=== PATIENT | female | born 1950 | race Caucasian/White ===

== ENCOUNTER 2024-03-07 10:01 | Day surgery (SDC) | payer MEDICARE, SELFPAY ==
[2024-03-02 09:04] VITALS: BMI 52.0
[2024-03-03 08:57] VITALS: BMI 52.0
--- NOTE | 2024-03-03 14:33 | P.CONAN_ITS ---
HPI - Anesthesia Eval Consult details Narrative: 73yo F for Right Cataract Extraction IOL Insertion No previous cataract PMFSH Past Medical History Medical History (Updated 03/03/24 @ 08:56 by Joann Castillo RN) Mild dementia Bladder incontinence Severe obesity Seborrheic keratoses Neoplasm of skin of lower leg Chronic ulcer of buttock Multiple sclerosis Diabetes HTN (hypertension) Surgical History Surgical History History of surgery Social History Social History Are you a primary personal care aid to a significant other at home: No Do you presently have visiting nurse or other home services: Yes ([employer] due to MS, 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) Comment: wheelchair [id number] stand/pivot, cannot ambulate Patient Tobacco Use Status: Former Tobacco user Tobacco use type: Cigarette Use of substances other than those prescribed or required for medical reasons: No Advance Directives Information Provided: No Recently lost weight without trying: No Eating poorly because of decreased appetite: No Nutrition Risks: No Nutritional Risk Meds Allergies Allergy/AdvReac Type Severity Reaction Status Date / Time Penicillins Allergy Intermediate Rash Verified 03/02/24 09:06 Home Medications ?Medication ?Instructions ?Recorded ?Confirmed ?Last Taken ?Type ascorbic acid (vitamin C) 1,000 mg 1,000 mg PO DAILY 03/03/24 03/07/24 03/06/24 History tablet (Vitamin C) chlorthalidone 25 mg tablet 25 mg PO DAILY 03/03/24 03/07/24 03/06/24 History cholecalciferol (vitamin D3) 25 25 mcg PO DAILY 03/03/24 03/07/24 03/06/24 History mcg (1,000 unit) capsule (Vitamin D3) cyanocobalamin (vitamin B-12) 500 500 mcg PO DAILY 03/03/24 03/07/24 03/06/24 History mcg tablet (Vitamin B-12) metformin 1,000 mg tablet 1,000 mg PO BID 03/03/24 03/07/24 03/06/24 History mirabegron 50 mg tablet,extended 50 mg PO DAILY 03/03/24 03/07/24 03/06/24 History release 24 hr (Myrbetriq) nystatin 100,000 unit/gram topical 1 appl topical BID 03/03/24 03/03/24 Unknown History powder sertraline 25 mg tablet 25 mg PO DAILY 03/03/24 03/07/24 03/06/24 History sulfamethoxazole 800 1 tab PO BID 03/03/24 03/03/24 Unknown History mg-trimethoprim 160 mg tablet tacrolimus 0.1 % topical ointment 1 appl topical BID 03/03/24 03/03/24 Unknown History Exam Height,Weight and Vital Signs: Height 5 ft 2.2 in Weight 129.727 kg Assessment and Plan Assessment Anesthesia Assessment: Chart Reviewed
--- OUTSIDE RECORDS SUMMARY | 2024-03-07 10:04 | XMS_ITS | Continuity of Care Document ---
Author Organization [facility] Address [address] [place] [address]- Care Team Providers Care Stevedore Hold Name Role Phone Tracy Chase MD Primary Care Physician ( [phone] [place] [facility] [place] - 11/02/[address] [address]- Encounter Diagnosis Confusion(Final) - 11/01/20 Dementia(Final) - 11/01/20 MS (multiple sclerosis)(Final) - 11/01/20 UTI (urinary tract infection)(Final) - 11/01/20 Discharge Disposition: A-D/C Home Attending Physician: Clive Mayen MD Admitting Physician: Clive Mayen MD Referring Physician: Not on Staff, Referring MD Allergies, Adverse Reactions, Alerts Substance Reaction Severity Status penicillins rash Active Immunizations Given and Recorded Vaccine Date Status Refusal Reason SARS-CoV-2 (COVID-19) mRNA-1273 vaccine 1 09/30/20 Recorded SARS-CoV-2 (COVID-19) mRNA-1273 vaccine 2 09/02/20 Recorded pneumococcal 13-valent vaccine 3 03/21/20 Recorded Influenza Virus Vaccine (oldterm) 4 03/21/20 Recor ded 1[facility] Comment[facility] 4[facility] Comment[facility] Medications Beside Commode Beside Commode, See Instructions, # 1 units, Refills 0, Tot. Refills 0, Maintenance, Use as instructed Dx: Urinary incontinence secondary to multiple sclerosis and limited mobility, 04/20/18 16:37:59EDT, Compound Start Date: 04/20/18 Status: Ordered chlorthalidone 25 mg oral tablet 25 mg, 1, tablet, By Mouth, Daily, # 90 tablet, Refills 1, Tot. Refills 1, Soft Stop, 08/16/20 14:16:00 EST, Route to Pharmacy Electronically, [facility]/pharmacy #[id number], 165, cm, 08/07/20 13:53:00 EST, Height, 98.1, kg, 09/20/19 2:16:00 EDT, Dry Weight Start Date: 08/16/20 Stop Date: 02/12/21 Status: Ordered Disposable bed chux Disposable bed chux, See Instructions, # 90 each, Refills 5, Tot. Refills 5, Maintenance, Use as instructed on bed Dx: Urinary incontinence secondary to Multiple Sclerosis and limited mobility, 04/20/18 16:37:58 EDT, Compound Start Date: 04/20/18 Status: Ordered Fluzone High-Dose Quadrivalent intramuscular suspension 0.7 mL, Intramuscular, Once, # 0.7 mL, 0 Refills, Maintenance, 04/02/20 14:57:00 EDT, Suspension Start Date: 04/02/20 Status: Ordered Keflex monohydrate 500 mg oral capsule 1 capsule = 500 mg, By Mouth, 4 times a day, for 7 days, # 28 capsule, 0 Refills, Acute 11/09/20 2:32:00 EDT, 11/02/20 2:32:00 EDT, Capsule, [facility]/pharmacy #[id number], Partial fill upon patient request if the prescription is for a schedule II opioid drug., 1... Start Date: 11/02/20 Stop Date: 11/09/20 Status: Ordered Mepilex 6 x 6 dressing supply Mepilex 6 x 6 dressing supply, See Instructions, # 12 pack/packet, Refills 2, Tot. Refills 2, Maintenance, Apply to decubitus ulcer in coccyx region every 3 days Dx: Decubitus ulcer ICD 10: L89.90, 10/30/20 12:54:00 EDT, Compound Start Date: 10/30/20 Status: Ordered metFORMIN 1000 mg oral tablet 1 tablet = 1,000 mg, By Mouth, 2 times a day, # 180 tablet, 2 Refills, Maintenance, 09/07/20 12:38:00 EST, Tablet, [facility]/pharmacy #[id number], 165, cm, 08/07/20 13:53:00 EST, Height, 98.1, kg, 09/20/19 2:16:00 EDT, Dry Weight Start Date: 09/07/20 Status: Ordered methenamine hippurate 1 gm oral tablet 1 tablet = 1 Gm, By Mouth, 2 times a day, Prescribed by urology, # 10 tablet, 0 Refills, Maintenance, 04/21/18 12:50:45 EDT, Tablet Start Date: 04/21/18 Stop Date: 05/21/18 Status: Ordered Myrbetriq 50 mg oral tablet, extended release 1 tablet = 50 mg, By Mouth, Daily, do not crush or chew Prescribed by urology, # 30 tablet, 0 Refills, Maintenance, 04/21/18 12:50:17 EDT, ER Tablet Start Date: 04/21/18 Status: Ordered nystatin topical 065095 u/gm powder See Instructions, APPLY TO AFFECTED AREA TWICE A DAY, # 60 Gm, 1 Refills, Acute, [facility] STORE [id number], 60, APPLY TO AFFECTED AREA TWICE A DAY, 165, cm, 08/07/20 13:53:00 EST, Height, 98.1, kg, 09/20/19 2:16:00 EDT, Dry Weight Start Date: 10/17/20 Status: Ordered Ocrevus 300 mg/10 mL intravenous solution IV Infusion, Every 6 weeks, 0 Refills, Maintenance, 01/07/18 15:37:20 EDT Start Date: 01/07/18 Status: Ordered One Touch Ultra Test Strips See Instructions, # 100 each, Refills 3, Tot. Refills 3, Maintenance, DM E11.9 Use to test blood sugars once daily due to being non-insulin dependant, 07/08/20 5:37:00 EST, DM E11.9; Disregard previous script with 3 refills, Compound, 165, cm, 06/11/... Start Date: 07/08/20 Status: Ordered oxyCODONE 5 mg oral tablet 5 mg, 1, tablet, By Mouth, 3 times a day, for 28 days, # 84 tablet, Refills 0, Tot. Refills 0, Acute 11/30/20 12:33:00 EDT, 11/02/20 12:33:00 EDT, Route to Pharmacy Electronically, [facility]/pharmacy #[id number], Partial fill upon patient request, 11/05/20, 165,... Start Date: 11/02/20 Stop Date: 11/30/20 Status: Ordered Prevnar 13 intramuscular suspension 0.5 mL, Intramuscular, Once, # 1 each, 0 Refills, Maintenance, 04/02/20 14:58:00 EDT, Suspension Start Date: 04/02/20 Status: Ordered sertraline 25 mg oral tablet 1 tablet = 25 mg, By Mouth, Daily, # 30 tablet, 0 Refills, Maintenance, 04/02/20 14:57:00 EDT, Tablet Start Date: 04/02/20 Status: Ordered Shower Chair See Instructions, # 1 each, Maintenance, USe as instructed when showering for safety Dx: MS, Poor mobility secomdary to MS, 10/03/19 14:31:00 EDT, Compound Start Date: 10/03/19 Status: Ordered Vitamin B12 500 mcg oral tablet 1 tablet = 500 mcg, By Mouth, Daily, # 30 tablet, 0 Refills, Maintenance, 02/14/16 14:34:49, Tablet Start Date: 02/14/16 Status: Ordered Vitamin D3 1000 intl units oral capsule 1 capsule = 1,000 International_Units, By Mouth, Daily, # 100 capsule, 1 Refills, Maintenance, 06/12/20 15:51:00 EST, Capsule, [id number], decrease dose, re sent from 06/30/17, 165, cm, 06/11/20 15:47:00 EST, Height, 98.1, kg, 09/20/19 2:16:00 E... Start Date: 06/12/20 Status: Ordered zinc oxide 20% topical paste 1 application, Topically, 2 times a day, # 170 Gm, 1 Refills, Maintenance, 10/05/20 12:20:00 EDT, Paste, [id number], 1 application Topically 2 times a day,x14 days, 165, cm, 08/07/20 13:53:00EST, Height, 98.1, kg, 09/20/19 2:16:00 EDT, Dry We... Start Date: 10/05/20 Stop Date: 11/02/20 Status: Ordered Problem List Condition Effective Dates Status Health Status Inform ant Gait disturbance(Confirmed) Active Actinic keratosis(Confirmed) 1, 2 Active Chronic ulcer of buttock(Confirmed) Active Hip pain, left(Confirmed) Active Hypertension(Confirmed) Active Obesities, morbid(Confirmed) Active Neoplasm of skin of lower leg(Confirmed) 3 Active Normal pressure hydrocephalus(Confirmed) Active Multiple sclerosis, primary progressive(Confirmed) 4 Active Seborrheic keratoses(Confirmed) 5 Active DM type 2 (diabetes mellitus , type 2)(Confirmed) Active Vitamin D deficiency(Confirmed) Active 1Done by [facility], provider SUNI John 10/29/16 2liq nitrogen to bilat LEs 3biopsy by [facility]. suspicious skin lesion, biopsy pending. 4MS plaques on spinal cord from MRI imaging, 03/29/2014, per notes from Dr. Beal. 5bilat shoulders, seen by [facility] on 10/29/16, report to scanning Vital Signs Most recent to oldest [Reference Range]: 1 2 3 Oxygen Saturation [94-100 %] 100 % (11/02/20 4:11 AM) 98 % (11/02/20 12:45 AM) 98 % (11/01/20 10:55 PM) Pulse Rate [55-90 bpm] 78 bpm (11/02/20 4:11 AM) 84 bpm (11/02/20 12:45 AM) 79 bpm (11/01/20 10:55 PM) Blood Pressure [90-138/55-84 mm Hg] 128/88mm Hg (11/02/20 4:11 AM) 141/81mm Hg *H* (11/02/20 12:45 AM) 129/75mm Hg (11/01/20 10:55 PM) Respiratory Rate [16-30 br/min] 22 br/min (11/02/20 4:11 AM) 16 br/min (11/02/20 12:45 AM) 15 br/min *L* (11/01/20 10:55 PM) Temperature [96.8-100.4 DegF] 98.2 DegF (11/02/20 4:11 AM) 97.9 DegF (11/02/20 12:45 AM) 97.7 DegF (11/01/20 10:55 PM) Mode of Delivery (Oxygen) Room air (11/02/20 4:11 AM) Room air (11/02/20 12:45 AM) Room air (11/01/20 10:55 PM) Blood pressure sites Arm, right (11/02/20 4:11 AM) Arm, left (11/02/20 12:45 AM) Arm, left (11/01/20 10:55 PM) Temperature Route Oral (11/02/20 4:11 AM) Oral (11/02/20 12:45 AM) Oral (11/01/20 10:55 PM) Weight Obtained Via UTO (11/01/20 7:57 PM) Dry Weight Obtained Via UTO (11/01/20 7:57 PM) Social History Social History Type Response Smoking Status Former smoker entered on: 02/14/16 Sex
--- OUTSIDE RECORDS SUMMARY | 2024-03-07 10:04 | XMS_ITS | Continuity of Care Document ---
Author Organization [facility] Address [address] [place] [address]- Care Team Providers Care Rn Plastic Surgery Name Role Phone Salvatore GOMEZ, [facility] Primary Care Physician ( [phone] [place] [facility] [place]14/23 [facility] [address] [place] [id number]- Allergies, Adverse Reactions, Alerts Substance Reaction Severity Status penicillins rash Active Immunizations Given and Recorded Vaccine Date Status Refusal Reason influenza virus vaccine, inactivated 05/12/23 Logan rded influenza virus vaccine, inactivated 04/17/22 Logan rded influenza virus vaccine, inactivated 02/05/21 Logan rded SARS-CoV-2(COVID-19)mRNA-LNP vac(php909) 05/12/23 Recorded [id number] bivalent booster vax 04/17/22 Recorded SARS-CoV-2 (COVID-19) mRNA-1273 vaccine 10/28/21 R ecorded SARS-CoV-2 (COVID-19) mRNA-1273 vaccine 05/16/21 R ecorded SARS-CoV-2 (COVID-19) mRNA-1273 vaccine 1 09/30/20 Recorded SARS-CoV-2 (COVID-19) mRNA-1273 vaccine 2 09/02/20 Recorded zoster vaccine, inactivated 05/09/21 Recorded zoster vaccine, inactivated 02/05/21 Recorded pneumococcal 13-valent vaccine 3 03/21/20 Recorded Influenza Virus Vaccine (oldterm) 4 03/21/20 Recor ded 1Result Comment: [facility] 2[facility] Comment[facility] 3Result Comment: [facility] 4Result Comment: [facility] Medications acetaminophen 500 mg oral tablet 2 tablet = 1,000 mg, By Mouth, 2 times a day, Maintenance, 10/11/21 10:02:00 EDT, ; Start Date: 10/11/21 Status: Ordered Beside Commode Beside Commode, See Instructions, # 1 units, Refills 0, Tot. Refills 0, Maintenance, Use as instructed Dx: Urinary incontinence secondary to multiple sclerosis and limited mobility, 04/20/18 16:37:59EDT, Compound Start Date: 04/20/18 Status: Ordered chlorthalidone 25 mg oral tablet 1, tablet, By Mouth, Daily, # 90 tablet, Refills 1, Tot. Refills 1, Maintenance, 10/15/23 5:05:00 EDT, Route to Pharmacy Electronically, [facility]/pharmacy #[id number], 158, cm, 06/23/23 11:27:00 EST, Height, 118, kg, 06/15/23 16:46:00 EST, Dry Weight Start Date: 10/15/23 Status: Ordered Critic-Aid Skin 20% topical paste See Instructions, APPLY TOPICALLY 2 TIMES A DAY,X10 DAYS, # 170 Gm, 0 Refills, Maintenance, 10/15/23 9:29:00 EDT, [id number], 30, APPLY TOPICALLY 2 TIMES A DAY,X10 DAYS, 158, cm, 06/23/23 11:27:00 EST, Height, 118, kg, 06/15/23 16:46:00 EST, Dry... Start Date: 10/15/23 Status: Ordered Disposable bed chux Disposable bed chux, See Instructions, # 90 each, Refills 5, Tot. Refills 5, Maintenance, Use as instructed on bed Dx: Urinary incontinence secondary to Multiple Sclerosis and limited mobility, 04/20/18 16:37:58 EDT, Compound Start Date: 04/20/18 Status: Ordered Mepilex 6 x 6 dressing supply Mepilex 6 x 6 dressing supply, See Instructions, # 12 pack/packet, Refills 2, Tot. Refills 2, Maintenance, Apply to decubitus ulcer in coccyx region every 3 days Dx: Decubitus ulcer ICD 10: L89.90, 10/30/20 12:54:00 EDT, Compound Start Date: 10/30/20 Status: Ordered metFORMIN 1000 mg oral tablet 1 tablet, By Mouth, 2 times a day, # 180 tablet, 1 Refills, Maintenance, 08/02/23 11:37:00 EST, [id number], 158, cm, 06/23/23 11:27:00 EST, Height, 118, kg, 06/15/23 16:46:00 EST, Dry Weight Start Date: 08/02/23 Status: Ordered Myrbetriq 50 mg oral tablet, extended release 1 tablet = 50 mg, By Mouth, Daily, do not crush or chew Prescribed by urology, 0 Refills, Maintenance, 04/21/18 12:50:17 EDT, ER Tablet Start Date: 04/21/18 Status: Ordered Neosporin 400 u-3.5 mg-5000 u/gm ointment 1 application, Topically, 2 times a day, TOP OF BUTTOKS, Maintenance, 10/11/21 10:02:00 EDT, Ointment, ; Start Date: 10/11/21 Status: Ordered nystatin topical 091616 u/gm powder See Instructions, APPLY TO AFFECTED AREA TWICE A DAY, # 60 Gm, 5 Refills, Maintenance, 10/15/23 5:06:00 EDT, [facility]/pharmacy #[id number], 30, APPLY TO AFFECTED AREA TWICE A DAY, 158, cm, 06/23/23 11:27:00 EST, Height, 118, kg, 06/15/23 16:46:00 EST, Dry Weight Start Date: 10/15/23 Stop Date: 03/16/24 Status: Ordered ONE TOUCH ULTRA BLUE TEST STRP ONE TOUCH ULTRA BLUE TEST STRP, See Instructions, # 100 Unknown, 3 Refills, USE TO TEST BLOOD SUGARS ONCE DAILY DUE TO BEING NON-INSULIN DEPENDANT, 165, cm, 06/10/21 10:02:00 EST, Height, 98.1, kg, 09/20/19 2:16:00 EDT, Dry Weight Start Date: 08/30/21 Status: Ordered ONE TOUCH ULTRA BLUE TEST STRP ONE TOUCH ULTRA BLUE TEST STRP, See Instructions, # 100 Unknown, 11 Refills, Maintenance, USE TO TEST BLOOD SUGARS THREE TIMES DAILY. E11.9, 08/12/23 13:48:00 EST, 158, cm, 06/23/23 11:27:00 EST, Height, 118, kg, 06/15/23 16:46:00 EST, Dry Weight Start Date: 08/12/23 Status: Ordered One Touch Ultra Test Strips See Instructions, # 100 each, Refills 11, Tot. Refills 11, Maintenance, DM E11.9 Use to test Bloos Sugars TID, 06/09/22 11:06:00 EST, DM E11.9; Disregard previous script with 3 refills, Compound, 163, cm, 06/09/22 10:50:00 EST, Height, 85, kg, ... Start Date: 06/09/22 Status: Ordered PEG-3350 with Electrolytes (Eqv-[id number]) oral powder for reconstitution See Instructions, split prep method. drink one half the night before procedure at 5pm. drink secondhalf morning of procedure. must finish no later than 3 hours prior to procedure., # 4,000 mL, 0 Refills, Maintenance, 03/12/23 10:14:00 EDT, [facility] Start Date: 03/12/23 Status: Ordered sertraline 25 mg oral tablet 1 tablet = 25 mg, By Mouth, Daily, 0 Refills, Maintenance, 04/02/20 14:57:00 EDT, Tablet [...] Tablet Start Date: 02/14/16 Status: Ordered Vitamin C 1000 mg oral tablet 1 tablet = 1,000 mg, By Mouth, Daily, Maintenance, 10/11/21 10:01:00 EDT, Tablet, ; Start Date: 10/11/21 Status: Ordered Vitamin D3 1000 intl units oral capsule 1 capsule = 25 mcg, By Mouth, Daily, Maintenance, 10/11/21 9:58:00 EDT, Capsule, ; Start Date: 10/11/21 Status: Ordered Problem List Condition Confirmation Course Effective Dates Status Health St atus Informant Actinic keratosis 1, 2 Confirmed Active Chronic ulcer of buttock Confirmed Active Hip pain, left Confirmed Active Hypertension Confirmed Active Neoplasm of skin of lower leg 3 Confirmed Active Multiple sclerosis, primary progressive 4 Confirmed Active Seborrheic keratoses 5 Confirmed Active Severe obesity Confirmed Active DM type 2 (diabetes mellitus, type 2) Confirmed Active Vitamin D deficiency Confirmed Active 1Done by [facility], provider SUNI John 10/29/16 2liq nitrogen to bilat LEs 3biopsy by [facility]. suspicious skin lesion, biopsy pending. 4MS plaques on spinal cord from MRI imaging, 03/29/2014, per notes from Dr. Beal. 5bilat shoulders, seen by [facility] on 10/29/16, report to scanning Social History Social History Type Response Smoking Status Former smoker entered on: 02/14/16 Sex Patient Care team information Care Team Personnel Name: Irene Jo RN Position: [facility] RN Member Role: Primary Care Nurse Name: Jasmine Alan LPN Position: [facility] RN Member Role: Primary Care Nurse Name: Kezia Reyes RN Position: [facility] MR W/ [place] Member Role: Primary Care Nurse Name: Meagan Christensen RN Position: [facility] RN Member Role: Primary Care Nurse Name: Tracy Chase MD Position: [facility] Physician - Primary Care Member Role: PCP Address: Address: [address] [place] [address] Name: Carlos Martinez RN Position: [facility] RN Member Role: Primary Care Nurse Name: Elmer Santiago RN Position: [facility] RN Member Role: Primary Care Nurse Name: Beena Gordillo RN Position: [facility] RN Member Role: Primary Care Nurse Name: Ping Perez RN Position: [facility] RN Member Role: Primary Care Nurse Name: Eloina Pedro LPN Position: [facility] RN Member Role: Primary Care Nurse Name: Yoana Luna RN Position: [facility] RN Member Role: Primary Care Nurse Name: Rosita Gillespie RN Position: [facility] RN Member Role: Primary Care Nurse Name: Sindy Elizabeth RN Position: [facility] RN Member Role: Primary Care Nurse Name: Gaby Wong LPN Position: [facility] RN Member Role: Primary Care Nurse Name: Mayra Hamlin RN Position: [facility] [employer] Operator Member Role: Primary Care Nurse Care Team Related Persons Name: ROXY TIM Address: home [address] [place] [address] Name: VINEET NAYLOR Address: [address] [place] [address] Name: PRISCILLA LUNDY Address: home [address] [place] [address]
--- OUTSIDE RECORDS SUMMARY | 2024-03-07 10:04 | XMS_ITS | Continuity of Care Document ---
Author Organization [facility] Address [address] [place] [address]- Care Team Providers Care Coach Driver Name Role Phone Salvatore GOMEZ, [facility] Primary Care Physician [place] [facility] [place] 08/10/20 - 09/09/20 [facility] [address] [place] [address]- Allergies, Adverse Reactions, Alerts Substance Reaction Severity Status penicillins rash Active Immunizations Given and Recorded Vaccine Date Status Refusal Reason SARS-CoV-2 (COVID-19) mRNA-1273 vaccine 1 09/02/20 Recorded pneumococcal 13-valent vaccine 2 03/21/20 Recorded Influenza Virus Vaccine (oldterm) 3 03/21/20 Recor ded 1[facility] Medications Beside Commode Beside Commode, [...] 08/16/20 14:16:00 EST, Route to Pharmacy Electronically, [facility]/pharmacy #[id number], 165, cm, 08/07/20 13:53:00 [...] EDT, Suspension Start Date: 04/02/20 Status: Ordered Mepilex 6 x 6 dressing supply Mepilex 6 x 6 dressing supply, See Instructions, # 1 pack/packet, Refills 2, Tot. Refills 2, Maintenance, Apply to decubitus ulcer in coccyx region every 3 days Dx: Decubitus ulcer ICD 10: L89.90, 03/22/20 13:27:00 EDT, Compound, Dry Weight Start Date: 03/22/20 Status: Ordered metFORMIN 1000 mg oral tablet 1 tablet = 1,000 mg, By Mouth, 2 times a day, # 180 tablet, 2 Refills, Maintenance, 09/07/20 12:38:00 EST, Tablet, [facility]/pharmacy #[id number], 165, cm, 08/07/20 13:53:00 [...] Start Date: 04/21/18 Status: Ordered nystatin topical 673347 u/gm powder 1 application, Topically, 2 times a day, # 60 Gm, 1 Refills, Maintenance, 06/21/20 9:46:00 EST, Powder, [facility]/pharmacy #[id number], 1 application Topically 2 times a day, 165, cm, 06/11/20 15:47:00 EST, Height, 98.1, kg, 09/20/19 2:16:00 EDT, Dry Weight Start Date: 06/21/20 Status: Ordered Ocrevus 300 mg/10 mL intravenous [...] script with 3 refills, Compound, 165, cm, ... Start Date: 07/08/20 Status: Ordered oxyCODONE 5 mg oral tablet 5 mg, 1, tablet, By Mouth, 3 times a day, for 28 days, # 84 tablet, Refills 0, Tot. Refills 0, Acute 10/03/20 12:46:00 EDT, 09/05/20 12:46:00 EST, Route to Pharmacy Electronically, [facility]/pharmacy #[id number], Partial fill upon patient request, 09/10/20, 165,... Start Date: 09/05/20 Stop Date: 10/03/20 Status: Ordered Prevnar 13 intramuscular suspension 0.5 [...] day, # 170 Gm, 1 Refills, Maintenance, 07/11/20 10:34:00 EST, [facility], [id number], 1 application Topically 2 times a day,x14 days, 165, cm, 06/11/20 15:47:00EST, Height, 98.1, kg, 09/20/19 2:16:00 EDT, Dry We... Start Date: 07/11/20 Stop Date: 08/08/20 Status: Ordered Problem List Condition Effective Dates [...] from Dr. Beal. 5bilat shoulders, seen by [facility] on 10/29/16, report to scanning Social History Social History Type Response Smoking Status Former smoker entered on: 02/14/16 Sex
--- OUTSIDE RECORDS SUMMARY | 2024-03-07 10:04 | XMS_ITS | Continuity of Care Document ---
Author Organization [facility] Address [address] [place] [address]- Care Team Providers Care Ranch Manager Name Role Phone Soledad NUNN, Ros Primary Care Physician [phone] Encounter [facility] [place] Date(s): 07/13/19 - 07/23/19 [facility] [address] [place] [address]- [facility] Attending Physician: Admjefe, Vic8 Admitting Physician: AdmtrVic8 Referring Physician: Admtr, Ar8 Allergies, Adverse Reactions, Alerts Substance Reaction Severity Status penicillins rash Active Medications Beside Commode Beside Commode, See Instructions, # 1 units, Refills 0, Tot. Refills 0, Maintenance, Use as instructed Dx: Urinary incontinence secondary to multiple sclerosis and limited mobility, 04/20/18 16:37:59EDT, Compound Start Date: 04/20/18 Status: Ordered chlorthalidone 25 mg oral tablet 25 mg, 1, tablet, By Mouth, Daily, # 90 tablet, Refills 0, Tot. Refills 0, Soft Stop, 05/24/19 10:47:22 EST, Route to Pharmacy Electronically, [id number], [facility]/pharmacy #[id number] Start Date: 05/24/19 Stop Date: 08/22/19 Status: Ordered Copaxone 40 mg/mL subcutaneous solution Subcutaneous Infusion, per Neurology 3x a week, 0 Refills, Maintenance, 02/14/16 17:55:18 Start Date: 02/14/16 Status: Ordered Disposable bed chux Disposable bed [...] days Dx: Decubitus ulcer ICD 10: L89.90, 07/13/19 14:22:00 EST, Compound Start Date: 07/13/19 Status: Ordered metFORMIN 1000 mg oral tablet 1 tablet = 1,000 mg, By Mouth, 2 times a day, # 180 tablet, 0 Refills, Maintenance, 06/23/19 9:44:00 EST, Tablet, [facility]/pharmacy #[id number], 162, cm, 06/23/19 9:07:00 EST, Height Start Date: 06/23/19 Status: Ordered methenamine hippurate 1 gm oral [...] Start Date: 04/21/18 Status: Ordered nystatin topical 933816 u/gm powder 1 application, Topically, 2 times a day, # 60 Gm, 1 Refills, Maintenance, 06/16/19 15:51:00 EST, Powder, [facility]/pharmacy #[id number], 1 application Topically 2 times a day, 162, cm, 05/12/19 13:35:00 EST, Height Start Date: 06/16/19 Status: Ordered Ocrevus 300 mg/10 mL intravenous solution IV Infusion, Every 6 weeks, 0 Refills, Maintenance, 01/07/18 15:37:20 EDT Start Date: 01/07/18 Status: Ordered One Touch Ultra Test Strips See Instructions, # 100 each, Refills 3, Tot. Refills 3, Maintenance, DM E11.9 Use to test blood sugars once daily due to being non-insulin dependant, 09/01/18 16:23:18 EST, DM E11.9, Compound Start Date: 09/01/18 Status: Ordered oxyCODONE 5 mg oral tablet 5 mg, 1, tablet, By Mouth, 3 times a day, for 28 days, # 84 tablet, Refills 0, Tot. Refills 0, Acute 08/12/19 16:51:00 EST, 07/15/19 16:51:00 EST, Route to Pharmacy Electronically, [facility]/pharmacy #[id number], Partial fill upon patient request, 07/18/19, 162,... Start Date: 07/15/19 Stop Date: 08/12/19 Status: Ordered potassium chloride 10 mEq oral tablet, extended release See Instructions, 1 tablet By Mouth 2 times a day for 1 day then daily. do not crush or chew with afull glass of water with food, # 14 tablet, 0 Refills, Maintenance, 12/19/16 7:38:45 Start Date: 12/19/16 Status: Ordered Vitamin B12 500 mcg oral tablet 1 tablet = 500 mcg, By Mouth, Daily, # 30 tablet, 0 Refills, Maintenance, 02/14/16 14:34:49, Tablet Start Date: 02/14/16 Status: Ordered Vitamin D3 1000 intl units oral capsule 1 capsule = 1,000 International_Units, By Mouth, Daily, # 100 capsule, 1 Refills, Maintenance, 05/30/19 17:12:37 EST, Capsule, decrease dose, re sent from 06/30/17 Start Date: 05/30/19 Status: Ordered zinc oxide 20% topical paste 1 application, Topically, 2 times a day, for 14 days, # 170 Gm, 1 Refills, Acute 08/18/19 9:39:00 EST, 07/21/19 9:39:00 EST, Paste Start Date: 07/21/19 Stop Date: 08/18/19 Status: Ordered Problem List Condition Effective Dates Status Health Status Inform ant Gait disturbance(Confirmed) Active Actinic keratosis(Confirmed) 1, 2 Active Chronic ulcer of buttock(Confirmed) Active Compression fracture of L2(C onfirmed) 3 Active Diabetes(Confirmed) 12/22/16 Active Hip pain, left(Confirmed) Active Hypertension(Confirmed) Active Obesities, morbid(Confirmed) Active 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 suspicious skin lesion, biopsy pending. 5MS plaques on spinal cord from MRI imaging, 03/29/2014, per notes from Dr. Beal. 6bilat shoulders, seen by [place] on 10/29/16, report to scanning Social History Social History Type Response Smoking Status Former smoker entered on: 02/14/16 Sex
--- OUTSIDE RECORDS SUMMARY | 2024-03-07 10:04 | XMS_ITS | Continuity of Care Document ---
Author Organization [facility] Adult Address [address] [place] [address]- Care Team Providers Care Director Of Occupational Health Name Role Phone Salvatore GOMEZ, [facility] Primary Care Physician ( [phone] Encounter [facility] [place] Date(s): 08/21/22 - 09/20/22 [facility] [address] [place] [address]- Attending Physician: Tara Duarte Admitting Physician: AdmTara mayberry Referring Physician: Admtr ArAlayna Allergies, Adverse Reactions, Alerts Substance Reaction Severity Status penicillins rash Active Immunizations Given and Recorded Vaccine Date Status Refusal Reason influenza virus vaccine, inactivated 04/17/22 Logan rded influenza virus vaccine, inactivated 02/05/21 Logan rded [id number] bivalent booster vax 04/17/22 Recorded SARS-CoV-2 (COVID-19) [...] Mouth, Daily, # 90 tablet, Refills 1, Maintenance, 07/24/22 11:38:00 EST, Route to Pharmacy Electronically, [id number], 163, cm, 06/09/22 10:50:00 EST, Height, 85, kg, 10/11/21 8:29:00 EDT, Dry Weight Start Date: 07/24/22 Status: Ordered Critic-Aid Skin 20% topical paste See Instructions, APPLY TOPICALLY 2 TIMES A DAY,X10 DAYS, # 170 Gm, 0 Refills, Maintenance, 07/08/22 13:01:00 EST, [id number], 30, APPLY TOPICALLY 2 TIMES A DAY,X10 DAYS, 163, cm, 06/09/22 10:50:00 EST, Height, 85, kg, 10/11/21 8:29:00 EDT, Dry W... Start Date: 07/08/22 Status: Ordered [facility] VITAMIN D3 25 MCG SOFTGEL CVS VITAMIN D3 25 MCG SOFTGEL, 1, capsule, By Mouth, Daily, # 90 capsule, 1 Refills, 163, cm, 10/12/21 4:22:00 EDT, Height, 85, kg, 10/11/21 8:29:00 EDT, Dry Weight Start Date: 02/18/22 Status: Ordered Diflucan 150 mg oral tablet 1 tablet = 150 mg, By Mouth, Once, 1 tablet today, can repeat another tablet if symptoms persist after 72 hours., # 2 tablet, 0 Refills, Soft Stop, 05/30/22 16:31:00 EST, Tablet, [facility]/pharmacy #[id number], Partial fill upon patient request if the prescriptio... Start Date: 05/30/22 Status: Ordered Disposable bed chux Disposable bed [...] day, # 180 tablet, 0 Refills, Maintenance, 08/07/22 11:21:00 EST, [id number], 163, cm, 06/09/22 10:50:00 EST, Height, 85, kg, 10/11/21 8:29:00 EDT, Dry Weight Start Date: 08/07/22 Status: Ordered methenamine hippurate 1 gm oral tablet 1 tablet = 1 Gm, By Mouth, 2 times a day, Prescribed by urology, 0 Refills, Maintenance, 04/21/18 12:50:45 EDT, Tablet [...] Start Date: 10/11/21 Status: Ordered nystatin topical 428770 u/gm powder See Instructions, APPLY TO AFFECTED AREA TWICE A DAY, # 60 Gm, 1 Refills, Maintenance, 07/08/22 13:01:00 EST, [id number], 30, APPLY TO AFFECTED AREA TWICE A DAY, 163, cm, 06/09/22 10:50:00 EST, Height, 85, kg, 10/11/21 8:29:00 EDT, Dry Weight Start Date: 07/08/22 Status: Ordered Ocrevus 300 mg/10 mL intravenous solution IV Infusion, Every 6 weeks, 0 Refills, Maintenance, 01/07/18 15:37:20 EDT Start Date: 01/07/18 Status: Ordered ONE TOUCH ULTRA BLUE TEST STRP ONE TOUCH ULTRA BLUE TEST STRP, See Instructions, # 100 Unknown, 3 Refills, USE TO TEST BLOOD SUGARS ONCE DAILY DUE TO BEING NON-INSULIN DEPENDANT, 165, cm, 06/10/21 10:02:00 EST, Height, 98.1, kg, 09/20/19 2:16:00 EDT, Dry Weight Start Date: 08/30/21 Status: Ordered One Touch Ultra Test Strips See Instructions, # 100 each, Refills 11, Tot. Refills 11, Maintenance, DM E11.9 Use to test Bloos Sugars TID, 06/09/22 11:06:00 EST, DM E11.9; Disregard previous script with 3 refills, Compound, 163, cm, 06/09/22 10:50:00 EST, Height, 85, kg, 10/11/... Start Date: 06/09/22 Status: Ordered sertraline 25 mg oral tablet [...] Tablet, ; Start Date: 10/11/21 Status: Ordered VITAMIN D3 1,000 UNIT SOFTGEL VITAMIN D3 1,000 UNIT SOFTGEL, 1, capsule, By Mouth, Daily, # 90 capsule, 1 Refills, Maintenance, 08/13/22 12:18:00 EST, 163, cm, 06/09/22 10:50:00 EST, Height, 85, kg, 10/11/21 8:29:00 EDT, Dry Weight Start Date: 08/13/22 Status: Ordered Vitamin D3 1000 intl units [...] Confirmed Active Seborrheic keratoses 5 Confirmed Active DM type 2 (diabetes mellitus, type 2) Confirmed Active Vitamin D deficiency Confirmed Active 1Done by [facility], provider SUNI John 10/29/16 2liq nitrogen to bilat LEs 3biopsy by [facility]. suspicious skin lesion, biopsy pending. 4MS plaques on spinal cord from MRI imaging, 03/29/2014, per notes from Dr. Beal. 5bilat shoulders, seen by [place] Jennifer on 10/29/16, report to scanning Procedures Procedure Date Related Diagnosis Body Site Status Lumbar puncture 1 05/10/20 Complet ed 1with video gait assessment pre and post for NPH evaluation Social History Social History Type Response Smoking Status Former smoker entered on: 02/14/16 Sex Note * Event Display: CT Scan Abdomen, Non- BH Authored Date: * Event Display: IR Special Procedures Authored Date: * Event Display: MRI Head, Non- BH Authored Date: * Event Display: Ultrasound Renal, Non BH Authored Date: * Event Display: IR Special Procedures, Non-BH Authored Date: * Event Display: MRI Head, Non- BH Authored Date: * Event Display: MRI Spine, Non- BH Authored Date: * Event Display: Non BH Lab Results Authored Date: * Event Display: Non BH Lab Results Authored Date: * Event Display: MRI Head, Non- BH Authored Date: * Event Display: MRI Head, Non- BH Authored Date: * Event Display: MRI Spine, Non- BH Authored Date: * Event Display: MRI Spine, Non- BH Authored Date: * Event Display: Non BH Lab Results Authored Date: * Event Display: IR Special Procedures Authored Date: * Event Display: IR Special Procedures, Non-BH Authored Date: Patient Care team information Care Team Personnel Name: Kezia Reyes RN Position: [facility] MR W/ Merge Member Role: Primary Care Nurse Name: Meagan Christensen RN Position: [facility] RN Member Role: Primary Care Nurse Name: Tracy Chase MD Position: [facility] Primary Care Physician Member Role: PCP Address: Address: [address] [place] [address]- Name: Yoana Luna RN Position: [facility] RN Member Role: Primary Care Nurse Name: Sindy Elizabeth RN Position: [facility] RN Member Role: Primary Care Nurse Name: Mayra Hamlin RN Position: [facility] Hospital Case Packer Member Role: Primary Care Nurse Care Team Related Persons Name: ROXY TIM Address: home [address] [place], [place] Name: VINEET NAYLOR Address: home [address] [place], [place]
--- OUTSIDE RECORDS SUMMARY | 2024-03-07 10:04 | XMS_ITS | Continuity of Care Document ---
Author Organization [facility] Address [address] [place], [place] [address]barby dempsey, [address] [place] [address]- Care Team Providers Care Customs Consultant Name Role Phone Salvatore GOMEZ, [facility] Primary Care Physician ( [phone] [place] [facility] [place]20 [facility] [address] [place] [address] Drive, [address] [place], [place] [address] Attending Physician: Admtr, Tara Admitting Physician: AdmtrTara Referring Physician: Admtr, Ar8 Allergies, Adverse Reactions, Alerts Substance Reaction Severity Status penicillins rash Active Immunizations Given and Recorded Vaccine Date Status Refusal Reason pneumococcal 13-valent vaccine 1 03/21/20 Recorded Influenza Virus Vaccine (oldterm) 2 03/21/20 Recor ded [facility] Medications Beside Commode Beside Commode, See Instructions, # 1 units, Refills 0, Tot. Refills 0, Maintenance, Use as instructed Dx: Urinary incontinence secondary to multiple sclerosis and limited mobility, 04/20/18 16:37:59EDT, Compound Start Date: 04/20/18 Status: Ordered chlorthalidone 25 mg oral tablet 25 mg, 1, tablet, By Mouth, Daily, # 90 tablet, Refills 1, Tot. Refills 1, Soft Stop, 02/18/20 14:16:00 EDT, Route to [facility]ically, [id number], 163, cm, 09/21/19 5:38:00 EDT, Height, 98.1, kg, 09/20/19 2:16:00 EDT, Dry Weight Start Date: 02/18/20 Stop Date: 08/16/20 Status: Ordered Disposable bed chux Disposable bed [...] day, # 180 tablet, 0 Refills, Maintenance, 06/14/20 4:56:00 EST, Tablet, [facility]/pharmacy #[id number], 165, cm, 06/11/20 15:47:00 EST, Height, 98.1, kg, 09/20/19 2:16:00 EDT, Dry Weight Start Date: 06/14/20 Status: Ordered methenamine hippurate 1 gm oral [...] Start Date: 04/21/18 Status: Ordered nystatin topical 726002 u/gm powder 1 application, Topically, 2 times a day, # 60 Gm, 1 Refills, Maintenance, 06/21/20 9:46:00 EST, Powder, [facility]/pharmacy #[id number], 1 application Topically 2 times [...] tablet, Refills 0, Tot. Refills 0, Acute 07/13/20 10:10:00 EST, 06/15/20 10:10:00 EST, Route to Pharmacy Electronically, [facility]/pharmacy #[id number], Partial fill upon patient request, 06/18/20, 165,... Start Date: 06/15/20 Stop Date: 07/13/20 Status: Ordered Prevnar 13 intramuscular suspension 0.5 [...] from Dr. Beal. 6bilat shoulders, seen by [place] [facility] on 10/29/16, report to scanning Social History Social History Type Response Smoking Status Former smoker entered on: 02/14/16 Sex
--- OUTSIDE RECORDS SUMMARY | 2024-03-07 10:04 | XMS_ITS | Continuity of Care Document ---
Author Organization [facility] Adult Address [address] [place] [address]- Care Team Providers Care Photographer Scientific Name Role Phone Salvatore GOMEZ, [facility] Primary Care Physician Encounter [facility] [place] Date(s): 07/10/20 - 08/09/20 [facility] [address] [place] [address]- Allergies, Adverse Reactions, Alerts Substance Reaction Severity Status penicillins rash Active Immunizations Given and Recorded Vaccine Date Status Refusal Reason pneumococcal 13-valent vaccine 1 03/21/20 Recorded Influenza Virus Vaccine (oldterm) 2 03/21/20 Recor ded [facility]: [facility] Medications Beside Commode Beside Commode, See Instructions, [...] 02/18/20 14:16:00 EDT, Route to Pharmacy Electronically, [facility]/pharmacy #[id number], 163, cm, 09/21/19 5:38:00 EDT, Height, 98.1, [...] 0 Refills, Maintenance, 06/14/20 4:56:00 EST, Tablet, [facility]/pharmacy #[id number], 165, cm, 06/11/20 15:47:00 EST, Height, [...] Start Date: 04/21/18 Status: Ordered nystatin topical 700650 u/gm powder 1 application, Topically, 2 times a day, # 60 Gm, 1 Refills, Maintenance, 06/21/20 9:46:00 EST, Powder, [facility]/pharmacy #[id number], 1 application Topically 2 times a [...] tablet, Refills 0, Tot. Refills 0, Acute 08/10/20 9:38:00 EST, 07/13/20 9:38:00 EST, Route to Pharmacy Electronically, [facility]/pharmacy #[id number], Partial fill upon patient request, 07/16/20, 165, cm... Start Date: 07/13/20 Stop Date: 08/10/20 Status: Ordered Prevnar 13 intramuscular suspension 0.5 [...] from Dr. Beal. 5bilat shoulders, seen by [place] [facility] on 10/29/16, report to scanning Social History Social History Type Response Smoking Status Former smoker entered on: 02/14/16 Sex
--- OUTSIDE RECORDS SUMMARY | 2024-03-07 10:04 | XMS_ITS | Continuity of Care Document ---
Author Organization [facility] Adult Address [address] [place] [address]- Care Team Providers Care Color Blender Name Role Phone Salvatore GOMEZ, [facility] Primary Care Physician [place] [facility] [place] - 09[place]19/20 [facility] [address] [place] [address]- Allergies, Adverse Reactions, Alerts Substance Reaction Severity [...] 08/16/20 14:16:00 EST, Route to Pharmacy Electronically, [facility]/pharmacy #[id number], 165, cm, 08/07/20 13:53:00 EST, [...] 2 Refills, Maintenance, 09/07/20 12:38:00 EST, Tablet, [facility]/pharmacy #[id number], 165, cm, 08/07/20 13:53:00 EST, [...] Start Date: 04/21/18 Status: Ordered nystatin topical 681168 u/gm powder 1 application, Topically, 2 times a day, # 60 Gm, 1 Refills, Maintenance, 06/21/20 9:46:00 EST, Powder, [facility]/pharmacy #[id number], 1 application Topically 2 times [...] 09/05/20 12:46:00 EST, Route to Pharmacy Electronically, [facility]/pharmacy #[id number], Partial fill upon patient request, 09/10/20, 165,... [...] from Dr. Beal. 5bilat shoulders, seen by [place] [facility] on 10/29/16, report to scanning Social History Social History Type Response Smoking Status Former smoker entered on: 02/14/16 Sex
--- OUTSIDE RECORDS SUMMARY | 2024-03-07 10:04 | XMS_ITS | Continuity of Care Document ---
Author Organization [facility] ter Address [address] [place] [address]- Care Team Providers Care Sensor Operator Name Role Phone Tracy Chase MD Primary Care Physician Encounter [facility] [place] [place] Date(s): 02/25/23 - 02/25/[address] [address]- Discharge Disposition: A-D/C Home Attending Physician: Luis Sawyer MD Admitting Physician: Luis Sawyer MD Referring Physician: Not on Staff, Referring MD Allergies, Adverse Reactions, Alerts Substance Reaction Severity Status penicillins rash Active Immunizations Given and Recorded Vaccine Date Status Refusal Reason influenza virus vaccine, inactivated 04/17/22 Logan rded influenza virus vaccine, inactivated 02/05/21 Logan rded [id number] bivalent booster vax 04/17/22 Recorded SARS-CoV-2 (COVID-19) [...] 16:37:59EDT, Compound Start Date: 04/20/18 Status: Ordered cefpodoxime 100 mg oral tablet 1 tablet = 100 mg, By Mouth, Every 12 hours, for 7 days, # 14 tablet, 0 Refills, Acute 03/04/23 10:15:00 EDT, 02/25/23 10:15:00 EDT, Tablet, [facility]/pharmacy #[id number], Partial fill upon patient request if the prescription is for a schedule II opioid drug., 1... Start Date: 02/25/23 Stop Date: 03/04/23 Status: Ordered chlorthalidone 25 mg oral tablet 1, tablet, By Mouth, Daily, # 90 tablet, Refills 3, Tot. Refills 3, Maintenance, 11/10/22 12:00:00 EDT, Route to Pharmacy Electronically, [facility]/pharmacy #[id number], 163, cm, 11/10/22 11:38:00 EDT, Height, 85, kg, 10/11/21 8:29:00 EDT, Dry Weight Start Date: 11/10/22 Status: Ordered Critic-Aid Skin 20% topical paste See Instructions, APPLY TOPICALLY 2 TIMES A DAY,X10 DAYS, # 170 Gm, 1 Refills, Maintenance, 02/13/23 13:34:00 EDT, [facility]/pharmacy #[id number], 30, APPLY TOPICALLY 2 TIMES A DAY,X10 DAYS, 163, cm, 02/13/23 13:16:00 EDT, Height, 85, kg, 10/11/21 8:29:00 EDT, Start Date: 02/13/23 Status: Ordered [facility] VITAMIN D3 25 MCG SOFTGEL [facility] VITAMIN D3 25 MCG SOFTGEL, 1, capsule, By Mouth, Daily, # 90 capsule, 1 Refills, 163, cm, 10/12/21 4:22:00 EDT, Height, 85, kg, 10/11/21 8:29:00 EDT, Dry Weight Start Date: 02/18/22 Status: Ordered Disposable bed chux Disposable bed [...] day, # 180 tablet, 1 Refills, Maintenance, 01/30/23 9:01:00 EDT, [id number], 163, cm, 11/10/22 11:38:00 EDT, Height, 85, kg, 10/11/21 8:29:00 EDT, Dry Weight Start Date: 01/30/23 Status: Ordered methenamine hippurate 1 gm oral [...] Start Date: 10/11/21 Status: Ordered nystatin topical 082404 u/gm powder See Instructions, APPLY TO AFFECTED AREA TWICE A DAY, # 60 Gm, 1 Refills, Maintenance, 02/16/23 12:00:00 EDT, [facility]/pharmacy #[id number], 30, APPLY TO AFFECTED AREA TWICE A DAY, 163, cm, 02/13/23 13:16:00 EDT, Height, 85, kg, 10/11/21 8:29:00 EDT, Dry Weight Start Date: 02/16/23 Status: Ordered Ocrevus 300 mg/10 mL intravenous [...] 2liq nitrogen to bilat LEs 3biopsy by [facility]. suspicious skin lesion, biopsy pending. 4MS plaques on spinal cord from MRI imaging, 03/29/2014, per notes from Dr. Beal. 5bilat shoulders, seen by [facility] on 10/29/16, report to scanning Vital Signs Most recent to oldest [Reference Range]: 1 2 Oxygen Saturation [94-100 %] 99 % (02/25/23 9:15 AM) 97 % (02/25/23 5:12 AM) Pulse Rate [55-90 bpm] 89 bpm (02/25/23 9:15 AM) 84 bpm (02/25/23 5:12 AM) Blood Pressure [90-138/55-84 mm Hg] 141/ 80mm Hg *H* (02/25/23 9:15 AM) 139/73mm Hg *H* (02/25/23 5:12 AM) Respiratory Rate [16-30 br/min] 18 br/mi n (02/25/23 9:15 AM) 18 br/min (02/25/23 5:12 AM) Temperature [96.8-100.4 DegF] 97.9 DegF (02/25/23 9:15 AM) 98 DegF (02/25/23 5:12 AM) Mode of Delivery (Oxygen) Room air (02/25/23 9:15 AM) Room air (02/25/23 5:12 AM) Blood pressure sites Arm, left (02/25/23 9:15 AM) Arm, right (02/25/23 5:12 AM) Temperature Route Oral (02/25/23 9:15 AM) Oral (02/25/23 5:12 AM) Social History Social History Type Response Smoking Status Former smoker entered on: 02/14/16 Sex Note * Luis Sawyer MD: PERFORM, SIGN, VERIFY Event Display: Patient Education Handout Authored Date: [id number] * Luis Sawyer MD: PERFORM Event Display: Patient Education Leaflets Authored Date: [id number] Urinary Tract Infections in Women ?? [id number] Urinary Tract Infections in Women Urinary tract infections (UTIs) are most often caused by bacteria. These bacteria enter the urinarytract. The bacteria may come from inside the body. Or they may travel from the skin outside the rectum or vagina into the urethra. Female anatomy makes it easy for bacteria from the bowel to enter a woman???s urinary tract. This is the most common source of UTI. This means women develop UTIs more often than men. Pain in or around the urinary tract is a common UTI symptom. Most UTIs are treated with antibiotics. These kill the bacteria. The length of time you need to take them depends on the type of infection. It may be as short as 3 days. If you have repeated UTIs, you may need a low-dose antibiotic for several months. Take antibiotics exactly as directed. Don???t stop taking them until all of the medicine is gone. If you stop taking the antibiotic too soon, the infection may not go away. You may also develop a resistance to the antibiotic. This can make it muchharder to treat in the future. Gender words are used here to talk about anatomy and health risk. Please use this information in a way that works best for you and your provider as you talk about your care. Home care The lifestyle changes below will help get rid of your UTI. They may also help prevent future UTIs: ??? Drink plenty of fluids. This includes water, juice, or other caffeine-free drinks. Fluids help flush bacteria out of your body. ??? Empty your bladder. Always empty your bladder when you feel the urge to pee. And always pee before going to sleep. Urine that stays in your bladder can lead to infection. Try to pee before and after sex as well. ??? Practice good personal hygiene. Wipe yourself from front to back after using the toilet. This helps keep bacteria from getting into the urethra. ???Use condoms during sex. These help prevent UTIs caused by sexually transmitted bacteria. Also don'tuse spermicides during sex. These can increase the risk for UTIs. Choose other forms of control instead. For women who tend to get UTIs after sex, a low dose of a preventive antibiotic may be used. Be sure to discuss this choice with your healthcare provider. ??? Try holistic supplements, such as cranberry tablets and D-mannose. These may help prevent UTIs. ??? Try topical vaginal estrogen.You can use this to help prevent UTIs if you have gone through menopause. ?? Follow-up care Follow up with your healthcare provider as directed. They may test to make sure the infection has cleared. If needed, more treatment may be started. ?? When to get medical advice Call your healthcare provider right away if any of the following occur: ??? Frequent urination ??? Pain or burning when passing urine ??? Fever of 100.4??F (38??C) or higher, or as directed by your healthcare provider ??? Urine looks dark, cloudy, or reddish in color. This may mean that blood is inthe urine. ??? Urine smells bad ??? Feeling pain even when not urinating ??? Tiredness ??? Pain in the belly (abdomen) area below the bellybutton, or in the back or side, below the ribs ??? Nausea orvomiting ??? Have a strong urge to urinate, but only a small amount of urine is passed ??? Uncomfortable pressure above the pubic bone ??? Feeling confused or very tired (in older adults) ?? Last Reviewed Date: 2022 ?? [employer]. All rights reserved. This information is not intended as a substitute for professional medical care. Always follow your healthcare professional's instructions. ?? Patient Care team information Care Team Personnel Name: Kezia Reyes RN Position: [facility] MR W/ Merge Member Role: Primary Care Nurse Name: Meagan Christensen RN Position: [facility] RN Member Role: Primary Care Nurse Name: Tracy Chase MD Position: [facility] Physician - Primary Care Member Role: PCP Address: Address: [address] [place] [address] 3rd Floor [facility] [place] [address]- Name: Cheryl RAMAN, Yoana Position: [facility] RN Member Role: Primary Care Nurse Name: Sindy Elizabeth RN Position: [facility] RN Member Role: Primary Care Nurse Name: Mayra Hamlin RN Position: [facility] Hospital Terrazzo Journeyman Member Role: Primary Care Nurse [facility] Attending Position: [facility] ED Attendings Patient Name: Silverio GOMEZ, Luis Lindsay Position: [facility] ED Medicine MD Member Role: Admitting Physician Address: Address: [address] [place] [address] [place] [address]- Name: Celi Bloom Position: [facility] ED TA [facility] Member Role: Patient Care Provider Name: Linda Gottlieb RN Position: [facility] ED RN W/OE and Tasks Member Role: Patient Care Provider Care Team Related Persons Name: ROXY TIM Address: home [address] [place], [place] Name: VINEET NAYLOR Address: home [address] [place], [place]
--- OUTSIDE RECORDS SUMMARY | 2024-03-07 10:04 | XMS_ITS | Continuity of Care Document ---
Author Organization [facility] Adult Address [address] [place] [address]- Care Team Providers Care Scenic Designer Name Role Phone Hardik [facility] Phys[id number] Date(s[facility] 08/07/20 - 08/14/20 [facility] Adult [address] [place] [address]- Encounter Diagnosis DM type 2 (diabetes mellitus, type 2)(Discharge Diagnosis) - 08/07/20 Multiple sclerosis, primary progressive(Discharge Diagnosis) - 08/07/20 Normal pressure hydrocephalus(Discharge Diagnosis) - 08/07/20 Obesities, morbid(Discharge Diagnosis) - 08/07/20 Attending Physician: Tracy Chase MD Allergies, Adverse Reactions, Alerts Substance Reaction Severity Status penicillins rash Active Immunizations Given and Recorded Vaccine Date Status Refusal Reason pneumococcal 13-valent vaccine 1 03/21/20 Recorded Influenza Virus Vaccine (oldterm) 2 03/21/20 Recor ded [facility] Medications Beside Commode Beside Commode, See Instructions, # 1 units, Refills 0, Tot. Refills 0, Maintenance, Use as instructed Dx: Urinary incontinence secondary to multiple sclerosis and limited mobility, 04/20/18 16:37:59EDT, Compound Start Date: 04/20/18 Status: Ordered chlorthalidone 25 mg oral tablet 25 mg, 1, tablet, By Mouth, Daily, for 90 days, # 90 tablet, Refills 1, Tot. Refills 1, Hard Stop 08/16/20 14:16:00 EST, 02/18/20 14:16:00 EDT, Route to Pharmacy Electronically, [facility]/pharmacy #[id number], 163, cm, 09/21/19 5:38:00 EDT, Height, 98.1, kg, 2... Start Date: 02/18/20 Stop Date: 08/16/20 Status: Ordered chlorthalidone 25 mg oral tablet 25 mg, 1, tablet, By Mouth, Daily, # 90 tablet, Refills 1, Tot. Refills 1, Soft Stop, 08/16/20 14:16:00 EST, Route to Pharmacy Electronically, [facility]/pharmacy #[id number], 165, cm, 08/07/20 13:53:00 EST, Height, [...] 0 Refills, Maintenance, 06/14/20 4:56:00 EST, Tablet, [facility]/pharmacy #[id number], 165, cm, 06/11/20 15:47:00 EST, [...] Start Date: 04/21/18 Status: Ordered nystatin topical 493942 u/gm powder 1 application, Topically, 2 times a day, # 60 Gm, 1 Refills, Maintenance, 06/21/20 9:46:00 EST, Powder, [facility]/pharmacy #7642, 1 application Topically 2 times a day, [...] tablet, Refills 0, Tot. Refills 0, Acute 09/07/20 10:41:00 EST, 08/10/20 10:41:00 EST, Route to Pharmacy Electronically, [facility]/pharmacy #[id number], Partial fill upon patient request, 08/13/20, 165,... Start Date: 08/10/20 Stop Date: 09/07/20 Status: Ordered Prevnar 13 intramuscular suspension 0.5 [...] Active Vitamin D deficiency(Confirmed) Active 1Done by [facility], provider SUNI John 10/29/16 2liq nitrogen to bilat LEs 3biopsy by [facility]. suspicious skin lesion, biopsy pending. 4MS plaques on spinal cord from MRI imaging, 03/29/2014, per notes from Dr. Beal. 5bilat shoulders, seen by [facility] on 10/29/16, report to scanning Diagnosis Diagnosis Type Effective Dates Health Status Clinical Service Informant DM type 2 (diabetes mellitus, type 2) Discharge Diagnosis 08/07/20 Multiple sclerosis, primary progressive Discharge Diagnosis 08/07/20 Normal pressure hydrocephalus Discharge Diagnosis 08/07/20 Obesities, morbid Discharge Diagnosis 08/07/20 Vital Signs Most recent to oldest [Reference Range]: 1 Height 165 cm (08/07/20 1:53 PM) Social History Social History Type Response Smoking Status Former smoker entered on: 02/14/16 Sex
--- OUTSIDE RECORDS SUMMARY | 2024-03-07 10:04 | XMS_ITS | Continuity of Care Document ---
Author Organization [facility] Adult Address [address] [place] [address]- Care Team Providers Care Transitional Care Nurse Name Role Phone Salvatore GOMEZ, [facility] Primary Care Physician Encounter [facility] Date(s): 05/21/20 - 06/20/20 [facility] Adult [address] [place] [address]- Allergies, Adverse Reactions, Alerts Substance Reaction Severity Status penicillins rash Active Immunizations Given and Recorded Vaccine Date Status Refusal Reason pneumococcal 13-valent vaccine 1 03/21/20 Recorded Influenza Virus Vaccine (oldterm) 2 03/21/20 Recor ded [facility] Medications Beside Commode Beside Commode, See Instructions, [...] 02/18/20 14:16:00 EDT, Route to Pharmacy Electronically, [facility]/pharmacy #[id number], 163, cm, 09/21/19 5:38:00 EDT, Height, 98.1, [...] Date: 04/20/18 Status: Ordered Fluzone High-Dose Quadrivalent 2237-7474 intramuscular suspension 0.7 mL, Intramuscular, Once, # [...] 0 Refills, Maintenance, 06/14/20 4:56:00 EST, Tablet, [facility]/pharmacy #[id number], 165, cm, 06/11/20 15:47:00 EST, Height, [...] Start Date: 04/21/18 Status: Ordered nystatin topical 020396 u/gm powder 1 application, Topically, 2 times a day, # 60 Gm, 1 Refills, Maintenance, 04/09/20 13:00:00 EDT, Powder, [facility]/pharmacy #[id number], 1 application Topically 2 times a day, 163, cm, 04/02/20 14:25:00 EDT, Height, 98.1, kg, 09/20/19 2:16:00 EDT, Dry Weight Start Date: 04/09/20 Status: Ordered Ocrevus 300 mg/10 mL intravenous solution IV Infusion, Every 6 weeks, 0 Refills, Maintenance, 01/07/18 15:37:20 EDT Start Date: 01/07/18 Status: Ordered One Touch Ultra Test Strips See Instructions, # 100 each, Refills 1, Tot. Refills 1, Maintenance, DM E11.9 Use to test blood sugars once daily due to being non-insulin dependant, 11/07/19 12:47:00 EDT, DM E11.9; Disregard previous script with 3 refills, Compound, 163, cm, 09/20... Start Date: 11/07/19 Status: Ordered oxyCODONE 5 mg oral tablet 5 mg, 1, tablet, By Mouth, 3 times a day, for 28 days, # 84 tablet, Refills 0, Tot. Refills 0, Acute 07/13/20 10:10:00 EST, 06/15/20 10:10:00 EST, Route to Pharmacy Electronically, [facility]/pharmacy #[id number], Partial fill upon patient request, 06/18/20, 165,... [...] day, # 170 Gm, 1 Refills, Maintenance, 05/21/20 15:49:00 EST, Paste, [id number], 1 application Topically 2 times a day,x14 days, 163, cm, 04/02/20 14:25:00EDT, Height, 98.1, kg, 09/20/19 2:16:00 EDT, Dry We... Start Date: 05/21/20 Stop Date: 06/18/20 Status: Ordered Problem List Condition Effective Dates [...] from Dr. Beal. 6bilat shoulders, seen by [facility] on 10/29/16, report to scanning Social History Social History Type Response Smoking Status Former smoker entered on: 02/14/16 Sex
--- OUTSIDE RECORDS SUMMARY | 2024-03-07 10:04 | XMS_ITS | Continuity of Care Document ---
Author Organization [facility] Adult Address [address] [place] [address]- Care Team Providers Care Lining Maker Hand Name Role Phone Tracy Chase MD Primary Care Physician [id number] - 04/09/20 [facility] Adult [address] [place] [address]- [facility] Attending Physician: Tracy Chase MD Allergies, Adverse Reactions, Alerts Substance Reaction Severity Status penicillins rash Active Immunizations Given and Recorded Vaccine Date Status Refusal Reason Influenza Virus Vaccine (oldterm) 1 03/21/20 Recor ded pneumococcal 13-valent vaccine 2 03/21/20 Recorded [facility] Medications [...] 14:16:00 EDT, [facility], [id number], 163, cm, 09/21/19 5:38:00 EDT, Height, [...] Date: 04/20/18 Status: Ordered Fluzone High-Dose Quadrivalent 5205-2921 intramuscular suspension 0.7 mL, Intramuscular, Once, # [...] day, # 180 tablet, 0 Refills, Maintenance, 03/19/20 15:08:00 EDT, Tablet, [facility]/pharmacy #[id number], 163, cm, 09/21/19 5:38:00 EDT, Height, 98.1, kg, 09/20/19 2:16:00 EDT, Dry Weight Start Date: 03/19/20 Status: Ordered methenamine hippurate 1 gm oral [...] Start Date: 04/21/18 Status: Ordered nystatin topical 088040 u/gm powder 1 application, Topically, 2 times a day, # 60 Gm, 1 Refills, Maintenance, 04/09/20 13:00:00 EDT, Powder, [facility]/pharmacy #[id number], 1 application Topically 2 times [...] tablet, Refills 0, Tot. Refills 0, Acute 04/20/20 13:30:00 EDT, 03/23/20 13:30:00 EDT, Route to Pharmacy Electronically, [facility]/pharmacy #[id number], Partial fill upon patient request, 03/26/20, 163,... Start Date: 03/23/20 Stop Date: 04/20/20 Status: Ordered Prevnar 13 intramuscular suspension 0.5 [...] Daily, # 100 capsule, 1 Refills, Maintenance, 11/16/19 15:25:00 EDT, Capsule, [facility], decrease dose, re sent from 06/30/17, 163, cm, 09/21/19 5:38:00 EDT, Height, 98.1, kg, 09/20/19 2:16:00 ED... Start Date: 11/16/19 Status: Ordered zinc oxide 20% topical paste 1 application, Topically, 2 times a day, # 170 Gm, 1 Refills, Maintenance, 11/07/19 13:35:00 EDT, Paste, [id number], 1 application Topically 2 times a day,x14 days, 163, cm, 09/21/19 5:38:00 EDT, Height, 98.1, kg, 09/20/19 2:16:00 EDT, Dry Weight Start Date: 11/07/19 Stop Date: 12/05/19 Status: Ordered Problem List Condition Effective Dates [...] on Xray L2 from 12/2012 4biopsy by [facility]. suspicious skin lesion, biopsy pending. 5MS plaques on spinal cord from MRI imaging, 03/29/2014, per notes from Dr. Beal. 6bilat shoulders, seen by [facility] on 10/29/16, report to scanning Vital Signs Most recent to oldest [Reference Range]: 1 Height 163 cm (04/02/20 2:25 PM) Social History Social History Type Response Smoking Status Former smoker entered on: 02/14/16 Sex
--- OUTSIDE RECORDS SUMMARY | 2024-03-07 10:04 | XMS_ITS | Continuity of Care Document ---
Author Organization [facility] Address [address] [place] [address]- Care Team Providers Care Desktop Publishing Operator Name Role Phone Tracy Chase MD Primary Care Physician Encounter [facility] Date(s): 10/30/20 - 11/29/[address] [email or web address] Allergies, Adverse Reactions, Alerts Substance Reaction Severity [...] 08/16/20 14:16:00 EST, [facility], [id number], 165, cm, 08/07/20 13:53:00 EST, Height, 98.1, [...] Date: 04/20/18 Status: Ordered Fluzone High-Dose Quadrivalent 9218-1439 intramuscular suspension 0.7 mL, Intramuscular, Once, # [...] 2 Refills, Maintenance, 09/07/20 12:38:00 EST, Tablet, [facility]/pharmacy #[id number], 165, cm, 08/07/20 13:53:00 EST, [...] Start Date: 04/21/18 Status: Ordered nystatin topical 409982 u/gm powder See Instructions, APPLY TO AFFECTED AREA TWICE A DAY, # 60 Gm, 1 Refills, Acute, [facility], 60, APPLY TO AFFECTED AREA TWICE A [...] 11/02/20 12:33:00 EDT, Route to Pharmacy Electronically, [facility]/pharmacy #[id number], Partial fill upon patient request, 11/05/20, 165,... [...] from Dr. Beal. 5bilat shoulders, seen by [facility] on 10/29/16, report to scanning Social History Social History Type Response Smoking Status Former smoker entered on: 02/14/16 Sex
--- OUTSIDE RECORDS SUMMARY | 2024-03-07 10:04 | XMS_ITS | Continuity of Care Document ---
Author Organization [facility] Adult Address [address] [place] [address]- Care Team Providers Care Mucker Operator Name Role Phone Salvatore GOMEZ, [facility] Primary Care Physician Encounter [facility] [place] Date(s): 08/12/23 - 09/11/23 [facility] Adult [address] [place] [address]- Allergies, Adverse Reactions, Alerts Substance Reaction Severity Status penicillins rash Active Immunizations Given and Recorded Vaccine Date Status Refusal Reason influenza virus vaccine, inactivated 05/12/23 Logan rded influenza virus vaccine, inactivated 04/17/22 Logan rded influenza virus vaccine, inactivated 02/05/21 Logan rded SARS-CoV-2(COVID-19)mRNA-LNP vac([id number]) 05/12/23 Recorded [id number] bivalent booster vax 04/17/22 Recorded SARS-CoV-2 (COVID-19) [...] 11/10/22 12:00:00 EDT, Route to Pharmacy Electronically, [facility]/pharmacy #[id number], 163, cm, 11/10/22 11:38:00 EDT, Height, 85, kg, 10/11/21 8:29:00 EDT, Dry Weight Start Date: 11/10/22 Status: Ordered Critic-Aid Skin 20% topical paste See Instructions, APPLY TOPICALLY 2 TIMES A DAY,X10 DAYS, # 170 Gm, 0 Refills, Maintenance, 04/21/23 16:41:00 EDT, [facility] STORE 28214, 30, APPLY TOPICALLY 2 TIMES A DAY,X10 DAYS, 163, cm, 02/13/23 13:16:00 EDT, Height, 85, kg, 10/11/21 8:29:00 EDT, Dry W... Start Date: 04/21/23 Status: Ordered Disposable bed chux Disposable bed [...] tablet, 1 Refills, Maintenance, 08/02/23 11:37:00 EST[id number], 158, cm, 06/23/23 11:27:00 EST, Height, 118, [...] Start Date: 10/11/21 Status: Ordered nystatin topical 769096 u/gm powder See Instructions, APPLY TO AFFECTED AREA TWICE A DAY, # 60 Gm, 1 Refills, Maintenance, 08/06/23 12:25:00 EST, [facility], 60, APPLY TO AFFECTED AREA TWICE A DAY, 158, cm, 06/23/23 11:27:00 EST, Height, 118, kg, 06/15/23 16:46:00 EST, Dry Weight Start Date: 08/06/23 Status: Ordered ONE TOUCH ULTRA BLUE TEST [...] from Dr. Beal. 5bilat shoulders, seen by [facility] on 10/29/16, report to scanning Social History Social History Type Response Smoking Status Former smoker entered on: 02/14/16 Sex Patient Care team information Care Team Personnel Name: Irene Jo RN Position: [facility] RN Member Role: Primary Care Nurse Name: Jasmine Alan LPN Position: [facility] RN Member Role: Primary Care Nurse Name: Kezia Reyes RN Position: [facility] MR W/ Cody Member Role: Primary Care Nurse Name: Meagan Christensen RN Position: [facility] RN Member Role: Primary Care Nurse Name: Tracy Chase MD Position: [facility] Physician - Primary Care Member Role: PCP Address: Address: [address] [place] [id number] Name: Carlos Martinez RN Position: [facility] RN Member Role: Primary Care Nurse Name: Elmer Santiago RN Position: [facility] RN Member Role: Primary Care Nurse Name: Beena Gordillo RN Position: [facility] RN Member Role: Primary Care Nurse Name: Ping Perez RN Position: [facility] RN Member Role: Primary Care Nurse Name: Eloina Pedro LPN Position: S RN Member Role: Primary Care Nurse Name: Yoana Luna RN Position: [facility] RN Member Role: Primary Care Nurse Name: Sindy Elizabeth RN Position: [facility] RN Member Role: Primary Care Nurse Name: Gaby Wong LPN Position: [facility] RN Member Role: Primary Care Nurse Name: Mayra Hamlin RN Position: [facility] Hospital Desk Editor Member Role: Primary Care Nurse Care Team Related Persons Name: GLENROY ROXY Address: [address] [place] [address] Name: VINEET NAYLOR Address: home [address] [place] [address] Name: PRISCILLA LUNDY Address: home [address] [place] [address]
--- OUTSIDE RECORDS SUMMARY | 2024-03-07 10:05 | XMS_ITS | Continuity of Care Document ---
Author Organization [facility] Adult Address [address] [place] [address]- Care Team Providers Care Help Desk Engineer Name Role Phone Salvatore GOMEZ, [facility] Primary Care Physician En[place] [facility] [place] Date(s): 03/22/20 - 04/21/20 [facility] Adult [address] [place] [address]- [facility] Allergies, Adverse Reactions, Alerts Substance Reaction Severity Status penicillins rash Active Immunizations Given and Recorded Vaccine Date Status Refusal Reason Influenza Virus Vaccine (oldterm) 1 03/21/20 Recor ded pneumococcal 13-valent vaccine 2 03/21/20 [facility]ed [facility] Medications Beside Commode Beside Commode, [...] 02/18/20 14:16:00 EDT, Route to Pharmacy Electronically, [facility]/pharmacy #[id number], 163, cm, 09/21/19 5:38:00 EDT, Height, 98.1, [...] Date: 04/20/18 Status: Ordered Fluzone High-Dose Quadrivalent [id number] intramuscular suspension 0.7 mL, Intramuscular, Once, # [...] 0 Refills, Maintenance, 03/19/20 15:08:00 EDT, Tablet, [facility]/pharmacy #[id number], 163, cm, 09/21/19 5:38:00 EDT, [...] Start Date: 04/21/18 Status: Ordered nystatin topical 893511 u/gm powder 1 application, Topically, 2 times a day, # 60 Gm, 1 Refills, Maintenance, 04/09/20 13:00:00 EDT, Powder, [facility]/pharmacy #2476, 1 application Topically [...] tablet, Refills 0, Tot. Refills 0, Acute 05/08/20 10:42:00 EST, 04/10/20 10:42:00 EDT, Route to Pharmacy Electronically, [facility]/pharmacy #[id number], Partial fill upon patient request, 04/23/20, 163,... Start Date: 04/10/20 Stop Date: 05/08/20 Status: Ordered Prevnar 13 intramuscular suspension 0.5 [...] day, # 170 Gm, 1 Refills, Maintenance, 04/19/20 14:07:00 EDT, [facility]aste, [id number], 1 application Topically 2 times a day,x14 days, 163, cm, 04/02/20 14:25:00EDT, Height, 98.1, kg, 09/20/19 2:16:00 EDT, Dry We... Start Date: 04/19/20 Stop Date: 05/17/20 Status: Ordered Problem List Condition Effective Dates [...] from Dr. Beal. 6bilat shoulders, seen by [facility] on 10/29/16, report to scanning Social History Social History Type Response Smoking Status Former smoker entered on: 02/14/16 Sex
--- OUTSIDE RECORDS SUMMARY | 2024-03-07 10:05 | XMS_ITS | Continuity of Care Document ---
Author Organization [facility] Adult Address [address] [place] [address]- Care Team Providers Care Barrel Liner Name Role Phone Salvatore GOMEZ, [facility] Primary Care Physician Encounter [facility] [place] Date(s): 08/10/20 - 09/09/[address] [facility] Adult [address] [place] [address]- Allergies, Adverse Reactions, Alerts Substance Reaction Severity [...] 08/16/20 14:16:00 EST, Route to Pharmacy Electronically, [facility]/pharmacy #[id number], 165, cm, 08/07/20 [...] 2 Refills, Maintenance, 09/07/20 12:38:00 EST, Tablet, [facility]/pharmacy #[id number], 165, cm, 08/07/20 [...] Start Date: 04/21/18 Status: Ordered nystatin topical 178254 u/gm powder 1 application, Topically, 2 times a day, # 60 Gm, 1 Refills, Maintenance, 06/21/20 9:46:00 EST, Powder, [facility]/pharmacy #2476, 1 application Topically [...] 09/05/20 12:46:00 EST, Route to Pharmacy Electronically, [facility]/pharmacy #[id number], Partial fill upon patient request, 09/10/20, 165,... [...] from Dr. Beal. 5bilat shoulders, seen by [facility] on 10/29/16, report to scanning Social History Social History Type Response Smoking Status Former smoker entered on: 02/14/16 Sex
--- OUTSIDE RECORDS SUMMARY | 2024-03-07 10:05 | XMS_ITS | Continuity of Care Document ---
Author Organization [facility] Adult Address [address] [place] [address]- Care Team Providers Care Fixing Carpenter Name Role Phone Salvatore GOMEZ, [facility] Primary Care Physician ( [phone] [place] [facility] [place] 02[place]21 [facility] Adult [address] [place] [address]- Allergies, Adverse Reactions, Alerts Substance Reaction Severity Status penicillins rash Active Immunizations Given and Recorded Vaccine Date Status Refusal Reason SARS-CoV-2 (COVID-19) mRNA-1273 vaccine 1 09/30/20 Recorded SARS-CoV-2 (COVID-19) mRNA-1273 vaccine 2 09/02/20 Recorded pneumococcal 13-valent vaccine 3 03/21/20 Recorded Influenza Virus Vaccine (oldterm) 4 03/21/20 Recor ded [facility] Medications Beside Commode Beside Commode, See Instructions, # 1 units, Refills 0, Tot. Refills 0, Maintenance, Use as instructed Dx: Urinary incontinence secondary to multiple sclerosis and limited mobility, 04/20/18 16:37:59EDT, Compound Start Date: 04/20/18 Status: Ordered chlorthalidone 25 mg oral tablet 1, tablet, By Mouth, Daily, # 90 tablet, Refills 1, Tot. Refills 0, Maintenance, 02/05/21 16:07:00 EDT, Route to Pharmacy Electronically, [facility] STORE [id number], 165, cm, 12/06/20 11:28:00 EDT, Height, 98.1, kg, 09/20/19 2:16:00 EDT, Dry Weight Start Date: 02/05/21 Status: Ordered Critic-Aid Skin 20% topical paste See Instructions, APPLY TO AFFECTED AREA TWICE A DAY FOR 14 DAYS, # 170 Gm, 1 Refills, Acute, [facility] STORE 75426, 30, APPLY TO AFFECTED AREA TWICE A DAY FOR 14 DAYS, 165, cm, 12/06/20 11:28:00 EDT, Height, 98.1, kg, 09/20/19 2:16:00 EDT, Dry Weight Start Date: 02/12/21 Status: Ordered [facility] VITAMIN D3 25 MCG SOFTGEL [facility] VITAMIN D3 25 MCG SOFTGEL, 1, capsule, By Mouth, Daily, # 100 capsule, 1 Refills, Maintenance, 12/14/20 8:11:00 EDT, 165, cm, 12/06/20 11:28:00 EDT, Height, 98.1, kg, 09/20/19 2:16:00 EDT, Dry Weight Start Date: 12/14/20 Status: Ordered Disposable bed chux Disposable bed [...] 2 Refills, Maintenance, 09/07/20 12:38:00 EST, Tablet, [facility]/pharmacy #5026, 165, cm, 08/07/20 13:53:00 EST, Height, 98.1, [...] Start Date: 04/21/18 Status: Ordered nystatin topical 333995 u/gm powder See Instructions, APPLY TO AFFECTED AREA TWICE A DAY, # 60 Gm, 1 Refills, Acute, [facility] STORE 19685, 60, APPLY TO AFFECTED AREA TWICE A DAY, 165, cm, 12/06/20 11:28:00 EDT, Height, 98.1, kg, 09/20/19 2:16:00 EDT, Dry Weight Start Date: 01/25/21 Status: Ordered Ocrevus 300 mg/10 mL intravenous [...] tablet, Refills 0, Tot. Refills 0, Acute 03/25/21 10:28:00 EDT, 02/25/21 10:28:00 EDT, Route to Pharmacy Electronically, [facility]/pharmacy #[id number], Partial fill upon patient request, 165, cm, ... Start Date: 02/25/21 Stop Date: 03/25/21 Status: Ordered Prevnar 13 intramuscular suspension 0.5 [...] Daily, # 100 capsule, 1 Refills, Maintenance, 12/17/20 9:37:00 EDT, Capsule, [facility], decrease dose, re sent from 06/30/17, 165, cm, 12/06/2110:28:00 EDT, Height, 98.1, kg, 09/20/19 2:16:00 ED... Start Date: 12/17/20 Status: Ordered Problem List Condition Effective Dates [...] from Dr. Beal. 5bilat shoulders, seen by [facility] on 10/29/16, report to scanning Social History Social History Type Response Smoking Status Former smoker entered on: 02/14/16 Sex
--- OUTSIDE RECORDS SUMMARY | 2024-03-07 10:05 | XMS_ITS | Continuity of Care Document ---
Author Organization [facility] Address [address] [place] [address]- Care Team Providers Care Campaign Associate Name Role Phone Salvatore GOMEZ, Tracy Primary Care Physician Encounter [facility] [place] Date(s): 06/27/22 - 08/02/22 [facility] [address] [place] [address] Attending Physician: Ant NUNN, Kayla Tolentino Admitting Physician: Ant NUNN, Kayla Tolentnio Referring Physician: Tracy Chase MD Allergies, Adverse Reactions, Alerts Substance Reaction Severity Status penicillins rash Active Immunizations Given and Recorded Vaccine Date Status Refusal Reason influenza virus vaccine, inactivated 04/17/22 Logan rded influenza virus vaccine, inactivated 02/05/21 Logan rded [id number] bivalent booster vax 04/17/22 Recorded SARS-CoV-2 (COVID-19) [...] 07/24/22 11:38:00 EST, Route to Pharmacy Electronically, [facility] ST[facility] 29916, 163, cm, 06/09/22 10:50:00 EST, Height, 85, kg, 10/11/21 8:29:00 EDT, Dry Weight Start Date: 07/24/22 Status: Ordered Critic-Aid Skin 20% topical paste See Instructions, APPLY TOPICALLY 2 TIMES A DAY,X10 DAYS, # 170 Gm, 0 Refills, Maintenance, 07/08/22 13:01:00 EST, [facility] STORE 91541, 30, APPLY TOPICALLY 2 TIMES A DAY,X10 DAYS, 163, cm, 06/09/22 10:50:00 EST, Height, 85, kg, 10/11/21 8:29:00 EDT, Dry W... Start Date: 07/08/22 Status: Ordered [facility] VITAMIN D3 25 MCG SOFTGEL [facility] [...] Refills, Soft Stop, 05/30/22 16:31:00 EST, Tablet, [facility]/pharmacy #6513, Partial fill upon patient request if the [...] Status: Ordered metFORMIN 1000 mg oral tablet See Instructions, TAKE 1 TABLET BY MOUTH TWICE A DAY, # 180 tablet, 0 Refills, Maintenance, 03/27/22 18:40:00 EDT, [facility], 163, cm, 10/12/21 4:22:00 EDT, Height, 85, kg, 10/11/21 8:29:00 EDT, Dry Weight Start Date: 03/27/22 Status: Ordered metFORMIN 1000 mg oral tablet 1 tablet, By Mouth, 2 times a day, # 180 tablet, 0 Refills, Maintenance, 03/27/22 18:42:00 EDT, [facility], 163, cm, 10/12/21 4:22:00 EDT, Height, 85, kg, 10/11/21 8:29:00 EDT, Dry Weight Start Date: 03/27/22 Status: Ordered methenamine hippurate 1 gm oral [...] Start Date: 10/11/21 Status: Ordered nystatin topical 174114 u/gm powder See Instructions, APPLY TO AFFECTED AREA TWICE A DAY, # 60 Gm, 1 Refills, Maintenance, 07/08/22 13:01:00 EST, [facility] ST[facility] 24678, 30, APPLY TO AFFECTED AREA TWICE A [...] kg, ... Start Date: 06/09/22 Status: Ordered oxyCODONE 5 mg oral tablet 5 mg, 1, tablet, By Mouth, 3 times a day, for 28 days, # 84 tablet, Refills 0, Tot. Refills 0, Acute 08/13/22 11:03:00 EST, 07/16/22 11:03:00 EST, Route to Pharmacy Electronically, [facility]/pharmacy #5520, Partial fill upon patient request, 163, cm, ... Start Date: 07/16/22 Stop Date: 08/13/22 Status: Ordered sertraline 25 mg oral tablet [...] skin of lower leg 3 Confirmed Active Obese class I Confirmed Active Multiple sclerosis, primary progressive 4 [...] from Dr. Beal. 5bilat shoulders, seen by [facility] on 10/29/16, report to scanning Social History Social History Type Response Smoking Status Former smoker entered on: 02/14/16 Sex Patient Care team information Care Team Personnel Name: Kezia Reyes RN Position: [facility] W/ Cody Member Role: Primary Care Nurse Name: Meagan Christensen RN Position: [facility] RN Member Role: Primary Care Nurse Name: Tracy Chase MD Position: [facility] Primary Care Physician Member Role: PCP Address: Address: [address] [place] [address] [address]rd Floor [facility] [place] [address]- [place] Name: Cheryl RAMAN, Yoana Position: [facility] RN Member Role: Primary Care Nurse Name: Lin Doss RN, Sindy Position: [facility] RN Member Role: Primary Care Nurse Name: Mayra Hamlin RN Position: [facility] Dip Stand Loader Member Role: Primary Care Nurse Care Team Related Persons Name: ROXY TIM Address: [address] [place] [address] Name: VINEET NAYLOR Address: home [address] [place] [address]
--- OUTSIDE RECORDS SUMMARY | 2024-03-07 10:05 | XMS_ITS | Continuity of Care Document ---
Author Organization [facility] Adult Address [address] [place] [address]- Care Team Providers Care Earth Burner Name Role Phone Salvatore GOMEZ, [facility] Primary [facility] Physician En[place] [facility] [place] 02/13/23 - 03/15/23 [facility] Adult [address] [place] [address]- Attending Physician: Tara Duarte Admitting Physician: AdmtrTara Referring Physician: Admtr ArAlayna Allergies, Adverse Reactions, Alerts Substance Reaction Severity Status penicillins rash Active Immunizations Given and Recorded Vaccine Date Status Refusal Reason influenza virus vaccine, inactivated 04/17/22 Logan rded influenza virus vaccine, inactivated 02/05/21 Logan rded [id number] bivalent booster vax 04/17/22 Recorded SARS-CoV-2 (COVID-19) [...] 11/10/22 12:00:00 EDT, Route to Pharmacy Electronically, [facility]/pharmacy #[id number], 163, cm, 11/10/22 11:38:00 EDT, Height, 85, kg, 10/11/21 8:29:00 EDT, Dry Weight Start Date: 11/10/22 Status: Ordered Critic-Aid Skin 20% topical paste See Instructions, APPLY TOPICALLY 2 TIMES A DAY,X10 DAYS, # 170 Gm, 1 Refills, Maintenance, 02/13/23 13:34:00 EDT, [facility]/pharmacy #2476, 30, APPLY TOPICALLY 2 TIMES A DAY,X10 DAYS, 163, cm, 02/13/23 13:16:00 EDT, Height, 85, kg, 10/11/21 8:29:00 EDT, . Start Date: 02/13/23 Status: Ordered [facility] VITAMIN D3 25 MCG SOFTGEL [facility] VITAMIN D3 25 MCG SOFTGEL, 1, [...] Refills, Maintenance, 01/30/23 9:01:00 EDT, [facility], 163, cm, 11/10/22 11:38:00 EDT, Height, 85, [...] Start Date: 10/11/21 Status: Ordered nystatin topical 486850 u/gm powder See Instructions, APPLY TO AFFECTED AREA TWICE A DAY, # 60 Gm, 1 Refills, Maintenance, 02/16/23 12:00:00 EDT, [facility]/pharmacy #2476, 30, APPLY TO AFFECTED AREA [...] from Dr. Beal. 5bilat shoulders, seen by [facility] on 10/29/16, report to scanning Procedures Procedure Date Related Diagnosis Body Site Status Lumbar puncture 1 05/10/20 Complet ed 1with video gait assessment pre and post for NPH evaluation Social History Social History Type Response Smoking Status Former smoker entered on: 02/14/16 Sex Laboratory * Event Display: Non [facility] Lab Results Authored Date: * Event Display: Non [facility] Lab Results Authored Date: * Event Display: Non [facility] Lab Results Authored Date: Radiology * Event Display: CT Scan Abdomen, Non- [...] Team Personnel Name: Kezia Reyes RN Position: [facility] MR W/ Merge Member Role: Primary Care Nurse Name: Meagan Christensen RN Position: [facility] RN Member Role: Primary Care Nurse Name: Tracy Chase MD Position: [facility] Physician - Primary Care Member Role: PCP Address: Address: [address] [place] [address]- Name: Yoana Luna RN Position: [facility] RN Member Role: Primary Care Nurse Name: Sindy Elizabeth RN Position: [facility] RN Member Role: Primary Care Nurse Name: Mayra Hamlin RN Position: [facility] Hospital Lacquer Coater Member Role: Primary Care Nurse Care Team Related Persons Name: ROXY TIM Address: home [address] [place], [place] Name: VINEET NAYLOR Address: home [address] [place], [place]
--- OUTSIDE RECORDS SUMMARY | 2024-03-07 10:05 | XMS_ITS | Continuity of Care Document ---
Author Organization [facility] Adult Address [address] [place] [address]- Care Team Providers Care Lan Engineer Name Role Phone Tracy Chase MD Primary Care Physician [place] [facility] [place]22 [facility] Adult [address] [place] [address]- Attending Physician: Tracy Chase MD Allergies, Adverse Reactions, Alerts Substance Reaction Severity Status penicillins rash Active Immunizations Given and Recorded Vaccine Date Status Refusal Reason influenza virus vaccine, inactivated 04/17/22 Logan rded influenza virus vaccine, inactivated 02/05/21 Logan rded [id number] bivalent booster vax 04/17/22 Recorded SARS-CoV-2 (COVID-19) [...] 07/24/22 11:38:00 EST, Route to Pharmacy Electronically, [facility] 48[facility], 163, cm, 06/09/22 10:50:00 EST, Height, 85, kg, 10/11/21 8:29:00 EDT, Dry Weight Start Date: 07/24/22 Status: Ordered Critic-Aid Skin 20% topical paste See Instructions, APPLY TOPICALLY 2 TIMES A DAY,X10 DAYS, # 170 Gm, 0 Refills, Maintenance, 07/08/22 13:01:00 EST, [facility] 27932, 30, APPLY TOPICALLY 2 TIMES A DAY,X10 DAYS, 163, cm, 06/09/22 10:50:00 EST, Height, 85, kg, 10/11/21 8:29:00 EDT, Dry W... Start Date: 07/08/22 Status: Ordered [facility] VITAMIN D3 25 MCG SOFTGEL [facility] VITAMIN D3 25 MCG SOFTGEL, 1, capsule, [...] Refills, Soft Stop, 05/30/22 16:31:00 EST, Tablet, [facility]/pharmacy #6538, Partial fill upon patient request if the [...] 0 Refills, Maintenance, 08/07/22 11:21:00 EST, [facility], 163, cm, 06/09/22 10:50:00 EST, Height, 85, [...] Start Date: 10/11/21 Status: Ordered nystatin topical 761034 u/gm powder See Instructions, APPLY TO AFFECTED AREA TWICE A DAY, # 60 Gm, 1 Refills, Maintenance, 07/08/22 13:01:00 EST, [facility], 30, APPLY TO AFFECTED AREA TWICE A [...] kg, ... Start Date: 06/09/22 Status: Ordered sertraline 25 [...] from Dr. Beal. 5bilat shoulders, seen by [facility] on 10/29/16, report to scanning Social History Social History Type Response Smoking Status Former smoker entered on: 02/14/16 Sex Patient Care team information Care Team Personnel Name: Kezia Reyes RN Position: [facility] MR W/ Merge Member Role: Primary Care Nurse Name: Meagan Christensen RN Position: [facility] RN Member Role: Primary Care Nurse Name: Tracy Chase MD Position: [facility] Primary Care Physician Member Role: PCP Address: Address: [address] [place] [address] [address] [place], [place] [address] Name: Cheryl RAMAN, Yoana Position: [facility] RN Member Role: Primary Care Nurse Name: Lin Doss RN, Sindy Position: [facility] RN Member Role: Primary Care Nurse Name: Mayra Hamlin RN Position: [facility] Hospital Product Merchandiser Member Role: Primary Care Nurse Care Team Related Persons Name: ROXY TIM Address: home [address] [place], [place] Name: VINEET NAYLOR Address: home [address] [place], [place]
--- OUTSIDE RECORDS SUMMARY | 2024-03-07 10:05 | XMS_ITS | Continuity of Care Document ---
Author Organization [facility] Adult Address [address] [place] [address]- Care Team Providers Care Gluing Machine Operator Name Role Phone Tracy Chase MD Primary Care Physician ( [phone] Encounter [facility] Date(s): 02/14/22 - 06/14/22 [facility] Adult [address] [place] [address]- Attending Physician: Tracy Chase MD Allergies, Adverse Reactions, Alerts Substance Reaction Severity Status penicillins rash Active Immunizations Given and Recorded Vaccine Date Status Refusal Reason influenza virus vaccine, inactivated 04/17/22 Logan rded influenza virus vaccine, inactivated 02/05/21 Logan rded [id number] bivalent booster vax 04/17/22 Recorded SARS-CoV-2 (COVID-19) [...] Mouth, Daily, # 90 tablet, Refills 1, Route to Pharmacy Electronically, [facility], 163, cm, 10/12/21 4:22:00 EDT, Height, 85, kg, 10/11/21 8:29:00 EDT, Dry Weight Start Date: 01/29/22 Status: Ordered [facility] VITAMIN D3 25 MCG SOFTGEL [facility] VITAMIN D3 25 MCG SOFTGEL, 1, capsule, [...] 05/30/22 16:31:00 EST, Tablet, [facility]/pharmacy #[id number], Partial fill upon patient request if the [...] Refills, Maintenance, 03/27/22 18:40:00 EDT, [facility], 163, cm, 10/12/21 4:22:00 EDT, Height, 85, kg, 10/11/21 8:29:00 EDT, Dry Weight Start Date: 03/27/22 Status: Ordered metFORMIN 1000 mg oral tablet 1 tablet, By Mouth, 2 times a day, # 180 tablet, 0 Refills, Maintenance, 03/27/22 18:42:00 EDT, [facility], 163, cm, 10/12/21 4:22:00 EDT, Height, 85, [...] Start Date: 10/11/21 Status: Ordered nystatin topical 460364 u/gm powder See Instructions, APPLY TO AFFECTED AREA TWICE A DAY, # 60 Gm, 1 Refills, [facility], 60, APPLY TO AFFECTED AREA TWICE A DAY, 163, cm, 10/12/21 4:22:00 EDT, Height, 85, kg, 10/11/21 8:29:00 EDT,Dry Weight Start Date: 01/30/22 Status: Ordered Ocrevus 300 mg/10 mL intravenous [...] tablet, Refills 0, Tot. Refills 0, Acute 06/17/22 14:18:00 EST, 05/20/22 14:18:00 EST, Route to Pharmacy Electronically, [facility]/pharmacy #2403, Partial fill upon patient request, 05/21/22, 163,... Start Date: 05/20/22 Stop Date: 06/17/22 Status: Ordered sertraline 25 mg oral tablet [...] Capsule, ; Start Date: 10/11/21 Status: Ordered zinc oxide 20% topical paste 1 application, Topically, 2 times a day, for 10 days, # 170 Gm, 0 Refills, Acute 06/19/22 11:19:00 EST, 06/09/22 11:19:00 EST, Paste, [facility]/pharmacy #2476, Partial fill upon patient request if the prescription is for a schedule II opioid drug., 1 applic... Start Date: 06/09/22 Stop Date: 06/19/22 Status: Ordered Problem List Condition Confirmation Course [...] from Dr. Beal. 5bilat shoulders, seen by [facility] on 10/29/16, report to scanning Social History Social History Type Response Smoking Status Former smoker entered on: 02/14/16 Sex Patient Care team information Care Team Personnel Name: Kezia Reyes RN Position: [facility] W/ [place] Member Role: Primary Care Nurse Name: Meagan Christensen RN Position: [facility] RN Member Role: Primary Care Nurse Name: Tracy Chase MD Position: [facility] Primary Care Physician Member Role: PCP [facility] [address] [place] [address]- Name: Yoana Luna RN Position: [facility] RN Member Role: Primary Care Nurse Name: Sindy Elizabeth RN Position: [facility] RN Member Role: Primary Care Nurse Name: Mayra Hamlin RN Position: [facility] Marine Pipefitter Helper Member Role: Primary Care Nurse Care Team Related Persons Name: ROXY TIM Address: home [address] [place], [place] Name: VINEET NAYLOR Address: home [address] [place] [address]
--- OUTSIDE RECORDS SUMMARY | 2024-03-07 10:05 | XMS_ITS | Continuity of Care Document ---
Author Organization [facility] Adult Address [address] [place] [address]- Care Team Providers Care Senior Qa Tester Name Role Phone Salvatore GOMEZ, [facility] Primary Care Physician Encounter [facility] Date(s): 04/19/21 - 05/19/21 [facility] Adult [address] [place] [address]- Allergies, Adverse Reactions, Alerts Substance Reaction Severity Status penicillins rash Active Immunizations Given and Recorded Vaccine Date Status Refusal Reason zoster vaccine, inactivated 05/09/21 Recorded zoster vaccine, inactivated 02/05/21 Recorded influenza virus vaccine, inactivated 02/05/21 Logan rded SARS-CoV-2 (COVID-19) mRNA-1273 vaccine 1 09/30/20 Recorded SARS-CoV-2 (COVID-19) mRNA-1273 vaccine 2 09/02/20 Recorded pneumococcal 13-valent vaccine 3 03/21/20 Recorded Influenza Virus Vaccine (oldterm) 4 03/21/20 Recor ded [facility] Medications Beside Commode Beside Commode, See [...] 02/05/21 16:07:00 EDT, Route to Pharmacy Electronically, [facility], 165, cm, 12/06/20 11:28:00 EDT, Height, 98.1, kg, 09/20/19 2:16:00 EDT, Dry Weight Start Date: 02/05/21 Status: Ordered Critic-Aid Skin 20% topical paste See Instructions, APPLY TO AFFECTED AREA TWICE A DAY FOR 14 DAYS, # 170 Gm, 1 Refills, [facility] 85888, 30, APPLY TO AFFECTED AREA TWICE A DAY FOR 14 DAYS, 165, cm, 12/06/20 11:28:00 EDT, Height, 98.1, kg, 09/20/19 2:16:00 EDT, Dry Weight Start Date: 04/12/21 Status: Ordered [facility] VITAMIN D3 25 MCG SOFTGEL [facility] VITAMIN D3 25 MCG SOFTGEL, 1, capsule, [...] 2 Refills, Maintenance, 09/07/20 12:38:00 EST, Tablet, [facility]/pharmacy #8686, 165, cm, 08/07/20 13:53:00 EST, Height, 98.1, [...] Start Date: 04/21/18 Status: Ordered nystatin topical 487121 u/gm powder See Instructions, APPLY TO AFFECTED AREA TWICE A DAY, # 60 Gm, 1 Refills, Acute, [facility], 60, APPLY TO AFFECTED AREA TWICE A [...] cm, ... Start Date: 07/08/20 Status: Ordered Prevnar 13 intramuscular suspension 0.5 [...] Refills, Maintenance, 12/17/20 9:37:00 EDT, [facility], [facility], decrease dose, re sent from 06/30/17, 165, [...] from Dr. Beal. 5bilat shoulders, seen by [facility] on 10/29/16, report to scanning Social History Social History Type Response Smoking Status Former smoker entered on: 02/14/16 Sex
--- OUTSIDE RECORDS SUMMARY | 2024-03-07 10:05 | XMS_ITS | Continuity of Care Document ---
Author Organization [facility] Adult Address [address] [place] [address]- Care Team Providers Care Coder Operator Name Role Phone Salvatore GOMEZ, [facility] Primary Care Physician [place] [facility] [place] 11/29/21 - 12/29/21 [facility] Adult [address] [place] [address]- Allergies, Adverse Reactions, Alerts Substance Reaction Severity Status penicillins rash Active Immunizations Given and Recorded Vaccine Date Status Refusal Reason SARS-CoV-2 (COVID-19) mRNA-1273 vaccine 05/16/21 R ecorded SARS-CoV-2 (COVID-19) mRNA-1273 vaccine 1 09/30/20 Recorded SARS-CoV-2 (COVID-19) mRNA-1273 vaccine 2 09/02/20 Recorded zoster vaccine, inactivated 05/09/21 Recorded zoster vaccine, inactivated 02/05/21 Recorded influenza virus vaccine, inactivated 02/05/21 Logan rded pneumococcal 13-valent vaccine 3 03/21/20 Recorded Influenza [...] tablet, Refills 1, Route to [facility] Electronically, [facility], 165, cm, 06/10/21 10:02:00 EST, Height, 98.1, kg, 09/20/19 2:16:00 EDT, Dry Weight Start Date: 08/01/21 Status: Ordered Disposable bed chux Disposable bed [...] a day, # 180 tablet, 0 Refills, [facility], 163, cm, 10/12/21 4:22:00 EDT, Height, 85, kg, 10/11/21 8:29:00 EDT, Dry Weight Start Date: 11/21/21 Status: Ordered methenamine hippurate 1 gm oral [...] Start Date: 10/11/21 Status: Ordered nystatin topical 728921 u/gm powder See Instructions, APPLY TO AFFECTED AREA TWICE A DAY, # 60 Gm, 1 Refills, Physician Stop 06/29/22 15:44:00 EST, 07/10/21 15:44:00 EST, [facility]/pharmacy #1036, 60, APPLY TO AFFECTED AREA TWICE A DAY, 165,cm, 06/10/21 10:02:00 EST, Height, 98.1, kg, ... Start Date: 07/10/21 Stop Date: 06/29/22 Status: Ordered Ocrevus 300 mg/10 mL intravenous [...] tablet, Refills 0, Tot. Refills 0, Acute 01/24/22 12:28:00 EDT, 12/27/21 12:28:00 EDT, Route to Pharmacy Electronically, [facility]/pharmacy #7660, Partial fill upon patient request, 12/30/21, 163,... 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 Beal. 5bilat shoulders, seen by [facility] on 10/29/16, report to scanning Social History Social History Type Response Smoking Status Former smoker entered on: 02/14/16 Sex
--- OUTSIDE RECORDS SUMMARY | 2024-03-07 10:05 | XMS_ITS | Continuity of Care Document ---
Author Organization [facility] Adult Address [address] [place] [address]- Care Team Providers Care Automotive Customer Experience Advisor Name Role Phone Salvatore GOMEZ, [facility] Primary Care Physician Encounter [facility] Date(s): 01/02/20 - 02/01/[address] [facility] Adult [address] [place] [address]- [facility] Allergies, Adverse Reactions, Alerts Substance Reaction Severity [...] Refills 1, Tot. Refills 1, Soft Stop, 08/29/19 13:55:00 EST, Route to Pharmacy Electronically, [facility]/pharmacy #2476, 162, cm, 08/12/19 14:34:00 EST, Height Start Date: 08/29/19 Stop Date: 02/25/20 Status: Ordered Copaxone 40 mg/mL subcutaneous solution [...] days Dx: Decubitus ulcer ICD 10: L89.90, 10/12/19 17:45:00 EDT, Compound, 163, cm, 09/21/19... Start Date: 10/12/19 Status: Ordered metFORMIN 1000 mg oral tablet 1 tablet = 1,000 mg, By Mouth, 2 times a day, # 180 tablet, 0 Refills, Maintenance, 12/12/19 10:37:00 EDT, Tablet, [facility]/pharmacy #2476, 163, cm, 09/21/19 5:38:00 EDT, Height, 98.1, kg, 09/20/19 2:16:00 EDT, Dry Weight Start Date: 12/12/19 Status: Ordered methenamine hippurate 1 gm oral [...] Start Date: 04/21/18 Status: Ordered nystatin topical 336884 u/gm powder 1 application, Topically, 2 times a day, # 60 Gm, 1 Refills, Maintenance, 01/03/20 11:28:00 EDT, Powder, [facility]/pharmacy #8476, 1 application Topically 2 times a day, 163, cm, 09/21/19 5:38:00 EDT, Height, 98.1, kg, 09/20/19 2:16:00 EDT, Dry Weight Start Date: 01/03/20 Status: Ordered Ocrevus 300 mg/10 mL intravenous [...] tablet, Refills 0, Tot. Refills 0, Acute 02/17/20 11:07:00 EDT, 01/20/20 11:07:00 EDT, Route to Pharmacy Electronically, [facility]/pharmacy #0838, Partial fill upon patient request, 01/30/20, 163,... Start Date: 01/20/20 Stop Date: 02/17/20 Status: Ordered potassium chloride 10 mEq oral tablet, extended release See Instructions, 1 tablet By Mouth 2 times a day for 1 day then daily. do not crush or chew with afull glass of water with food, # 14 tablet, 0 Refills, Maintenance, 12/19/16 7:38:45 Start Date: 12/19/16 Status: Ordered Shower Chair See Instructions, # [...] 1 Refills, Maintenance, 11/16/19 15:25:00 EDT, Capsule, [facility]/pharmacy #7799, decrease dose, re sent from 06/30/17, 163, cm, 09/21/19 5:38:00 EDT, Height, 98.1, kg, 09/20/19 2:16:00 ED... Start Date: 11/16/19 Status: Ordered zinc oxide 20% topical paste 1 application, Topically, 2 times a day, # 170 Gm, 1 Refills, Maintenance, 11/07/19 13:35:00 EDT, Paste, [facility]/pharmacy #1516, 1 application Topically 2 times a day,x14 [...] from Dr. Beal. 6bilat shoulders, seen by [facility] on 10/29/16, report to scanning Social History Social History Type Response Smoking Status Former smoker entered on: 02/14/16 Sex
--- OUTSIDE RECORDS SUMMARY | 2024-03-07 10:05 | XMS_ITS | Continuity of Care Document ---
Author Organization [facility] Adult Address [address] [place] [address]- Care Team Providers Care Chair And Couch Maker Name Role Phone Salvatore GOMEZ, [facility] Primary Care Physician Encounter [facility] Date(s): 11/02/20 - 12/02/20 [facility] Adult [address] [place] [address]- Allergies, Adverse Reactions, Alerts Substance Reaction Severity [...] 14:16:00 EST, [facility], 165, cm, 08/07/20 13:53:00 EST, Height, 98.1, [...] Date: 04/20/18 Status: Ordered Fluzone High-Dose Quadrivalent 9638-6115 intramuscular suspension 0.7 mL, Intramuscular, Once, # [...] 2 Refills, Maintenance, 09/07/20 12:38:00 EST, Tablet, [facility]/pharmacy #2476, 165, cm, 08/07/20 13:53:00 EST, Height, [...] Start Date: 04/21/18 Status: Ordered nystatin topical 224164 u/gm powder See Instructions, APPLY TO AFFECTED AREA TWICE A DAY, # 60 Gm, 1 Refills, Acute, [facility] ST[facility] 34207, 60, APPLY TO AFFECTED AREA TWICE A [...] tablet, Refills 0, Tot. Refills 0, Acute 12/28/20 10:29:00 EDT, 11/30/20 10:29:00 EDT, Route to Pharmacy Electronically, [facility]/pharmacy #3764, Partial fill upon patient request, 12/03/20, 165,... Start Date: 11/30/20 Stop Date: 12/28/20 Status: Ordered Prevnar 13 intramuscular suspension 0.5 [...] from Dr. Beal. 5bilat shoulders, seen by [facility] on 10/29/16, report to scanning Social History Social History Type Response Smoking Status Former smoker entered on: 02/14/16 Sex
--- OUTSIDE RECORDS SUMMARY | 2024-03-07 10:05 | XMS_ITS | Continuity of Care Document ---
Author Organization [facility] Adult Address [address] [place] [address]- Care Team Providers Care Counter Checker Name Role Phone Salvatore GOMEZ, [facility] Primary Care Physician En[place] [facility] [place] Date(s): 01/29/22 - 02/28/22 [facility] Adult [address] [place] [address]- Allergies, Adverse Reactions, Alerts Substance Reaction Severity [...] 1, Route to [facility]ically, [facility], 163, cm, 10/12/21 4:22:00 EDT, Height, 85, kg, 10/11/21 8:29:00 EDT, Dry Weight Start Date: 01/29/22 Status: Ordered [facility] D3 25 MCG [...] a day, # 180 tablet, 0 Refills, [facility] 7[facility]84, 163, cm, 10/12/21 4:22:00 EDT, Height, 85, kg, 10/11/21 8:29:00 EDT, Dry Weight Start Date: 02/17/22 Status: Ordered methenamine hippurate 1 gm oral [...] Start Date: 10/11/21 Status: Ordered nystatin topical 799993 u/gm powder See Instructions, APPLY TO AFFECTED AREA TWICE A DAY, # 60 Gm, 1 Refills, [facility] 32827, 60, APPLY TO AFFECTED AREA TWICE A [...] tablet, Refills 0, Tot. Refills 0, Acute 03/21/22 14:50:00 EDT, 02/21/22 14:50:00 EDT, Route to Pharmacy Electronically, [facility]/pharmacy #5637, Partial fill upon patient request, 02/24/22, 163,... Start Date: 02/21/22 Stop Date: 03/21/22 Status: Ordered sertraline 25 mg oral tablet [...] from Dr. Beal. 5bilat shoulders, seen by [facility] on 5/3/17, report to scanning Social History Social History Type Response Smoking Status Former smoker entered on: 02/14/16 Sex Care Team Personnel Name: Tracy Chase MD Address: [address] [facility] [address]rd [address] [place], [place] [address]
--- OUTSIDE RECORDS SUMMARY | 2024-03-07 10:05 | XMS_ITS | Continuity of Care Document ---
Author Organization [facility] Adult Address [address] [place] [address]- Care Team Providers Care Hand Edger Name Role Phone Soledad NUNN, Ros Primary Care Physician [phone] Encounter [facility] [place] Date(s): 07/13/19 - 07/20/19 [facility] Adult [address] [place] [address] [place] Encounter Diagnosis UTI (urinary tract infection), bacterial(Discharge Diagnosis) - 07/13/19 Decubitus ulcer of coccyx(Discharge Diagnosis) - 07/13/19 Attending Physician: Ros Rowe NP Allergies, Adverse Reactions, Alerts Substance Reaction Severity [...] 05/24/19 10:47:22 EST, Route to Pharmacy Electronically, [id number], [facility]/pharmacy #[id number] Start Date: 05/24/19 Stop Date: 08/22/19 Status: [...] 0 Refills, Maintenance, 06/23/19 9:44:00 EST, Tablet, [facility]/pharmacy #2476, 162, cm, 06/23/19 9:07:00 EST, [...] Start Date: 04/21/18 Status: Ordered nystatin topical 913795 u/gm powder 1 application, Topically, 2 times a day, # 60 Gm, 1 Refills, Maintenance, 06/16/19 15:51:00 EST, Powder, [facility]/pharmacy #2476, 1 application Topically 2 times [...] 07/15/19 16:51:00 EST, Route to Pharmacy Electronically, [facility]/pharmacy #1655, Partial fill upon patient request, 07/18/19, 162,... [...] days, # 170 Gm, 1 Refills, Acute 07/21/19 9:39:00 EST, 06/23/19 9:39:00 EST, Paste, [facility]/pharmacy #0156, 1 application Topically 2 times a day,x14 days,162, cm, 06/23/19 9:07:00 EST, Height Start Date: 06/23/19 Stop Date: 07/21/19 Status: Ordered zinc oxide 20% topical paste [...] from Dr. Beal. 6bilat shoulders, seen by [facility] on 10/29/16, report to scanning Diagnosis Diagnosis Type Effective Dates Health Status Cl inical Service Informant UTI (urinary tract infection), bacterial Discharge Diagnosis 07/13/19 Decubitus ulcer of coccyx Discharge Diagnosis 07/13/19 Vital Signs Most recent to oldest [Reference Range]: 1 Height 162 cm (07/13/19 2:14 PM) Oxygen Saturation [94-100 %] 97 % (07/13/19 2:14 PM) Pulse Rate [55-90 bpm] 89 bpm (07/13/19 2:14 PM) Blood Pressure [90-138/55-84 mm Hg] 130/ 80mm Hg (07/13/19 2:14 PM) Mode of Delivery (Oxygen) Room air (07/13/19 2:14 PM) Blood pressure sites Arm, left (07/13/19 2:14 PM) Social History Social History Type Response Smoking Status Former smoker entered on: 02/14/16 Sex
--- OUTSIDE RECORDS SUMMARY | 2024-03-07 10:05 | XMS_ITS | Continuity of Care Document ---
Author Organization [facility] Adult Address [address] [place] [address]- Care Team Providers Care Procurement Technician Name Role Phone Salvatore GOMEZ, [facility] Primary Care Physician Encounter [facility] [place] Date(s): 06/12/20 - 07/12/20 [facility] Adult [address] [place] [address]- Allergies, Adverse Reactions, Alerts Substance Reaction Severity Status penicillins rash Active Immunizations Given and Recorded Vaccine Date Status Refusal Reason pneumococcal 13-valent vaccine 1 03/21/20 Recorded Influenza Virus Vaccine (oldterm) 2 03/21/20 Recor ded [facility] Medications Beside Commode Beside Commode, [...] 02/18/20 14:16:00 EDT, Route to Pharmacy Electronically, [facility]/pharmacy #2476, 163, cm, 09/21/19 5:38:00 EDT, Height, [...] 0 Refills, Maintenance, 06/14/20 4:56:00 EST, Tablet, [facility]/pharmacy #2476, 165, cm, 06/11/20 15:47:00 EST, Height, [...] Start Date: 04/21/18 Status: Ordered nystatin topical 764995 u/gm powder 1 application, Topically, 2 times a day, # 60 Gm, 1 Refills, Maintenance, 06/21/20 9:46:00 EST, Powder, [facility]/pharmacy #2476, 1 application Topically 2 times a [...] 06/15/20 10:10:00 EST, Route to Pharmacy Electronically, [facility]/pharmacy #7408, Partial fill upon patient request, 06/18/20, 165,... [...] from Dr. Beal. 6bilat shoulders, seen by [facility] on 10/29/16, report to scanning Social History Social History Type Response Smoking Status Former smoker entered on: 02/14/16 Sex
--- OUTSIDE RECORDS SUMMARY | 2024-03-07 10:05 | XMS_ITS | Continuity of Care Document ---
Author Organization [facility] Adult Address [address] [place] [address]- Care Team Providers Care Loan Review Officer Name Role Phone Salvatore GOMEZ, [facility] Primary Care Physician Encounter [facility] [place] Date(s): 11/30/20 - 12/30/20 [facility] Adult [address] [place] [address]- Allergies, Adverse Reactions, Alerts Substance Reaction Severity [...] 14:16:00 EST, [facility], 165, cm, 08/07/20 13:53:00 EST, Height, 98.1, kg, 09/20/19 2:16:00 EDT, Dry Weight Start Date: 08/16/20 Stop Date: 02/12/21 Status: Ordered Critic-Aid Skin 20% topical paste See Instructions, APPLY TO AFFECTED AREA TWICE A DAY FOR 14 DAYS, # 170 Gm, 1 Refills, Acute, [facility] STORE 98338, 30, APPLY TO AFFECTED AREA TWICE A DAY FOR 14 DAYS, 165, cm, 12/06/20 11:28:00 EDT, Height, 98.1, kg, 09/20/19 2:16:00 EDT, Dry Weight Start Date: 12/10/20 Status: Ordered [facility] VITAMIN D3 25 MCG SOFTGEL [facility] VITAMIN D3 25 MCG SOFTGEL, 1, [...] 2 Refills, Maintenance, 09/07/20 12:38:00 EST, Tablet, [facility]/pharmacy #2476, 165, cm, 08/07/20 [...] Start Date: 04/21/18 Status: Ordered nystatin topical 577276 u/gm powder See Instructions, APPLY TO AFFECTED AREA TWICE A DAY, # 60 Gm, 1 Refills, Acute, [facility], 60, APPLY TO AFFECTED AREA TWICE A [...] cm, 06/11/... Start Date: 07/08/20 Status: Ordered Prevnar 13 [...] Refills, Maintenance, 12/17/20 9:37:00 EDT, [facility]apsule, [facility], decrease dose, re sent from 06/30/17, 165, [...] from Dr. Beal. 5bilat shoulders, seen by [facility] on 10/29/16, report to scanning Social History Social History Type Response Smoking Status Former smoker entered on: 02/14/16 Sex
--- OUTSIDE RECORDS SUMMARY | 2024-03-07 10:05 | XMS_ITS | Continuity of Care Document ---
Author Organization [facility] Address [address] [place] [address]- Care Team Providers Care Occupational Therapist Per Diem Name Role Phone Salvatore GOMEZ, [facility] Primary Care Physician Encounter [facility] [place] Date(s): 04/18/22 - 05/18/22 [facility] [address] [place] [address]- Allergies, Adverse Reactions, Alerts Substance Reaction Severity [...] 1, Route to [facility]ically, [facility], 163, cm, 10/12/21 4:22:00 EDT, Height, 85, [...] Refills, Maintenance, 03/27/22 18:40:00 EDT, [facility], 163, cm, 10/12/21 4:22:00 EDT, Height, 85, kg, 10/11/21 8:29:00 EDT, Dry Weight Start Date: 03/27/22 Status: Ordered metFORMIN 1000 mg oral tablet 1 tablet, By Mouth, 2 times a day, # 180 tablet, 0 Refills, Maintenance, 03/27/22 18:42:00 EDT, [facility], 163, cm, 10/12/21 4:22:00 EDT, Height, 85, [...] Start Date: 10/11/21 Status: Ordered nystatin topical 553147 u/gm powder See Instructions, APPLY TO AFFECTED AREA TWICE A DAY, # 60 Gm, 1 Refills, [facility], 60, APPLY TO AFFECTED AREA TWICE A [...] tablet, Refills 0, Tot. Refills 0, Acute 05/20/22 9:39:00 EST, 04/22/22 9:39:00 EDT, Route to Pharmacy Electronically, [facility]/pharmacy #[id number], Partial fill upon patient request, 04/23/22, 163, cm... Start Date: 04/22/22 Stop Date: 05/20/22 Status: Ordered sertraline 25 mg oral tablet [...] List Condition Confirmation Course Effective Dates Status H ealth Status Informant Actinic keratosis 1, 2 Confirmed Active Chronic ulcer of buttock Confirmed Active Hip pain, left Confirmed Active Hypertension Confirmed Active Obesities, morbid Confirmed Active Neoplasm of skin of lower leg 3 Confirmed Active Normal pressure hydrocephalus Confirmed Active Obese class I Confirmed Active Multiple sclerosis, primary progressive 4 Confirmed Active Seborrheic keratoses 5 Confirmed Active DM type 2 (diabetes mellitus, type 2) Confirmed Active Vitamin D deficiency Confirmed Active 1Done by [facility], provider Nette White, SUNI 10/29/16 2liq nitrogen to bilat LEs 3biopsy by [facility]. suspicious skin lesion, biopsy pending. 4MS plaques on spinal cord from MRI imaging, 03/29/2014, per notes from Dr. Beal. 5bilat shoulders, seen by [place] [place] [facility] on 10/29/16, report to scanning Social History Social History Type Response Smoking Status Former smoker entered on: 02/14/16 Sex Patient Care team information Care Team Personnel Name: Eric RAMAN, Kezia Position: [facility] MR W/ Merge Member Role: Primary Care Nurse Name: Fermin RAMAN, Meagan Position: [facility] RN Member Role: Primary Care Nurse Name: Tracy Chase MD Position: [facility] Primary Care Physician Member Role: PCP Address: Address: [address] [place] [address] [address]rd [address] [place], [place] [address] Name: Cheryl RAMAN, Yoana Position: [facility] RN Member Role: Primary Care Nurse Name: Lin Doss RN, Sindy Position: [facility] RN Member Role: Primary Care Nurse Name: Mayra Hamlin RN Position: [facility] Hospital Argon Tester Member Role: Primary Care Nurse Care Team Related Persons Name: ROXY TIM Address: home [address] [place], [place] Name: VINEET NAYLOR Address: [address] [place] [address]
--- OUTSIDE RECORDS SUMMARY | 2024-03-07 10:05 | XMS_ITS | Continuity of Care Document ---
Author Organization [facility] Address [address] [place] [address]- Care Team Providers Care Director Of Pharmacy Name Role Phone Salvatore GOMEZ, [facility] Primary Care Physician Encounter [facility] [place] Date(s): 07/03/22 - 08/02/22 [facility] [address] [place] [id number] Attending Physician: Tara Duarte Admitting Physician: AdmTara mayberry Referring Physician: AdmtrTara Allergies, Adverse Reactions, Alerts Substance Reaction Severity Status penicillins rash Active Immunizations Given and Recorded Vaccine Date Status Refusal Reason influenza virus vaccine, inactivated 04/17/22 Logan rded influenza virus vaccine, inactivated 02/05/21 Logan rded [id number] bivalent booster vax 04/17/22 Recorded SARS-CoV-2 (COVID-19) [...] 07/24/22 11:38:00 EST, Route to Pharmacy Electronically, [facility], 163, cm, 06/09/22 10:50:00 EST, Height, 85, kg, 10/11/21 8:29:00 EDT, Dry Weight Start Date: 07/24/22 Status: Ordered Critic-Aid Skin 20% topical paste See Instructions, APPLY TOPICALLY 2 TIMES A DAY,X10 DAYS, # 170 Gm, 0 Refills, Maintenance, 07/08/22 13:01:00 EST, [facility], 30, APPLY TOPICALLY 2 TIMES A DAY,X10 DAYS, 163, cm, 06/09/22 10:50:00 EST, Height, 85, kg, 10/11/21 8:29:00 EDT, Dry W... Start Date: 07/08/22 Status: Ordered [facility] VITAMIN D3 25 MCG SOFTGEL [facility] [...] Refills, Soft Stop, 05/30/22 16:31:00 EST, Tablet, [facility]/pharmacy #8589, Partial fill upon patient request if the [...] Refills, Maintenance, 03/27/22 18:40:00 EDT, [facility], 163, cm, 10/12/21 4:22:00 EDT, Height, 85, kg, 10/11/21 8:29:00 EDT, Dry Weight Start Date: 03/27/22 Status: Ordered metFORMIN 1000 mg oral tablet 1 tablet, By Mouth, 2 times a day, # 180 tablet, 0 Refills, Maintenance, 03/27/22 18:42:00 EDT, [facility], 163, cm, 10/12/21 4:22:00 EDT, Height, 85, [...] Start Date: 10/11/21 Status: Ordered nystatin topical 465576 u/gm powder See Instructions, APPLY TO AFFECTED AREA TWICE A DAY, # 60 Gm, 1 Refills, Maintenance, 07/08/22 13:01:00 EST, [facility] 36616, 30, APPLY TO AFFECTED AREA TWICE A [...] 07/16/22 11:03:00 EST, Route to Pharmacy Electronically, [facility]/pharmacy #[id number], Partial fill upon patient request, 163, cm, [...] from Dr. Beal. 5bilat shoulders, seen by [facility] on 10/29/16, report to scanning Social History Social History Type Response Smoking Status Former smoker entered on: 02/14/16 Sex Patient Care team information Care Team Personnel Name: Kezia Reyes RN Position: [facility] MR W/ Merge Member Role: Primary Care Nurse Name: Fermin RAMAN, Meagan Position: [facility] RN Member Role: Primary Care Nurse Name: Tracy Chase MD Position: [facility] Primary Care Physician Member Role: PCP Address: Address: [address] [place] [address] 3rd Floor [facility] [place] [address]- [place] Name: Cheryl RAMAN, Yoana Position: [facility] RN Member Role: Primary Care Nurse Name: Lin Doss RN, Sindy Position: [facility] RN Member Role: Primary Care Nurse Name: Mayra Hamlin RN Position: [facility] Mat Tester Member Role: Primary Care Nurse Care Team Related Persons Name: ROXY TIM Address: [place] [address] [place] [address] Name: VINEET NAYLOR Address: [address] [place] [address]
--- OUTSIDE RECORDS SUMMARY | 2024-03-07 10:05 | XMS_ITS | Continuity of Care Document ---
Author Organization [facility] ter Address [address] [place] [address]- Care Team Providers Care Search Optimization Analyst Name Role Phone Soledad NUNN, Ros Primary Care Physician Encounter [facility] Date(s): 09/20/19 - 09/21/[address] [address] [place] Encounter Diagnosis Altered mental status(Final) - 09/20/19 Discharge Disposition: A-D/C Home Attending Physician: Ry Millan MD Admitting Physician: Josse Mcdonald DO Referring Physician: Not on Staff, Referring MD [...] 08/29/19 13:55:00 EST, Route to Pharmacy Electronically, [facility]/pharmacy #[id number], 162, cm, 08/12/19 14:34:00 EST, Height Start [...] EDT, Compound Start Date: 04/20/18 Status: Ordered Keflex monohydrate 250 mg oral capsule 1 capsule = 250 mg, By Mouth, 4 times a day, for 3 days, # 12 capsule, 0 Refills, Acute 09/24/19 11:23:00 EDT, 09/21/19 11:23:00 EDT, Capsule, [facility]/pharmacy #0769, 163, cm, 09/21/19 5:38:00 EDT, Height, 98.1, kg, 09/20/19 2:16:00 EDT, Dry Weight Start Date: 09/21/19 Stop Date: 09/24/19 Status: Ordered Mepilex 6 x 6 dressing [...] day, # 180 tablet, 0 Refills, Maintenance, 09/14/19 12:42:00 EDT, Tablet, [facility]/pharmacy #[id number], 162, cm, 08/12/19 14:34:00 EST, Height Start Date: 09/14/19 Status: Ordered methenamine hippurate 1 gm oral [...] Start Date: 04/21/18 Status: Ordered nystatin topical [id number] u/gm powder 1 application, Topically, 2 times a day, # 60 Gm, 1 Refills, Maintenance, 06/16/19 15:51:00 EST, Powder, [facility]/pharmacy #[id number], 1 application Topically 2 times [...] tablet, Refills 0, Tot. Refills 0, Acute 10/07/19 17:07:00 EDT, 09/09/19 17:07:00 EDT, Route to Pharmacy Electronically, [facility]/pharmacy #[id number], Partial fill upon patient request, 09/12/19, 162,... Start Date: 09/09/19 Stop Date: 10/07/19 Status: Ordered potassium chloride 10 mEq oral [...] from 06/30/17 Start Date: 05/30/19 Status: Ordered Problem List Condition Effective Dates [...] from Dr. Beal. 6bilat shoulders, seen by [place] [facility] on 10/29/16, report to scanning Results Orders for Microbiology Reports Name Date Urine Culture (URINE CULTURE) 09/19/19 Microbiology Reports TEST:Urine Culture STATUS:Auth (Verified) BODY SITE: SOURCE:URINE COLLECTED DATE/TIME:09/19/19 9:40 PM Urine Culture SPECIMEN DESCRIPTION : URINE SPECIAL REQUESTS : NONE CULTURE : Mixed bacterial rené, indicative of urogenital contamination. REPORT STATUS : FINAL 09/21/2019 Radiology Reports * Exam Date Time Procedure Performing Provider Status 09/19/19 8:56 PM Chest 2 Views Frontal and Lat Akbar Wheat; Auth (Verified) Notes: (Chest 2 Views Frontal and Lat) Reason For Exam: Shortness of Breath, Fever;Other: RESULT: Chest 2 Views Frontal and Lat Chest 2 Views Frontal and Lat Reason: Other:; Shortness of Breath, Fever; Clinical Question(s): Pneumonia; Hx of Present Illness:Pt's family called EMS for pt experiencing intermittent AMS. Pt states they are wrong but does endorse recently diagnosed with uti and treated with abx. Pt states there is still a foul odor coming from her urine. History of MS and urinary incontinence. COMPARISON: 04/14/2017 FINDINGS: LINES AND TUBES: None. LUNGS AND PLEURA: Clear lungs. Normal pulmonary vascularity. No pleural effusion. No pneumothorax. HEART, MEDIASTINUM AND EILEEN: Heart is normal in size. Normal mediastinal and hilar contour. BONES AND SOFT TISSUES: No acute abnormality. IMPRESSION: No acute abnormality. WSN: [id number] Ordering Physician: Josse Fishman Dictated By: Diana Pemberton MD Dictated Date/Time: 09/19/19 9:01 pm Reviewed By: Diana Pemberton MD Signed By: Diana Pemberton MD Signed Date/Time: 09/19/19 9:01 pm Transcribed By: KARLA Transcribed Date/Time: 09/19/19 9:00 pm Vital Signs Most recent to oldest [Reference Range]: 1 2 3 Height 163 cm (09/21/19 5:38 AM) 163 cm (09/20/19 8:05 PM) 163 cm (09/20/19 2:48 PM) Weight 98.1 kg (09/20/19 2:16 AM) Oxygen Saturation [94-100 %] 98 % (09/21/19:38 AM) 96 % (09/20/19 8:05 PM) 96 % (09/20/19 2:48 PM) Pulse Rate [55-90 bpm] 80 bpm (09/21/19:38 AM) 91 bpm *H* (09/20/19 8:05 PM) 84 bpm (09/20/19 2:48 PM) Body Mass Index [18.5-24.99] 36.92 *>HHI* (09/20/19 2:16 AM) Blood Pressure [90-138/55-84 mm Hg] 141/69mm Hg *H* (09/21/19 5:38 AM) 131/66mm Hg (09/20/19 8:05 PM) 106/63mm Hg (09/20/19 2:48 PM) Respiratory Rate [16-30 br/min] 18 br/min (09/21/19:38 AM) 18 br/min (09/20/19 8:05 PM) 18 br/min (09/20/19 2:48 PM) Temperature [96.8-100.4 DegF] 97.5 DegF (09/21/19:38 AM) 98.6 DegF (09/20/19 8:05 PM) 98.1 DegF (09/20/19 2:48 PM) Mode of Delivery (Oxygen) Room air (09/21/19 5:38 AM) Room air (09/20/19 8:05 PM) Room air (09/20/19 2:48 PM) Blood pressure sites Arm, right (09/21/19 5:38 AM) Arm, right (09/20/19 8:05 PM) Arm, left (09/20/19 6:34 AM) Temperature Route Oral (09/21/19 5:38 AM) Oral (09/20/19 8:05 PM) Oral (09/20/19 2:48 PM) Dry Weight 98.1 kg (09/20/19 2:16 AM) Weight Obtained Via Bed scale (09/20/19 2:16 AM) Dry Weight Obtained Via Bed scale (09/20/19 2:16 AM) Sensory deficits None (09/20/19 2:16 AM) Mobility assistance Partial assistance (09/20/19 2:16 AM) Social History Social History Type Response Smoking Status Former smoker entered on: 02/14/16 Sex
--- OUTSIDE RECORDS SUMMARY | 2024-03-07 10:05 | XMS_ITS | Continuity of Care Document ---
Author Organization [facility] Adult Address [address] [place] [address]- Care Team Providers Care Devops Solutions Architect Name Role Phone Tracy Chase MD Primary Care Physician Encounter [facility] [place] Date(s): 11/10/22 - 01/11/23 [facility] [address] [place] [address]- Attending Physician: Tracy Chase MD Allergies, Adverse Reactions, Alerts Substance Reaction Severity Status penicillins rash Active Immunizations Given and Recorded Vaccine Date Status Refusal Reason influenza virus vaccine, inactivated 04/17/22 Logan rded influenza virus vaccine, inactivated 02/05/21 Logan rded [id number] bivalent booster vax 04/17/22 Recorded SARS-CoV-2 (COVID-19) [...] 11/10/22 12:00:00 EDT, Route to Pharmacy Electronically, [facility]/pharmacy #[id number], 163, cm, 11/10/22 11:38:00 EDT, Height, 85, kg, 10/11/21 8:29:00 EDT, Dry Weight Start Date: 11/10/22 Status: Ordered Critic-Aid Skin 20% topical paste See Instructions, APPLY TOPICALLY 2 TIMES A DAY,X10 DAYS, # 170 Gm, 0 Refills, Maintenance, 10/15/22 14:26:00 EDT, [facility] 227[facility], 30, APPLY TOPICALLY 2 TIMES A DAY,X10 DAYS, 163, cm, 09/26/22 12:32:00 EDT, Height, 85, kg, 10/11/21 8:29:00 EDT, Dry W... Start Date: 10/15/22 Status: Ordered [facility] VITAMIN D3 25 MCG SOFTGEL [facility] VITAMIN D3 25 MCG SOFTGEL, 1, [...] day, # 180 tablet, 0 Refills, Maintenance, 11/03/22 12:50:00 EDT, [facility], 163, cm, 09/26/22 12:32:00 EDT, Height, 85, kg, 10/11/21 8:29:00 EDT, Dry Weight Start Date: 11/03/22 Status: Ordered methenamine hippurate 1 gm oral [...] Start Date: 10/11/21 Status: Ordered nystatin topical [id number] u/gm powder See Instructions, APPLY TO AFFECTED AREA TWICE A DAY, # 60 Gm, 1 Refills, Maintenance, 07/08/22 13:01:00 EST, [facility], 30, APPLY TO AFFECTED AREA TWICE A [...] from Dr. Beal. 5bilat shoulders, seen by [facility] on 10/29/16, report to scanning Social History Social History Type Response Smoking Status Former smoker entered on: 02/14/16 Sex Patient Care team information Care Team Personnel Name: Kezia Reyes RN Position: [facility] MR W/ Merge Member Role: Primary Care Nurse Name: Meagan Christensen RN Position: [facility] RN Member Role: Primary Care Nurse Name: Tracy Chase MD Position: [facility] Physician - Primary Care Member Role: PCP Address: Address: [address] [place] [id number] Name: Yoana Luna RN Position: [facility] RN Member Role: Primary Care Nurse Name: Sindy Elizabeth RN Position: [facility] RN Member Role: Primary Care Nurse Name: Mayra Hamlin RN Position: [facility] Hospital Band Cutter Member Role: Primary Care Nurse Care Team Related Persons Name: ROXY TIM Address: home [address] [place], [place] Name: VINEET NAYLOR Address: home [address] [place], [place]
--- OUTSIDE RECORDS SUMMARY | 2024-03-07 10:05 | XMS_ITS | Continuity of Care Document ---
Author Organization [facility] Adult Address [address] [place] [address]- Care Team Providers Care Family Readiness Support Assistant Name Role Phone Salvatore GOMEZ, [facility] Primary Care Physician [place] [facility] [place] Date(s): 10/04/20 - 11/03/20 [facility] [address] [place] [address]- Allergies, Adverse Reactions, Alerts Substance Reaction Severity [...] 14:16:00 EST, [id number], 165, cm, 08/07/20 13:53:00 EST, Height, 98.1, [...] 11/09/20 2:32:00 EDT, 11/02/20 2:32:00 EDT, Capsule, [facility]/pharmacy #[id number], Partial fill upon patient request [...] 2 Refills, Maintenance, 09/07/20 12:38:00 EST, Tablet, [facility]/pharmacy #[id number], 165, cm, 08/07/20 [...] Start Date: 04/21/18 Status: Ordered nystatin topical [id number] u/gm powder See Instructions, APPLY TO AFFECTED AREA TWICE A DAY, # 60 Gm, 1 Refills, Acute, [facility] 97907, 60, APPLY TO AFFECTED AREA TWICE A [...] 11/02/20 12:33:00 EDT, Route to Pharmacy Electronically, [facility]/pharmacy #[id number], Partial fill upon patient request, 11/05/20, 165,... [...] deficiency(Confirmed) Active 1Done by [facility], provider Nette White, SUNI 10/29/16 2liq nitrogen to bilat LEs 3biopsy by [facility]. suspicious skin lesion, biopsy pending. 4MS plaques on spinal cord from MRI imaging, 03/29/2014, per notes from Dr. Beal. 5bilat shoulders, seen by [place] [facility] on 10/29/16, report to scanning Social History Social History Type Response Smoking Status Former smoker entered on: 02/14/16 Sex
--- OUTSIDE RECORDS SUMMARY | 2024-03-07 10:05 | XMS_ITS | Continuity of Care Document ---
Author Organization [facility] Adult Address [address] [place] [address]- Care Team Providers Care Commercial Credit Head Name Role Phone Tracy Chase MD Primary Care Physician En[place] [facility] [place] Date(s): 06/10/21 - 06/17/21 [facility] Adult [address] [place] [address]- Encounter Diagnosis DM type 2 (diabetes mellitus, type 2)(Discharge Diagnosis) - 06/10/21 Multiple sclerosis, primary progressive(Discharge Diagnosis) - 06/10/21 Hypertension(Discharge Diagnosis) - 06/10/21 Normal pressure hydrocephalus(Discharge Diagnosis) - 06/10/21 Severe obesity(Discharge Diagnosis) - 06/10/21 [facility]ending Phys[facility]: [facility] Allergies, Adverse Reactions, Alerts Substance Reaction Severity [...] 02/05/21 16:07:00 EDT, Route to Pharmacy Electronically, [facility], 165, cm, 12/06/20 11:28:00 EDT, Height, 98.1, kg, 09/20/19 2:16:00 EDT, Dry Weight Start Date: 02/05/21 Status: Ordered Critic-Aid Skin 20% topical paste See Instructions, APPLY TO AFFECTED AREA TWICE A DAY FOR 14 DAYS, # 170 Gm, 1 Refills, [facility], 30, APPLY TO AFFECTED AREA TWICE A DAY FOR 14 DAYS, 165, cm, 06/10/21 10:02:00 EST, Height, 98.1, kg, 09/20/19 2:16:00 EDT, Dry Weight Start Date: 06/10/21 Status: Ordered [facility] VITAMIN D3 25 MCG SOFTGEL [facility] VITAMIN D3 25 MCG SOFTGEL, 1, capsule, [...] day, # 180 tablet, 0 Refills, Maintenance, 06/03/21 12:59:00 EST, Tablet, [facility]/pharmacy #[id number], 165, cm, 12/06/20 11:28:00 EDT, Height, 98.1, kg, 09/20/19 2:16:00 EDT, Dry Weight Start Date: 06/03/21 Status: Ordered methenamine hippurate 1 gm oral [...] Start Date: 04/21/18 Status: Ordered nystatin topical [id number] u/gm powder See Instructions, APPLY TO AFFECTED AREA TWICE A DAY, # 60 Gm, 1 Refills, Physician Stop 07/11/21 11:24:00 EST, 06/10/21 11:24:00 EST, [facility]/pharmacy #7406, 60, APPLY TO AFFECTED AREA TWICE A DAY, 165,cm, 06/10/21 10:02:00 EST, Height, 98.1, kg, ... Start Date: 06/10/21 Stop Date: 07/11/21 Status: Ordered Ocrevus 300 mg/10 mL intravenous [...] Refills, Maintenance, 12/17/20 9:37:00 EDT, [facility], [facility], decrease dose, re sent from 06/30/17, 165, [...] progressive(Confirmed) 4 Active Seborrheic keratoses(Confirmed) 5 Active Severe obesity(Confirmed) Active DM type 2 (diabetes mellitus , type 2)(Confirmed) Active Vitamin D deficiency(Confirmed) Active 1Done by [facility], provider SUNI John 10/29/16 2liq nitrogen to bilat LEs 3biopsy by [facility]. suspicious skin lesion, biopsy pending. 4MS plaques on spinal cord from MRI imaging, 03/29/2014, per notes from Dr. Beal. 5bilat shoulders, seen by [facility] on 10/29/16, report to scanning Diagnosis Diagnosis Type Effective Dates Health Status Clinical Service Informant DM type 2 (diabetes mellitus, type 2) Discharge Diagnosis 06/10/21 Multiple sclerosis, primary progressive Discharge Diagnosis 06/10/21 Hypertension Discharge Diagnosis 06/10/21 Normal pressure hydrocephalus Discharge Diagnosis 06/10/21 Severe obesity Discharge Diagnosis 06/10/21 Vital Signs Most recent to oldest [Reference Range]: 1 Height 165 cm (06/10/21 10:02 AM) Weight 127.27 kg (06/10/21 10:02 AM) Body Mass Index [18.5-24.99] 46.75 *>HHI* (06/10/21 10:02 AM) Weight Obtained Via Patient/family state d (06/10/21 10:02 AM) Social History Social History Type Response Smoking Status Former smoker entered on: 02/14/16 Sex
--- OUTSIDE RECORDS SUMMARY | 2024-03-07 10:05 | XMS_ITS | Continuity of Care Document ---
Author Organization [facility] Adult Address [address] [place] [address]- Care Team Providers Care Tariff Compiling Clerk Name Role Phone [facility]ik [facility] Primary Care Physician ( [phone] Encounter [facility] Date(s): 09/26/22 - 10/03/22 [facility] Adult [address] [place] [address]- Encounter Diagnosis DM type 2 (diabetes mellitus, type 2)(Discharge Diagnosis) - 09/26/22 Chronic ulcer of buttock(Discharge Diagnosis) - 09/26/22 Hypertension(Discharge Diagnosis) - 09/26/22 Diarrhea(Discharge Diagnosis) - 09/26/22 Multiple sclerosis, primary progressive(Discharge Diagnosis) - 09/26/22 Vitamin D deficiency(Discharge Diagnosis) - 09/26/22 Attending Physician: Salvatore GOMEZ, [facility] Allergies, Adverse Reactions, Alerts Substance Reaction Severity Status penicillins rash Active Immunizations Given and Recorded Vaccine Date Status Refusal Reason influenza virus vaccine, inactivated 04/17/22 Logan rded influenza virus vaccine, inactivated 02/05/21 Logan rded [id number] bivalent booster vax 04/17/22 Recorded SARS-CoV-2 (COVID-19) [...] 07/24/22 11:38:00 EST, Route to Pharmacy Electronically, [facility] [id number], 163, cm, 06/09/22 10:50:00 EST, Height, 85, kg, 10/11/21 8:29:00 EDT, Dry Weight Start Date: 07/24/22 Status: Ordered Critic-Aid Skin 20% topical paste See Instructions, APPLY TOPICALLY 2 TIMES A DAY,X10 DAYS, # 170 Gm, 0 Refills, Maintenance, 07/08/22 13:01:00 EST, [facility] [id number], 30, APPLY TOPICALLY 2 TIMES A DAY,X10 DAYS, 163, cm, 06/09/22 10:50:00 EST, Height, 85, kg, 10/11/21 8:29:00 EDT, Dry W... Start Date: 07/08/22 Status: Ordered [facility] VIT[facility] D3 25 MCG SOFTGEL [facility] VITAMIN D3 25 MCG SOFTGEL, 1, capsule, [...] Refills, Soft Stop, 05/30/22 16:31:00 EST, [facility]t, [id number], Partial fill upon patient request if the [...] 0 Refills, Maintenance, 08/07/22 11:21:00 EST, [facility], 163, cm, 06/09/22 10:50:00 EST, Height, 85, [...] Start Date: 10/11/21 Status: Ordered nystatin topical 825867 u/gm powder See Instructions, APPLY TO AFFECTED AREA TWICE A DAY, # 60 Gm, 1 Refills, Maintenance, 07/08/22 13:01:00 EST, [facility], 30, APPLY TO AFFECTED AREA TWICE A [...] Active 1Done by [facility], provider SUNI Jonh 10/29/16 2liq nitrogen to bilat LEs 3biopsy by [facility]. suspicious skin lesion, biopsy pending. 4MS plaques on spinal cord from MRI imaging, 03/29/2014, per notes from Dr. Beal. 5bilat shoulders, seen by [facility] on 10/29/16, report to scanning Diagnosis Diagnosis Type Effective Dates Health Status Clinical Service Informant DM type 2 (diabetes mellitus, type 2) Discharge Diagnosis 09/26/22 Chronic ulcer of buttock Discharge Diagnosis 09/26/22 Hypertension Discharge Diagnosis 09/26/22 Diarrhea Discharge Diagnosis 09/26/22 Multiple sclerosis, primary progressive Discharge Diagnosis 09/26/22 Vitamin D deficiency Discharge Diagnosis 09/26/22 Vital Signs Most recent to oldest [Reference Range]: 1 Height 163 cm (09/26/22 12:32 PM) Social History Social History Type Response Smoking Status Former smoker entered on: 02/14/16 Sex Patient Care team information Care Team Personnel Name: Kezia Reyes RN Position: [facility]/ Merge Member Role: Primary Care Nurse Name: Fermin RAMAN, Meagan Position: [facility] RN Member Role: Primary Care Nurse Name: Salvatore GOMEZ, Tracy Position: [facility] Primary Care Physician Member Role: PCP Address: Address: [address] [place] [address] [address] [place] [address]- Name: Cheryl RAMAN, Yoana Position: [facility] RN Member Role: Primary Care Nurse Name: Lin Doss RN, Sindy Position: [facility] RN Member Role: Primary Care Nurse Name: Mayra Hamlin RN Position: [facility] Nurse Executive Member Role: Primary Care Nurse Care Team Related Persons Name: ROXY TIM Address: home [address] [place], [place] Name: VINEET NAYLOR Address: home [address] [place], [place]
--- OUTSIDE RECORDS SUMMARY | 2024-03-07 10:06 | XMS_ITS | Continuity of Care Document ---
Author Organization [facility] Adult Address [address] [place] [address]- Care Team Providers Care Processing Technician Name Role Phone Salvatore GOMEZ, [facility] Primary Care Physician Encounter [facility] Date(s): 02/13/23 - 02/20/23 [facility] Adult [address] [place] [address]- Encounter Diagnosis Gluteal cleft wound(Discharge Diagnosis) - 02/13/23 DM type 2 (diabetes mellitus, type 2)(Discharge Diagnosis) - 02/13/23 Attending Physician: Bonnie Mina Allergies, Adverse Reactions, Alerts Substance Reaction Severity Status penicillins rash Active Immunizations Given and Recorded Vaccine Date Status Refusal Reason influenza virus vaccine, inactivated 04/17/22 Logan rded influenza virus vaccine, inactivated 02/05/21 Logan rded [id number] bivalent booster vax 04/17/22 Recorded SARS-CoV-2 (COVID-19) [...] 11/10/22 12:00:00 EDT, Route to Pharmacy Electronically, [facility]/pharmacy #[id number], 163, cm, 11/10/22 11:38:00 EDT, Height, 85, kg, 10/11/21 8:29:00 EDT, Dry Weight Start Date: 11/10/22 Status: Ordered Critic-Aid Skin 20% topical paste See Instructions, APPLY TOPICALLY 2 TIMES A DAY,X10 DAYS, # 170 Gm, 1 Refills, Maintenance, 02/13/23 13:34:00 EDT, [facility]/pharmacy #[id number], 30, APPLY TOPICALLY 2 TIMES A DAY,X10 DAYS, 163, cm, 02/13/23 13:16:00 EDT, Height, 85, kg, 10/11/21 8:29:00 EDT, . Start Date: 02/13/23 Status: Ordered [facility] VITAMIN D3 25 MCG SOFTGEL [facility] VITAMIN D3 25 MCG SOFTGEL, [...] Refills, Maintenance, 01/30/23 9:01:00 EDT, [facility], 163, cm, 11/10/22 11:38:00 EDT, Height, 85, [...] Start Date: 10/11/21 Status: Ordered nystatin topical 977735 u/gm powder See Instructions, APPLY TO AFFECTED AREA TWICE A DAY, # 60 Gm, 1 Refills, Maintenance, 02/16/23 12:00:00 EDT, [facility]/pharmacy #[id number], 30, APPLY TO AFFECTED AREA TWICE [...] from Dr. Beal. 5bilat shoulders, seen by [facility] on 10/29/16, report to scanning Diagnosis Diagnosis Type Effective Dates Health Status Cl inical Service Informant Gluteal cleft wound Discharge Diagnosis 02/13/23 DM type 2 (diabetes mellitus, type 2) Discharge Diagnosis 02/13/23 Vital Signs Most recent to oldest [Reference Range]: 1 Height 163 cm (02/13/23 1:16 PM) Oxygen Saturation [94-100 %] 94 % (02/13/23 1:16 PM) Pulse Rate [55-90 bpm] 92 bpm *H* (02/13/23 1:16 PM) Blood Pressure [90-138/55-84 mm Hg] 118/ 77mm Hg (02/13/23 1:16 PM) Temperature [96.8-100.4 DegF] 98.6 DegF (02/13/23 1:16 PM) Mode of Delivery (Oxygen) Room air (02/13/23 1:16 PM) Blood pressure sites Arm, left (02/13/23 1:16 PM) Temperature Route Temporal (02/13/23 1:16 PM) Weight Obtained Via Standing scale (02/13/23 1:16 PM) Social History Social History Type Response Smoking Status Former smoker entered on: 02/14/16 Sex Note * Lauren Grimaldo: PERFORM, SIGN, VERIFY Event Display: Patient Education/Instruction Authored Date: [id number] [facility] Clinical Summary Name LIOR NAYLOR Age 72 Years 1950 PCP Salvatore GOMEZ, Tracy PCP Visit Date 02/13/2023 13:10:00 Additional Instructions: Scheduled Appointments?? Future Appointments ?[facility] ?[address] ?[facility],??[place],??[address] ?Phone:??[phone]?Fax:??-- ?Appt. Date:??05/11/2023?1:00 PM ?Scheduled Provider:??[id number] Follow-Up Instructions ?? Diagnosis Unspecified open wound of unspecified buttock, initial encounter; Type 2 diabetes mellitus without complications Medications: Please continue your medications until treatment is completed or stopped by your provider. Discuss any questions related to medications with your provider. New Medications [facility]/pharmacy #[id number], [address], [place] [id number], [phone] Zinc Oxide Topical (Critic-Aid Skin 20% topical paste) APPLY TOPICALLY 2 TIMES A DAY,X10 DAYS. Refills: 1. Next Dose: Medications to Continue with No Changes These medications were not printed or sent to your pharmacy Acetaminophen (acetaminophen 500 mg oral tablet) 2 tab(s) Oral twice a day. Next Dose: Ascorbic Acid (Vitamin C 1000 mg oral tablet) 1 tab(s) Oral Daily. Next Dose: Bacitracin/Neomycin/Polymyxin B Topical (Neosporin 400 u-3.5 mg-5000 u/gm ointment) 1 titus Topicallytwice a day. TOP OF BUTTOKS. Next Dose: Chlorthalidone (chlorthalidone 25 mg oral tablet) 1 tab(s) Oral Daily. Refills: 3. Next Dose: Cholecalciferol (Vitamin D3 1000 intl units oral capsule) 1 capsule Oral Daily. Next Dose: Cyanocobalamin (Vitamin B12 500 mcg oral tablet) 1 tab(s) Oral Daily. Refills: 0. Next Dose: Durable Medical Equipment (Beside Commode) Use as instructed Dx: Urinary incontinence secondary to multiple sclerosis and limited mobility. Refills: 0. Next Dose: Durable Medical Equipment (Disposable bed chux) Use as instructed on bed Dx: Urinary incontinence secondary to Multiple Sclerosis and limited mobility. Refills: 5. Next Dose: Durable Medical Equipment (Mepilex 6 x 6 dressing supply) Apply to decubitus ulcer in coccyx regionevery 3 days Dx: Decubitus ulcer ICD 10: L89.90. Refills: 2. Next Dose: Durable Medical Equipment (One Touch Ultra Test Strips) DM E11.9 Use to test Bloos Sugars TID. Refills: 11. Next Dose: Durable Medical Equipment (Shower Chair) USe as instructed when showering for safety Dx: MS, Poor mobility secomdary to MS. Refills: 0. Next Dose: Metformin (metFORMIN 1000 mg oral tablet) 1 tab(s) Oral twice a day. Refills: 1. Next Dose: Methenamine (methenamine hippurate 1 gm oral tablet) 1 tab(s) Oral twice a day. Prescribed by urology. Next Dose: mirabegron (Myrbetriq 50 mg oral tablet, extended release) 1 tab(s) Oral Daily. do not crush or chew Prescribed by urology. Next Dose: Miscellaneous Rx ([facility] VITAMIN D3 25 MCG SOFTGEL) 1 capsule Oral Daily. Refills: 1. Next Dose: Miscellaneous Rx (ONE TOUCH ULTRA BLUE TEST STRP) USE TO TEST BLOOD SUGARS ONCE DAILY DUE TO BEING NON-INSULIN DEPENDANT. Refills: 3. Next Dose: Miscellaneous Rx (VITAMIN D3 1,000 UNIT SOFTGEL) 1 capsule Oral Daily. Refills: 1. Next Dose: Nystatin Topical (nystatin topical 324097 u/gm powder) APPLY TO AFFECTED AREA TWICE A DAY. Refills:1. Next Dose: Ocrelizumab (Ocrevus 300 mg/10 mL intravenous solution) Intravenous Infusion Every 6 weeks. Next Dose: Sertraline (sertraline 25 mg oral tablet) 1 tab(s) Oral Daily. Next Dose: Allergy Info:?? penicillins Medications Given This Visit Future Orders ?No future orders Vital Signs Height 163 cm Weight BMI Blood Pressure 118 mm Hg/77 mm Hg Temperature 98.6 DegF Pulse Rate 92 bpm Respiratory Rate 02 Sat Mode of Delivery 94 %/Room air You can now view a summary of your hospital visit from the comfort of your home through a free online portal called [employer]. [employer] is a website that allows you to securely view your medical information including discharge summary, medications and follow-up visits. ??You can alsosend a secure electronic message to your doctor???s office to request appointments, renew medications or just ask a question. You can enroll at [email or web address] or register during your next office visit. Disclaimer:?? The information provided is of a general nature and is intended to be used in conjunction with the recommendations and advice of your health care practitioner. ??Every effort has been made to ensure that the information provided is accurate and complete at the time it is provided to you however, as your needs change, or, as new ??information becomes available, different or additional instructions may be required. If you have questions, please consult with your primary care provider or pharmacist, as appropriate. ??This information is not intended to serve as substitution for assessment and evaluation by a qualified health care provider. If you do not have a primary care provider, you may find a [facility] provider by calling [facility] [employer] Link at [phone]. For information about the plan of care including goals and instructions for your diagnosis, please see the patient education orders section of this document. Patient Education Materials?? The content of this educational material or handout may have been modified, supplemented, or adapted from its original content and format to support your individualized medical care. Patient Care team information Care Team Personnel Name: Kezia Reyes RN Position: [facility]/ [place] Member Role: Primary Care Nurse Name: Meagan Christensen RN Position: [facility] RN Member Role: Primary Care Nurse Name: Tracy Chase MD Position: [facility] Physician - Primary Care Member Role: PCP Address: Address: [address] [place] [address] [facility] [facility] [place] [address]- [place] Name: Cheryl RAMAN, Yoana Position: [facility] RN Member Role: Primary Care Nurse Name: Lin Doss RN, Sindy Position: [facility] RN Member Role: Primary Care Nurse Name: Mayra Hamlin RN Position: [facility] Design Leader Member Role: Primary Care Nurse Care Team Related Persons Name: ROXY TIM Address: [address] [place] [address] Name: VINEET NAYLOR Address: [address] [place] [address]
--- OUTSIDE RECORDS SUMMARY | 2024-03-07 10:06 | XMS_ITS | Continuity of Care Document ---
Author Organization [facility] Adult Address [address] [place] [address]- Care Team Providers Care Space Operations Officer Name Role Phone Salvatore GOMEZ, [facility] Primary Care Physician Encounter [facility] Date(s): 05/18/20 - 06/17/20 [facility] Adult [address] [place] [address]- Allergies, Adverse Reactions, Alerts Substance Reaction Severity Status penicillins rash Active Immunizations Given and Recorded Vaccine Date Status Refusal Reason pneumococcal 13-valent vaccine 1 03/21/20 Recorded Influenza Virus Vaccine (oldterm) 2 03/21/20 Recor ded [facility] Medications Beside Commode Beside Commode, See [...] 02/18/20 14:16:00 EDT, Route to Pharmacy Electronically, [facility]/pharmacy #[id number], 163, cm, 09/21/19 5:38:00 EDT, Height, 98.1, [...] Date: 04/20/18 Status: Ordered Fluzone High-Dose Quadrivalent [id number] intramuscular suspension 0.7 mL, Intramuscular, Once, # [...] 0 Refills, Maintenance, 06/14/20 4:56:00 EST, Tablet, [facility]/pharmacy #[id number], 165, cm, 06/11/20 15:47:00 EST, Height, [...] Start Date: 04/21/18 Status: Ordered nystatin topical 681967 u/gm powder 1 application, Topically, 2 times a day, # 60 Gm, 1 Refills, Maintenance, 04/09/20 13:00:00 EDT, Powder, [facility]/pharmacy #[id number], 1 application Topically 2 times a [...] 06/15/20 10:10:00 EST, Route to Pharmacy Electronically, [facility]/pharmacy #[id number], Partial fill upon patient request, 06/18/20, 165,... [...] from Dr. Beal. 6bilat shoulders, seen by [facility] on 10/29/16, report to scanning Social History Social History Type Response Smoking Status Former smoker entered on: 02/14/16 Sex
--- OUTSIDE RECORDS SUMMARY | 2024-03-07 10:06 | XMS_ITS | Continuity of Care Document ---
Author Organization [facility] Adult Address [address] [place] [address]- Care Team Providers Care Heater Installer Name Role Phone Salvatore GOMEZ, [facility] Primary Care Physician ( [phone] Encounter [facility] Date(s): 08/10/20 - 09/09/20 [facility] Adult [address] [place] [address]- Allergies, Adverse Reactions, Alerts Substance Reaction Severity [...] 08/16/20 14:16:00 EST, Route to Pharmacy Electronically, [facility]/pharmacy #[id number], 165, cm, 08/07/20 13:53:00 EST, Height, [...] 2 Refills, Maintenance, 09/07/20 12:38:00 EST, Tablet, [facility]/pharmacy #[id number], 165, cm, 08/07/20 13:53:00 EST, Height, [...] Start Date: 04/21/18 Status: Ordered nystatin topical 802007 u/gm powder 1 application, Topically, 2 times a day, # 60 Gm, 1 Refills, Maintenance, 06/21/20 9:46:00 EST, Powder, [facility]/pharmacy #[id number], 1 application Topically 2 times a [...] 09/05/20 12:46:00 EST, Route to Pharmacy Electronically, [facility]/pharmacy #[id number], Partial fill upon patient request, 09/10/20, 165,... [...] from Dr. Beal. 5bilat shoulders, seen by [facility] on 10/29/16, report to scanning Social History Social History Type Response Smoking Status Former smoker entered on: 02/14/16 Sex
--- OUTSIDE RECORDS SUMMARY | 2024-03-07 10:06 | XMS_ITS | Continuity of Care Document ---
Author Organization [facility] ter Address [address] [place] [address]- Care Team Providers Care Marketing Editor Name Role Phone Salvatore GOMEZ, Tracy Primary Care Physician En[place] [facility] Date(s): 10/10/21 - 10/13/[address] [address]- Encounter Diagnosis Vomiting(Final) - 10/10/21 Discharge Disposition: A-D/C Home Attending Physician: Nicolasa Hirsch MD Admitting Physician: Otto Parada MD Referring Physician: Not on Staff, Referring [...] 1, Route [facility], [facility], 165, cm, 06/10/21 10:02:00 EST, Height, 98.1, [...] # 180 tablet, 0 Refills, [facility], 165, cm, 06/10/21 10:02:00 EST, Height, 98.1, kg, 09/20/19 2:16:00 EDT, Dry Weight Start Date: 08/26/21 Status: Ordered methenamine hippurate 1 gm oral [...] Start Date: 10/11/21 Status: Ordered nystatin topical 873206 u/gm powder See Instructions, APPLY TO AFFECTED AREA TWICE A DAY, # 60 Gm, 1 Refills, Physician Stop 06/29/22 15:44:00 EST, 07/10/21 15:44:00 EST, [facility]/pharmacy #[id number], 60, APPLY TO AFFECTED AREA TWICE A [...] tablet, By Mouth, 3 times a day, PRN, Refills 0, Tot. Refills 0, Maintenance, PAIN, 10/11/21 9:55:00 EDT, ; Start Date: 10/11/21 Status: Ordered sertraline 25 mg oral tablet [...] from Dr. Beal. 5bilat shoulders, seen by [facility] on 10/29/16, report to scanning Results Orders for Microbiology Reports Name Date Blood Culture 10/11/21 Blood Culture #2 10/11/21 Urine Culture (URINE CULTURE) 10/10/21 Microbiology Reports TEST:Blood Culture, Second Order STATUS:Unauthenticated BODY SITE: SOURCE:Blood COLLECTED DATE/TIME:10/11/21 3:45 AM Blood Culture, Second Order SPECIMEN DESCRIPTION : BLOOD L SPECIAL REQUESTS : NONE CULTURE : NO GROWTH AFTER 48 HOURS REPORT STATUS : PRELIMINARY REPORT TEST:Blood Culture STATUS:Unauthenticated BODY SITE: SOURCE:Blood COLLECTED DATE/TIME:10/11/21 3:36 AM Blood Culture SPECIMEN DESCRIPTION : BLOOD RT SPECIAL REQUESTS : NONE CULTURE : NO GROWTH AFTER 48 HOURS REPORT STATUS : PRELIMINARY REPORT TEST:Urine Culture STATUS:Auth (Verified) BODY SITE: SOURCE:URINE COLLECTED DATE/TIME:10/10/21 9:56 PM Urine Culture SPECIMEN DESCRIPTION : URINE SPECIAL REQUESTS : NONE CULTURE : NO GROWTH REPORT STATUS : FINAL 10/12/2021 Radiology Reports * Exam Date Time Procedure Performing Provider Status 10/10/21 10:56 PM Chest 2 Views Frontal and Lat Cory Arrieta; Auth (Verified) Notes: (Chest 2 Views Frontal and Lat) Reason For Exam: Shortness of Breath, Fever;Other: RESULT: Chest 2 Views Frontal and Lat Chest 2 Views Frontal and Lat Hx of Present Illness: pt initially came for nausea and vomiting, fernanda called pt has early signs of dementia, no complaint , daughter Angelia [phone]; Reason: Other:; Shortness of Breath, Fever; Clinical Question(s): Pneumonia COMPARISON: 09/19/2019 FINDINGS: LINES AND TUBES: None. LUNGS AND PLEURA: Clear lungs. Normal pulmonary vascularity. No pleural effusion. No pneumothorax. HEART, MEDIASTINUM AND EILEEN: Heart is normal in size. Normal upper mediastinal and hilar contour. BONES AND SOFT TISSUES: No acute abnormality. IMPRESSION: No acute abnormality. WSN: [id number] Ordering Physician: Cheryl Garcia Dictated By: Raúl Hardwick MD Dictated Date/Time: 10/10/21 11:01 p Reviewed By: Raúl Hardwick MD Signed By: Raúl Hardwick MD Signed Date/Time: 10/10/21 11:01 pm Transcribed By: KARLA Transcribed Date/Time: 10/10/21 11:01 pm Vital Signs Most recent to oldest [Reference Range]: 1 2 3 Height 163 cm (10/12/21 4:22 AM) 163 cm (10/11/21: AM) Weight 85 kg (10/11/21:29 AM) Oxygen Saturation [94-100 %] 98 % (10/13/21 8:00 AM) 99 % (10/12/21 8:00 PM) 99 % (10/12/21: AM) Pulse Rate [55-90 bpm] 87 bpm (10/13/21 8:00 AM) 84 bpm (10/12/21 8:00 PM) 88 bpm (10/12/21: AM) Body Mass Index [18.5-24.99] 31.99 *>HHI* (10/11/21: AM) Blood Pressure [90-138/55-84 mm Hg] 118/64mm Hg (10/13/21 8:00 AM) 124/78mm Hg (10/12/21 8:00 PM) 122/83mm Hg (10/12/21 8:00 AM) Respiratory Rate [16-30 br/min] 18 br/min (10/13/21 8:00 AM) 18 br/min (10/12/21 8:00 PM) 18 br/min (10/12/21 8:00 AM) Temperature [96.8-100.4 DegF] 97.8 DegF (10/13/21:00 AM) 98.4 DegF (10/12/21 8:00 PM) 98.3 DegF (10/12/21 8:00 AM) Mode of Delivery (Oxygen) Room air (10/13/21 8:00 AM) Room air (10/12/21 8:00 PM) Room air (10/12/21 8:00 AM) Blood pressure sites Arm, left (10/13/21 8:00 AM) Arm, left (10/12/21 8:00 PM) Arm, left (10/12/21 8:00 AM) Temperature Route Oral (10/13/21 8:00 AM) Oral (10/12/21 8:00 PM) Oral (10/12/21 8:00 AM) Dry Weight 85 kg (10/11/21 8:29 AM) Weight Obtained Via Bed scale (10/11/21 8:29 AM) Dry Weight Obtained Via Bed scale (10/11/21 8:29 AM) Social History Social History Type Response Smoking Status Former smoker entered on: 02/14/16 Sex
--- OUTSIDE RECORDS SUMMARY | 2024-03-07 10:06 | XMS_ITS | Continuity of Care Document ---
Author Organization [facility] Address [address] [place] [address] [address]sey, [address] [place] [address]- Care Team Providers Care Inventory Transcriber Name Role Phone Salvatore GOMEZ, [facility] Primary Care Physician Encounter [facility] Date(s): 05/29/20 - 06/28/20 [facility] [address] [place] [address] Drive, [address] [place], [place] [address] Allergies, Adverse Reactions, Alerts Substance Reaction Severity [...] 14:16:00 EDT, [facility], 163, cm, 09/21/19 5:38:00 EDT, Height, 98.1, [...] Refills, Maintenance, 06/14/20 4:56:00 EST, Tablet, [facility]/pharmacy #[id number], 165, cm, 06/11/20 15:47:00 EST, Height, [...] Start Date: 04/21/18 Status: Ordered nystatin topical 068457 u/gm powder 1 application, Topically, 2 times a day, # 60 Gm, 1 Refills, Maintenance, 06/21/20 9:46:00 EST, Powder, [facility]/pharmacy #[id number], 1 application Topically 2 [...] 06/15/20 10:10:00 EST, Route to Pharmacy Electronically, [facility]/pharmacy #[id number], Partial fill upon patient request, 06/18/20, 165,... [...] from Dr. Beal. 6bilat shoulders, seen by [facility] on 10/29/16, report to scanning Social History Social History Type Response Smoking Status Former smoker entered on: 02/14/16 Sex
--- OUTSIDE RECORDS SUMMARY | 2024-03-07 10:06 | XMS_ITS | Continuity of Care Document ---
Author Organization [facility] Adult Address [address] [place] [address]- Care Team Providers Care [place] Mixer Operator Name Role Phone Salvatore GOMEZ, [id number] Date(s): 01/20/20 - 02/19/20 [facility] Adult [address] [place] [id number]- [facility] Allergies, Adverse Reactions, Alerts Substance Reaction Severity [...] 02/18/20 14:16:00 EDT, Route to Pharmacy Electronically, [facility]/pharmacy #[id number], 163, cm, 09/21/19 5:38:00 EDT, Height, 98.1, kg, 09/20/19 2:16:00 EDT, Dry Weight Start Date: 02/18/20 Stop Date: 08/16/20 Status: Ordered Copaxone 40 mg/mL subcutaneous solution [...] 0 Refills, Maintenance, 12/12/19 10:37:00 EDT, Tablet, [facility]/pharmacy #[id number], 163, cm, 09/21/19 5:38:00 EDT, Height, [...] Start Date: 04/21/18 Status: Ordered nystatin topical [id number] u/gm powder 1 application, Topically, 2 times a day, # 60 Gm, 1 Refills, Maintenance, 01/03/20 11:28:00 EDT, Powder, [facility]/pharmacy #[id number], 1 application Topically 2 times a [...] cm, 09/20... Start Date: 11/07/19 Status: Ordered potassium chloride 10 mEq oral [...] 1 Refills, Maintenance, 11/16/19 15:25:00 EDT, Capsule, [facility]/pharmacy #[id number], decrease dose, re sent from 06/30/17, [...] from Dr. Beal. 6bilat shoulders, seen by [facility] on 10/29/16, report to scanning Social History Social History Type Response Smoking Status Former smoker entered on: 02/14/16 Sex
--- OUTSIDE RECORDS SUMMARY | 2024-03-07 10:06 | XMS_ITS | Continuity of Care Document ---
Author Organization [facility] Address [address] [place] [address] ke, [address] [place] [address]- Care Team Providers Care Book Reviewer Name Role Phone Tracy Chase MD Primary Care Physician Encounter [facility] Date(s): 06/12/20 - 06/19/20 [facility] [address] [place] [address] Drive, [address] [place], [place] [address] Attending Physician: Sunny GOMEZ, Behzad Scanlon Referring Physician: Sam Gonzalez MD Allergies, Adverse Reactions, Alerts Substance Reaction [...] 0 Refills, Maintenance, 06/14/20 4:56:00 EST, Tablet, [facility]/pharmacy #[id number], 165, cm, 06/11/20 15:47:00 [...] Start Date: 04/21/18 Status: Ordered nystatin topical [id number] u/gm powder 1 application, Topically, 2 times a day, # 60 Gm, 1 Refills, Maintenance, 04/09/20 13:00:00 EDT, Powder, [facility]/pharmacy #[id number], 1 application Topically 2 [...] 06/15/20 10:10:00 EST, Route to Pharmacy Electronically, [facility]/pharmacy #[id number], Partial fill upon patient request, 06/18/20, 165,... [...] from Dr. Beal. 6bilat shoulders, seen by [facility] on 10/29/16, report to scanning Vital Signs Most recent to oldest [Reference Range]: 1 Height 165 cm (06/11/20 3:47 PM) Weight 125 kg (06/11/20 3:47 PM) Body Mass Index [18.5-24.99] 45.91 *>HHI* (06/11/20 3:47 PM) Social History Social History Type Response Smoking Status Former smoker entered on: 02/14/16 Sex
--- OUTSIDE RECORDS SUMMARY | 2024-03-07 10:06 | XMS_ITS | Continuity of Care Document ---
Author Organization [facility] Adult Address [address] [place] [address]- Care Team Providers Care Assistant Credit Manager Name Role Phone Salvatore GOMEZ, [facility] Primary Care Physician Encounter [facility] Date(s): 08/09/21 - 09/08/21 [facility] Adult [address] [place] [id number]- Allergies, Adverse Reactions, Alerts Substance Reaction Severity [...] [facility] Medications Beside Commode Beside Commode, See Instructions, # 1 units, Refills 0, Tot. Refills 0, Maintenance, Use as instructed Dx: Urinary incontinence secondary to multiple sclerosis and limited mobility, 04/20/18 16:37:59EDT, Compound Start Date: 04/20/18 Status: Ordered chlorthalidone 25 mg oral tablet 1, tablet, By Mouth, Daily, # 90 tablet, Refills 1, Route to Pharmacy Electronically, [id number], 165, cm, 06/10/21 10:02:00 EST, Height, 98.1, kg, 09/20/19 2:16:00 EDT, Dry Weight Start Date: 08/01/21 Status: Ordered Critic-Aid Skin 20% topical paste See Instructions, APPLY TO AFFECTED AREA TWICE A DAY FOR 14 DAYS, # 170 Gm, 1 Refills, [id number], 30, APPLY TO AFFECTED AREA TWICE A DAY FOR 14 DAYS, 165, cm, 06/10/21 10:02:00 EST, Height, 98.1, kg, 09/20/19 2:16:00 EDT, Dry Weight Start Date: 06/10/21 Status: Ordered [facility] VITAMIN D3 25 MCG SOFTGEL [facility] V[facility]AMIN D3 25 MCG SOFTGEL, 1, capsule, By Mouth, Daily, # 100 capsule, 1 Refills, Maintenance, 12/14/20 8:11:00 EDT, 165, cm, 12/06/20 11:28:00 EDT, Height, 98.1, kg, 09/20/19 2:16:00 EDT, Dry Weight Start Date: 12/14/20 Status: Ordered [facility] VITAMIN D3 25 MCG SOFTGEL [facility] VITAMIN D3 25 MCG SOFTGEL, 1, capsule, By Mouth, Daily, # 90 capsule, 1 Refills, 165, cm, 06/10/21 10:02:00 EST, Height, 98.1, kg, 09/20/19 2:16:00 EDT, Dry Weight Start Date: 08/22/21 Status: Ordered Disposable bed chux Disposable bed [...] a day, # 180 tablet, 0 Refills, [id number], 165, cm, 06/10/21 10:02:00 EST, Height, 98.1, [...] Start Date: 04/21/18 Status: Ordered nystatin topical [id number] u/gm powder See Instructions, APPLY TO AFFECTED AREA TWICE A DAY, # 60 Gm, 1 Refills, Physician Stop 06/29/22 15:44:00 EST, 07/10/21 15:44:00 EST, [facility]/pharmacy #[id number], 60, APPLY TO AFFECTED AREA TWICE A [...] Disregard previous script with 3 refills, Compound, 165viviana, ... Start Date: 07/08/20 Status: Ordered oxyCODONE 5 mg oral tablet 5 mg, 1, tablet, By Mouth, 3 times a day, PRN, for 28 days, # 84 tablet, Refills 0, Tot. Refills 0,Acute 10/03/21 14:25:00 EDT, Pain , Severe, 09/05/21 14:25:00 EST, Route to Pharmacy Electronically, [facility]/pharmacy #[id number], Partial fill upon patient requ... Start Date: 09/05/21 Stop Date: 10/03/21 Status: Ordered Prevnar 13 intramuscular suspension 0.5 [...] 1 Refills, Maintenance, 12/17/20 9:37:00 EDT, Capsule, [facility]/pharmacy #[id number], decrease dose, re sent from 06/30/17, 165viviana, 12/06/2110:28:00 EDT, Height, 98.1, kg, 09/20/19 2:16:00 [...] from Dr. Beal. 5bilat shoulders, seen by [place] [facility] on 10/29/16, report to scanning Social History Social History Type Response Smoking Status Former smoker entered on: 02/14/16 Sex
--- OUTSIDE RECORDS SUMMARY | 2024-03-07 10:06 | XMS_ITS | Continuity of Care Document ---
Author Organization [facility] Adult Address [address] [place] [address]- Care Team Providers Care Psychiatry Teacher Name Role Phone Tracy Chase MD [id number] Adult [address] [place] [address] [facility] Attending Physician: Tracy Chase MD Allergies, Adverse [...] Date: 04/20/18 Status: Ordered Fluzone High-Dose Quadrivalent [id number] intramuscular suspension 0.7 mL, Intramuscular, Once, # [...] 0 Refills, Maintenance, 03/19/20 15:08:00 EDT, Tablet, [facility]/pharmacy #[id number], 163, cm, 09/21/19 5:38:00 EDT, Height, [...] Start Date: 04/21/18 Status: Ordered nystatin topical 209922 u/gm powder 1 application, Topically, 2 times a day, # 60 Gm, 1 Refills, Maintenance, 04/09/20 13:00:00 EDT, Powder, [facility]/pharmacy #[id number], 1 application Topically 2 [...] 04/10/20 10:42:00 EDT, Route to Pharmacy Electronically, [facility]/pharmacy #[id number], Partial fill upon patient request, 04/23/20, 163,... [...] from Dr. Beal. 6bilat shoulders, seen by [place] [facility] on 10/29/16, report to scanning Social History Social History Type Response Smoking Status Former smoker entered on: 02/14/16 Sex
--- OUTSIDE RECORDS SUMMARY | 2024-03-07 10:06 | XMS_ITS | Continuity of Care Document ---
Author Organization [facility] Adult Address [address] [place] [address]- Care Team Providers Care Antisqueak Worker Name Role Phone Tracy Chase MD Primary Care Physician ( [phone] En[place] [facility] [place] 11/10/22 - 11/17/22 [facility] Adult [address] [place] [address]- Encounter Diagnosis DM type 2 (diabetes mellitus, type 2)(Discharge Diagnosis) - 11/10/22 Multiple sclerosis, primary progressive(Discharge Diagnosis) - 11/10/22 Hypertension(Discharge Diagnosis) - 11/10/22 Severe obesity(Discharge Diagnosis) - 11/10/22 Annual physical exam(Discharge Diagnosis) - 11/10/22 Vitamin D deficiency(Discharge Diagnosis) - 11/10/22 [facility]ending Phys[facility] Allergies, Adverse Reactions, Alerts Substance Reaction Severity Status penicillins rash Active Immunizations Given and Recorded Vaccine Date Status Refusal Reason influenza virus vaccine, inactivated 04/17/22 Logan rded influenza virus vaccine, inactivated 02/05/21 Logan rded [id number] bivalent booster vax 04/17/22 Recorded SARS-CoV-2 (COVID-19) [...] [facility] Medications acetaminophen 500 mg oral tablet 2 [...] 11/10/22 12:00:00 EDT, Route to Pharmacy Electronically, [facility]/pharmacy #[id number], 163, cm, 11/10/22 11:38:00 EDT, Height, 85, kg, 10/11/21 8:29:00 EDT, Dry Weight Start Date: 11/10/22 Status: Ordered Critic-Aid Skin 20% topical paste See Instructions, APPLY TOPICALLY 2 TIMES A DAY,X10 DAYS, # 170 Gm, 0 Refills, Maintenance, 10/15/22 14:26:00 EDT, [id number], 30, APPLY TOPICALLY 2 TIMES A DAY,X10 DAYS, 163, cm, 09/26/22 12:32:00 EDT, Height, 85, kg, 10/11/21 8:29:00 EDT, Dry W... Start Date: 10/15/22 Status: Ordered [facility] VITAMIN D3 25 MCG [place] [facility] VITAMIN D3 25 MCG [place], 1, [...] 0 Refills, Maintenance, 11/03/22 12:50:00 EDT, [id number], 163, cm, 09/26/22 12:32:00 EDT, Height, 85, [...] Start Date: 10/11/21 Status: Ordered nystatin topical 619523 u/gm powder See Instructions, APPLY TO AFFECTED AREA TWICE A DAY, # 60 Gm, 1 Refills, Maintenance, 07/08/22 13:01:00 EST, [id number], 30, APPLY TO AFFECTED AREA TWICE A [...] from Dr. Beal. 5bilat shoulders, seen by [facility] on 10/29/16, report to scanning Diagnosis Diagnosis Type Effective Dates Health Status Clinical Service Informant DM type 2 (diabetes mellitus, type 2) Discharge Diagnosis 11/10/22 Multiple sclerosis, primary progressive Discharge Diagnosis 11/10/22 Hypertension Discharge Diagnosis 11/10/22 Severe obesity Discharge Diagnosis 11/10/22 Annual physical exam Discharge Diagnosis 11/10/22 Vitamin D deficiency Discharge Diagnosis 11/10/22 Vital Signs Most recent to oldest [Reference Range]: 1 Height 163 cm (11/10/22 11:38 AM) Oxygen Saturation [94-100 %] 96 % (11/10/22 11:38 AM) Pulse Rate [55-90 bpm] 86 bpm (11/10/22 11:38 AM) Blood Pressure [90-138/55-84 mm Hg] 116/ 72mm Hg (11/10/22 11:38 AM) Mode of Delivery (Oxygen) Room air (11/10/22 11:38 AM) Blood pressure sites Arm, left (11/10/22 11:38 AM) Weight Obtained Via Standing scale (11/10/22 11:38 AM) Social History Social History Type Response Smoking Status Former smoker entered on: 02/14/16 Sex Note * Lauren Grimaldo: PERFORM, SIGN, VERIFY Event Display: Patient Education/Instruction Authored Date: [id number] [facility] *[facility] Clinical Summary Name LIOR NAYLOR Age 72 Years 1950 PCP Tracy Chase MD PCP Visit Date 11/10/2022 11:11:00 Additional Instructions: Scheduled Appointments?? Future Appointments ?No Future Appointments Scheduled Follow-Up Instructions ?? With: Address: When: Tracy Chase [address], [place] [address] Business (1) Within 6 months Comments: FOLLOW UP: PHONE APPT TODAY APPT: AWV Diagnosis Multiple sclerosis; Encounter for general adult medical examination without abnormal findings; Type2 diabetes mellitus without complications; Essential (primary) hypertension; Morbid (severe) obesity due to excess calories; Vitamin D deficiency, unspecified Medications: Please continue your medications until treatment is completed or stopped by your provider. Discuss any questions related to medications with your provider. New Medications [facility]/pharmacy #[id number], [address], [place] [id number], [phone] Chlorthalidone (chlorthalidone 25 mg oral tablet) 1 tab(s) Oral Daily. Refills: 3. Next Dose: Medications to Continue with No [...] a day. TOP OF BUTTOKS. Next Dose: Cholecalciferol (Vitamin D3 1000 intl [...] 1 tab(s) Oral twice a day. Refills: 0. Next Dose: Methenamine (methenamine hippurate 1 gm [...] 1. Next Dose: Nystatin Topical (nystatin topical 124916 u/gm powder) APPLY TO AFFECTED AREA TWICE A DAY. Refills:1. Next Dose: Ocrelizumab (Ocrevus 300 mg/10 mL intravenous solution) Intravenous Infusion Every 6 weeks. Next Dose: Sertraline (sertraline 25 mg oral tablet) 1 tab(s) Oral Daily. Next Dose: Zinc Oxide Topical (Critic-Aid Skin 20% topical paste) APPLY TOPICALLY 2 TIMES A DAY,X10 DAYS. Refills: 0. Next Dose: No Longer Take the Following Medications Fluconazole (Diflucan 150 mg oral tablet) 1 tab(s) Oral once. 1 tablet today, can repeat another tablet if symptoms persist after 72 hours.. Refills: 0. Allergy Info:?? penicillins Medications Given This Visit Future Orders ?Urinalysis (Outpt)? Order Date:11/10/22?- Complete by?11/10/22 ?Dexa Bone Density (Axial)? Order Date:11/10/22?- Complete by?11/10/22 ?Basic Metabolic Panel? Order Date:11/10/22?- Complete by?11/10/22 ?MM Digital Mammo Screening? Order Date:11/10/22?- Complete on or after?11/10/22 ?TSH with T4 Reflex (Adults Only)? Order Date:11/10/22?- Complete by?11/10/22 ?Hemoglobin A1C (Monitoring)? Order Date:11/10/22?- Complete by?11/10/22 ?Microalbumin Urine? Order Date:11/10/22?- Complete by?11/10/22 ?Lipid Panel Non Fasting? Order Date:11/10/22?- Complete by?11/10/22 ?Vitamin D 25 Hydroxy Level? Order Date:11/10/22?- Complete by?11/10/22 ?Hepatic Function Panel? Order Date:11/10/22?- Complete by?11/10/22 ?CBC w/ Differential? Order Date:11/10/22?- Complete by?11/10/22 Vital Signs Height 163 cm Weight BMI Blood Pressure 116 mm Hg/72 mm Hg Temperature Pulse Rate 86 bpm Respiratory Rate 02 Sat Mode of Delivery 96 %/Room air You can now view a summary of your hospital visit from the comfort of your home through a free online portal called [employer]. [employer] is a website that allows you to securely view your medical information including discharge summary, medications and follow-up visits. ??You can alsosend a secure electronic message to your doctor???s office to request appointments, renew medications or just ask a question. You can enroll at [email or web address] or register during your next office visit. [...] primary care provider, you may find a [facility] provider by calling [facility] at [phone]. For information about the plan of care including goals and instructions for your diagnosis, please see the patient education orders section of this document. Patient Education Materials?? The content of this educational material or handout may have been modified, supplemented, or adapted from its original content and format to support your individualized medical care. * Lauren Grimaldo: PERFORM, SIGN, VERIFY Event Display: Patient Education/Instruction Authored Date: [facility] *[facility] Clinical Summary Name LIOR NAYLOR Age 72 Years 1950 PCP Tracy Chase MD PCP Visit Date 11/10/2022 11:11:00 Additional Instructions: Scheduled Appointments?? Future Appointments ?No Future Appointments Scheduled Follow-Up Instructions ?? With: Address: When: Tracy Chase [address], [place] [address] [facility] (1) Within 6 months Comments: FOLLOW UP: PHONE APPT TODAY APPT: AWV Diagnosis Multiple sclerosis; Encounter for general adult medical examination without abnormal findings; Type2 diabetes mellitus without complications; Essential (primary) hypertension; Morbid (severe) obesity due to excess calories; Vitamin D deficiency, unspecified Medications: Please continue your medications until treatment is completed or stopped by your provider. Discuss any questions related to medications with your provider. New Medications [id number], [address], [place] [id number], [phone] Chlorthalidone (chlorthalidone 25 mg oral tablet) 1 tab(s) Oral Daily. Refills: 3. Next Dose: Medications to Continue with No [...] a day. TOP OF BUTTOKS. Next Dose: Cholecalciferol (Vitamin D3 1000 intl [...] 1 tab(s) Oral twice a day. Refills: 0. Next Dose: Methenamine (methenamine hippurate 1 gm [...] 1. Next Dose: Nystatin Topical (nystatin topical 646336 u/gm powder) APPLY TO AFFECTED AREA TWICE A DAY. Refills:1. Next Dose: Ocrelizumab (Ocrevus 300 mg/10 mL intravenous solution) Intravenous Infusion Every 6 weeks. Next Dose: Sertraline (sertraline 25 mg oral tablet) 1 tab(s) Oral Daily. Next Dose: Zinc Oxide Topical (Critic-Aid Skin 20% topical paste) APPLY TOPICALLY 2 TIMES A DAY,X10 DAYS. Refills: 0. Next Dose: No Longer Take the Following Medications Fluconazole (Diflucan 150 mg oral tablet) 1 tab(s) Oral once. 1 tablet today, can repeat another tablet if symptoms persist after 72 hours.. Refills: 0. Allergy Info:?? penicillins Medications Given This Visit Future Orders ?Urinalysis (Outpt)? Order Date:11/10/22?- Complete by?11/10/22 ?Dexa Bone Density (Axial)? Order Date:11/10/22?- Complete by?11/10/22 ?Basic Metabolic Panel? Order Date:11/10/22?- Complete by?11/10/22 ?MM Digital Mammo Screening? Order Date:11/10/22?- Complete on or after?11/10/22 ?TSH with T4 Reflex (Adults Only)? Order Date:11/10/22?- Complete by?11/10/22 ?Hemoglobin A1C (Monitoring)? Order Date:11/10/22?- Complete by?11/10/22 ?Microalbumin Urine? Order Date:11/10/22?- Complete by?11/10/22 ?Lipid Panel Non Fasting? Order Date:11/10/22?- Complete by?11/10/22 ?Vitamin D 25 Hydroxy Level? Order Date:11/10/22?- Complete by?11/10/22 ?Hepatic Function Panel? Order Date:11/10/22?- Complete by?11/10/22 ?CBC w/ Differential? Order Date:11/10/22?- Complete by?11/10/22 Vital Signs Height 163 cm Weight BMI Blood Pressure 116 mm Hg/72 mm Hg Temperature Pulse Rate 86 bpm Respiratory Rate 02 Sat Mode of Delivery 96 %/Room air You can now view a summary of your hospital visit from the comfort of your home through a free online portal called [employer]. [employer] is a website that allows you to securely view your medical information including discharge summary, medications and follow-up visits. ??You can alsosend a secure electronic message to your doctor???s office to request appointments, renew medications or just ask a question. You can enroll at [email or web address] or register during your next office visit. [...] primary care provider, you may find a [facility] provider by calling [facility] at [phone]. For information about the plan of care including goals and instructions for your diagnosis, please see the patient education orders section of this document. Patient Education Materials?? The content of this educational material or handout may have been modified, supplemented, or adapted from its original content and format to support your individualized medical care. * Lauren Grimaldo: PERFORM, SIGN, VERIFY Event Display: Patient Education/Instruction Authored Date: [id number] [facility] *[facility] Clinical Summary Name LIOR NAYLOR Age 72 Years 1950 PCP Tracy Chase MD PCP Visit Date 11/10/2022 11:11:00 Additional Instructions: Scheduled Appointments?? Future Appointments ?No Future Appointments Scheduled Follow-Up Instructions ?? With: Address: When: Tracy Chase [address] [facility] [address] [facility], [place] [address] Business (1) Within 6 months Comments: FOLLOW UP: PHONE APPT TODAY APPT: AWV Diagnosis Multiple sclerosis; Encounter for general adult medical examination without abnormal findings; Type2 diabetes mellitus without complications; Essential (primary) hypertension; Morbid (severe) obesity due to excess calories; Vitamin D deficiency, unspecified Medications: Please continue your medications until treatment is completed or stopped by your provider. Discuss any questions related to medications with your provider. New Medications [facility]/pharmacy #[id number], [address], [place] [id number], [phone] Chlorthalidone (chlorthalidone 25 mg oral tablet) 1 tab(s) Oral Daily. Refills: 3. Next Dose: Medications to Continue with No [...] a day. TOP OF BUTTOKS. Next Dose: Cholecalciferol (Vitamin D3 1000 intl [...] 1 tab(s) Oral twice a day. Refills: 0. Next Dose: Methenamine (methenamine hippurate 1 gm [...] 1. Next Dose: Nystatin Topical (nystatin topical 877145 u/gm powder) APPLY TO AFFECTED AREA TWICE A DAY. Refills:1. Next Dose: Ocrelizumab (Ocrevus 300 mg/10 mL intravenous solution) Intravenous Infusion Every 6 weeks. Next Dose: Sertraline (sertraline 25 mg oral tablet) 1 tab(s) Oral Daily. Next Dose: Zinc Oxide Topical (Critic-Aid Skin 20% topical paste) APPLY TOPICALLY 2 TIMES A DAY,X10 DAYS. Refills: 0. Next Dose: No Longer Take the Following Medications Fluconazole (Diflucan 150 mg oral tablet) 1 tab(s) Oral once. 1 tablet today, can repeat another tablet if symptoms persist after 72 hours.. Refills: 0. Allergy Info:?? penicillins Medications Given This Visit Future Orders ?Urinalysis (Outpt)? Order Date:11/10/22?- Complete by?11/10/22 ?Dexa Bone Density (Axial)? Order Date:11/10/22?- Complete by?11/10/22 ?Basic Metabolic Panel? Order Date:11/10/22?- Complete by?11/10/22 ?MM Digital Mammo Screening? Order Date:11/10/22?- Complete on or after?11/10/22 ?TSH with T4 Reflex (Adults Only)? Order Date:11/10/22?- Complete by?11/10/22 ?Hemoglobin A1C (Monitoring)? Order Date:11/10/22?- Complete by?11/10/22 ?Microalbumin Urine? Order Date:11/10/22?- Complete by?11/10/22 ?Lipid Panel Non Fasting? Order Date:11/10/22?- Complete by?11/10/22 ?Vitamin D 25 Hydroxy Level? Order Date:11/10/22?- Complete by?11/10/22 ?Hepatic Function Panel? Order Date:11/10/22?- Complete by?11/10/22 ?CBC w/ Differential? Order Date:11/10/22?- Complete by?11/10/22 Vital Signs Height 163 cm Weight BMI Blood Pressure 116 mm Hg/72 mm Hg Temperature Pulse Rate 86 bpm Respiratory Rate 02 Sat Mode of Delivery 96 %/Room air You can now view a summary of your hospital visit from the comfort of your home through a free online portal called [employer]. [employer] is a website that allows you to securely view your medical information including discharge summary, medications and follow-up visits. ??You can alsosend a secure electronic message to your doctor???s office to request appointments, renew medications or just ask a question. You can enroll at [email or web address] or register during your next office visit. [...] primary care provider, you may find a [facility] provider by calling [facility] at [phone]. For information about the plan of care [...] Team Personnel Name: Kezia Reyes RN Position: [facility] W/ [place] Member Role: Primary Care Nurse Name: Meagan Christensen RN Position: [facility] RN Member Role: Primary Care Nurse Name: Tracy Chase MD Position: [facility] Primary Care Physician Member Role: PCP Address: Address: [address] [place] [address] [address] [place] [address]- Name: Yoana Luna RN Position: [facility] RN Member Role: Primary Care Nurse Name: Sindy Elizabeth RN Position: [facility] RN Member Role: Primary Care Nurse Name: Mayra Hamlin RN Position: [facility] Blanket Winder Operator Member Role: Primary Care Nurse Care Team Related Persons Name: ROXY TIM Address: [address] [place] [address] Name: VINEET NAYLOR Address: [address] [place] [address]
--- OUTSIDE RECORDS SUMMARY | 2024-03-07 10:06 | XMS_ITS | Continuity of Care Document ---
Author Organization [facility] Adult Address [address] [place] [address]- Care Team Providers Care Clerk Manager Name Role Phone [facility] Primary [facility] Physician Encounter [facility] Date(s): 06/08/23 - 06/15/23 [facility] Adult [address] [place] [address]- Encounter Diagnosis Skin lesion of right arm(Discharge Diagnosis) - 06/08/23 Metabolic encephalopathy(Discharge Diagnosis) - 06/08/23 Chronic ulcer of buttock(Discharge Diagnosis) - 06/08/23 DM type 2 (diabetes mellitus, type 2)(Discharge Diagnosis) - 06/08/23 Multiple sclerosis, primary progressive(Discharge Diagnosis) - 06/08/23 Hypertension(Discharge Diagnosis) - 06/08/23 Attending Phys[facility]: [facility] Allergies, Adverse Reactions, Alerts Substance Reaction Severity Status penicillins rash Active Immunizations Given and Recorded Vaccine Date Status Refusal Reason influenza virus vaccine, inactivated 05/12/23 Logan rded influenza virus vaccine, inactivated 04/17/22 Logan rded influenza virus vaccine, inactivated 02/05/21 Logan rded SARS-CoV-2(COVID-19)mRNA-LNP vac([id number]) 05/12/23 Recorded [id number] bivalent booster vax 04/17/22 Recorded SARS-CoV-2 (COVID-19) [...] Comment: [facility]vs 3Result Comment: cvs 4Result Comment: [facility] Medications acetaminophen 500 mg oral tablet 2 [...] 11/10/22 12:00:00 EDT, Route to Pharmacy Electronically, [facility]/pharmacy #[id number], 163, cm, 11/10/22 11:38:00 EDT, Height, 85, kg, 10/11/21 8:29:00 EDT, Dry Weight Start Date: 11/10/22 Status: Ordered Critic-Aid Skin 20% topical paste See Instructions, APPLY TOPICALLY 2 TIMES A DAY,X10 DAYS, # 170 Gm, 0 Refills, Maintenance, 04/21/23 16:41:00 EDT, [facility] STORE 24130, 30, APPLY TOPICALLY 2 TIMES A DAY,X10 [...] Refills, Maintenance, 01/30/23 9:01:00 EDT, [id number], 163, cm, 11/10/22 11:38:00 EDT, Height, 85, kg, 10/11/21 8:29:00 EDT, Dry Weight Start Date: 01/30/23 Status: Ordered Myrbetriq 50 mg oral tablet, [...] Start Date: 10/11/21 Status: Ordered nystatin topical 612831 u/gm powder See Instructions, APPLY TO AFFECTED AREA TWICE A DAY, # 60 Gm, 1 Refills, Maintenance, 02/16/23 12:00:00 EDT, [facility]/pharmacy #[id number], 30, APPLY TO AFFECTED AREA TWICE A DAY, 163, cm, 02/13/23 13:16:00 EDT, Height, 85, kg, 10/11/21 8:29:00 EDT, Dry Weight Start Date: 02/16/23 Status: Ordered ONE TOUCH ULTRA BLUE TEST [...] from Dr. Beal. 5bilat shoulders, seen by [facility] on 10/29/16, report to scanning Diagnosis Diagnosis Type Effective Dates Health Status Clinical Service Informant Skin lesion of right arm Discharge Diagnosis 06/08/23 Metabolic encephalopathy Discharge Diagnosis 06/08/23 Chronic ulcer of buttock Discharge Diagnosis 06/08/23 DM type 2 (diabetes mellitus, type 2) Discharge Diagnosis 06/08/23 Multiple sclerosis, primary progressive Discharge Diagnosis 06/08/23 Hypertension Discharge Diagnosis 06/08/23 Vital Signs Most recent to oldest [Reference Range]: 1 Height 158 cm (06/08/23 10:46 AM) Oxygen Saturation [94-100 %] 97 % (06/08/23 10:46 AM) Pulse Rate [55-90 bpm] 82 bpm (06/08/23 10:46 AM) Blood Pressure [90-138/55-84 mm Hg] 123/ 73mm Hg (06/08/23 10:46 AM) Temperature [96.8-100.4 DegF] 98.1 DegF (06/08/23 10:46 AM) Mode of Delivery (Oxygen) Room air (06/08/23 10:46 AM) Blood pressure sites Arm, left (06/08/23 10:46 AM) Temperature Route Temporal (06/08/23 10:46 AM) Social History Social History Type Response Smoking Status Former smoker entered on: 02/14/16 Sex Note * Sindy Zeng: PERFORM, SIGN, VERIFY Event Display: Patient Education/Instruction Authored Date: [id number] [facility] *[facility] [place] [facility] Clinical Summary Name LIOR NAYLOR Age 72 Years 1950 PCP Salvatore GOMEZ, Tracy PCP Visit Date 06/08/2023 10:52:00 Additional Instructions: Scheduled Appointments?? Future Appointments ?*[facility]Preop ?[address],??[place],??[address] ?Phone:??--?Fax:??-- ?Appt. Date:??06/23/2023?11:30 AM ?Scheduled Provider:??Mani NUNN, Pete Mendoza Follow-Up Instructions ?? With: Address: When: Trayc Zhoumarta [address] [facility] [address] [place] [address], [place] [address] Business (1) Comments: 11/19, AWV in person Diagnosis Disorder of the skin and subcutaneous tissue, unspecified Medications: Please continue your medications until treatment is completed or stopped by your provider. Discuss any questions related to medications with your provider. Medications to Continue with No Changes These [...] dressing supply) Apply to decubitus ulcer in [facility] 3 days Dx: Decubitus ulcer ICD [...] twice a day. Refills: 1. Next Dose: mirabegron (Myrbetriq 50 mg oral tablet, extended release) 1 tab(s) Oral Daily. do not crush or chew Prescribed by urology. Next Dose: Miscellaneous Rx (ONE TOUCH ULTRA BLUE TEST STRP) USE TO TEST BLOOD SUGARS ONCE DAILY DUE TO BEING NON-INSULIN DEPENDANT. Refills: 3. Next Dose: Nystatin Topical (nystatin topical 463115 u/gm powder) APPLY TO AFFECTED AREA TWICE A DAY. Refills:1. Next Dose: PEG Electrolyte Solution (PEG-3350 with Electrolytes (Eqv-GoLYTELY) oral powder for reconstitution)split prep method. drink one half the night before procedure at 5pm. drink second half morning of procedure. must finish no later than 3 hours prior to procedure.. Refills: 0. Next Dose: Sertraline (sertraline 25 mg oral tablet) 1 tab(s) Oral Daily. Next Dose: Zinc Oxide Topical (Critic-Aid Skin 20% topical paste) APPLY TOPICALLY 2 TIMES A DAY,X10 DAYS. Refills: 0. Next Dose: Allergy Info:?? penicillins Medications Given This Visit Future Orders ?No future orders Vital Signs Height 158 cm Weight BMI Blood Pressure 123 mm Hg/73 mm Hg Temperature 98.1 DegF Pulse Rate 82 bpm Respiratory Rate 02 Sat Mode of Delivery 97 %/Room air You can now view a summary of your hospital visit from the comfort of your home through a free online portal called [employer]. [employer] is a website that allows you to securely view your medical information including discharge summary, medications and follow-up visits. ??You can alsosend a secure electronic message to your doctor???s office to request appointments, renew medications or just ask a question. You can enroll at [email or web address] or register during your next office [...] primary care provider, you may find a [facility] provider by calling [facility] [employer] [facility] at [phone]. [facility], in keeping with [facility] guidance, no longer requires face masks for staff, patientsor visitors in most situations. Similar to time spent indoors at other locations, there is the chance that you were exposed to respiratory viruses during your time with us (such as flu or COVID-19).? If you develop symptoms concerning for a viral respiratory infection, please seek testing (and treatment if indicated) from your medical provider or home test kit. For information about the plan of care including goals and instructions for your diagnosis, please see the patient education orders section of this document. Patient Education Materials?? The content of this educational material or handout may have been modified, supplemented, or adapted from its original content and format to support your individualized medical care. Patient Care team information Care Team Personnel Name: Jasmine Alan LPN Position: [facility] RN Member Role: Primary Care Nurse Name: Kezia Reyes RN Position: [facility] W/ Merge Member Role: Primary Care Nurse Name: Meagan Christensen RN Position: [facility] RN Member Role: Primary Care Nurse Name: Tracy Chase MD Position: [facility] Physician - Primary Care Member Role: PCP Address: Address: [address] [place] [address] [address] [place], [place] [address] Name: Carlos Martinez RN Position: [facility] RN Member Role: Primary Care Nurse Name: Elmer Santiago RN Position: [facility] RN Member Role: Primary Care Nurse Name: Ping Perez RN Position: [facility] RN Member Role: Primary Care Nurse Name: Eloina Pedro LPN Position: [facility] RN Member Role: Primary Care Nurse Name: Yoana Luna RN Position: [facility] RN Member Role: Primary Care Nurse Name: Rosita Gillespie RN Position: [facility] RN Member Role: Primary Care Nurse Name: Sindy Elizabeth RN Position: [facility] RN Member Role: Primary Care Nurse Name: Gaby Wong LPN Position: [facility] RN Member Role: Primary Care Nurse Name: Marya Hamlin RN Position: [facility] Car Framer Member Role: Primary Care Nurse Care Team Related Persons Name: ROXY TIM Address: home [address] [place], [place] Name: VINEET NAYLOR Address: home [address] [place], [place] Name: PRISCILLA LUNDY Address: home [address] [place] [address]
--- OUTSIDE RECORDS SUMMARY | 2024-03-07 10:06 | XMS_ITS | Continuity of Care Document ---
Author Organization [facility] Adult Address [address] [place] [address]- Care Team Providers Care Evidence Custodian Name Role Phone Salvatore GOMEZ, [facility] Primary Care Physician Encounter [facility] Date(s): 05/17/21 - 06/16/21 [facility] Adult [address] [place] [address]- Allergies, Adverse Reactions, Alerts Substance Reaction Severity [...] Comment: [facility] 3Result Comment: [facility] 4Result Comment: [facility] Medications Beside Commode Beside Commode, [...] 02/05/21 16:07:00 EDT, Route to Pharmacy Electronically, [facility] STORE [id number], 165, cm, 12/06/20 11:28:00 EDT, Height, 98.1, kg, 09/20/19 2:16:00 EDT, Dry Weight Start Date: 02/05/21 Status: Ordered Critic-Aid Skin 20% topical paste See Instructions, APPLY TO AFFECTED AREA TWICE A DAY FOR 14 DAYS, # 170 Gm, 1 Refills, [facility] ST[facility] 15848, 30, APPLY TO AFFECTED AREA TWICE A [...] Date: 04/20/18 Status: Ordered Fluzone High-Dose Quadrivalent 4033-4046 intramuscular suspension 0.7 mL, Intramuscular, Once, # [...] 0 Refills, Maintenance, 06/03/21 12:59:00 EST, Tablet, [facility]/pharmacy #[id number], 165, cm, 12/06/20 11:28:00 EDT, Height, 98.1, [...] Start Date: 04/21/18 Status: Ordered nystatin topical 515552 u/gm powder See Instructions, APPLY TO AFFECTED AREA TWICE A DAY, # 60 Gm, 1 Refills, Physician Stop 07/11/21 11:24:00 EST, 06/10/21 11:24:00 EST, [facility]/pharmacy #[id number], 60, APPLY TO AFFECTED AREA TWICE [...] tablet, Refills 0, Tot. Refills 0, Acute 06/17/21 12:52:00 EST, 05/20/21 12:52:00 EST, Route to Pharmacy Electronically, [facility]/pharmacy #[id number], Partial fill upon patient request, 165, cm, ... Start Date: 05/20/21 Stop Date: 06/17/21 Status: Ordered oxyCODONE 5 mg oral tablet 5 mg, 1, tablet, By Mouth, 3 times a day, for 28 days, # 84 tablet, Refills 0, Tot. Refills 0, Acute 06/17/21 16:59:00 EST, 05/20/21 16:59:00 EST, Route to Pharmacy Electronically, [facility]/pharmacy #[id number], Partial fill upon patient request, 165, cm, ... Start Date: 05/20/21 Stop Date: 06/17/21 Status: Ordered Prevnar 13 intramuscular suspension 0.5 [...] 1 Refills, Maintenance, 12/17/20 9:37:00 EDT, Capsule, [facility]/pharmacy #[id number], decrease dose, re sent from 06/30/17, [...] from Dr. Beal. 5bilat shoulders, seen by [facility] on 10/29/16, report to scanning Social History Social History Type Response Smoking Status Former smoker entered on: 02/14/16 Sex
--- OUTSIDE RECORDS SUMMARY | 2024-03-07 10:06 | XMS_ITS | Continuity of Care Document ---
Author Organization [facility] Adult Address [address] [place] [address]- Care Team Providers Care Freelance Copywriter Name Role Phone Tracy Chase MD Primary Care Physician [id number] Date[facility] 10/04/20 - 01/19/21 [facility] Adult [address] [place] [address]- Attending Physician: Tracy Chase MD Allergies, Adverse [...] 08/16/20 14:16:00 EST, Route to Pharmacy Electronically, [facility]/pharmacy #[id number], 165, cm, 08/07/20 13:53:00 EST, Height, 98.1, kg, 09/20/19 2:16:00 EDT, Dry Weight Start Date: 08/16/20 Stop Date: 02/12/21 Status: Ordered Critic-Aid Skin 20% topical paste See Instructions, APPLY TO AFFECTED AREA TWICE A DAY FOR 14 DAYS, # 170 Gm, 1 Refills, Acute, [facility] STORE 84369, 30, APPLY TO AFFECTED AREA TWICE A DAY FOR 14 DAYS, 165, cm, 12/06/20 11:28:00 EDT, Height, 98.1, kg, 09/20/19 2:16:00 EDT, Dry Weight Start Date: 12/10/20 Status: Ordered [facility] VITAMIN D3 25 MCG SOFTGEL [facility] VITAMIN D3 25 MCG SOFTGEL, 1, [...] 2 Refills, Maintenance, 09/07/20 12:38:00 EST, Tablet, [facility]/pharmacy #[id number], 165, cm, 08/07/20 13:53:00 EST, Height, 98.1, [...] Start Date: 04/21/18 Status: Ordered nystatin topical 905166 u/gm powder See Instructions, APPLY TO AFFECTED AREA TWICE A DAY, # 60 Gm, 1 Refills, Acute, [facility] STORE 79657, 60, APPLY TO AFFECTED AREA TWICE A [...] tablet, Refills 0, Tot. Refills 0, Acute 01/30/21 12:14:00 EDT, 01/02/21 12:14:00 EDT, Route to Pharmacy Electronically, [facility]/pharmacy #[id number], Partial fill upon patient request, 165, cm, ... Start Date: 01/02/21 Stop Date: 01/30/21 Status: Ordered Prevnar 13 intramuscular suspension 0.5 [...] 1 Refills, Maintenance, 12/17/20 9:37:00 EDT, Capsule, [facility]/pharmacy #[id number], decrease dose, re sent from 06/30/17, 165, [...] from Dr. Beal. 5bilat shoulders, seen by [facility] on 10/29/16, report to scanning Social History Social History Type Response Smoking Status Former smoker entered on: 02/14/16 Sex
--- OUTSIDE RECORDS SUMMARY | 2024-03-07 10:06 | XMS_ITS | Continuity of Care Document ---
Author Organization [facility] Adult Address [address] [place] [address]- Care Team Providers Care Newspaper Vendor Name Role Phone Salvatore GOMEZ, [facility] Primary Care Physician En[place] [facility] Date(s): 02/22/21 - 03/24/21 [facility] Adult [address] [place] [address]- Allergies, Adverse Reactions, Alerts Substance Reaction Severity Status penicillins rash Active Immunizations Given and Recorded Vaccine Date Status Refusal Reason SARS-CoV-2 (COVID-19) mRNA-1273 vaccine 1 09/30/20 Recorded SARS-CoV-2 (COVID-19) mRNA-1273 vaccine 2 09/02/20 Recorded pneumococcal 13-valent vaccine 3 03/21/20 Recorded Influenza Virus Vaccine (oldterm) 4 03/21/20 Recor ded 1Result Comment: [facility] 2Result Comment: [facility] 3Result Comment: [facility] 4Result Comment: [facility] Medications Beside Commode Beside Commode, See [...] 02/05/21 16:07:00 EDT, Route to Pharmacy Electronically, [facility] STORE 40163, 165, cm, 12/06/20 11:28:00 EDT, Height, 98.1, kg, 09/20/19 2:16:00 EDT, Dry Weight Start Date: 02/05/21 Status: Ordered Critic-Aid Skin 20% topical paste See Instructions, APPLY TO AFFECTED AREA TWICE A DAY FOR 14 DAYS, # 170 Gm, 1 Refills, Acute, [facility] STORE 08057, 30, APPLY TO AFFECTED AREA TWICE A DAY FOR 14 DAYS, 165, cm, 12/06/20 11:28:00 EDT, Height, 98.1, kg, 09/20/19 2:16:00 EDT, Dry Weight Start Date: 02/12/21 Status: Ordered [facility] VITAMIN D3 25 MCG SOFTGEL [facility] VITAMIN D3 25 MCG [...] Refills, Maintenance, 09/07/20 12:38:00 EST, Tablet, [facility]/pharmacy #9006, 165, cm, 08/07/20 13:53:00 EST, Height, 98.1, kg, 09/20/19 2:16:00 EDT, Dry Weight Start Date: 3/12/21 Status: Ordered methenamine hippurate 1 gm oral [...] Start Date: 04/21/18 Status: Ordered nystatin topical 362611 u/gm powder See Instructions, APPLY TO AFFECTED AREA TWICE A DAY, # 60 Gm, 1 Refills, Acute, [facility] STORE 10054, 60, APPLY TO AFFECTED AREA TWICE A [...] 02/25/21 10:28:00 EDT, Route to Pharmacy Electronically, [facility]/pharmacy #[id number], Partial fill upon patient request, 165, cm, [...] Refills, Maintenance, 12/17/20 9:37:00 EDT, [facility], [id number], decrease dose, re sent from 06/30/17, 165, [...]
--- OUTSIDE RECORDS SUMMARY | 2024-03-07 10:06 | XMS_ITS | Continuity of Care Document ---
Author Organization [facility] Adult Address [address] [place] [address]- Care Team Providers Care Lamp Mechanic Name Role Phone Salvatore GOMEZ, [facility] Primary Care Physician ( [phone] Encounter [facility] Date(s): 03/23/20 - 04/22/20 [facility] Adult [address] [place] [address]- [facility] Allergies, Adverse Reactions, Alerts Substance Reaction Severity Status penicillins rash Active Immunizations Given and Recorded Vaccine Date Status Refusal Reason Influenza Virus Vaccine (oldterm) 1 03/21/20 Recor ded pneumococcal 13-valent vaccine 2 03/21/20 Recorded 1Result Comment: [facility] 2[facility] Comment: [facility] Medications Beside Commode Beside Commode, See [...] 14:16:00 EDT, Route to Pharmacy Electronically, [facility]/pharmacy #8536, 163, cm, 09/21/19 5:38:00 EDT, Height, 98.1, [...] Date: 04/20/18 Status: Ordered Fluzone High-Dose Quadrivalent 3742-6702 intramuscular suspension 0.7 mL, Intramuscular, Once, # [...] 0 Refills, Maintenance, 03/19/20 15:08:00 EDT, Tablet, [facility]/pharmacy #[id number], 163, cm, 09/21/19 5:38:00 EDT, [...] Start Date: 04/21/18 Status: Ordered nystatin topical 443344 u/gm powder 1 application, Topically, 2 times a day, # 60 Gm, 1 Refills, Maintenance, 04/09/20 13:00:00 EDT, Powder, [facility]/pharmacy #2476, 1 application Topically 2 [...] 04/10/20 10:42:00 EDT, Route to Pharmacy Electronically, [facility]/pharmacy #[id number], Partial fill upon patient request, 04/23/20, 163,... [...] from Dr. Beal. 6bilat shoulders, seen by [facility] on 10/29/16, report to scanning Social History Social History Type Response Smoking Status Former smoker entered on: 02/14/16 Sex
--- OUTSIDE RECORDS SUMMARY | 2024-03-07 10:06 | XMS_ITS | Continuity of Care Document ---
Author Organization [facility] Adult Address [address] [place] [address]- Care Team Providers Care Shoe Reconditioner Name Role Phone Salvatore GOMEZ, [facility] Primary Care Physician En[facility] [place] Date(s): 06/08/23 - 07/08/23 [facility] Adult [address] [place] [address]- Attending Physician: AdmTara mayberry Admitting Physician: AdmTara mayberry Referring Physician: Admtr, Ar8 Allergies, Adverse Reactions, Alerts Substance Reaction Severity Status penicillins rash Active Immunizations Given and Recorded Vaccine Date Status Refusal Reason influenza virus vaccine, inactivated 05/12/23 Logan rded influenza virus vaccine, inactivated 04/17/22 Logan rded influenza virus vaccine, inactivated 02/05/21 Logan rded SARS-CoV-2(COVID-19)mRNA-LNP vac(eme346) 05/12/23 Recorded [id number] bivalent booster vax 04/17/22 Recorded SARS-CoV-2 (COVID-19) [...] Comment: [facility] 3Result Comment: [facility] 4[facility] Comment: [facility] Medications acetaminophen 500 mg oral tablet 2 [...] 11/10/22 12:00:00 EDT, Route to Pharmacy Electronically, [facility]/pharmacy #[id number], 163, cm, 11/10/22 11:38:00 EDT, Height, 85, kg, 10/11/21 8:29:00 EDT, Dry Weight Start Date: 11/10/22 Status: Ordered Critic-Aid Skin 20% topical paste See Instructions, APPLY TOPICALLY 2 TIMES A DAY,X10 DAYS, # 170 Gm, 0 Refills, Maintenance, 04/21/23 16:41:00 EDT, [facility] STORE 30492, 30, APPLY TOPICALLY 2 TIMES A DAY,X10 [...] Refills, Maintenance, 01/30/23 9:01:00 EDT, [facility], 163, cm, 11/10/22 11:38:00 EDT, Height, 85, [...] Start Date: 10/11/21 Status: Ordered nystatin topical 970174 u/gm powder See Instructions, APPLY TO AFFECTED AREA TWICE A DAY, # 60 Gm, 1 Refills, Maintenance, 02/16/23 12:00:00 EDT, [facility]/pharmacy #2476, 30, APPLY TO AFFECTED AREA [...] Dr. Beal. 5bilat shoulders, seen by [facility] on 10/29/16, report to scanning Procedures Procedure [...] Team Personnel Name: Irene Jo RN Position: S RN Member Role: Primary Care Nurse Name: Jasmine Alan LPN Position: [facility] RN Member Role: Primary Care Nurse Name: Kezia Reyes RN Position: [facility] MR W/ Merge Member Role: Primary Care Nurse Name: Meagan Christensen RN Position: [facility] RN Member Role: Primary Care Nurse Name: Tracy Chase MD Position: [facility] Physician - Primary Care Member Role: PCP Address: Address: [address] [place] [address] [address]rd Floor [facility] [place] [address]- Name: Carlos Martinez RN Position: [facility] RN Member Role: Primary Care Nurse Name: Elmer Santiago RN Position: [facility] RN Member Role: Primary Care Nurse Name: Beena Gordillo RN Position: [facility] RN Member Role: Primary Care Nurse Name: Ping Perez RN Position: [facility] RN Member Role: Primary Care Nurse Name: Eloina Pedro LPN Position: [facility] RN Member Role: Primary Care Nurse Name: Yoana Luna RN Position: [facility] RN Member Role: Primary Care Nurse Name: Sindy Elizabeth RN Position: [facility] RN Member Role: Primary Care Nurse Name: Gaby Wong LPN Position: [facility] RN Member Role: Primary Care Nurse Name: Mayra Hamlin RN Position: [facility] Faculty Support Coordinator Member Role: Primary Care Nurse Care Team Related Persons Name: ROXY TIM Address: [address] [place], [place] Name: DAYDAY VINEET Address: home [address] [place], [place] Name: PRISCILLA LUNDY Address: home [address] [place], [place]
--- OUTSIDE RECORDS SUMMARY | 2024-03-07 10:06 | XMS_ITS | Continuity of Care Document ---
Author Organization [facility] ter Address [address] [place] [id number]- Care Team Providers Care Medical Transcription Supervisor Name Role Phone Salvatore GOMEZ, Tracy Primary Care Physician ( [phone] Encounter [facility] Date(s): 06/11/23 - 06/17/[address] [id number] Discharge Disposition: A-D/C Home Attending Physician: Bette Lake MD Admitting Physician: Keith Storey MD Referring Physician: Not on Staff, Referring MD Allergies, Adverse Reactions, Alerts Substance Reaction Severity Status penicillins rash Active Immunizations Given and Recorded Vaccine Date Status Refusal Reason influenza virus vaccine, inactivated 05/12/23 Logan rded influenza virus vaccine, inactivated 04/17/22 Logan rded influenza virus vaccine, inactivated 02/05/21 Logan rded SARS-CoV-2(COVID-19)mRNA-LNP vac([id number]) 05/12/23 Recorded [id number] bivalent booster vax 04/17/22 Recorded SARS-CoV-2 (COVID-19) [...] [facility] Medications acetaminophen 500 mg oral tablet 2 [...] 11/10/22 12:00:00 EDT, Route to Pharmacy Electronically, [facility]/pharmacy #[id number], 163, cm, 11/10/22 11:38:00 EDT, Height, 85, kg, 10/11/21 8:29:00 EDT, Dry Weight Start Date: 11/10/22 Status: Ordered Critic-Aid Skin 20% topical paste See Instructions, APPLY TOPICALLY 2 TIMES A DAY,X10 DAYS, # 170 Gm, 0 Refills, Maintenance, 04/21/23 16:41:00 EDT, [id number], 30, APPLY TOPICALLY 2 TIMES A DAY,X10 [...] Refills, Maintenance, 01/30/23 9:01:00 EDT, [id number], 163, cm, 11/10/22 11:38:00 EDT, Height, 85, [...] Start Date: 10/11/21 Status: Ordered nystatin topical 515453 u/gm powder See Instructions, APPLY TO AFFECTED AREA TWICE A DAY, # 60 Gm, 1 Refills, Maintenance, 02/16/23 12:00:00 EDT, [facility]/pharmacy #[id number], 30, APPLY TO AFFECTED AREA TWICE A [...] [facility] on 10/29/16, report to scanning Results Orders for Microbiology Reports Name Date Blood Culture #2 06/11/23 Blood Culture 06/11/23 Urine Culture (URINE CULTURE) 06/11/23 Microbiology Reports TEST:Blood Culture, Second Order STATUS:Auth (Verified) BODY SITE: SOURCE:Blood COLLECTED DATE/TIME:06/11/23 9:29 PM Blood Culture, Second Order SPECIMEN DESCRIPTION : BLOOD RH SPECIAL REQUESTS : NONE CULTURE : NO GROWTH 5 DAYS. REPORT STATUS : FINAL 06/17/2023 TEST:Blood Culture STATUS:Auth (Verified) BODY SITE: SOURCE:Blood COLLECTED DATE/TIME:06/11/23 8:05 PM Blood Culture SPECIMEN DESCRIPTION : BLOOD LFA SPECIAL REQUESTS : NONE CULTURE : NO GROWTH 5 DAYS. REPORT STATUS : FINAL 06/16/2023 TEST:Urine Culture STATUS:Auth (Verified) BODY SITE: SOURCE:URINE COLLECTED DATE/TIME:06/11/23 5:49 PM Urine Culture SPECIMEN DESCRIPTION : URINE SPECIAL REQUESTS : NONE CULTURE : >100,000 COL/ML ESCHERICHIA COLI This isolate was identified using Maldi-TOF system These AST results were performed on the Vitek 2 ID and AST system REPORT STATUS : FINAL 06/14/2023 ORGANISM >100,000 COL/ML ESCHERICHIA COLI This isolate was identified using Maldi-TOF system These AST results were performed on the Vitek 2 ID and AST system METHOD MIN. INHIB. CONC. (MCG/ML) AMPICILLIN INTERMEDIATE AMPICILLIN/SULBACTAM SUSCEPTIBLE CEFAZOLIN SUSCEPTIBLE CEFEPIME SUSCEPTIBLE CEFTRIAXONE SUSCEPTIBLE CIPROFLOXACIN RESISTANT ERTAPENEM SUSCEPTIBLE GENTAMICIN SUSCEPTIBLE LEVOFLOXACIN RESISTANT NITROFURANTOIN SUSCEPTIBLE PIPERACILLIN/TAZOBAC SUSCEPTIBLE TRIMETH/SULFAMETHOX RESISTANT Radiology Reports * Exam Date Time Procedure Performing Provider Status 06/16/23 6:[address] Head/Brain W/O Contrast Nancy Cabezas; Auth (Verified) Notes: (CT Head/Brain W/O Contrast) Reason For Exam: Altered mental status;Other: RESULT: CT Head/Brain W/O Contrast CT Head/Brain W/O Contrast INDICATION: Reason: Other:; Altered mental status; Order Comment: TECHNIQUE: Noncontrast head CT using axial technique and reconstructed in axial and coronal planes.Iterative reconstruction techniques are used to optimize dose and image quality. COMPARISON: 05/16/2023 FINDINGS: Heeler Machine view findings, lines and tubes: None. BRAIN AND EXTRA-AXIAL SPACES: Image quality degraded by patient motion No parenchymal hemorrhage, midline shift, or mass effect. Epps-white matter differentiation is wellpreserved. No acute infarct. Negative insular ribbon sign. Atherosclerotic vascular calcification of the carotid arteries but negative hyperdense vessel sign. Severe prominence of the ventricles and sulci consistent with parenchymal volume loss, unchanged. Mild low-density white matter changes. No subarachnoid hemorrhage. No subdural or epidural collection. CALVARIUM, SKULL BASE, AND SOFT TISSUES: No fractures or suspicious bony lesions. The paranasal sinuses and mastoid air cells are clear. Visualized orbits and globes are intact. The extracranial soft tissues are unremarkable. IMPRESSION: Motion degraded exam. No acute intracranial hemorrhage or mass effect. Severe ventriculomegaly similar to prior study. 2. Interval to parenchymal volume loss. WSN: [id number] Ordering Physician: Barb Bullard Dictated By: Ry Dobbins MD Dictated Date/Time: 06/16/23 7:54 pm Reviewed By: Ry Dobbins MD Signed By: Ry Dobbins MD Signed Date/Time: 06/16/23 7:54 pm Transcribed By: KARLA Transcribed Date/Time: 06/16/23 7:49 pm * Exam Date Time Procedure Performing Provider Status 06/11/23 6:09 PM Chest 2 Views Frontal and Lat Rehana z , Cecy; Auth (Verified) Notes: (Chest 2 Views Frontal and Lat) Reason For Exam: Abdominal Pain RESULT: Chest 2 Views Frontal and Lat Chest 2 Views Frontal and Lat INDICATION/CLINICAL QUESTION: Altered mental status. TECHNIQUE: Frontal and lateral views of the chest. COMPARISON: 10/10/2021. FINDINGS: LINES AND TUBES: None. LUNGS AND PLEURA: RIGHT CHEST: The right lung is clear and there is no right effusion. LEFT CHEST: The left lung is clear and there is no left effusion. HEART, MEDIASTINUM AND NCIHOLE: The heart is of normal size. The mediastinum and nichole are normal. BONES AND SOFT TISSUES: No acute bony abnormality. IMPRESSION: 1. No active disease in chest. WSN: [id number] Ordering Physician: Marco A Carlisle Dictated By: Paco Washington MD Dictated Date/Time: 06/11/23 6:20 pm Reviewed By: Paco Washington MD Signed By: Paco Washington MD Signed Date/Time: 06/11/23 6:20 pm Transcribed By: KARLA Transcribed Date/Time: 06/11/23 6:18 pm Vital Signs Most recent to oldest [Reference Range]: 1 2 3 Height 163 cm (06/17/23 7:04 AM) 163 cm (06/17/23 3:47 AM) 163 cm (06/16/23 8:01 PM) Weight 118 kg (06/12/23 12:07 AM) 118 kg (06/11/23 4:35 PM) Oxygen Saturation [94-100 %] 97 % (06/17/23 11:00 AM) 97 % (06/17/23 7:04 AM) 98 % (06/17/23 3:47 AM) Pulse Rate [55-90 bpm] 94 bpm *H* (06/17/23 11:00 AM) 80 bpm (06/17/23 7:04 AM) 93 bpm *H* (06/17/23 3:47 AM) Body Mass Index [18.5-24.99 kg/m2] 44.41 kg/m2 *>HHI* (06/12/23 12:07 AM) Blood Pressure [90-138/55-84 mm Hg] 138/68mm Hg (06/17/23 11:00 AM) 118/83mm Hg (06/17/23 7:04 AM) 138/77mm Hg (06/17/23 3:47 AM) Respiratory Rate [16-30 br/min] 18 br/min (06/17/23 11:00 AM) 18 br/min (06/17/23 7:04 AM) 18 br/min (06/17/23 3:47 AM) Temperature [96.8-100.4 DegF] 98.1 DegF (06/17/23 11:00 AM) 98.1 DegF (06/17/23 7:04 AM) 97.8 DegF (06/17/23 3:47 AM) Mode of Delivery (Oxygen) Room air (06/17/23 11:00 AM) Room air (06/17/23 7:04 AM) Room air (06/17/23 3:47 AM) Blood pressure sites Arm, left (06/17/23 11:00 AM) Arm, left (06/17/23 7:04 AM) Arm, left (06/16/23 3:54 PM) Temperature Route Oral (06/17/23 11:00 AM) Oral (06/17/23 7:04 AM) Oral (06/17/23 3:47 AM) Dry Weight 118 kg (06/12/23 12:07 AM) 118 kg (06/11/23 4:35 PM) Social History Social History Type Response Smoking Status Former smoker entered on: 02/14/16 Sex Admission evaluation note * Yeyo GOMEZ, Shirley Mcneil: PERFORM Event Display: Admission Note Authored Date: [id number] Patient: ??DAYDAY, LIOR ? Age:??72 Years?Sex:??Female?:??1950?? Chief Complaint/Reason for Consultation Pt. coming from home. Family noted pt. had AMS compared to baseline and puss in urine after changing felton cath. Pt. has Hx of UTI. Pt. has baseline dementia and MS. Family request. Pt. denies anycomplaits, History of Present Illness Date ??of service: 06/11 ?? History is limited, patient has a history of cognitive impairment/dementia ?? 72-year-old female patient with past medical history of cognitive impairment, diabetes type 2, essential pretension, dyslipidemia, and multiple sclerosis who was brought to the for evaluation of altered mental status.?? The patient tells me that her family brought her to the emergency room because they thought that she has another UTI.?? However she does not have fever, chills, dysuria, abdomin al pain, or any other associated symptoms.?? There was some concern about altered mental status at home.?? I tried to call the numbers listed on the facesheet with no answer.?? Upon presentation to our facility, she was hemodynamically stable blood pressure 126/56, afebrile, 23, 95% on room air.?? I nitial blood work was notable for mild elevation white blood count at 12.8, lactate of 4.2 otherwise on remarkable.?? UA was dirty with pyuria, elevated white blood count, 3+ leukocyte and positive nitrite.?? Chest x-ray without acute cardiopulmonary abnormalities.?? Admission was requested for further management.?? Upon my evaluation, she was lying comfortably in the stretcher without any signs of distress.?? Does not have any complaints at this point. Review of Systems A full review of systems was completed and is otherwise negative except as mentioned in history of present illness. She has a history of dementia,??so review of system is??likely unreliable Objective Measurements?? Height: 163 cm (06/11/23) Weight: 118 kg (06/11/23) Dry Weight: 118 kg (06/11/23) ? Vital Signs?? Temperature: 99.1 DegF (06/11/23 16:35:00) Temperature Route: Oral (06/11/23 16:35:00) Pulse Rate: 78 bpm (06/11/23 20:05:00) Respiratory Rate: 16 br/min (06/11/23 20:05:00) Systolic Blood Pressure:??143 mm Hg??High (06/11/23 20:05:00) Diastolic Blood Pressure: 68 mm Hg (06/11/23 20:05:00) Blood pressure sites: Arm, left (06/11/23 16:35:00) Mean Arterial Pressure: 79 mm Hg (06/11/23 16:35:00) Pulse Pressure: 75 mm Hg (06/11/23 20:05:00) Oxygen Saturation: 99 % (06/11/23 20:05:00) Mode of Delivery (Oxygen): Room air (06/11/23 20:05:00) Early Warning Score: 4 (06/11/23 23:27:17) ? Intake/Output? No Data Available ? Physical Exam General Appearance: The patient is in NAD. Head: atraumatic EENT: MMM, no scleral icterus Cardiovascular: RRR no MRG Respiratory:?? Breath sounds clear to auscultation bilaterally. No wheezing. room air. GI: Soft. Nontender and nondistended. Normal bowel sounds present throughout abdomen. MS:?? No edema or erythema in the lower extremities. Peripheral sensation intact. Skin: warm, dry, no rashes Neuro:?? No slurred speech.?? Patient seen moving their upper and lower extremities independently. Psych: calm but frustrated, sad affect. Lines: Peripheral IV in place. Assessment/Plan Diagnoses Acute urinary tract infection ??(N39.0) Dementia ??(F03.90) Diabetes mellitus type 2 in obese ??(E11.69) Lactic acidosis ??(E87.20) Multiple sclerosis ??(G35) ?? Acute urinary tract infection (N39.0):??Patient was brought to the emergency room for evaluation of??altered mental status however the patient believes??that this is her baseline. Her neighbor was concerned about??another UTI. She was discharged out of this facility??a month ago, was treated for??UTI with 3 days course of ceftriaxone.??Blood cultures remain negative. Urine cultures grew??E. coli which was??resistant to Bactrim. ID recommended??against Bactrim prophylaxis. Blood work today??with slight leukocytosis??with??white blood count of 12 Continue ceftriaxone 1 g every 24 hours. Follow blood and urine cultures. I would treat for 3 days. ?? Dementia (F03.90):??Noted. Seems to be at baseline. Resume sertraline. Continue??delirium precautions. ?? Diabetes mellitus type 2 in obese (E11.69):??On metformin. will??hold while??especially patient haselevated lactate. Insulin??sliding??scale. Hypoglycemia protocol. ?? Lactic acidosis (E87.20):??Possibly secondary to decreased p.o. intake. Patient is not sick looking. Gentle IV fluids. Trend lactate in the a.m. ?? Multiple sclerosis (G35):??Does not seem to be??medical therapy as outpatient. Continue vitamin D. ? VTE Prophylaxis:??Lovenox ?VTE Prophylaxis Assessment:??VTE Prophylaxis Ordered ?? Code Status:??Full resuscitation ?Order Code Status:??Code Status Ordered ?? Discharge Planning:? Histories Allergies Allergies ?(Active and Proposed Allergies Only) penicillins? (Severity: Unknown severity, Onset: Unknown) ?Reactions: rash ? 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 Past Surgical History Lumbar puncture: 05/10/20 Echocardiogram Vaginal delivery MRI of cervical spine MRI of lumbar spine Lumbar puncture MRI of brain abnormal ? Social History Alcohol Details:??Use: Current. ??Frequency: 1-2 times per year. Employment/School Details:??Status: Disabled. ??Other: was working until 10yrs ago.. Exercise Details:??Self assessment: Poor condition. Home/Environment Details:??Living situation: Home/Independent. ??Lives with: Spouse, can stand,can not walk. Wheel chair. ??Other: Lives with and his brother. Has 1 son. Can not cook, clean, drive. 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 Needs assistance with bath, dress. Can feed herself, regular diet. Incontinent with urine, stool. takes care of medications. from 33 years.. Nutrition/Health Details:??Diet: Regular, Low sodium, Renal. Sexual Details:??Sexually involved in last 6 months: Yes. ??Sexual orientation: Heterosexual. ??Gender identity: Female. Substance Abuse Details:??Use: Never. Tobacco Details:??Former smoker ? Family History Father: Hypertension ? Medications Home Medications Acetaminophen (acetaminophen 500 mg oral tablet)?2?tab(s)?1,000?Milligram?By Mouth?2 times a day Ascorbic Acid (Vitamin C 1000 mg oral tablet)?1?tab(s)?1,000?Milligram?By Mouth?Daily Bacitracin/Neomycin/Polymyxin B Topical (Neosporin 400 u-3.5 mg-5000 u/gm ointment)?1?titus?Topically?2 times a day?TOP OF BUTTOKS Chlorthalidone (chlorthalidone 25 mg oral tablet)?1?tablet?By Mouth?Daily Cholecalciferol (Vitamin D3 1000 intl units oral capsule)?1?capsule?25?Microgram?By Mouth?Daily Cyanocobalamin (Vitamin B12 500 mcg oral tablet)?1?tab(s)?500?Microgram?By Mouth?Daily Durable Medical Equipment (Disposable bed chux)?See Instructions?Use as instructed on bedDx: Urinary incontinence secondary to Multiple Sclerosis and limited mobility Durable Medical Equipment (Beside Commode)?See Instructions?Use as instructedDx: Urinary incontinence secondary to multiple sclerosis and limited mobility Durable Medical Equipment (Shower Chair)?See Instructions?USe as instructed when showering for safetyDx: MS, Poor mobility secomdary to MS Durable Medical Equipment (Mepilex 6 x 6 dressing supply)?See Instructions?Apply to decubitusulcer in coccyx region every 3 daysDx: Decubitus ulcer ICD 10: L89.90 Durable Medical Equipment (One Touch Ultra Test Strips)?See Instructions?DM E11.9Use to test Bloos Sugars TID Metformin (metFORMIN 1000 mg oral tablet)?1?tab(s)?By Mouth?2 times a day mirabegron (Myrbetriq 50 mg oral tablet, extended release)?1?tab(s)?50?Milligram?By Mouth?Daily?do not crush or chewPrescribed by urology Miscellaneous Rx (ONE TOUCH ULTRA BLUE TEST STRP)?See Instructions?USE TO TEST BLOOD SUGARS ONCE DAILY DUE TO BEING NON-INSULIN DEPENDANT Nystatin Topical (nystatin topical 725457 u/gm powder)?See Instructions?APPLY TO AFFECTED AREA TWICE A DAY PEG Electrolyte Solution (PEG-3350 with Electrolytes (Eqv-GoLYTELY) oral powder for reconstitution)?See Instructions?split prep method. drink one half the night before procedure at 5pm. drink second half morning of procedure. must finish no later than 3 hours prior to procedure. Sertraline (sertraline 25 mg oral tablet)?1?tab(s)?25?Milligram?By Mouth?Daily Zinc Oxide Topical (Critic-Aid Skin 20% topical paste)?See Instructions?APPLY TOPICALLY 2 TIMES A DAY,X10 DAYS ? Results Recent Labs BLOOD COUNT & DIFF WBC 12.8 k/mm3 (High)?? 06/11/2023 18:55 RBC 3.84 m/mm3 (Low)?? 06/11/2023 18:55 Hgb 11.7 Gm/dL ()?? 06/11/2023 18:55 Hct 36.5 % ()?? 06/11/2023 18:55 MCV 95.1 femtoliters ()?? 06/11/2023 18:55 MCH 30.5 pg ()?? 06/11/2023 18:55 MCHC 32.1 g/dL (Low)?? 06/11/2023 18:55 Platelet Count 287 k/mm3 ()?? 06/11/2023 18:55 RDW-SD 43.5 femtoliters ()?? 06/11/2023 18:55 MPV 10.3 femtoliters ()?? 06/11/2023 18:55 Nucleated RBC (Automated) 0.0 #/100 WBC'S ()?? 06/11/2023 18:55 Abs. NRBC 0.0 k/mm3 ()?? 06/11/2023 18:55 Abs. Neut 7.1 k/mm3 (High)?? 06/11/2023 18:55 Abs. Lymph 4.6 k/mm3 (High)?? 06/11/2023 18:55 Abs. Estill 0.6 k/mm3 ()?? 06/11/2023 18:55 Abs. Eo 0.3 k/mm3 ()?? 06/11/2023 18:55 Abs. Baso 0.1 k/mm3 ()?? 06/11/2023 18:55 Neut % 55.9 % ()?? 06/11/2023 18:55 Lymph % 36.3 % ()?? 06/11/2023 18:55 Estill % 5.0 % ()?? 06/11/2023 18:55 Eos % 2.0 % ()?? 06/11/2023 18:55 Baso % 0.5 % ()?? 06/11/2023 18:55 Imm Gran 0.3 % ()?? 06/11/2023 18:55 Abs. Imm Gran 0.0 k/mm3 ()?? 06/11/2023 18:55 ?? CHEM GENERAL Sodium 142 mmol/L ()?? 06/11/2023 18:55 Potassium 4.0 mmol/L ()?? 06/11/2023 18:55 Chloride 100 mmol/L ()?? 06/11/2023 18:55 Bicarbonate Level 29 mmol/L ()?? 06/11/2023 18:55 Anion Gap 13 ()?? 06/11/2023 18:55 Glucose Level 72 mg/dL ()?? 06/11/2023 18:55 BUN 18 mg/dL ()?? 06/11/2023 18:55 Creatinine-Blood 0.7 mg/dL ()?? 06/11/2023 18:55 Estimated GFR Creatinine 88 ML/MIN/1.73 M2 ()?? 06/11/2023 18:55 Calcium 10.1 mg/dL ()?? 06/11/2023 18:55 Protein, Total 6.7 Gm/dL ()?? 06/11/2023 18:55 Albumin 4.2 Gm/dL ()?? 06/11/2023 18:55 AG Ratio 1.7 ()?? 06/11/2023 18:55 Alkaline Phosphatase 43 units/L ()?? 06/11/2023 18:55 Lipase 24 units/L ()?? 06/11/2023 18:55 AST (SGOT) 19 units/L ()?? 06/11/2023 18:55 ALT (SGPT) 13 units/L ()?? 06/11/2023 18:55 Bilirubin, Total <0.2 mg/dL ()?? 06/11/2023 18:55 Lactate 4.2 mmol/L (High)?? 06/11/2023 18:55 ?? UA/URINALYSIS Appear/Color, Urine YELLOW ()?? 06/11/2023 17:49 Specific [place], Urine 1.017 ()?? 06/11/2023 17:49 pH, Urine 7.0 ()?? 06/11/2023 17:49 Albumin, Urine NEGATIVE ()?? 06/11/2023 17:49 Glucose, Urine NEGATIVE ()?? 06/11/2023 17:49 Ketones, Urine NEGATIVE ()?? 06/11/2023 17:49 Bilirubin, Urine NEGATIVE ()?? 06/11/2023 17:49 Hemoglobin, Urine NEGATIVE ()?? 06/11/2023 17:49 Nitrite, Urine POSITIVE (Abnormal)?? 06/11/2023 17:49 Leukocyte, Urine 3+ (Abnormal)?? 06/11/2023 17:49 Urobilinogen NORMAL mg/dL ()?? 06/11/2023 17:49 WBC's, Urine 19 /HPF (High)?? 06/11/2023 17:49 RBC's, Urine NONE SEEN /HPF ()?? 06/11/2023 17:49 Bacteria SLIGHT HPF (Abnormal)?? 06/11/2023 17:49 Squamous Epith 1 /HPF ()?? 06/11/2023 17:49 Mucus SLIGHT /LPF ()?? 06/11/2023 17:49 Hold Urine Culture Testing available 48 hours from time of collection. ()?? 06/11/2023 17:49 ?? URINE OTHER Est Creatinine Clearance 65.05 mL/min ()?? 06/11/2023 20:31 ?? VIROLOGY Influenza A PCR NEGATIVE ()?? 06/11/2023 17:40 Influenza B PCR NEGATIVE ()?? 06/11/2023 17:40 RSV PCR NEGATIVE ()?? 06/11/2023 17:40 COVID-19 PCR Specimen Source NASAL ()?? 06/11/2023 17:40 COVID-19 PCR Result NEGATIVE ()?? 06/11/2023 17:40 ? EKG study * Event Display: ECG 12-Lead Authored Date: Please click on pdf link to open report * Event Display: ECG 12-Lead Authored Date: Ventricular Rate: 91 BPM Atrial Rate: 91 BPM P-R Interval: 160 ms QRS Duration: 72 ms Q-T Interval: 346 ms QTC Calculation(Bazett): 425 ms P [place]: 53 degrees R [place]: 25 degrees T [place]: 44 degrees Normal sinus rhythm Low voltage QRS Borderline ECG When compared with ECG of 16-MAY-2023 17:04, No significant change was found Confirmed by MICHELL ZURITA ([id number]) on 06/12/2023 3:01:05 PM Kinsley: MICHELL ZURITA Hospital Progress note * Ping Perez RN: PERFORM, SIGN, VERIFY Event Display: Progress Note Hospital Authored Date: [id number] Patient: LIOR NAYLOR Age: 72 years Sex: Female : 1950 Associated Diagnoses: None Author: Ping Perez RN Findings Problem Related to Alteration in Genitourinary : Alteration in Genitourinary Function/new 06/17/2023 3:00 EST Alteration in Status Related to UTI Goals & Outcomes, Genitourinary Pt will achieve normal/improved fluid balance, Pt will maintainadequate function appropriate for pt, Pt will maintain normal fluid balance Interventions, Assess/monitor/maintain Genitourinary status, Assist & encourage pt with meticulous juan care, Encourage PO fluid intake as allowed by diet BH Goals/Interventions, Genitourinary Yes Genitourinary, Problem Start 06/12/2023 7:55 Reviewed Plan with, Genitourinary Patient Patient Progression, Genitourinary Patient progressing according to plan Genitourinary, Problem Ongoing Yes . Evaluation Pt laying in bed beginning of RN shift, disoriented, pleasantly confused, frequent reorientation and redirecting, does not seem to be in any apparent distress, bedfast, incontinent of both, abd soft non tender, non distended +BS, on RA, one assist OOB. Pt tolerated meds administered per MAR, call pappas within reach, bed locked in low position with bed alarm on, hourly rounding maintained, slept intermittently throughout the night. Pt constantly taking off purewick, and sheets. Discharge Information Case Management Discharge Plan : Case Management Discharge Plan Data 06/16/2023 10:03 EST Discharge Level of Care at Discharge [facility] Discharge : Rehab Discharge Index 06/15/2023 8:22 EST Comments on treatment indicated 72 F from home with urosepsis. Fmaily 24 hour care and assist for pivot txfrs at baseline. Pt modA with dtr txfr on eval. See for strength, balance, endurance, safety, mobility. Home with family care and home PT f/u. Full chart review completed Yes Plan of care PT Transfer training, Therapeutic exercise, Functional Activities, Balance training * Juan Miguel GOMEZ, Barb: PERFORM Event Display: Progress Note Hospital Authored Date: [id number] Patient: ??DAYDAY, LIOR ? Age:??72 Years?Sex:??Female?:??1950?? Subjective patient seen today oriented to place, person, but not time. Mentation much better than yesterday has some confusion, family thinks she is not baseline Review of Systems ros??stated above Objective ?? Physical Exam Constitutional: Alert, in no distress. Mental Status: Oriented to person, place?? Head: Normocephalic. Neck: Supple, Full range of motion. Respiratory: Clear to auscultation. No wheezing, rales or rhonchi. Cardiovascular: S1 S2 regular. No murmurs, rubs or gallops. Gastrointestinal: Abdomen soft, non-tender, non-distended. Normal bowel sounds. No pulsatile mass. No hepatosplenomegaly. ?? _ Inpatient Medications Medications (16) Active SCHEDULED: (8) Ceftriaxone 1 Gm Inj (Ceftriaxone Inj) ??1 Gm, IVPB, Every 24 hours Chlorthalidone 25 mg Tablet (chlorthalidone 25 mg oral tablet) ??25 mg, By Mouth, Daily Enoxaparin 40 mg Inj (Enoxaparin Inj) ??40 mg 0.4 mL, Subcutaneous Injection, Daily Insulin Lispro 100 units/mL Inj (3mL) (Insulin LISPRO Sliding Scale) ??2-10 units, Subcutaneous Injection, 3 times a day before meals NaCl 0.9% Flush 3ml (NaCL 0.9% Flush) ??3 mL, IV Push, Every 8 hours Nystatin Powder ??1 application, Topically, 2 times a day Sertraline 25 mg Tablet (sertraline 25 mg oral tablet) ??25 mg, By Mouth, Daily Vitamin D 1000 IU Tablet (Vitamin D3 1000 intl units oral tablet) ??1,000 International_Units, By Mouth, Daily CONTINUOUS: (0) PRN: (8) Acetaminophen 325 mg Tablet (Acetaminophen Tablet) ??650 mg, By Mouth, Every 4 hours Hydrocortisone 1% Ointment (HydroCORTisone ??1% Topical) ??1 application, Topically, 3 times a day Melatonin 3 mg Tablet (Melatonin Tablet) ??3 mg, By Mouth, Daily at bedtime NaCl 0.9% Flush 3ml (NaCL 0.9% Flush) ??3 mL, IV Push, Every 8 hours Olanzapine 10 mg Inj (Zyprexa Inj) ??2.5 mg, Intramuscular, Once Senna Tablet ??8.6 mg 1 tablet, By Mouth, 2 times a day Simethicone 80 mg Chewable Tablet (Simethicone Tablet) ??80 mg, Chew, 3 times a day Trazodone 50 mg Tablet (traZODone 50 mg oral tablet) ??25 mg, By Mouth, 2 times a day ? Assessment/Plan Assessment:??72-year-old female patient with past medical history of cognitive impairment, diabetestype 2, essential pretension, dyslipidemia, and multiple sclerosis who was brought to the for evaluation of altered mental status and found to have UTI ?? Altered mental state (R41.82):??. CXR did not reveal any abnormality Acute urinary tract infection (N39.0):??urine culturegrowing E coli, sensitive to ceftriaxone continue ceftriaxone CT pending Blood culture prelim ?? Dementia (F03.90):?Resume sertraline. ?Continue delirium precautions. ??Will avoid benzo, antihistamine and anticholinergic ??Will avoid restraint ?? Diabetes mellitus type 2 in obese (E11.69):??Will hold metformin ??SSI ?Hypoglycemia protocol. ?? Lactic acidosis (E87.20):??resolved ?? Multiple sclerosis (G35):??not on any medication ?? VTE Prophylaxis:??lovenox ?VTE Prophylaxis Assessment:??VTE Prophylaxis Ordered ?? Code Status:??full ?Order Code Status:??Code Status Ordered ?? Ongoing Medical Necessity:??CTH pending ?? and caregiver updated on 06/16? * Braydon RAMAN, Shawn Dubois: MODIFY, SIGN, MODIFY, SIGN, VERIFY, MODIFY, SIGN, MODIFY, PERFORM Event Display: Progress Note Hospital Authored Date: Patient: LIOR NAYLOR Age: 72 years Sex: Female : 1950 Associated Diagnoses: None Author: Shawn Bryson RN Findings Problem Related to Alteration in Genitourinary : Alteration in Genitourinary Function/new 06/16/2023 9:00 EST Alteration in Status Related to UTI Goals & Outcomes, Genitourinary Pt will achieve normal/improved fluid balance, Pt will maintainadequate function appropriate for pt, Pt will maintain normal fluid balance Interventions, Assess/monitor/maintain Genitourinary status, Assist & encourage pt with meticulous juan care, Encourage PO fluid intake as allowed by diet BH Goals/Interventions, Genitourinary Yes Genitourinary, Problem Start 06/12/2023 7:55 Reviewed Plan with, Genitourinary Family/caregiver not available Patient Progression, Genitourinary Patient progressing according to plan Genitourinary, Problem Ongoing Yes . Narrative/Incidental Resident alert, orientedx1, with altered mental status and confused as baseline. Not on distress, no SOB, no complain of pain noted. Noted with rash red spots on upper back, no itchiness as patient claimed, with redness blanchable at sacrum. OB nblood sugar monitoring, encourage to increase fluid intake. Call light within reach and instructed, bed in lowest position, bed alarm on, bed wheels locked, will continue to monitor. Will be discharge today as per MD. For scan of head /brain without contrast as per MD, informed patient. Patient will be picked up at 5:[address] scan, to insert Primafit once patient comes back from CT.. Evaluation Patient sent CT scan per bed as ordered.. Consult note * Shaniqua Hollins RN: PERFORM, SIGN, VERIFY Event Display: Consultation Note Authored Date: [id number] Patient: LIOR NAYLOR Age: 72 years Sex: Female : 1950 Associated Diagnoses: None Author: Shaniqua Hollins RN History of Presenting Problem sacrococcygeal Date of Service 06/15/2023 Wound RN consult entered to assess sacrum... healed sacral wound, please advise wound care . Patient was admitted on 06/11/23 from home with altered mental status compared to baseline, concern for UTI. Significant PMH includes cognitive impairment, dementia, MS, DM2, essential pretension and HLD; see H&P for further details. Upon entering the room patient is lying in bed, with eyes closed but responded verbally to verbal/touch stimuli. Wound RN role explained with PCT at bedside throughoutvisit. Sacrococcygeal area intact with blanchable erythema and desquamation, hypopigmentation/scar tissue consistent with previously healed skin loss. Nystatin powder in place to pannus/groin folds, although areas with no erythema or s/s of fungal dermatitis. Saturated brief removed and PCT educated on disadvantages with moisture trapping. At end of visit, patient opened her eyes, throughout assessment was following commands appropriately. Spoke to RN post visit, agreeable to assessment, she verified patient is confused; we discussed to consider therapeutic bed & Z boots, discussed below r ecommendations, aware of disadvantages of brief use, and I will discuss with MD discontinue nystatin powder. Recommendations sent via Package Concierge connect to MD Juan David Bullard, aware d/t prophylactic recs will not place orders and aware of nystatin powder with no s/s fungal dermatitis. Recommendations: 1.) Buttocks/sacrococcygeal: Cleanse with ph balanced skin cleanser. Pat dry. Apply zinc oxide (z-guard) to affected area 2x/day and as needed after incontinence episodes. 2.) Abdominal folds: Interdry -Lay a single layer of fabric in the skin fold, placing one edge into the base of the fold. -Gently smooth the rest of the fabric over the skin, keeping it flat. Leave at least 2 inches of the fabric exposed outside the skin fold. -Secure the fabric in one of several ways: with the skin fold, with a small amount of skin-friendlytape, or tucked under clothing. -Remove the fabric before bathing and reuse it when finished. When removing, gently separate the skin fold and lift away. -Do not use creams, ointments or powders with InterDry as it may interfere with product efficacy. -Each piece of InterDry may be used up to 5 days, depending on fabric soiling, odor, amount of moisture and general skin condition. Replace InterDry if it becomes soiled with blood, urine or stool. 3.) Consider specialty bed/low air loss mattress, if not being discharged 4.) Consider Z-boots if concerns for heel bony prominences 5.) Turn and reposition every 2 hours and PRN 6.) Continue incontinence care as well as moisture management; do not utilize Mepilex foam dressingwith incontinence 7.) Do not utilize brief use 8.) Continue to offload bony prominences 9.) Continue to provide optimal nutritional support 10.) Provide Gaymar cushion to chair when patient OOB Please reconsult wound care RNs for deterioration in wound/skin status Patient at increased risk for pressure injury development d/t mobility, moisture and current integumentary status, please ensure to utilize pressure prevention interventions Plan Patient Teaching Discussed plan of care with RN Time spent 16-30 minutes Note * Bette Lake MD: PERFORM, MODIFY Event Display: Discharge/Transfer Note Hospital Authored Date: Patient: ??DAYDAY, LIOR ? Age:??72 Years?Sex:??Female?:??1950?? 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 _ Discharge Medications Acetaminophen (acetaminophen 500 mg oral tablet)?2?tab(s)?1,000?Milligram?By Mouth?2 times a day Ascorbic Acid (Vitamin C 1000 mg oral tablet)?1?tab(s)?1,000?Milligram?By Mouth?Daily Bacitracin/Neomycin/Polymyxin B Topical (Neosporin 400 u-3.5 mg-5000 u/gm ointment)?1?titus?Topically?2 times a day?TOP OF BUTTOKS Chlorthalidone (chlorthalidone 25 mg oral tablet)?1?tablet?By Mouth?Daily Cholecalciferol (Vitamin D3 1000 intl units oral capsule)?1?capsule?25?Microgram?By Mouth?Daily Cyanocobalamin (Vitamin B12 500 mcg oral tablet)?1?tab(s)?500?Microgram?By Mouth?Daily Durable Medical Equipment (Disposable bed chux)?See Instructions?Use as instructed on bedDx: Urinary incontinence secondary to Multiple Sclerosis and limited mobility Durable Medical Equipment (Beside Commode)?See Instructions?Use as instructedDx: Urinary incontinence secondary to multiple sclerosis and limited mobility Durable Medical Equipment (Shower Chair)?See Instructions?USe as instructed when showering for safetyDx: MS, Poor mobility secomdary to MS Durable Medical Equipment (Mepilex 6 x 6 dressing supply)?See Instructions?Apply to decubitusulcer in coccyx region every 3 daysDx: Decubitus ulcer ICD 10: L89.90 Durable Medical Equipment (One Touch Ultra Test Strips)?See Instructions?DM E11.9Use to test Bloos Sugars TID Metformin (metFORMIN 1000 mg oral tablet)?1?tab(s)?By Mouth?2 times a day mirabegron (Myrbetriq 50 mg oral tablet, extended release)?1?tab(s)?50?Milligram?By Mouth?Daily?do not crush or chewPrescribed by urology Miscellaneous Rx (ONE TOUCH ULTRA BLUE TEST STRP)?See Instructions?USE TO TEST BLOOD SUGARS ONCE DAILY DUE TO BEING NON-INSULIN DEPENDANT Nystatin Topical (nystatin topical 361230 u/gm powder)?See Instructions?APPLY TO AFFECTED AREA TWICE A DAY PEG Electrolyte Solution (PEG-3350 with Electrolytes (Eqv-GoLYTELY) oral powder for reconstitution)?See Instructions?split prep method. drink one half the night before procedure at 5pm. drink second half morning of procedure. must finish no later than 3 hours prior to procedure. Sertraline (sertraline 25 mg oral tablet)?1?tab(s)?25?Milligram?By Mouth?Daily Zinc Oxide Topical (Critic-Aid Skin 20% topical paste)?See Instructions?APPLY TOPICALLY 2 TIMES A DAY,X10 DAYS ? Durable Medical Equipment Discharge recommendations: Home with services (06/15/23) Ambulatory devices needed: Wheelchair (05/17/23) ? Medications Started N/A Medications Discontinued N/A Doses Changed N/A Future Appointments Thursday 11:30 AM EST ?? With: Mani NUNN, Pete Mendoza Where: [facility] [address] [place] [address]- Status: Pending Hospital Course Mrs. Naylor is a 72 years old female with known MS and dementia brought in for AMS, she was foundto have positive urine culture and treated with abx, her mentation is fluctuating in hospital but has remained stable, today she is alert, oriented to self and person, and no acute complaints, her presentation and UA profiles are not consistent with UTI, and her mentation changes can be related to dementia, discussed with that smelling urine is not indicative of UTI and bacteriuria is very common for elderly female with immobility issues, and should not be treated, patient will be discharged back to home with 24/7 care (services declined by ). Objective Assessment and Plan ?? Severe dementia without behavioral disturbance, psychotic disturbance, mood disturbance, or anxiety(F03.C0) Acute delirium (R41.0) -based on recent neuropsychiatric test patient has dementia possibly related to MS or concurrent Alzheimer's, fluctuation of mentation is expected and can be triggered by medications changes, environment changes, constipation or other non-specific reasons, no evidence of infection currently close to baseline, encouraged spouse to take patient home as prolonged hospital stay will trigger delirium among other complications ?? Asymptomatic bacteriuria (R82.71) -very minimal and insignificant pyuria (less than 20/HPF) without objective evidence of fever, CVA or suprapubic tenderness, dysuria no evidence of UTI, no further abx or prophylaxis warranted, leukocytosis is chronic and lymphocytic predominant ?? DM type 2 (diabetes mellitus, type 2) (E11.9) Multiple sclerosis, primary progressive (G35) Hypertension (I10) Morbid obesity due to excess calories (E66.01)?? -stable continue home meds Measurements?? Height: 163 cm (06/17/23) Weight: 118 kg (06/12/23) Dry Weight: 118 kg (06/12/23) Body Mass Index:??44.41 kg/m2??Critical (06/12/23) ? Vital Signs?? Temperature: 98.1 DegF (06/17/23 07:04:00) Temperature Route: Oral (06/17/23 07:04:00) Pulse Rate: 80 bpm (06/17/23 07:04:00) Respiratory Rate: 18 br/min (06/17/23 07:04:00) Systolic Blood Pressure: 118 mm Hg (06/17/23 07:04:00) Diastolic Blood Pressure: 83 mm Hg (06/17/23 07:04:00) Blood pressure sites: Arm, left (06/17/23 07:04:00) Mean Arterial Pressure: 95 mm Hg (06/17/23 07:04:00) Pulse Pressure: 35 mm Hg (06/17/23 07:04:00) Oxygen Saturation: 97 % (06/17/23 07:04:00) Mode of Delivery (Oxygen): Room air (06/17/23 07:04:00) Early Warning Score: 0 (06/17/23 07:04:59) ? Basic ADLs Feeding Assistance: Independent (06/17/23) Hygiene: Total, Partial bath, Juan care (06/17/23) ? Mobility & Ambulation Level Mobility & Ambulation Level?? No qualifying data available. ?? Therapeutic Activity Therapeutic Activities/Mobility/Balance Comments on treatment indicated: 72 F from home with urosepsis. Fmaily 24 hour care and assist for pivot txfrs at baseline. Pt modA with dtr txfr on eval. See for strength, balance, endurance, safety, mobility. Home with family care and home PT f/u. (06/15/23 08:22:00) Plan of care PT: Transfer training, Therapeutic exercise, Functional Activities, Balance training (06/15/23 08:22:00) Problems PT: Impaired strength/ROM, Impaired functional mobility, Impaired balance, Impaired safety(06/15/23 08:22:00) Treatment Indicated-PT: Yes (06/15/23 08:22:00) Discharge recommendations: Home with services (06/15/23 08:22:00) Barriers to goal achievement: Decreased function at baseline (06/15/23 08:22:00) Bed mobility: PT Plan: Minimal assist (06/15/23 08:22:00) Facilitators to goal achievement: Supportive family, Previously normal milestones (06/15/23 08:22:00) Plan Discussed w/Pt,Family/Agreed Upon: Yes (06/15/23 08:22:00) Plan discussed with care team PT: RN, enterprise account manager (06/15/23 08:22:00) PT Duration: 2 weeks (06/15/23 08:22:00) Rehab potential: Good (06/15/23 08:22:00) Transfer bed to chair PT Plan: Minimal assist (06/15/23 08:22:00) Transfer Sit to Stand, PT Plan: Minimal assist (06/15/23 08:22:00) ?? . Physical Exam Constitutional: Alert, in no acute distress. Head EENT: Extraocular muscle movement intact.??Moist mucous membranes.?? Respiratory: Clear to auscultation. No wheezing or crackles. No use of accessory muscles. Cardiovascular: S1S2 regular. No murmurs, rubs or gallops. Gastrointestinal: Abdomen soft, non-tender, non-distended. Normal bowel sounds. Extremities: No lower extremity pitting??edema. No cyanosis or clubbing. Neurologic: AAOx1-2, Speech normal. Psychiatric: Normal mood and affect Pending Results Add On Lab Order ordered on 06/12/2023 Add On Lab Order ordered on 06/12/2023 Blood Culture #2 ordered on 06/11/2023 Urine Culture ordered on 06/11/2023 Patient Education Titles Dementia and Caregiver Support?? Follow-Up Appointments Added Follow Up ?Time Frame ?Comments Salvatore GOMEZ, Tracy?2 to 5 weeks Patient Instructions Patient is admitted for fluctuation of mentation, it is commonly??associated with her severe dementia, there is no strong evidence of urinary tract infection, the bacteria isolated from the urine represented colonization instead of true infection, bacteria colonization is common for patient who haslimited mobility and at elder age;? Mentation fluctuation can be seen on a daily basis at home and can be exaggerated by change of environment, constipation, urinary retention or change of medications;? Please follow up with primary care provider within 2-5 weeks as needed.?? Post Discharge Care Diet: ??Diabetic Diet ?? Activity: ??Activity as tolerated ?? Code Status: ??Full Resuscitation ?? Condition: ??Stable ?? Prognosis: ??Fair ?? Results Discharge Labs BLOOD COUNT & DIFF WBC 12.3 k/mm3 (High)?? 06/16/2023 05:45 RBC 4.34 m/mm3 ()?? 06/16/2023 05:45 Hgb 13.1 Gm/dL ()?? 06/16/2023 05:45 Hct 40.7 % ()?? 06/16/2023 05:45 MCV 93.8 femtoliters ()?? 06/16/2023 05:45 MCH 30.2 pg ()?? 06/16/2023 05:45 MCHC 32.2 g/dL (Low)?? 06/16/2023 05:45 Platelet Count 325 k/mm3 ()?? 06/16/2023 05:45 RDW-SD 43.5 femtoliters ()?? 06/16/2023 05:45 MPV 9.8 femtoliters ()?? 06/16/2023 05:45 Nucleated RBC (Automated) 0.0 #/100 WBC'S ()?? 06/16/2023 05:45 Abs. NRBC 0.0 k/mm3 ()?? 06/16/2023 05:45 Abs. Neut 6.5 k/mm3 ()?? 06/15/2023 02:12 Abs. Lymph 4.7 k/mm3 (High)?? 06/15/2023 02:12 Abs. Estill 0.7 k/mm3 ()?? 06/15/2023 02:12 Abs. Eo 0.6 k/mm3 (High)?? 06/15/2023 02:12 Abs. Baso 0.1 k/mm3 ()?? 06/15/2023 02:12 Neut % 52.1 % ()?? 06/15/2023 02:12 Lymph % 37.2 % ()?? 06/15/2023 02:12 Estill % 5.3 % ()?? 06/15/2023 02:12 Eos % 4.5 % ()?? 06/15/2023 02:12 Baso % 0.6 % ()?? 06/15/2023 02:12 Imm Gran 0.3 % ()?? 06/15/2023 02:12 Abs. Imm Gran 0.0 k/mm3 ()?? 06/15/2023 02:12 ?? CHEM GENERAL Sodium 139 mmol/L ()?? 06/16/2023 05:45 Potassium 3.9 mmol/L ()?? 06/16/2023 05:45 Chloride 98 mmol/L ()?? 06/16/2023 05:45 Bicarbonate Level 30 mmol/L (High)?? 06/16/2023 05:45 Anion Gap 11 ()?? 06/16/2023 05:45 Glucose Level 169 mg/dL (High)?? 06/16/2023 05:45 Glucose, POC 150 mg/dL (High)?? 06/17/2023 06:56 Hemoglobin A1C (Monitoring) 6.8 % (High)?? 06/12/2023 06:31 BUN 12 mg/dL ()?? 06/16/2023 05:45 Creatinine-Blood 0.7 mg/dL ()?? 06/16/2023 05:45 Estimated GFR Creatinine 94 ML/MIN/1.73 M2 ()?? 06/16/2023 05:45 Calcium 10.1 mg/dL ()?? 06/16/2023 05:45 Protein, Total 6.7 Gm/dL ()?? 06/11/2023 18:55 Albumin 4.2 Gm/dL ()?? 06/11/2023 18:55 AG Ratio 1.7 ()?? 06/11/2023 18:55 Alkaline Phosphatase 43 units/L ()?? 06/11/2023 18:55 Lipase 24 units/L ()?? 06/11/2023 18:55 AST (SGOT) 19 units/L ()?? 06/11/2023 18:55 ALT (SGPT) 13 units/L ()?? 06/11/2023 18:55 Bilirubin, Total <0.2 mg/dL ()?? 06/11/2023 18:55 Lactate 1.5 mmol/L ()?? 06/12/2023 06:31 ? MISC. CHEMISTRY Hold Gel Top SPECIMEN DISCARDED AFTER 1 WEEK ()?? 06/12/2023 06:31 ? UA/URINALYSIS Appear/Color, Urine YELLOW ()?? 06/11/2023 17:49 Specific [place], Urine 1.017 ()?? 06/11/2023 17:49 pH, Urine 7.0 ()?? 06/11/2023 17:49 Albumin, Urine NEGATIVE ()?? 06/11/2023 17:49 Glucose, Urine NEGATIVE ()?? 06/11/2023 17:49 Ketones, Urine NEGATIVE ()?? 06/11/2023 17:49 Bilirubin, Urine NEGATIVE ()?? 06/11/2023 17:49 Hemoglobin, Urine NEGATIVE ()?? 06/11/2023 17:49 Nitrite, Urine POSITIVE (Abnormal)?? 06/11/2023 17:49 Leukocyte, Urine 3+ (Abnormal)?? 06/11/2023 17:49 Urobilinogen NORMAL mg/dL ()?? 06/11/2023 17:49 WBC's, Urine 19 /HPF (High)?? 06/11/2023 17:49 RBC's, Urine NONE SEEN /HPF ()?? 06/11/2023 17:49 Bacteria SLIGHT HPF (Abnormal)?? 06/11/2023 17:49 Squamous Epith 1 /HPF ()?? 06/11/2023 17:49 Mucus SLIGHT /LPF ()?? 06/11/2023 17:49 Hold Urine Culture Testing available 48 hours from time of collection. ()?? 06/11/2023 17:49 ? URINE OTHER Est Creatinine Clearance 65.05 mL/min ()?? 06/16/2023 06:55 ? VIROLOGY Influenza A PCR NEGATIVE ()?? 06/11/2023 17:40 Influenza B PCR NEGATIVE ()?? 06/11/2023 17:40 RSV PCR NEGATIVE ()?? 06/11/2023 17:40 COVID-19 PCR Specimen Source NASAL ()?? 06/11/2023 17:40 COVID-19 PCR Result NEGATIVE ()?? 06/11/2023 17:40 ? 35 minutes spent on discharge * Parent RNBrooke S: PERFORM, SIGN, VERIFY Event Display: Case Management Discharge Plan Authored Date: [id number] Patient: LIOR NAYLOR Age: 72 years Sex: Female : 1950 Associated Diagnoses: None Author: Parent Brooke RAMAN Discharge Plan Case Management Discharge Plan : Case Management Discharge Plan Data 06/17/2023 10:50 EST Discharge Level of Care at Discharge Home/[facility] Discharge Transportation Arranged * Irene Jo RN: PERFORM Event Display: Patient Education/Instruction Authored Date: [id number] Inpatient Adult Discharge Instructions [place] [id number] Name: LIOR NAYLOR : 1950 Visit: 06/11/2023 21:17:00 Current Date: 06/17/2023 10:13 Account: [id number] Inpatient Adult Discharge Instructions We would like to thank you for allowing us to assist you with your healthcare needs. The following includes patient education materials and information regarding your injury/illness. Our entire staffstrives to provide an excellent experience for our patients and their families. PLEASE ENSURE YOU FOLLOW-UP PER THE INSTRUCTIONS BELOW! ?? YOUR OPINION IS IMPORTANT TO US! Please complete the survey you may receive by mail or email. Your feedback will be used to make improvements to the healthcare experiences of our patients and their families. Surveys are administered by [employer] ?? If further treatment with your primary care physician or another doctor is recommended, it is important for you to keep the appointment. Call your primary care physician or return to the Emergency Department immediately if your condition worsens, fails to improve, or new symptoms develop. If you need to find a doctor, you can call [facility] for a referral at [phone] or toll free at [phone]) or log in to [email or web address].. ?? [facility], in keeping with [facility] guidance, no longer requires face masks for staff, patientsor visitors in most situations. Similiar to time spent indoors at other locations, there is the chance that you were exposed to repiratory viruses during your time with us (such as flu or COVID-19). If you develop symptoms concerning for a viral respiratory infection, please seek testing (and treatment if indicated) from your medical provider or home test kit. ?? You can view and manage your care through the patient portal or by using a health care titus of your choosing. [employer] is a website that allows you to securely view your medical information including your hospital discharge summary, office visit summaries, medications and follow-up visits. You can also request appointments, renew medications, and request access to your medical information using a health care titus of your choosing, or just ask a question. You can enroll at [email or web address] or register during your next office visit. You have been discharged from [facility], Patient Care Unit: S1. If you have any questions regarding these instructions after you leave, please call us and we will be happy to assist you. [facility] Your Care Team Attending Physician Aleksandra GOMEZ, Bette Discharging Providers Aleksandra GOMEZ, Bette Reason for Admission Pt. coming from home. Family noted pt. had AMS compared to baseline and puss in urine after changing felton cath. Pt. has Hx of UTI. Pt. has baseline dementia and MS. Family request. Pt. denies anycomplaits, Your Diagnosis Severe dementia without behavioral disturbance, psychotic disturbance, mood disturbance, or anxiety Asymptomatic bacteriuria Acute delirium DM type 2 (diabetes mellitus, type 2) Multiple sclerosis, primary progressive Hypertension Morbid obesity due to excess calories Tests Performed Below is a partial list of the tests performed during your hospitalization. You may have had other tests and procedures not included in this list. Please discuss all test results with your provider. Basic Metabolic Panel BUN CBC CBC w/ Differential Comprehensive Metabolic Panel COVID-19, RSV, and Flu A/B, Rapid PCR Creatinine Culture Urine?-- Results Pending -- Electrolytes Glucose Level GLUCOSE POC HEMOGLOBIN A1C HOLD GEL TUBE Lactate Level Lactic Acid Level Lipase Urinalysis w/hold for Urine Culture CT Head/Brain W/O IV Contrast XR Chest 2 Views Frontal and Lat You will be contacted within 72 hours with your results. Primary Care Provider Salvatore GOMEZ, [facility] Advance Directive Health Care Proxy on File Yes - Health Care Proxy Discharge Vitals Temperature: 98.1 DegF Height: 163 cm Pulse Rate: 80 bpm Weight: 118 kg Respiratory Rate: 18 br/min Body Mass Index:??44.41 kg/m2??Critical Systolic Blood Pressure: 118 mm Hg Body surface area: 2.31 Diastolic Blood Pressure: 83 mm Hg ?? Oxygen Saturation: 97 % ?? Studies Pending All tests and labs ordered during this hospital stay have been completed unless listed below. Please discuss all pending results with your provider listed above in these instructions. ?? Add On Lab Order Blood Culture #2 Urine Culture (Culture Urine) What to do next Instructions From Your Doctor Patient is admitted for fluctuation of mentation, it is commonly??associated with her severe dementia, there is no strong evidence of urinary tract infection, the bacteria isolated from the urine represented colonization instead of true infection, bacteria colonization is common for patient who haslimited mobility and at elder age;? Mentation fluctuation can be seen on a daily basis at home and can be exaggerated by change of environment, constipation, urinary retention or change of medications;? Please follow up with primary care provider within 2-5 weeks as needed.?? Discharge Orders Diet:??Diabetic Diet Activity:??Activity as tolerated Code Status:?? Full Resuscitation Condition:??Stable Prognosis:??Fair Scheduled Follow-Up Appointments Thursday 11:30 AM EST ?? With: Mani NUNN, Pete Mendoza Where: [facility] [address] [facility] [address] [place] [address]- Status: Pending You Need to Schedule the Following Appointments Follow Up with??Salvatore GOMEZ, Tracy When:??Within 2 to 5 weeks Discharge Medications LIOR NAYLOR :1950 Visit Date:06/11/2023 Medications: Please continue your medications until treatment is completed or stopped by your provider. Medications not listed below should be discontinued. Discuss any questions related to medications with your provider. What How Much When Instructions Next Dose Unchanged Ascorbic Acid (Vitamin C 1000 mg oral tablet) 1 tab(s) Oral Daily Unchanged Bacitracin/ Neomycin/ Polymyxin B Topical (Neosporin 400 u-3.5 mg-5000 u/ gm ointment) 1 titus Topically Twice a day TOP OF BUTTOKS ?? Unchanged Chlorthalidone (chlorthalidone 25 mg oral tablet) 1 tab(s) Oral Daily Unchanged Cholecalciferol (Vitamin D3 1000 intl units oral capsule) 1 capsule Oral Daily Unchanged Cyanocobalamin (Vitamin B12 500 mcg oral tablet) 1 tab(s) Oral Daily Unchanged Durable Medical Equipment (Beside Commode) See instructions Use as instructed ?? Dx: Urinary incontinence secondary to multiple sclerosis and limited mobility ?? Unchanged Durable Medical Equipment (Disposable bed chux) See instructions Use as instructed on bed ?? Dx: Urinary incontinence secondary to Multiple Sclerosis and limited mobility ?? Unchanged Durable Medical Equipment (Mepilex 6 x 6 dressing supply) See instructions Apply to decubitus ulcer in coccyx region every 3 days ?? Dx: Decubitus ulcer ICD 10: L89.90 ?? Unchanged Durable Medical Equipment (One Touch Ultra Test Strips) See instructions DM E11.9 Use to test Bloos Sugars TID ?? Unchanged Durable Medical Equipment (Shower Chair) See instructions USe as instructed when showering for safety ?? Dx: MS, Poor mobility secomdary to MS ?? Unchanged Metformin (metFORMIN 1000 mg oral tablet) 1 tab(s) Oral Twice a day Unchanged mirabegron (Myrbetriq 50 mg oral tablet, extended release) 1 tab(s) Oral Daily do not crush or chew Prescribed by urology ?? Unchanged Miscellaneous Rx (ONE TOUCH ULTRA BLUE TEST STRP) See instructions USE TO TEST BLOOD SUGARS ONCE DAILY DUE TO BEING NON-INSULIN DEPENDANT ?? Unchanged Nystatin Topical (nystatin topical 863288 u/ gm powder) See instructions APPLY TO AFFECTED AREA TWICE A DAY ?? Unchanged PEG Electrolyte Solution (PEG-3350 with Electrolytes (Eqv-GoLYTELY) oral powder for reconstitution) See instructions split prep method. drink one half the night before procedure at 5pm. drink second half morning of procedure. must finish no later than 3 hours prior to procedure. ?? Unchanged Sertraline (sertraline 25 mg oral tablet) 1 tab(s) Oral Daily Unchanged Zinc Oxide Topical (Critic-Aid Skin 20% topical paste) See instructions APPLY TOPICALLY 2 TIMES A DAY,X10 DAYS ? What How Much When Comments Stop Taking Sulfamethoxazole/ Trimethoprim (sulfamethoxazole-trimethoprim 400 mg-80 mg oral tablet) 1 tab(s) Oral Daily Test Results Below is a partial list of the most recent Laboratory test results done prior to this discharge. You may have had other tests and procedures not included in this list. Please discuss all test resultswith your provider. Est Creatinine Clearance - 65.05 mL/min (06/16/2023) Basic Metabolic Panel (06/16/2023) ???Sodium - 139 mmol/L???Potassium - 3.9 mmol/L???Chloride - 98 mmol/L???Bicarbonate Level - 30 mmol/L???Anion Gap - 11???Glucose Level - 169 mg/dL???BUN - 12 mg/dL???Creatinine-Blood - 0.7 mg/dL???Estimated GFR Creatinine - 94 ML/MIN/1.73 M2???Calcium - 10.1 mg/dL BUN (06/15/2023) ???BUN - 10 mg/dL CBC (06/16/2023) ???WBC - 12.3 k/mm3???RBC - 4.34 m/mm3???Hgb - 13.1 Gm/dL???Hct - 40.7 %???MCV - 93.8 femtoliters???MCH - 30.2 pg???MCHC - 32.2 g/dL???Platelet Count - 325 k/mm3???RDW-SD - 43.5 femtoliters???MPV - 9.8 femtoliters???Nucleated RBC (Automated) - 0.0 #/100 WBC'S???Abs. NRBC - 0.0 k/mm3 CBC w/ Differential (06/15/2023) ???WBC - 12.6 k/mm3???RBC - 4.33 m/mm3???Hgb - 13.2 Gm/dL???Hct - 40.3 %???MCV - 93.1 femtoliters???MCH - 30.5 pg???MCHC - 32.8 g/dL???Platelet Count - 275 k/mm3???RDW-SD - 42.6 femtoliters???MPV - 9.6 femtoliters???Nucleated RBC (Automated) - 0.0 #/100 WBC'S???Abs. NRBC - 0.0 k/mm3???Abs. Neut - 6.5 k/mm3???Abs. Lymph - 4.7 k/mm3???Abs. [place]ill - 0.7 k/mm3???Abs. Eo - 0.6 k/mm3???Abs. Baso - 0.1 k/mm3???Neut % - 52.1 %???Lymph % - 37.2 %???Estill % - 5.3 %???Eos % - 4.5 %???Baso % - 0.6 %???Imm Gran - 0.3 %???Abs. Imm Gran - 0.0 k/mm3 Comprehensive Metabolic Panel (06/11/2023) ???Sodium - 142 mmol/L???Potassium - 4.0 mmol/L???Chloride - 100 mmol/L???Bicarbonate Level - 29 mmol/L???Anion Gap - 13???Glucose Level - 72 mg/dL???BUN - 18 mg/dL???Creatinine-Blood - 0.7 mg/dL???Estimated GFR Creatinine - 88 ML/MIN/1.73 M2???Calcium - 10.1 mg/dL???Protein, Total - 6.7 Gm/dL???Alb umin - 4.2 Gm/dL???AG Ratio - 1.7???Alkaline Phosphatase - 43 units/L???AST (SGOT) - 19 units/L???ALT (SGPT) - 13 units/L? ?Bilirubin, Total - <0.2 mg/dL COVID-19, RSV, and Flu A/B, Rapid PCR (06/11/2023) ???Influenza A PCR - NEGATIVE???Influenza B PCR - NEGATIVE???RSV PCR - NEGATIVE???COVID-19 PCR Specimen Source - NASAL???COVID-19 PCR Result - NEGATIVE Creatinine (06/15/2023) ???Creatinine-Blood - 0.5 mg/dL???Estimated GFR Creatinine - 99 ML/MIN/1.73 M2 Electrolytes (06/15/2023) ???Sodium - 138 mmol/L???Potassium - 3.6 mmol/L???Chloride - 98 mmol/L???Bicarbonate Level - 25 mmol/L???Anion Gap - 15 Glucose Level (06/15/2023) ???Glucose Level - 148 mg/dL GLUCOSE POC (06/17/2023) ???Glucose, POC - 150 mg/dL HEMOGLOBIN A1C (06/12/2023) ???Hemoglobin A1C (Monitoring) - 6.8 % HOLD GEL TUBE (06/12/2023) ???Hold Gel Top - SPECIMEN DISCARDED AFTER 1 WEEK Lactate Level (06/12/2023) ???Lactate - 1.5 mmol/L Lactic Acid Level (06/11/2023) ???Lactate - 4.2 mmol/L Lipase (06/11/2023) ???Lipase - 24 units/L Urinalysis w/hold for Urine Culture (06/11/2023) ???Appear/Color, Urine - YELLOW???Specific [place], Urine - 1.017???pH, Urine - 7.0???Albumin, Urine - NEGATIVE???Glucose, Urine - NEGATIVE???Ketones, Urine - NEGATIVE???Bilirubin, Urine - NEGATIVE???Hemoglobin, Urine - NEGATIVE???Nitrite, Urine - POSITIVE???Leukocyte, Urine - 3+???Urobilinogen - NORMAL???WBC's, Urine - 19 /HPF???RBC's, Urine - NONE SEEN???Bacteria - SLIGHT???Squamous Epith - 1 /H PF???Mucus - SLIGHT???Hold Urine Culture - Testing available 48 hours from time of collection. Allergies (NKA means No Known Allergies) penicillins??(rash) Problems Active Problems??(10) Actinic keratosis?? Chronic ulcer of buttock?? DM type 2 (diabetes mellitus, type 2)?? Hip pain, left?? Hypertension?? Multiple sclerosis, primary progressive?? Neoplasm of skin of lower leg?? Seborrheic keratoses?? Severe obesity?? Vitamin D deficiency?? Education Materials Below is the list of Educational Leaflet Providered with your Discharge Instructions. Dementia and Caregiver Support?? Valuables and Belongings I fully understand and agree that [facility] accepts no responsibility for all my personal property including clothing, toilet articles, radios, jewelry, dentures, hearing aids, rings, money, or any other property that is in my possession or is brought to me after admission. I understand certain valuables may be placed in a hospital safe for a short period of time. I understand that the hospital is not liable for loss or damage due to accident, fire, or other natural occurrence while said property is in the safe. I accept full responsibility for any personal property that I keep with me, and will not hold the hospital responsible in case of loss or disappearance. I acknowledge that i have been encouraged to send valuables and belongings home. ?? Review of Valuable and Belonging List: With patient Date for Pt to Sign Valuables/Belongings: 06/12/23 00:10:00 ?? Other Discharge Information ? Case Management Discharge Plan?? Discharge Plan?? Discharge Level of Care at Discharge: Home/Fci/Foster Care ?? Pulmonary Rehab Status?? Pulmonary Rehab Discharge Status?? Respiratory Rate: 18 br/min ? Common Emergency Awareness Tips IS IT A STROKE? Act FAST and Check for these signs: FACE Does the face look uneven? ARM Does one arm drift down? SPEECH Does their speech sound strange? TIME Call at any sign of stroke ?? Heart Attack Signs Chest discomfort: Most heart attacks involve discomfort in the center of the chest and lasts more than a few minutes, or goes away and comes back. It can feel like uncomfortable pressure, squeezing, fullness or pain. Discomfort in upper body: Symptoms can include pain or discomfort in one or both arms, back, neck, jaw or stomach. Shortness of breath: With or without discomfort. Other signs: Breaking out in a cold sweat, nausea, or lightheaded. Remember, MINUTES DO MATTER. If you experience any of these heart attack warning signs, call to get immediate medical attention! ?? Smoking can increase your chances of developing chronic health problems and can cause harmful effects to other family members in your house. If you smoke, you are strongly encouraged to quit. Please call [facility] at [phone] or [phone] ([phone]) or log in to [email or web address] for referrals to smoking cessation programs. ?? 920 Suicide & Crisis Lifeline is available 19/01 if you or someone you know needs to find a reason to keep living. By calling 689 you'll be connected to a skilled, trained counselor at a crisis center in your area. INPATIENT DISCHARGE INSTRUCTIONS SIGNATURE PAGE LIOR NAYLOR Location:[facility] Registration Date and Time:06/11/2023 21:17 EST Primary Care Physician: Tracy Chase MD, Attending Physician: Bette Lake MD, I LIOR NAYLOR, have received the above patient education materials/instructions and have verbalized understanding. If ambulance or transport services are being used I further acknowledge being given a choice of service. ?? If you need to contact me, please call me at this number: . Patient/Cobbler Mckay Name: Patient/Cobbler Mckay Signature: Relationship to Patient: Witness Name/Signature: Date: * Bette Lake MD: PERFORM Event Display: Patient Education Leaflets Authored Date: [id number] Dementia and Caregiver Support ?? [id number] Dementia and Caregiver Support Dementia is a long-term (chronic) condition that affects the brain. It causes loss of memory and thinking functions. Some forms of dementia are from degeneration of the brain. They get worse with time. Other forms stay the same for long periods of time. A person with dementia may have trouble recognizing familiar people and places, or knowing what day it is. The person???s memory, judgment, and decision-making may also be affected. In severe cases, the person may not respond when someone talks to them. The most common form of dementia is Alzheimer disease (AD). Healthcare providers don???t fully understand what causes AD. It has no cure. But medicines can treat some of the symptoms. Some of the less common causes for dementia are curable. So it???s important to have a complete health assessment to look for conditions that can be treated. Home care These tips can help you care for a person with dementia at home: ??? A responsible person must be with the person who has advanced dementia at all times.??They should not be left alone or unsupervised. ??? In the case of advanced dementia, keep all medicines in a secure place. They should be under the caregiver???s control. A person with advanced dementia shouldnot be allowed to take their own medicines. This needs to be supervised by the caregiver. Here are ways to help a person with dementia: Activities Keep to a daily routine. Changes in routine can cause stress for someone with dementia. Make a schedule for common daily tasks. These include bathing, dressing, taking medicines, eating meals, going for walks, and going to bed. Communication When talking with a person with dementia, talk slowly and clearly. Use a gentle tone of voice. Choose short, simple words and sentences. Ask 1 question at a time. Don???t interrupt, criticize, or argue. Be calm and supportive. Use friendly facial expressions. Use pointing and touching to help communicate. If the person has a loss of long-term memory, don???t ask questions about past events. Instead, talk about what's happening now. Behavioral tips Use lists, signs, family photos, clocks, and calendars as memory aids. Label cabinets and drawers. Try to distract, not confront, the person. When they become frustrated or upset, direct the person???s attention to eating or some other interesting activity. Windows can help the person know if it's night or day and what season it is. Medical-legal tips Talk with your healthcare provider or supervisor print line about getting a power of commonwealth attorney for healthcare and for financial decisions. It's best to do this while the person can still sign legal documents and make their own legal decisions. Otherwise, you'll need a court order. ?? Support for the caregiver As the caregiver, you'll need a lot of support for yourself. Caring for a person with dementia is afull-time job. It can drain your emotions and lead to frustration and anger toward the one you love. It is common to have feelings of grief over losing the relationship that you once had. As a caregiver to someone with dementia, you are at higher risk for depression, anxiety, and stress. Here are some tips to help you cope with being a caregiver: ??? Learn about dementia and AD so you know what to expect. ??? Find out about the resources in your community, including adult daycare programs. Ask your healthcare provider for a referral to a social services manager, if needed. ??? Take care of yourself with a healthy diet, exercise, and plenty of rest. ??? Ask for help. Share some of the caregiver duties with family and friends. ??? Make personal time for yourself. This is vital. Consider hiring an in-home sitter or home health aide. ??? Get counseling or join a caregiver???s support group. Don't isolate yourself or try to cope with this alone. In a support group, you can learn from others in a similar situation. ??? Visit the Alzheimer???s Association website at www.alz.org for more information. ?? Follow-up care Follow up with the person???s healthcare provider, or as advised. ?? When to get medical care Call your healthcare provider right away??if any of these occur: ??? Frequent falls ??? The person refuses to eat or drink ??? Headache or nausea that gets worse, or repeated vomiting after a fall ??? Unexplained fever of 100.4?? F (38.0?? C) or higher, or as advised ?? Call 911 Call 911 if any of these occur: ??? Slurred speech, or trouble speaking, walking, or seeing ??? Fainting spell or dizziness ??? Seizure symptoms???(these include staring spells, lip-smacking, twitching, or sudden changes in mental status) ??? Violent behavior (call police) or behavior becomes too hard to manage at home ??? Increased drowsiness, or failure to respond normally ?? Last Reviewed Date: 2021 ?? [id number] [employer]. All rights reserved. This information is not intended as a substitute for professional medical care. Always follow your healthcare professional's instructions. ?? * Parent Brooke RAMAN: VERIFY, PERFORM, SIGN Event Display: Case Management Discharge Plan Authored Date: [id number] Patient: LIOR NAYLOR Age: 72 years Sex: Female : 1950 Associated Diagnoses: None Author: Brooke Arellano RN Discharge Plan Case Management Discharge Plan : Case Management Discharge Plan Data 06/16/2023 10:03 EST Discharge Level of Care at Discharge Home/Fci/Foster Care Patient Care team information Care Team Personnel Name: Irene Jo RN Position: [facility] RN Member Role: Primary Care Nurse Name: Jasmine Alan LPN Position: [facility] RN Member Role: Primary Care Nurse Name: Kezia Reyes RN Position: [facility] MR W/ Merge Member Role: Primary Care Nurse Name: Meagan Christensen RN Position: [facility] RN Member Role: Primary Care Nurse Name: Tracy Chase MD Position: [facility] Physician - Primary Care Member Role: PCP Address: Address: [address] [place] [address] [address]rd [address] [place], [place] [address] Name: Carlos Martinez RN Position: [facility] RN Member Role: Primary Care Nurse Name: Emler Santiago RN Position: [facility] RN Member Role: Primary Care Nurse Name: Beena Gordillo RN Position: [facility] RN Member Role: Primary Care Nurse Name: Ping Perez RN Position: [facility] RN Member Role: Primary Care Nurse Name: Eloina Pedro LPN Position: S RN Member Role: Primary Care Nurse Name: Yoana Luna RN Position: [facility] RN Member Role: Primary Care Nurse Name: Rosita Gillespie RN Position: [facility] RN Member Role: Primary Care Nurse Name: Sindy Elizabeth RN Position: [facility] RN Member Role: Primary Care Nurse Name: Gaby Wong LPN Position: [facility] RN Member Role: Primary Care Nurse Name: Mayra Hamlin RN Position: [facility] Hospital Nursing Scheduler Member Role: Primary Care Nurse [facility] Attending Position: [facility] ED Medicine MD Name: Nelson Nicole MA Position: [facility] ED TA [facility] Member Role: Patient Care Provider Name: Jonathan León RN Position: [facility] ED RN W/OE and Tasks Member Role: Patient Care Provider Name: Maylin Kasper Position: [facility] ED OA Charge Member Role: ED Associate Care Team Related Persons Name: ROXY TIM Address: home [address], [place] Name: DAYDAY VINEET Address: home [address], [place] Name: PRISCILLA LUNDY Address: home [address] [place] [address]
--- OUTSIDE RECORDS SUMMARY | 2024-03-07 10:06 | XMS_ITS | Continuity of Care Document ---
Author Organization [facility] Adult Address [address] [place] [address]- Care Team Providers Care Do All Operator Name Role Phone Salvatore GOMEZ, [facility] Primary Care Physician Encounter [facility] Date(s): 06/13/20 - 07/13/20 [facility] Adult [address] [place] [address]- Allergies, Adverse Reactions, Alerts Substance Reaction Severity Status penicillins rash Active Immunizations Given and Recorded Vaccine Date Status Refusal Reason pneumococcal 13-valent vaccine 1 03/21/20 Recorded Influenza Virus Vaccine (oldterm) 2 03/21/20 [facility]or [facility] Medications Beside Commode Beside Commode, [...] 02/18/20 14:16:00 EDT, Route to Pharmacy Electronically, [facility]/pharmacy #[id number], 163, cm, 09/21/19 5:38:00 EDT, Height, 98.1, [...] 0 Refills, Maintenance, 06/14/20 4:56:00 EST, Tablet, [facility]/pharmacy #[id number], 165, cm, 06/11/20 15:47:00 EST, [...] Start Date: 04/21/18 Status: Ordered nystatin topical 194369 u/gm powder 1 application, Topically, 2 times a day, # 60 Gm, 1 Refills, Maintenance, 06/21/20 9:46:00 EST, Powder, [facility]/pharmacy #[id number], 1 application Topically 2 times [...] 07/13/20 9:38:00 EST, Route to Pharmacy Electronically, [facility]/pharmacy #[id number], Partial fill upon patient request, 07/16/20, 165, [...] from Dr. Beal. 6bilat shoulders, seen by [place] [facility] on 10/29/16, report to scanning Social History Social History Type Response Smoking Status Former smoker entered on: 02/14/16 Sex
--- OUTSIDE RECORDS SUMMARY | 2024-03-07 10:06 | XMS_ITS | Continuity of Care Document ---
Author Organization [facility] Adult Address [address] [place] [address]- Care Team Providers Care Binder And Box Builder Name Role Phone Salvatore GOMEZ, [facility] ( [phone] [facility]counter [facility] Date(s): 06/10/21 - 07/10/21 [facility] Adult [address] [place] [id number]- Attending Physician: Tara Duarte Admitting Physician: AdmtrTara Referring Physician: Admtr, Ar8 [...] 02/05/21 16:07:00 EDT, Route to Pharmacy Electronically, [id number], 165, cm, 12/06/20 11:28:00 EDT, Height, 98.1, kg, 09/20/19 2:16:00 EDT, Dry Weight Start Date: 02/05/21 Status: Ordered Critic-Aid Skin 20% topical paste See Instructions, APPLY TO AFFECTED AREA TWICE A DAY FOR 14 DAYS, # 170 Gm, 1 Refills, [id number], 30, APPLY TO AFFECTED AREA TWICE A DAY FOR 14 DAYS, 165, cm, 06/10/21 10:02:00 EST, Height, 98.1, kg, 09/20/19 2:16:00 EDT, Dry Weight Start Date: 06/10/21 Status: Ordered [facility] VITAMIN D3 25 MCG SOFTGEL [facility] VITAMIN D3 25 MCG SOFTGEL, 1, [...] 0 Refills, Maintenance, 06/03/21 12:59:00 EST, Tablet, [facility]/pharmacy #[id number], 165, cm, 12/06/20 11:28:00 EDT, Height, [...] Start Date: 04/21/18 Status: Ordered nystatin topical 587707 u/gm powder See Instructions, APPLY TO AFFECTED AREA TWICE A DAY, # 60 Gm, 1 Refills, Physician Stop 06/29/22 15:44:00 EST, 07/10/21 15:44:00 EST, [facility]/pharmacy #[id number], 60, APPLY TO AFFECTED AREA TWICE A [...] Refills, Maintenance, 12/17/20 9:37:00 EDT, Capsule, [id number], decrease dose, re sent from 06/30/17, 165, [...] from Dr. Beal. 5bilat shoulders, seen by [place] Jennifer on 10/29/16, report to scanning Procedures Procedure Date Related Diagnosis Body Site Status Lumbar puncture 1 05/10/20 Complet ed 1with video gait assessment pre and post for NPH evaluation Social History Social History Type Response Smoking Status Former smoker entered on: 02/14/16 Sex
--- OUTSIDE RECORDS SUMMARY | 2024-03-07 10:06 | XMS_ITS | Continuity of Care Document ---
Author Organization [facility] Adult Address [address] [place] [address]- Care Team Providers Care Litigation Secretary Name Role Phone Tracy Chase MD [id number] Date[facility]): [facility] - [facility]13[facility] Adult [address] [place] [address]- Encounter Diagnosis DM type 2 (diabetes mellitus, type 2)(Discharge Diagnosis) - 12/06/20 Gait disturbance(Discharge Diagnosis) - 12/06/20 Multiple sclerosis, primary progressive(Discharge Diagnosis) - 12/06/20 Normal pressure hydrocephalus(Discharge Diagnosis) - 12/06/20 Obesities, morbid(Discharge Diagnosis) - 12/06/20 Annual physical exam(Discharge Diagnosis) - 12/06/20 Attending Physician: Tracy Chase MD Allergies, Adverse [...] 14:16:00 EST, Route to Pharmacy Electronically, [facility]/pharmacy #[id number], 165, cm, 08/07/20 13:53:00 EST, Height, 98.1, kg, 09/20/19 2:16:00 EDT, Dry Weight Start Date: 08/16/20 Stop Date: 02/12/21 Status: Ordered Critic-Aid Skin 20% topical paste See Instructions, APPLY TO AFFECTED AREA TWICE A DAY FOR 14 DAYS, # 170 Gm, 1 Refills, Acute, [facility] STORE 92760, 30, APPLY TO AFFECTED AREA TWICE A DAY FOR 14 DAYS, 165, cm, 12/06/20 11:28:00 EDT, Height, 98.1, kg, 09/20/19 2:16:00 EDT, Dry Weight Start Date: 12/10/20 Status: Ordered Disposable bed chux Disposable bed [...] Refills, Maintenance, 09/07/20 12:38:00 EST, Tablet, [facility]/pharmacy #[id number], 165, cm, 08/07/20 13:53:00 [...] Start Date: 04/21/18 Status: Ordered nystatin topical 719147 u/gm powder See Instructions, APPLY TO AFFECTED AREA TWICE A DAY, # 60 Gm, 1 Refills, Acute, [facility] STORE [id number], 60, APPLY TO AFFECTED AREA TWICE A [...] 11/30/20 10:29:00 EDT, Route to Pharmacy Electronically, [facility]/pharmacy #[id number], Partial fill upon patient request, 12/03/20, 165,... [...] Refills, Maintenance, 06/12/20 15:51:00 EST, Capsule, [facility], decrease dose, re sent from 06/30/17, 165, cm, 06/11/20 15:47:00 EST, Height, 98.1, kg, 09/20/19 2:16:00 E... Start Date: 06/12/20 Status: Ordered Problem List Condition Effective Dates [...] [facility] on 10/29/16, report to scanning Diagnosis Diagnosis Type Effective Dates Health Status Clinical Service Informant DM type 2 (diabetes mellitus, type 2) Discharge Diagnosis 12/06/20 Gait disturbance Discharge Diagnosis 12/06/20 Multiple sclerosis, primary progressive Discharge Diagnosis 12/06/20 Normal pressure hydrocephalus Discharge Diagnosis 12/06/20 Obesities, morbid Discharge Diagnosis 12/06/20 Annual physical exam Discharge Diagnosis 12/06/20 Vital Signs Most recent to oldest [Reference Range]: 1 Height 165 cm (12/06/20 11:28 AM) Oxygen Saturation [94-100 %] 96 % (12/06/20 11:28 AM) Pulse Rate [55-90 bpm] 75 bpm (12/06/20 11:28 AM) Blood Pressure [90-138/55-84 mm Hg] 98/5 8mm Hg (12/06/20 11:28 AM) Mode of Delivery (Oxygen) Room air (12/06/20 11:28 AM) Blood pressure sites Arm, left (12/06/20 11:28 AM) Weight Obtained Via Standing scale (12/06/20 11:28 AM) Social History Social History Type Response Smoking Status Former smoker entered on: 02/14/16 Sex
--- OUTSIDE RECORDS SUMMARY | 2024-03-07 10:06 | XMS_ITS | Continuity of Care Document ---
Author Organization [facility] Adult Address [address] [place] [address]- Care Team Providers Care Courtesy Booth Cashier Name Role Phone Salvatore GOMEZ, [id number] Date(s): 02/21/20 - 03/22/20 [facility] Adult [address] [place] [phone]- [facility] Allergies, Adverse Reactions, Alerts Substance Reaction Severity [...] 02/18/20 14:16:00 EDT, Route to Pharmacy Electronically, [facility]/pharmacy #[id number], 163, cm, 09/21/19 5:38:00 EDT, [...] 0 Refills, Maintenance, 03/19/20 15:08:00 EDT, Tablet, [facility]/pharmacy #[id number], 163, cm, 09/21/19 5:38:00 EDT, [...] Start Date: 04/21/18 Status: Ordered nystatin topical 273876 u/gm powder 1 application, Topically, 2 times a day, # 60 Gm, 1 Refills, Maintenance, 01/03/20 11:28:00 EDT, Powder, [facility]/pharmacy #[id number], 1 application Topically 2 times [...] 1 Refills, Maintenance, 11/16/19 15:25:00 EDT, Capsule, [facility]/pharmacy #[id number], decrease dose, re sent from 06/30/17, [...] Vitamin D deficiency(Confirmed) Active 1Done by FROYLAN Rodriguez, provider SUNI John 10/29/16 2liq nitrogen to bilat LEs 3noted on Xray L2 from 12/2012 4biopsy by [facility]. suspicious skin lesion, biopsy pending. 5MS plaques on spinal cord from MRI imaging, 03/29/2014, per notes from Dr. Beal. 6bilat shoulders, seen by [facility] on 10/29/16, report to scanning Social History Social History Type Response Smoking Status Former smoker entered on: 02/14/16 Sex
--- OUTSIDE RECORDS SUMMARY | 2024-03-07 10:07 | XMS_ITS | Continuity of Care Document ---
Author Organization [facility] Adult Address [address] [place] [address]- Care Team Providers Care Tip Out Worker Name Role Phone Salvatore GOMEZ, [facility] Primary Care Physician Encounter [facility] Date(s): 12/20/20 - 01/19/[address] [facility] Adult [address] [place] [address]- Attending Physician: AdmTara mayberry Admitting Physician: Admtr, Ar8 Referring Physician: Admtr, Ar8 Allergies, Adverse Reactions, [...] 14:16:00 EST, [id number], 165, cm, 08/07/20 13:53:00 EST, Height, 98.1, kg, 09/20/19 2:16:00 EDT, Dry Weight Start Date: 08/16/20 Stop Date: 02/12/21 Status: Ordered Critic-Aid Skin 20% topical paste See Instructions, APPLY TO AFFECTED AREA TWICE A DAY FOR 14 DAYS, # 170 Gm, 1 Refills, Acute, [facility] STORE [id number], 30, APPLY TO AFFECTED AREA TWICE A DAY FOR 14 DAYS, 165, cm, 12/06/20 11:28:00 EDT, Height, 98.1, kg, 09/20/19 2:16:00 EDT, Dry Weight Start Date: 12/10/20 Status: Ordered [facility] VITAMIN D3 25 MCG [place]FT[place] [facility] VITAMIN D3 25 MCG [place]FT[place], 1, [...] 12:38:00 EST, Tablet, [facility]/pharmacy #6106, 165, cm, 02/09/21 13:53:00 EST, Height, 98.1, kg, 09/20/19 2:16:00 [...] Start Date: 04/21/18 Status: Ordered nystatin topical 679107 u/gm powder See Instructions, APPLY TO AFFECTED AREA TWICE A DAY, # 60 Gm, 1 Refills, Acute, [facility] STORE 94513, 60, APPLY TO AFFECTED AREA TWICE A [...] 01/02/21 12:14:00 EDT, Route to Pharmacy Electronically, [facility]/pharmacy #[id number], Partial fill upon patient request, 165, cm, .. Start Date: 01/02/21 Stop Date: 01/30/21 Status: [...] 1 Refills, Maintenance, 12/17/20 9:37:00 EDT, Capsule, [facility]/pharmacy #4050, decrease dose, re sent from 06/30/17, 165, [...] from Dr. Beal. 5bilat shoulders, seen by [facility] on 10/29/16, report to scanning Procedures Procedure Date Related Diagnosis Body Site Status Lumbar puncture 1 05/10/20 Complet ed 1with video gait assessment pre and post for NPH evaluation Social History Social History Type Response Smoking Status Former smoker entered on: 02/14/16 Sex
--- OUTSIDE RECORDS SUMMARY | 2024-03-07 10:07 | XMS_ITS | Continuity of Care Document ---
Author Organization [facility] Adult Address [address] [place] [address]- Care Team Providers Care Enamel Machine Operator Name Role Phone Salvatore GOMEZ, [facility] Primary Care Physician Encounter [facility] Date(s): 07/13/20 - 08/12/20 [facility] Adult [address] [place] [phone]- Allergies, Adverse Reactions, Alerts Substance Reaction Severity Status penicillins rash Active Immunizations Given and Recorded Vaccine Date Status Refusal Reason pneumococcal 13-valent vaccine 1 03/21/20 Recorded Influenza Virus Vaccine (oldterm) 2 03/21/20 Recor ded [facility] Medications Beside Commode Beside Commode, See [...] 02/18/20 14:16:00 EDT, Route to Pharmacy Electronically, [facility]/pharmacy #[id number], 163, cm, 09/21/19 5:38:00 EDT, [...] 0 Refills, Maintenance, 06/14/20 4:56:00 EST, Tablet, [facility]/pharmacy #[id number], 165, cm, 06/11/20 15:47:00 EST, [...] Start Date: 04/21/18 Status: Ordered nystatin topical 064995 u/gm powder 1 application, Topically, 2 times a day, # 60 Gm, 1 Refills, Maintenance, 06/21/20 9:46:00 EST, Powder, [facility]/pharmacy #[id number], 1 application Topically 2 [...] 08/10/20 10:41:00 EST, Route to Pharmacy Electronically, [facility]/pharmacy #[id number], Partial fill upon patient request, 08/13/20, 165,... [...] from Dr. Beal. 5bilat shoulders, seen by [facility] on 10/29/16, report to scanning Social History Social History Type Response Smoking Status Former smoker entered on: 02/14/16 Sex
--- OUTSIDE RECORDS SUMMARY | 2024-03-07 10:07 | XMS_ITS | Continuity of Care Document ---
Author Organization [facility] Adult Address [address] [place] [address]- Care Team Providers Care Cnc Milling Machinist Name Role Phone [facility] Primary Care Physician Encounter [facility] Date(s): 06/09/22 - 06/16/22 [facility] Adult [address] [place] [address]- Encounter Diagnosis Sacral decubitus ulcer, stage II(Discharge Diagnosis) - 06/09/22 Attending Physician: Hardik [facility] Allergies, Adverse Reactions, Alerts Substance Reaction Severity Status penicillins rash Active Immunizations Given and Recorded Vaccine Date Status Refusal Reason influenza virus vaccine, inactivated 04/17/22 Logan rded influenza virus vaccine, inactivated 02/05/21 Logan rded [id number] bivalent booster vax 04/17/22 Recorded SARS-CoV-2 (COVID-19) [...] tablet, Refills 1, Route to Pharmacy Electronically, [facility] STORE 70918, 163, cm, 10/12/21 4:22:00 EDT, Height, 85, kg, 10/11/21 8:29:00 EDT, Dry Weight Start Date: 01/29/22 Status: Ordered [facility] VITAMIN D3 25 [...] Refills, Soft Stop, 05/30/22 16:31:00 EST, Tablet, [facility]/pharmacy #2052, Partial fill upon patient request if the [...] Refills, Maintenance, 03/27/22 18:40:00 EDT, [facility], 163, cm, 10/12/21 4:22:00 EDT, Height, 85, kg, 10/11/21 8:29:00 EDT, Dry Weight Start Date: 03/27/22 Status: Ordered metFORMIN 1000 mg oral tablet 1 tablet, By Mouth, 2 times a day, # 180 tablet, 0 Refills, Maintenance, 03/27/22 18:42:00 EDT, [facility], 163, cm, 10/12/21 4:22:00 EDT, Height, 85, [...] Start Date: 10/11/21 Status: Ordered nystatin topical 637326 u/gm powder See Instructions, APPLY TO AFFECTED AREA TWICE A DAY, # 60 Gm, 1 Refills, [facility], 60, APPLY TO AFFECTED AREA TWICE A [...] tablet, Refills 0, Tot. Refills 0, Acute 07/14/22 16:42:00 EST, 06/16/22 16:42:00 EST, Route to Pharmacy Electronically, [facility]/pharmacy #3411, Partial fill upon patient request, 06/18/22, 163,... Start Date: 06/16/22 Stop Date: 07/14/22 Status: Ordered sertraline 25 mg oral tablet [...] 06/19/22 11:19:00 EST, 06/09/22 11:19:00 EST, Paste, [facility]/pharmacy #[id number], Partial fill upon patient [...] from Dr. Beal. 5bilat shoulders, seen by [facility] on 10/29/16, report to scanning Diagnosis Diagnosis Type Effective Dates Health Status Cl inical Service Informant Sacral decubitus ulcer, stage II Discharge Diagnosis 06/09/22 Vital Signs Most recent to oldest [Reference Range]: 1 Height 163 cm (06/09/22 10:50 AM) Oxygen Saturation [94-100 %] 98 % (06/09/22 10:50 AM) Pulse Rate [55-90 bpm] 68 bpm (06/09/22 10:50 AM) Blood Pressure [90-138/55-84 mm Hg] 104/ 63mm Hg (06/09/22 10:50 AM) Mode of Delivery (Oxygen) Room air (06/09/22 10:50 AM) Blood pressure sites Arm, left (06/09/22 10:50 AM) Weight Obtained Via Standing scale (06/09/22 10:50 AM) Social History Social History Type Response Smoking Status Former smoker entered on: 02/14/16 Sex Note * Pily Doty: PERFORM, SIGN, VERIFY Event Display: Patient Education/Instruction Authored Date: [id number] [facility] *[facility] Clinical Summary Name LIOR NAYLOR Age 71 Years 1950 PCP Salvatore GOMEZ, Tracy PCP Visit Date 06/09/2022 10:38:00 Additional Instructions: Scheduled Appointments?? Future Appointments ?No Future Appointments Scheduled Follow-Up Instructions ?? Diagnosis Medications: Please continue your medications until treatment is completed or stopped by your provider. Discuss any questions related to medications with your provider. New Medications [id number], [address] [place], [place] [id number], [phone] Zinc Oxide Topical (zinc oxide 20% topical paste) 1 titus Topically twice a day for 10 Days. Refills:0. Next Dose: Medications to Continue Taking That Have Changed [id number], [address] [place], [place] [phone], [phone] - Durable Medical Equipment (One Touch Ultra Test Strips) DM E11.9 Use to test Bloos Sugars TID. Refills: 11. Next Dose: These medications were not printed or sent to your pharmacy - Durable Medical Equipment (Beside Commode) Use as instructed Dx: Urinary incontinence secondary to multiple sclerosis and limited mobility. Refills: 0. Next Dose: - Durable Medical Equipment (Disposable bed chux) Use as instructed on bed Dx: Urinary incontinence secondary to Multiple Sclerosis and limited mobility. Refills: 5. Next Dose: - Durable Medical Equipment (Mepilex 6 x 6 dressing supply) Apply to decubitus ulcer in coccyx region every 3 days Dx: Decubitus ulcer ICD 10: L89.90. Refills: 2. Next Dose: - Durable Medical Equipment (Shower Chair) USe as instructed when showering for safety Dx: MS, Poor mobility secomdary to MS. Refills: 0. Next Dose: Medications to Continue with No [...] oral tablet) 1 tab(s) Oral Daily. Refills: 1. Next Dose: Cholecalciferol (Vitamin D3 1000 intl units oral capsule) 1 capsule Oral Daily. Next Dose: Cyanocobalamin (Vitamin B12 500 mcg oral tablet) 1 tab(s) Oral Daily. Refills: 0. Next Dose: Fluconazole (Diflucan 150 mg oral tablet) 1 tab(s) Oral once. 1 tablet today, can repeat another tablet if symptoms persist after 72 hours.. Refills: 0. Next Dose: Metformin (metFORMIN 1000 mg oral tablet) 1 tab(s) Oral twice a day. Refills: 0. Next Dose: Metformin (metFORMIN 1000 mg oral tablet) TAKE 1 TABLET BY MOUTH TWICE A DAY. Refills: 0. Next Dose: Methenamine (methenamine hippurate [...] 3. Next Dose: Nystatin Topical (nystatin topical 527670 u/gm powder) APPLY TO AFFECTED AREA TWICE A DAY. Refills:1. Next Dose: Ocrelizumab (Ocrevus 300 mg/10 mL intravenous solution) Intravenous Infusion Every 6 weeks. Next Dose: Oxycodone (oxyCODONE 5 mg oral tablet) 1 tab(s) Oral 3 times a day for 28 Days. Refills: 0. Next Dose: Sertraline (sertraline 25 mg oral tablet) 1 tab(s) Oral Daily. Next Dose: Allergy Info:?? penicillins Medications Given This Visit Future Orders ?No future orders Vital Signs Height 163 cm Weight BMI Blood Pressure 104 mm Hg/63 mm Hg Temperature Pulse Rate 68 bpm Respiratory Rate 02 Sat Mode of Delivery 98 %/Room air You can now view a summary of your hospital visit from the comfort of your home through a free online portal called [employer]. [employer] is a website that allows you to securely view your medical information including discharge summary, medications and follow-up visits. ??You can alsosend a secure electronic message to your doctor???s office to request appointments, renew medications or just ask a question. You can enroll at [email or web address] or register during your next office visit. [...] care provider, you may find a [facility] provider by calling [facility] [employer] at [phone]. For information about the plan of care [...] Care Nurse Name: Tracy Chase MD Position: [facility] Primary Care Physician Member Role: PCP Address: Address: [address] [place] [address] [address] [place] [address]- Name: Yoana Luna RN Position: [facility] RN Member Role: Primary Care Nurse Name: Sindy Elizabeth RN Position: [facility] RN Member Role: Primary Care Nurse Name: Mayra Hamlin RN Position: [facility] Hospital Magazine Supervisor Member Role: Primary Care Nurse Care Team Related Persons Name: ROXY TIM Address: [address] [place] [address] Name: VINEET NAYLOR Address: [address] [place] [address]
--- OUTSIDE RECORDS SUMMARY | 2024-03-07 10:07 | XMS_ITS | Continuity of Care Document ---
Author Organization [facility] Adult Address [address] [place] [address]- Care Team Providers Care Cushion Sewer Name Role Phone Hardik Chase [facility] Primary Care Physician [facility] [place]s): 12/07/23 - 12/14/23 [facility] [address] [place] [address]- Encounter Diagnosis Chronic ulcer of buttock(Discharge Diagnosis) - 12/07/23 DM type 2 (diabetes mellitus, type 2)(Discharge Diagnosis) - 12/07/23 Multiple sclerosis, primary progressive(Discharge Diagnosis) - 12/07/23 Hypertension(Discharge Diagnosis) - 12/07/23 Severe obesity(Discharge Diagnosis) - 12/07/23 Vitamin D deficiency(Discharge Diagnosis) - 12/07/23 Annual physical exam(Discharge Diagnosis) - 12/07/23 Attending Physician: Salvatore GOMEZ [facility] Allergies, Adverse Reactions, Alerts Substance Reaction Severity Status penicillins rash Active Immunizations Given and Recorded Vaccine Date Status Refusal Reason influenza virus vaccine, inactivated 05/12/23 Logan rded influenza virus vaccine, inactivated 04/17/22 Logan rded influenza virus vaccine, inactivated 02/05/21 Logan rded SARS-CoV-2(COVID-19)mRNA-LNP vac([id number]) 05/12/23 Recorded [id number] bivalent booster vax 04/17/22 Recorded SARS-CoV-2 (COVID-19) [...] [facility] 3[facility] Comment: [facility] 4[facility] Comment: [facility] Medications acetaminophen 500 mg oral tablet [...] 10/15/23 5:05:00 EDT, Route to Pharmacy Electronically, [facility]/pharmacy #[id number], 158, cm, 06/23/23 11:27:00 EST, Height, 118, kg, 06/15/23 16:46:00 EST, Dry Weight Start Date: 10/15/23 Status: Ordered Critic-Aid Skin 20% topical paste See Instructions, APPLY TOPICALLY 2 TIMES A DAY,X10 DAYS, # 170 Gm, 0 Refills, Maintenance, 10/15/23 9:29:00 EDT, [facility] STORE [id number], 30, APPLY TOPICALLY 2 TIMES A DAY,X10 [...] tablet, 1 Refills, Maintenance, 08/02/23 11:37:00 EST, [facility], 158, cm, 06/23/23 11:27:00 EST, Height, 118, [...] Start Date: 10/11/21 Status: Ordered nystatin topical 276190 u/gm powder See Instructions, APPLY TO AFFECTED AREA TWICE A DAY, # 60 Gm, 5 Refills, Maintenance, 10/15/23 5:06:00 EDT, [facility]/pharmacy #[id number], 30, APPLY TO AFFECTED AREA TWICE A [...] from Dr. Beal. 5bilat shoulders, seen by [facility] on 10/29/16, report to scanning Diagnosis Diagnosis Type Effective Dates Health Status Clinical Service Informant Chronic ulcer of buttock Discharge Diagnosis 12/07/23 DM type 2 (diabetes mellitus, type 2) Discharge Diagnosis 12/07/23 Multiple sclerosis, primary progressive Discharge Diagnosis 12/07/23 Hypertension Discharge Diagnosis 12/07/23 Severe obesity Discharge Diagnosis 12/07/23 Vitamin D deficiency Discharge Diagnosis 12/07/23 Annual physical exam Discharge Diagnosis 12/07/23 Vital Signs Most recent to oldest [Reference Range]: 1 Height 158 cm (12/07/23 11:31 AM) Oxygen Saturation [94-100 %] 96 % (12/07/23 11:31 AM) Pulse Rate [55-90 bpm] 94 bpm *H* (12/07/23 11:31 AM) Blood Pressure [90-138/55-84 mm Hg] 110/ 73mm Hg (12/07/23 11:31 AM) Respiratory Rate [16-30 br/min] 17 br/mi n (12/07/23 11:31 AM) Temperature [96.8-100.4 DegF] 97.8 DegF (12/07/23 11:31 AM) Mode of Delivery (Oxygen) Room air (12/07/23 11:31 AM) Blood pressure sites Arm, right (12/07/23 11:31 AM) Temperature Route Temporal (12/07/23 11:31 AM) Weight Obtained Via Standing scale (12/07/23 11:31 AM) Social History Social History Type Response Smoking Status Former smoker entered on: 02/14/16 Sex Note * Sindy Zneg: PERFORM Event Display: Patient Education/Instruction Authored Date: [id number] Ambulatory Adult Visit Summary [facility] [address] [place] [address] Name: LIOR NAYLOR : 1950?? Visit: 12/07/2023 11:28?? Ambulatory Visit Instructions ?? Your Care Team Primary Care Provider Tracy Chase MD? This Visit Provider Tracy Chase MD Your Diagnosis Chronic ulcer of buttock DM type 2 (diabetes mellitus, type 2) Multiple sclerosis, primary progressive Hypertension Severe obesity Vitamin D deficiency Annual physical exam Non-pressure chronic ulcer of buttock, unspecified ulcer stage Primary hypertension Type 2 diabetes mellitus without complication, without long-term current use of insulin Vitals Signs Temperature: 97.8 DegF Height: 158 cm Pulse Rate:??94 bpm??High ?? Respiratory Rate: 17 br/min ?? Systolic Blood Pressure: 110 mm Hg ?? Diastolic Blood Pressure: 73 mm Hg ?? Oxygen Saturation: 96 % ?? What to do next Follow-Up Appointments Follow up Appointment - Ordered?-- in 1 year, 12/07/23 12:03:00 EDT Future Orders CBC w/ Differential - Routine, Once, 12/07/23 11:53:00 EDT, Single or Recurring Future Order, [facility], Blood?? Hepatic Function Panel - Routine, Once, 12/07/23 11:53:00 EDT, Single or Recurring Future Order, [facility], Blood?? Basic Metabolic Panel - Routine, Once, 12/07/23 11:53:00 EDT, Single or Recurring Future Order, [facility], Blood?? Lipid Panel - Routine, Once, 12/07/23 11:53:00 EDT, Single or Recurring Future Order, [facility], Blood?? Microalbumin Urine - Routine, Once, 12/07/23 11:53:00 EDT, Single or Recurring Future Order, [facility], Urine?? Complete Urinalysis (Urinalysis Complete) - Routine, Once, 12/07/23 11:53:00 EDT, Single or Recurring Future Order, [facility], Urine?? TSH Rfx on Abnormal to Free T4 - Routine, Once, 12/07/23 11:53:00 EDT, Single or Recurring Future Order, [facility], Blood?? Vitamin D 25 Hydroxy Level - Routine, Once, 12/07/23 11:54:00 EDT, Single or Recurring Future Order, [facility], Blood?? Medications The list below reflects the information in our records and provided by you today along with any changes made during this visit. Please continue your medications until treatment is completed or stopped by your provider. If this is different from the information you have or there are other questions,please contact the prescribing provider. What How Much When Instructions Unchanged Acetaminophen (acetaminophen 500 mg oral tablet) 2 tab(s) Oral Twice a day Unchanged Ascorbic Acid (Vitamin C 1000 mg [...] DUE TO BEING NON-INSULIN DEPENDANT ?? Unchanged Miscellaneous Rx (ONE TOUCH ULTRA BLUE TEST STRP) See instructions USE TO TEST BLOOD SUGARS THREE TIMES DAILY. E11.9 ?? Unchanged Nystatin Topical (nystatin topical 495394 u/ gm powder) See instructions APPLY TO [...] APPLY TOPICALLY 2 TIMES A DAY,X10 DAYS ?? Test Performed Below is a partial list of the tests performed during your Visit. You may have had other tests and procedures not included in this list. Please discuss all test results with your provider. Basic Metabolic Panel?-- Results Pending -- CBC w/ Differential?-- Results Pending -- Hepatic Function Panel?-- Results Pending -- Lipid Panel?-- Results Pending -- Microalbumin Urine?-- Results Pending -- POC HBA1C ([facility]) TSH Rfx on Abnormal to Free T4?-- Results Pending -- Urinalysis Complete?-- Results Pending -- Vitamin D 25 Hydroxy Level?-- Results Pending -- You will be contacted within 72 hours with your results. Lab Test Results Below is a partial list of the most recent Laboratory test results done during your Visit. You may have had other tests and procedures not included in this list. Please discuss all test results with your provider. Test Name Test Result Date/Time POC HBA1C ([facility]) 7.3 % 12/07/2023 11:44 EDT Medications and Immunizations Administered Medications Given During Visit No medications given during this visit.?? Allergies (NKA means No Known Allergies) penicillins??(rash) Common Emergency Awareness Tips IS IT A [...] are strongly encouraged to quit. Please call [facility] [employer] Link at [phone] or [phone] ([phone]) or log in to [email or web address] for referrals to smoking cessation programs. ?? The National Suicide Prevention Hotline is available 19/01 if you or someone you know needs to find a reason to keep living. By calling 9-377-188-[employer] (5403) you'll be connected to a skilled, trained counselor at a crisis center in your area. [facility] [employer] Portal You can view and manage your care through the patient portal or by using a health care titus of your choosing. [employer] is a website that allows you to securely view your medical information including your hospital discharge summary, office visit summaries, medications and follow-up visits. You can also request appointments, renew medications, and request access to your medical information using a health care titus of your choosing, or just ask a question. You can enroll at [email or web address] or register during your next office visit. [facility], in keeping with [facility] guidance, no longer requires face masks [...] medical provider or home test kit. ?? Disclaimer: The information provided is of a general nature and is intended to be used in conjunction with the recommendations and advice of your health care practitioner. Every effort has been made to ensure that the information provided is accurate and complete at the time it is provided to you however, as your needs change, or, as new information becomes available, different or additional instructions may be required. ?? If you have questions, please consult with your primary care provider or pharmacist, as appropriate. This information is not intended to serve as substitution for assessment and evaluation by a qualified health care provider. If you do not have a primary care provider, you may find a [facility] provider by calling [facility] Link at [phone]. Patient Care team information Care Team Personnel Name: Irene Jo RN Position: [facility] RN Member Role: Primary Care Nurse Name: Jasmine Alan LPN Position: [facility] RN Member Role: Primary Care Nurse Name: Kezia Reyes RN Position: [facility] W/ Cody Member Role: Primary Care Nurse Name: Meagan Christensen RN Position: [facility] RN Member Role: Primary Care Nurse Name: Tracy Chase MD Position: [facility] Physician - Primary Care Member Role: PCP Address: Address: [address] [place] [address]- Name: Carlos Martinez RN Position: S RN Member Role: Primary Care Nurse Name: Elmer Santiago RN Position: S RN Member Role: Primary Care Nurse Name: Beena Gordillo RN Position: S RN Member Role: Primary Care Nurse Name: Ping Perez RN Position: S RN Member Role: Primary Care Nurse Name: Eloina Pedro LPN Position: S RN Member Role: Primary Care Nurse Name: Yoana Luna RN Position: [facility] RN Member Role: Primary Care Nurse Name: Rosita Gillespie RN Position: [facility] SN RN Member Role: Primary Care Nurse Name: Sindy Elizabeth RN Position: [facility] RN Member Role: Primary Care Nurse Name: Gaby Wong LPN Position: [facility] RN Member Role: Primary Care Nurse Name: Mayra Hamlin RN Position: [facility] Cement Worker Member Role: Primary Care Nurse Care Team Related Persons Name: ROXY TIM Address: home [address] [place], [place] Name: VINEET NAYLOR Address: home [address] [place], [place] Name: MARICRUZ CORTEZ Name: PRISCILLA LUNDY Address: home [address] [place] [address]
--- OUTSIDE RECORDS SUMMARY | 2024-03-07 10:07 | XMS_ITS | Continuity of Care Document ---
Author Organization [facility] Adult Address [address] [place] [address]- Care Team Providers Care Cloth Bin Packer Name Role Phone Salvatore GOMEZ, [facility] Primary Care Physician Encounter [facility] [place] Date(s): 02/21/22 - 03/23/22 [facility] [address] [place] [address]- Allergies, Adverse Reactions, Alerts Substance Reaction Severity [...] 1, Route to [facility]acy Electronically, [facility], 163, cm, 10/12/21 4:22:00 EDT, Height, 85, [...] a day, # 180 tablet, 0 Refills, [facility] STORE 71060, 163, cm, 10/12/21 4:22:00 EDT, Height, 85, [...] Start Date: 10/11/21 Status: Ordered nystatin topical 026171 u/gm powder See Instructions, APPLY TO AFFECTED AREA TWICE A DAY, # 60 Gm, 1 Refills, [facility] STORE 54626, 60, APPLY TO AFFECTED AREA TWICE A [...] cm, 06/11/... Start Date: 07/08/20 Status: Ordered sertraline 25 mg oral tablet [...] from Dr. Beal. 5bilat shoulders, seen by [facility] on 10/29/16, report to scanning Social History Social History Type Response Smoking Status Former smoker entered on: 02/14/16 Sex Care Team Personnel Name: Salvatore GOMEZ, Tracy Address: [address] [place], [place] [address]
--- OUTSIDE RECORDS SUMMARY | 2024-03-07 10:07 | XMS_ITS | Continuity of Care Document ---
Author Organization [facility] Address [address] [place] [address]- Care Team Providers Care Farm Equipment Operator Name Role Phone Soledad NUNN, Ros Primary Care Physician [phone] Encounter [facility] Date(s): 07/15/19 - 07/25/19 [facility] [address] [place] [address]- [facility] Attending Physician: Tara Duarte Admitting Physician: Tara Duarte Referring Physician: AdmtrTara Allergies, Adverse Reactions, Alerts [...] 05/24/19 10:47:22 EST, Route to Pharmacy Electronically, [id number], [facility]/pharmacy #[id number] Start Date: 05/24/19 Stop Date: [...] 0 Refills, Maintenance, 06/23/19 9:44:00 EST, Tablet, [facility]/pharmacy #[id number], 162, cm, 06/23/19 9:07:00 EST, [...] Start Date: 04/21/18 Status: Ordered nystatin topical 799072 u/gm powder 1 application, Topically, 2 times a day, # 60 Gm, 1 Refills, Maintenance, 06/16/19 15:51:00 EST, Powder, [facility]/pharmacy #[id number], 1 application Topically 2 times [...] 07/15/19 16:51:00 EST, Route to Pharmacy Electronically, [facility]/pharmacy #[id number], Partial fill upon patient request, 07/18/19, 162,... [...] from Dr. Beal. 6bilat shoulders, seen by [facility] on 10/29/16, report to scanning Social History Social History Type Response Smoking Status Former smoker entered on: 02/14/16 Sex
--- OUTSIDE RECORDS SUMMARY | 2024-03-07 10:07 | XMS_ITS | Continuity of Care Document ---
Author Organization [facility] Adult Address [address] [place] [address]- Care Team Providers Care Waterfront Director Name Role Phone Soledad NUNN, Ros Primary Care Physician [phone] Encounter [facility] [place] 08/12/19 - 08/19/19 [facility] [address] [place] [address] [place] Encounter Diagnosis Stye external(Discharge Diagnosis) - 08/12/19 Urinary body odor(Discharge Diagnosis) - 08/12/19 Attending Physician: Not on Staff, Attending MD Allergies, Adverse Reactions, Alerts Substance Reaction [...] 05/24/19 10:47:22 EST, Route to Pharmacy Electronically, [id number], [facility]/pharmacy #[id number] Start Date: 05/24/19 Stop Date: 08/22/19 Status: [...] Refills, Maintenance, 06/23/19 9:44:00 EST, Tablet, [facility]/pharmacy #[id number], 162, cm, 06/23/19 9:07:00 EST, Height [...] Start Date: 04/21/18 Status: Ordered nystatin topical 697830 u/gm powder 1 application, Topically, 2 times a day, # 60 Gm, 1 Refills, Maintenance, 06/16/19 15:51:00 EST, Powder, [facility]/pharmacy #[id number], 1 application Topically 2 [...] tablet, Refills 0, Tot. Refills 0, Acute 09/09/19 18:45:00 EDT, 08/12/19 18:45:00 EST, Route to Pharmacy Electronically, [facility]/pharmacy #[id number], Partial fill upon patient request, 08/15/19, 162,... Start Date: 08/12/19 Stop Date: 09/09/19 Status: Ordered potassium chloride 10 mEq oral [...] from Dr. Beal. 6bilat shoulders, seen by [place] [facility] on 10/29/16, report to scanning Diagnosis Diagnosis Type Effective Dates Health Status Cl inical Service Informant Esperanza external Discharge Diagnosis 08/12/19 Urinary body odor Discharge Diagnosis 08/12/19 Vital Signs Most recent to oldest [Reference Range]: 1 Height 162 cm (08/12/19 2:34 PM) Oxygen Saturation [94-100 %] 96 % (08/12/19 2:34 PM) Pulse Rate [55-90 bpm] 91 bpm *H* (08/12/19 2:34 PM) Blood Pressure [90-138/55-84 mm Hg] 118/ 72mm Hg (08/12/19 2:34 PM) Mode of Delivery (Oxygen) Room air (08/12/19 2:34 PM) Blood pressure sites Arm, right (08/12/19 2:34 PM) Social History Social History Type Response Smoking Status Former smoker entered on: 02/14/16 Sex
--- OUTSIDE RECORDS SUMMARY | 2024-03-07 10:07 | XMS_ITS | Continuity of Care Document ---
Author Organization [facility] Address [address] [place] [address]- Care Team Providers Care Hand Binder Cutter Name Role Phone Soledad NUNN, Ros Primary Care Physician [phone] Encounter [facility] [place] Date(s): 06/23/19 - 06/30/19 [facility] [address] [place] [address]- [facility] Encounter Diagnosis Obesities, morbid(Discharge Diagnosis) - 06/23/19 DM type 2 (diabetes mellitus, type 2)(Discharge Diagnosis) - 06/23/19 Attending Physician: Not on Staff, Attending MD [...] 05/24/19 10:47:22 EST, Route to Pharmacy Electronically, [id number], [facility]/pharmacy #[id number] Start Date: 05/24/19 Stop Date: 08/22/19 Status: [...] EDT, Compound Start Date: 04/20/18 Status: Ordered metFORMIN 1000 mg oral tablet 1 tablet = 1,000 mg, By Mouth, 2 times a day, # 180 tablet, 0 Refills, Maintenance, 06/23/19 9:44:00 EST, Tablet, [facility]/pharmacy #[id number], 162, cm, 06/23/19 9:07:00 EST, [...] Start Date: 04/21/18 Status: Ordered nystatin topical 678572 u/gm powder 1 application, Topically, 2 times a day, # 60 Gm, 1 Refills, Maintenance, 06/16/19 15:51:00 EST, Powder, [facility]/pharmacy #[id number], 1 application Topically 2 times [...] tablet, Refills 0, Tot. Refills 0, Acute 07/08/19 11:41:00 EST, 06/10/19 11:41:00 EST, Route to Pharmacy Electronically, [id number], [facility]/pharmacy #[id number], Partial fill... Start Date: 06/10/19 Stop Date: 07/08/19 Status: Ordered potassium chloride 10 mEq oral [...] EST, 06/23/19 9:39:00 EST, Paste, [facility]/pharmacy #[id number], 1 application Topically 2 times a day,x14 [...] from Dr. Beal. 6bilat shoulders, seen by [place] [facility] on 10/29/16, report to scanning Diagnosis Diagnosis Type Effective Dates Health Status Cl inical Service Informant Obesities, morbid Discharge Diagnosis 06/23/19 DM type 2 (diabetes mellitus, type 2) Discharge Diagnosis 06/23/19 Vital Signs Most recent to oldest [Reference Range]: 1 Height 162 cm (06/23/19 9:07 AM) Blood Pressure [90-138/55-84 mm Hg] 132/ 72mm Hg (06/23/19 9:07 AM) Temperature [96.8-100.4 DegF] 98.1 DegF (06/23/19 9:07 AM) Blood pressure sites Arm, left (06/23/19 9:07 AM) Temperature Route Oral (06/23/19 9:07 AM) Social History Social History Type Response Smoking Status Former smoker entered on: 02/14/16 Sex
--- OUTSIDE RECORDS SUMMARY | 2024-03-07 10:07 | XMS_ITS | Continuity of Care Document ---
Author Organization [facility] Address [address] [place] [address]- Care Team Providers Care Double End Tenoner Setter Name Role Phone Salvatore GOMEZ, [facility] Primary Care Physician [place] [facility] [place] 10/14/23 - 11/13/23 [facility] [address] [place] [address]- Allergies, Adverse Reactions, Alerts Substance Reaction Severity Status penicillins rash Active Immunizations Given and Recorded Vaccine Date Status Refusal Reason influenza virus vaccine, inactivated 05/12/23 Logan rded influenza virus vaccine, inactivated 04/17/22 Logan rded influenza virus vaccine, inactivated 02/05/21 Logan rded SARS-CoV-2(COVID-19)mRNA-LNP vac([id number]) 05/12/23 Recorded [id number] bivalent booster vax 04/17/22 Recorded SARS-CoV-2 (COVID-19) [...] 10/15/23 5:05:00 EDT, Route to Pharmacy Electronically, [facility]/pharmacy #[id number], 158, cm, 06/23/23 11:27:00 EST, Height, 118, kg, 06/15/23 16:46:00 EST, Dry Weight Start Date: 10/15/23 Status: Ordered Critic-Aid Skin 20% topical paste See Instructions, APPLY TOPICALLY 2 TIMES A DAY,X10 DAYS, # 170 Gm, 0 Refills, Maintenance, 10/15/23 9:29:00 EDT, [facility], 30, APPLY TOPICALLY 2 TIMES A DAY,X10 [...] 1 Refills, Maintenance, 08/02/23 11:37:00 EST, [facility], 158, cm, 06/23/23 11:27:00 EST, Height, 118, [...] Start Date: 10/11/21 Status: Ordered nystatin topical [id number] u/gm powder See Instructions, APPLY TO AFFECTED AREA TWICE A DAY, # 60 Gm, 5 Refills, Maintenance, 10/15/23 5:06:00 EDT, [facility]/pharmacy #8766, 30, APPLY TO AFFECTED AREA TWICE A [...] from Dr. Beal. 5bilat shoulders, seen by [facility] on 10/29/16, report to scanning Social History Social History Type Response Smoking Status Former smoker entered on: 02/14/16 Sex Patient Care team information Care Team Personnel Name: Irene Jo RN Position: [facility] RN Member Role: Primary Care Nurse Name: Jasmine Alan LPN Position: [facility] RN Member Role: Primary Care Nurse Name: Kezia Reyes RN Position: [facility] MR W/ Merge Member Role: Primary Care Nurse Name: Meagan Christensen RN Position: [facility] RN Member Role: Primary Care Nurse Name: Tracy Chase MD Position: [facility] Physician - Primary Care Member Role: PCP Address: Address: [address] [place] [address] Name: Carlos Martinez RN Position: [facility] RN Member Role: Primary Care Nurse Name: Elmer Santiago RN Position: [facility] RN Member Role: Primary Care Nurse Name: Beena Gordillo RN Position: [facility] RN Member Role: Primary Care Nurse Name: Ping Perez RN Position: [facility] RN Member Role: Primary Care Nurse Name: Eloina Pedro LPN Position: [facility] RN Member Role: Primary Care Nurse Name: Yoana Luna RN Position: [facility] RN Member Role: Primary Care Nurse Name: Rosita Gillespie RN Position: [facility] RN Member Role: Primary Care Nurse Name: Sindy Elizabeth RN Position: [facility] RN Member Role: Primary Care Nurse Name: Gaby Wong LPN Position: [facility] RN Member Role: Primary Care Nurse Name: Mayra Hamlin RN Position: [facility] Hospital Roll Changer Member Role: Primary Care Nurse Care Team Related Persons Name: ROXY TIM Address: [address] [place] [address] Name: VINEET NAYLOR Address: [address] [place] [address] Name: PRISCILLA LUNDY Address: home [address] [place] [address]
--- OUTSIDE RECORDS SUMMARY | 2024-03-07 10:07 | XMS_ITS | Continuity of Care Document ---
Author Organization [facility] Adult Address [address] [place] [address]- Care Team Providers Care Asphalt Tile Floor Layer Name Role Phone Salvatore GOMEZ, [facility] Primary Care Physician [place] [facility] [place](s): 11/01/21 - 12/01/21 [facility] Adult [address] [place] [address]- Allergies, Adverse Reactions, Alerts Substance Reaction Severity [...] 1, [facility], 165, cm, 06/10/21 10:02:00 EST, Height, 98.1, [...] # 180 tablet, 0 Refills, [facility], 163, cm, 10/12/21 4:22:00 EDT, Height, 85, [...] Start Date: 10/11/21 Status: Ordered nystatin topical 255315 u/gm powder See Instructions, APPLY TO AFFECTED AREA TWICE A DAY, # 60 Gm, 1 Refills, Physician Stop 06/29/22 15:44:00 EST, 07/10/21 15:44:00 EST, [facility]/pharmacy #5846, 60, APPLY TO AFFECTED AREA TWICE A [...] tablet, Refills 0, Tot. Refills 0, Acute 12/27/21 12:31:00 EDT, 11/29/21 12:31:00 EDT, Route to Pharmacy Electronically, [facility]/pharmacy #[id number], Partial fill upon patient request, 12/02/21, 163,... Start Date: 11/29/21 Stop Date: 12/27/21 Status: Ordered sertraline 25 mg oral tablet [...] from Dr. Beal. 5bilat shoulders, seen by [place] [facility] on 10/29/16, report to scanning Social History Social History Type Response Smoking Status Former smoker entered on: 02/14/16 Sex
--- OUTSIDE RECORDS SUMMARY | 2024-03-07 10:07 | XMS_ITS | Continuity of Care Document ---
Author Organization [facility] Adult Address [address] [place] [address]- Care Team Providers Care Verification Specialist Name Role Phone Salvatore GOMEZ, [facility] Primary Care Physician [place] [facility] [place](s[place] 05/25/23 - 06/24/23 [facility] Adult [address] [place] [address]- Allergies, Adverse Reactions, Alerts Substance Reaction Severity Status penicillins rash Active Immunizations Given and Recorded Vaccine Date Status Refusal Reason influenza virus vaccine, inactivated 05/12/23 Logan rded influenza virus vaccine, inactivated 04/17/22 Logan rded influenza virus vaccine, inactivated 02/05/21 Logan rded SARS-CoV-2(COVID-19)mRNA-LNP vac([id number]) 05/12/23 Recorded [id number] bivalent booster vax 04/17/22 Recorded SARS-CoV-2 (COVID-19) [...] 11/10/22 12:00:00 EDT, Route to Pharmacy Electronically, [facility]/pharmacy #[id number], 163, cm, 11/10/22 11:38:00 EDT, Height, 85, kg, 10/11/21 8:29:00 EDT, Dry Weight Start Date: 11/10/22 Status: Ordered Critic-Aid Skin 20% topical paste See Instructions, APPLY TOPICALLY 2 TIMES A DAY,X10 DAYS, # 170 Gm, 0 Refills, Maintenance, 04/21/23 16:41:00 EDT, [facility], 30, APPLY TOPICALLY 2 TIMES A DAY,X10 [...] tablet, 1 Refills, Maintenance, 01/30/23 9:01:00 EDT, [facility], 163, cm, 11/10/22 11:38:00 EDT, Height, 85, [...] Start Date: 10/11/21 Status: Ordered nystatin topical 637414 u/gm powder See Instructions, APPLY TO AFFECTED AREA TWICE A DAY, # 60 Gm, 1 Refills, Maintenance, 02/16/23 12:00:00 EDT, [facility]/pharmacy #2476, 30, APPLY TO AFFECTED AREA [...] from Dr. Beal. 5bilat shoulders, seen by [place] [facility] on 10/29/16, report to scanning Social History Social History Type Response Smoking Status Former smoker entered on: 02/14/16 Sex Patient Care team information Care Team Personnel Name: Irene Jo RN Position: S RN Member Role: Primary Care Nurse Name: Jasmine Alan LPN Position: S RN Member Role: Primary Care Nurse Name: Kezia Reyes RN Position: [facility] MR W/ Merge Member Role: Primary Care Nurse Name: Meagan Christensen RN Position: [facility] RN Member Role: Primary Care Nurse Name: Tracy Chase MD Position: [facility] Physician - Primary Care Member Role: PCP Address: Address: [address] [place] [id number] Name: Carlos Martinez RN Position: [facility] RN Member Role: Primary Care Nurse Name: Elmer Santiago RN Position: [facility] RN Member Role: Primary Care Nurse Name: Beena Gordillo RN Position: [facility] RN Member Role: Primary Care Nurse Name: Ping Perez RN Position: [facility] RN Member Role: Primary Care Nurse Name: Eloina Pedro LPN Position: [facility] RN Member Role: Primary Care Nurse Name: Yoana Luna RN Position: [facility] RN Member Role: Primary Care Nurse Name: Rosita Gillespie RN Position: [facility] RN Member Role: Primary Care Nurse Name: Sindy Elizabeth RN Position: [facility] RN Member Role: Primary Care Nurse Name: Gaby Wong LPN Position: [facility] RN Member Role: Primary Care Nurse Name: Mayra Hamlin RN Position: [facility] Hospital Manager Basketball Member Role: Primary Care Nurse Care Team Related Persons Name: GLENROY ROXY Address: home [address] [place], [place] Name: VINEET NAYLOR Address: home [address] [place], [place] Name: PRISCILLA LUNDY Address: home [address], [place]
--- OUTSIDE RECORDS SUMMARY | 2024-03-07 10:07 | XMS_ITS | Continuity of Care Document ---
Author Organization [facility] Adult Address [address] [place] [address]- Care Team Providers Care Blanket Winder Operator Name Role Phone Salvatore GOMEZ, [id number] Date(s): 02/22/20 - 03/23/20 [facility] Adult [address] [place] [address]- [facility] Allergies, Adverse Reactions, Alerts Substance [...] 02/18/20 14:16:00 EDT, Route to Pharmacy Electronically, [facility]/pharmacy #[id number], 163, cm, 09/21/19 5:38:00 EDT, [...] 0 Refills, Maintenance, 03/19/20 15:08:00 EDT, Tablet, [facility]/pharmacy #[id number], 163, cm, 09/21/19 5:38:00 EDT, [...] Start Date: 04/21/18 Status: Ordered nystatin topical 229740 u/gm powder 1 application, Topically, 2 times a day, # 60 Gm, 1 Refills, Maintenance, 01/03/20 11:28:00 EDT, Powder, [facility]/pharmacy #2476, 1 application Topically 2 [...] 03/23/20 13:30:00 EDT, Route to Pharmacy Electronically, [facility]/pharmacy #[id number], Partial fill upon patient request, 03/26/20, 163,... Start Date: 03/23/20 Stop Date: 04/20/20 Status: Ordered potassium chloride 10 mEq oral [...] 1 Refills, Maintenance, 11/16/19 15:25:00 EDT, Capsule, [facility]/pharmacy #[id number], decrease dose, re sent from 06/30/17, 163, cm, 09/21/19 5:38:00 EDT, Height, 98.1, kg, 09/20/19 2:16:00 ED... Start Date: 11/16/19 Status: Ordered zinc oxide 20% topical paste 1 application, Topically, 2 times a day, # 170 Gm, 1 Refills, Maintenance, 11/07/19 13:35:00 EDT, [facility], 1 application Topically 2 times a day,x14 [...] from Dr. Beal. 6bilat shoulders, seen by [place] [facility] on 10/29/16, report to scanning Social History Social History Type Response Smoking Status Former smoker entered on: 02/14/16 Sex
--- OUTSIDE RECORDS SUMMARY | 2024-03-07 10:07 | XMS_ITS | Continuity of Care Document ---
Author Organization [facility] Adult Address [address] [place] [address]- Care Team Providers Care Rolled Gold Plater Name Role Phone Salvatore GOMEZ, [facility] Primary Care Physician [place] [facility] [place]/01/[place] - 03/31/20 [facility] Adult [address] [place] [address]- [facility] Allergies, Adverse Reactions, Alerts Substance Reaction Severity Status penicillins rash Active Immunizations Given and Recorded Vaccine Date Status Refusal Reason Influenza Virus Vaccine (oldterm) 1 03/21/20 Recor ded pneumococcal 13-valent vaccine 2 03/21/20 [facility]ed [facility] Medications Beside Commode Beside Commode, [...] 02/18/20 14:16:00 EDT, Route to Pharmacy Electronically, [facility]/pharmacy #1976, 163, cm, 09/21/19 5:38:00 EDT, Height, 98.1, [...] 0 Refills, Maintenance, 03/19/20 15:08:00 EDT, Tablet, [facility]/pharmacy #[id number], 163, cm, 09/21/19 5:38:00 [...] Start Date: 04/21/18 Status: Ordered nystatin topical 116088 u/gm powder 1 application, Topically, 2 times a day, # 60 Gm, 1 Refills, Maintenance, 01/03/20 11:28:00 EDT, Powder, [facility]/pharmacy #2476, [...] 03/23/20 13:30:00 EDT, Route to Pharmacy Electronically, [facility]/pharmacy #[id number], Partial fill upon patient request, 03/26/20, 163,... [...] 1 Refills, Maintenance, 11/16/19 15:25:00 EDT, Capsule, [facility]/pharmacy #6958, decrease dose, re sent from 06/30/17, 163, [...] from Dr. Beal. 6bilat shoulders, seen by [place] [facility] on 10/29/16, report to scanning Social History Social History Type Response Smoking Status Former smoker entered on: 02/14/16 Sex
--- OUTSIDE RECORDS SUMMARY | 2024-03-07 10:07 | XMS_ITS | Continuity of Care Document ---
Author Organization [facility] Adult Address [address] [place] [address]- Care Team Providers Care Vba Programmer Name Role Phone Salvatore GOMEZ, [facility] Primary Care Physician Encounter [facility] [place] Date(s): 06/16/22 - 07/16/22 [facility] Adult [address] [place] [address]- Allergies, Adverse Reactions, Alerts Substance Reaction Severity Status penicillins rash Active Immunizations Given and Recorded Vaccine Date Status Refusal Reason influenza virus vaccine, inactivated 04/17/22 Logan rded influenza virus vaccine, inactivated 02/05/21 Logan rded [id number] bivalent booster vax 04/17/22 Recorded SARS-CoV-2 (COVID-19) [...] tablet, Refills 1, Route to Pharmacy Electronically, [facility], 163, cm, 10/12/21 4:22:00 EDT, Height, 85, kg, 10/11/21 8:29:00 EDT, Dry Weight Start Date: 01/29/22 Status: Ordered Critic-Aid Skin 20% topical paste See Instructions, APPLY TOPICALLY 2 TIMES A DAY,X10 DAYS, # 170 Gm, 0 Refills, Maintenance, 07/08/22 13:01:00 EST, [facility], 30, APPLY TOPICALLY 2 TIMES A DAY,X10 DAYS, 163, cm, 06/09/22 10:50:00 EST, Height, 85, kg, 10/11/21 8:29:00 EDT, Dry W... Start Date: 07/08/22 Status: Ordered [facility] VITAMIN D3 25 MCG SOFTGEL [facility] VITAMIN D3 25 MCG SOFTGEL, 1, [...] Refills, Soft Stop, 05/30/22 16:31:00 EST, Tablet, [facility]/pharmacy #1097, Partial fill upon patient request if the [...] Refills, Maintenance, 03/27/22 18:40:00 EDT, [facility], 163, cm, 10/12/21 4:22:00 EDT, Height, 85, kg, 10/11/21 8:29:00 EDT, Dry Weight Start Date: 03/27/22 Status: Ordered metFORMIN 1000 mg oral tablet 1 tablet, By Mouth, 2 times a day, # 180 tablet, 0 Refills, Maintenance, 03/27/22 18:42:00 EDT, [facility], 163, cm, 10/12/21 4:22:00 EDT, Height, 85, [...] Start Date: 10/11/21 Status: Ordered nystatin topical 668936 u/gm powder See Instructions, APPLY TO AFFECTED AREA TWICE A DAY, # 60 Gm, 1 Refills, Maintenance, 07/08/22 13:01:00 EST, [facility] 0[facility], 30, APPLY TO AFFECTED AREA TWICE A [...] 07/16/22 11:03:00 EST, Route to Pharmacy Electronically, [facility]/pharmacy #4026, Partial fill upon patient request, 163, cm, [...] from Dr. Beal. 5bilat shoulders, seen by [place] [facility] on 10/29/16, report to scanning Social History Social History Type Response Smoking Status Former smoker entered on: 02/14/16 Sex Patient Care team information Care Team Personnel Name: Eric RAMAN, Kezia Position: [facility] MR W/ Merge Member Role: Primary Care Nurse Name: Fermin RAMAN, Meagan Position: S RN Member Role: Primary Care Nurse Name: Tracy Chase MD Position: [facility] Primary Care Physician Member Role: PCP Address: Address: [address] [place] [id number] Name: Cheryl RAMAN, Yoana Position: [facility] RN Member Role: Primary Care Nurse Name: Sindy Elizabeth RN Position: [facility] RN Member Role: Primary Care Nurse Name: Mayra Hamlin RN Position: [facility] Inset Cutter Member Role: Primary Care Nurse Care Team Related Persons Name: ROXY TIM Address: home [place], [place] Name: VINEET NAYLOR Address: [place] [address]
--- OUTSIDE RECORDS SUMMARY | 2024-03-07 10:07 | XMS_ITS | Continuity of Care Document ---
Author Organization [facility] Adult Address [address] [place] [address]- Care Team Providers Care Couples Therapist Name Role Phone Salvatore GOMEZ, [facility] Primary Care Physician Encounter [facility] Date(s): 12/12/22 - 01/11/23 [facility] Adult [address] [place] [address]- Attending Physician: Tara Duarte Admitting Physician: AdmTara mayberry Referring Physician: Admtr ArAlayna Allergies, Adverse Reactions, Alerts Substance Reaction Severity Status penicillins rash Active Immunizations Given and Recorded Vaccine Date Status Refusal Reason influenza virus vaccine, inactivated 04/17/22 Logan rded influenza virus vaccine, inactivated 02/05/21 Logan rded [id number] bivalent booster vax 04/17/22 Recorded SARS-CoV-2 (COVID-19) [...] 11/10/22 12:00:00 EDT, Route to Pharmacy Electronically, [facility]/pharmacy #[id number], 163, cm, 11/10/22 11:38:00 EDT, Height, 85, kg, 10/11/21 8:29:00 EDT, Dry Weight Start Date: 11/10/22 Status: Ordered Critic-Aid Skin 20% topical paste See Instructions, APPLY TOPICALLY 2 TIMES A DAY,X10 DAYS, # 170 Gm, 0 Refills, Maintenance, 10/15/22 14:26:00 EDT, [facility] STORE 6[facility]63, 30, APPLY TOPICALLY 2 TIMES A DAY,X10 DAYS, 163, cm, 09/26/22 12:32:00 EDT, Height, 85, kg, 10/11/21 8:29:00 EDT, Dry W... Start Date: 10/15/22 Status: Ordered [facility] VITAMIN D3 25 MCG SOFTGEL [facility] VITAMIN D3 25 MCG SOFTGEL, 1, capsule, [...] 0 Refills, Maintenance, 11/03/22 12:50:00 EDT, [facility], 163, cm, 09/26/22 12:32:00 EDT, Height, 85, [...] Start Date: 10/11/21 Status: Ordered nystatin topical 356956 u/gm powder See Instructions, APPLY TO AFFECTED AREA TWICE A DAY, # 60 Gm, 1 Refills, Maintenance, 07/08/22 13:01:00 EST, [facility], 30, APPLY TO AFFECTED AREA TWICE A [...] from Dr. Beal. 5bilat shoulders, seen by [place] [facility] on 10/29/16, report to scanning Procedures [...] Team Personnel Name: Kezia Reyes RN Position: [facility] MR W/ Merge Member Role: Primary Care Nurse Name: Meagan Christensen RN Position: [facility] RN Member Role: Primary Care Nurse Name: Tracy Chase MD Position: [facility] Physician - Primary Care Member Role: PCP Address: Address: [address] [place] [address]- Name: Cheryl RAMAN, Yoana Position: [facility] RN Member Role: Primary Care Nurse Name: Sindy Elizabeth RN Position: [facility] RN Member Role: Primary Care Nurse Name: Mayra Hamlin RN Position: [facility] Hospital Director Of Religious Life Member Role: Primary Care Nurse Care Team Related Persons Name: ROXY TIM Address: home [address] [place], [place] Name: VINEET NAYLOR Address: home [address] [place], [place]
--- OUTSIDE RECORDS SUMMARY | 2024-03-07 10:07 | XMS_ITS | Continuity of Care Document ---
Author Organization [facility] Adult Address [address] [place] [address]- Care Team Providers Care Rug Sizer Name Role Phone Salvatore GOMEZ, [facility] Primary Care Physician Encounter [facility] [place] Date(s): 09/05/20 - 10/05/20 [facility] Adult [address] [place] [address]- Allergies, Adverse Reactions, Alerts Substance Reaction Severity [...] 14:16:00 EST, [facility], 165, cm, 08/07/20 13:53:00 EST, Height, 98.1, [...] Date: 04/20/18 Status: Ordered Fluzone High-Dose Quadrivalent [id number] intramuscular suspension 0.7 mL, Intramuscular, Once, # 0.7 mL, 0 Refills, Maintenance, 04/02/20 14:57:00 EDT, Suspension Start Date: 04/02/20 Status: Ordered Mepilex 6 x 6 dressing supply Mepilex 6 x 6 dressing supply, See Instructions, # 1 pack/packet, Refills 2, Tot. Refills 2, Maintenance, Apply to decubitus ulcer in coccyx region every 3 days Dx: Decubitus ulcer ICD 10: L89.90, 10/04/20 13:36:00 EDT, Compound Start Date: 10/04/20 Status: Ordered metFORMIN 1000 mg oral tablet 1 tablet = 1,000 mg, By Mouth, 2 times a day, # 180 tablet, 2 Refills, Maintenance, 09/07/20 12:38:00 EST, Tablet, [facility]/pharmacy #2476, 165, cm, 08/07/20 13:53:00 [...] Start Date: 04/21/18 Status: Ordered nystatin topical 171964 u/gm powder 1 application, Topically, 2 times a day, # 60 Gm, 1 Refills, Maintenance, 06/21/20 9:46:00 EST, Powder, [facility]/pharmacy #8036, 1 application Topically 2 times a day, [...] tablet, Refills 0, Tot. Refills 0, Acute 11/02/20 10:48:00 EDT, 10/05/20 10:48:00 EDT, Route to Pharmacy Electronically, [facility]/pharmacy #4572, Partial fill upon patient request, 10/08/20, 165,... Start Date: 10/05/20 Stop Date: 11/02/20 Status: Ordered Prevnar 13 intramuscular suspension 0.5 [...] Dr. Beal. 5bilat shoulders, seen by [place] [facility] on 10/29/16, report to scanning Social History Social History Type Response Smoking Status Former smoker entered on: 02/14/16 Sex
--- OUTSIDE RECORDS SUMMARY | 2024-03-07 10:07 | XMS_ITS | Continuity of Care Document ---
Author Organization [facility] Address [address] [place] [address]- Care Team Providers Care Pipe Line Repairer Name Role Phone Salvatore GOMEZ, [facility] Primary Care Physician ( [phone] Encounter [facility] Date(s): 06/23/23 - 07/23/23 [facility] [address] [place], [place] [address] Attending Physician: Tara Duarte Admitting Physician: AdmTara mayberry Referring Physician: Admtr, ArAlayna Allergies, Adverse Reactions, Alerts Substance Reaction Severity Status penicillins rash Active Immunizations Given and Recorded Vaccine Date Status Refusal Reason influenza virus vaccine, inactivated 05/12/23 Logan rded influenza virus vaccine, inactivated 04/17/22 Logan rded influenza virus vaccine, inactivated 02/05/21 Logan rded SARS-CoV-2(COVID-19)mRNA-LNP vac([id number]) 05/12/23 Recorded [id number] bivalent booster vax 04/17/22 Recorded SARS-CoV-2 (COVID-19) [...] [facility] Medications acetaminophen 500 mg oral tablet 2 [...] Gm, 0 Refills, Maintenance, 04/21/23 16:41:00 EDT, [facility], 30, APPLY TOPICALLY 2 TIMES A DAY,X10 [...] Refills, Maintenance, 01/30/23 9:01:00 EDT, [facility], 163, cm, 11/10/22 11:38:00 EDT, Height, 85, [...] Start Date: 10/11/21 Status: Ordered nystatin topical 129899 u/gm powder See Instructions, APPLY TO AFFECTED [...] from Dr. Beal. 5bilat shoulders, seen by [place] [facility] on 10/29/16, report to scanning Social History Social History Type Response Smoking Status Former smoker entered on: 02/14/16 Sex Patient Care team information Care Team Personnel Name: Irene Jo RN Position: S RN Member Role: Primary Care Nurse Name: Jasmine Alan LPN Position: S RN Member Role: Primary Care Nurse Name: Kezia Reyes RN Position: [facility] MR W/ Merge Member Role: Primary Care Nurse Name: Meagan Christensen RN Position: [facility] RN Member Role: Primary Care Nurse Name: Tracy Chase MD Position: [facility] Physician - Primary Care Member Role: PCP Address: Address: [address] [place] [address] Name: Carlos Martinez RN Position: [facility] RN Member Role: Primary Care Nurse Name: Elmer Santiago RN Position: [facility] RN Member Role: Primary Care Nurse Name: Beena Gordillo RN Position: [facility] RN Member Role: Primary Care Nurse Name: Ping Perez RN Position: [facility] RN Member Role: Primary Care Nurse Name: Eloina Pedro LPN Position: S RN Member Role: Primary Care Nurse Name: Yoana Luna RN Position: [facility] RN Member Role: Primary Care Nurse Name: Sindy Elizabeth RN Position: [facility] RN Member Role: Primary Care Nurse Name: Gaby Wong LPN Position: [facility] RN Member Role: Primary Care Nurse Name: Mayra Hamlin RN Position: [facility] Hospital District Branch Manager Member Role: Primary Care Nurse Care Team Related Persons Name: ROXY TIM Address: [address] [place], [place] Name: VINEET NAYLOR Address: home [address] [place], [place] Name: PRISCILLA LUNDY Address: home [address], [place]
--- OUTSIDE RECORDS SUMMARY | 2024-03-07 10:07 | XMS_ITS | Continuity of Care Document ---
Author Organization [facility] Adult Address [address] [place] [address]- Care Team Providers Care Supervisor Pit And Auxiliaries Name Role Phone Salvatore GOMEZ, [facility] Primary [facility] Physician ( [phone] Encounter [facility] [place] Date(s): 12/07/23 - 01/06/24 [facility] [address] [place] [address]- Attending Physician: Tara Duarte Admitting Physician: AdmTara mayberry Referring Physician: Admtr ArAlayna Allergies, Adverse Reactions, Alerts Substance Reaction Severity Status penicillins rash Active Immunizations Given and Recorded Vaccine Date Status Refusal Reason influenza virus vaccine, inactivated 05/12/23 Logan rded influenza virus vaccine, inactivated 04/17/22 Logan rded influenza virus vaccine, inactivated 02/05/21 Logan rded SARS-CoV-2(COVID-19)mRNA-LNP vac([id number]) 05/12/23 Recorded [id number] bivalent booster vax 04/17/22 Recorded SARS-CoV-2 (COVID-19) [...] 10/15/23 5:05:00 EDT, Route to Pharmacy Electronically, [facility]/pharmacy #[id number], 158, cm, 06/23/23 11:27:00 EST, Height, 118, kg, 06/15/23 16:46:00 EST, Dry Weight Start Date: 10/15/23 Status: Ordered Critic-Aid Skin 20% topical paste See Instructions, APPLY TOPICALLY 2 TIMES A DAY,X10 DAYS, # 170 Gm, 0 Refills, Maintenance, 10/15/23 9:29:00 EDT, [facility] STORE [id number], 30, APPLY TOPICALLY 2 TIMES A DAY,X10 [...] tablet, 1 Refills, Maintenance, 08/02/23 11:37:00 EST[id number], 158, cm, 06/23/23 11:27:00 EST, Height, 118, [...] Start Date: 10/11/21 Status: Ordered nystatin topical 365323 u/gm powder See Instructions, APPLY TO AFFECTED AREA TWICE A DAY, # 60 Gm, 5 Refills, Maintenance, 10/15/23 5:06:00 EDT, [facility]/pharmacy #[id number], 30, APPLY TO AFFECTED [...] from Dr. Beal. 5bilat shoulders, seen by LyndonZulema Rodriguez on 10/29/16, report to scanning Procedures [...] Team Personnel Name: Irene Jo RN Position: [facility] RN Member Role: Primary Care Nurse Name: Jasmine Alan LPN Position: [facility] RN Member Role: Primary Care Nurse Name: Kezia Reyes RN Position: [facility] MR W/ Merge Member Role: Primary Care Nurse Name: Meagan Christensen RN Position: [facility] RN Member Role: Primary Care Nurse Name: Tracy Chase MD Position: [facility] Physician - Primary Care Member Role: PCP Address: Address: [address] [place] [address] Name: Carlos Martinez RN Position: [facility] RN Member Role: Primary Care Nurse Name: Elmer Santiago RN Position: [facility] RN Member Role: Primary Care Nurse Name: Beena Gordillo RN Position: [facility] RN Member Role: Primary Care Nurse Name: Ping Perez RN Position: [facility] RN Member Role: Primary Care Nurse Name: Eloina Pedro LPN Position: [facility] RN Member Role: Primary Care Nurse Name: Yoana Luna RN Position: [facility] RN Member Role: Primary Care Nurse Name: Rosita Gillespie RN Position: [facility] SN RN Member Role: Primary Care Nurse Name: Sindy Elizabeth RN Position: [facility] RN Member Role: Primary Care Nurse Name: Gaby Wong LPN Position: [facility] RN Member Role: Primary Care Nurse Name: Mayra Hamlin RN Position: [facility] Rib Matcher And Fitter Member Role: Primary Care Nurse Care Team Related Persons Name: ROXY TIM Address: home [address] [place], [place] Name: VINEET NAYLOR Address: home [address] [place], [place] Name: MARICRUZ CORTEZ Name: PRISCILLA LUNDY Address: home [address], [place]
--- OUTSIDE RECORDS SUMMARY | 2024-03-07 10:07 | XMS_ITS | Continuity of Care Document ---
Author Organization [facility] Adult Address [address] [place] [address]- Care Team Providers Care Mud Jack Operator Name Role Phone Salvatore GOMEZ, [facility] Primary Care Physician [place] [facility] [place] 07/15/22 - 08/14/22 [facility] Adult [address] [place] [id number]- Allergies, Adverse Reactions, Alerts Substance Reaction Severity Status penicillins rash Active Immunizations Given and Recorded Vaccine Date Status Refusal Reason influenza virus vaccine, inactivated 04/17/22 Logan rded influenza virus vaccine, inactivated 02/05/21 Logan rded [id number] bivalent booster vax 04/17/22 Recorded SARS-CoV-2 (COVID-19) [...] 07/24/22 11:38:00 EST, Route to Pharmacy Electronically, [facility] STORE [id number], 163, cm, 06/09/22 10:50:00 EST, Height, 85, kg, 10/11/21 8:29:00 EDT, Dry Weight Start Date: 07/24/22 Status: Ordered Critic-Aid Skin 20% topical paste See Instructions, APPLY TOPICALLY 2 TIMES A DAY,X10 DAYS, # 170 Gm, 0 Refills, Maintenance, 07/08/22 13:01:00 EST, [facility] STORE 00650, 30, APPLY TOPICALLY 2 TIMES A DAY,X10 DAYS, 163, cm, 06/09/22 10:50:00 EST, Height, 85, kg, 10/11/21 8:29:00 EDT, Dry W... Start Date: 07/08/22 Status: Ordered [facility] VITAMIN D3 25 MCG SOFTGEL [facility] VITAM[facility] D3 25 MCG SOFTGEL, 1, capsule, [...] Refills, Soft Stop, 05/30/22 16:31:00 EST, Tablet, [facility]/pharmacy #[id number], Partial fill upon patient request if the [...] 0 Refills, Maintenance, 08/07/22 11:21:00 EST, [facility], 163, cm, 06/09/22 10:50:00 EST, Height, 85, [...] Start Date: 10/11/21 Status: Ordered nystatin topical 190108 u/gm powder See Instructions, APPLY TO AFFECTED AREA TWICE A DAY, # 60 Gm, 1 Refills, Maintenance, 07/08/22 13:01:00 EST, [facility], 30, APPLY TO AFFECTED AREA TWICE A [...] By Mouth, 3 times a day, for 7 days, # 21 tablet, Refills 0, Tot. Refills 0, Acute08/20/22 15:01:00 EST, 08/13/22 15:01:00 EST, Route to Pharmacy Electronically, [facility]/pharmacy #[id number],Partial fill upon patient request, 163, cm, ... Start Date: 08/13/22 Stop Date: 08/20/22 Status: Ordered sertraline 25 mg oral tablet [...] from Dr. Beal. 5bilat shoulders, seen by [facility] on 10/29/16, report to scanning Social History Social History Type Response Smoking Status Former smoker entered on: 02/14/16 Sex Patient Care team information Care Team Personnel Name: Kezia Reyes RN Position: [facility] W/ Cody Member Role: Primary Care Nurse Name: Meagan Christensen RN Position: [facility] RN Member Role: Primary Care Nurse Name: Tracy Chase MD Position: [facility] Primary Care Physician Member Role: PCP Address: Address: [address] [place], [place] [address] Name: Cheryl RAMAN, Yoana Position: [facility] RN Member Role: Primary Care Nurse Name: Lin Doss RN, Sindy Position: [facility] RN Member Role: Primary Care Nurse Name: Mayra Hamlin RN Position: [facility] Heel Brusher Member Role: Primary Care Nurse Care Team Related Persons Name: ROXY TIM Address: [address] [place] [address] Name: DAYDAYVINEET CHILD Address: [address] [place] [address]
--- OUTSIDE RECORDS SUMMARY | 2024-03-07 10:07 | XMS_ITS | Continuity of Care Document ---
Author Organization [facility] Adult Address [address] [place] [address]- Care Team Providers Care Community Health Nursing Director Name Role Phone Salvatore GOMEZ, [facility] Primary Care Physician ( [phone] En[place] [facility] [place](s): 04/05/20 - 05/05/20 [facility] Adult [address] [place] [id number]- Allergies, Adverse Reactions, Alerts Substance Reaction Severity Status penicillins rash Active Immunizations Given and Recorded Vaccine Date Status Refusal Reason Influenza Virus Vaccine (oldterm) 1 03/21/20 Recor ded pneumococcal 13-valent vaccine 2 03/21/20 [facility]ed [facility] Medications Beside Commode Beside [...] 02/18/20 14:16:00 EDT, Route to Pharmacy Electronically, [facility]/pharmacy #[id number], 163, cm, 09/21/19 5:38:00 EDT, Height, 98.1, [...] Date: 04/20/18 Status: Ordered Fluzone High-Dose Quadrivalent [id number] intramuscular suspension 0.7 mL, Intramuscular, Once, # [...] 0 Refills, Maintenance, 03/19/20 15:08:00 EDT, Tablet, [facility]/pharmacy #[id number], 163, cm, 09/21/19 5:38:00 EDT, [...] Start Date: 04/21/18 Status: Ordered nystatin topical 986643 u/gm powder 1 application, Topically, 2 times a day, # 60 Gm, 1 Refills, Maintenance, 04/09/20 13:00:00 EDT, Powder, [facility]/pharmacy #[id number], 1 application Topically 2 times [...] 04/10/20 10:42:00 EDT, Route to Pharmacy Electronically, [facility]/pharmacy #[id number], Partial fill upon patient request, 04/23/20, 163,... [...] from Dr. Beal. 6bilat shoulders, seen by [facility] on 10/29/16, report to scanning Social History Social History Type Response Smoking Status Former smoker entered on: 02/14/16 Sex
--- OUTSIDE RECORDS SUMMARY | 2024-03-07 10:07 | XMS_ITS | Continuity of Care Document ---
Author Organization [facility] ter Address [address] [place] [address]- Care Team Providers Care Scraper Hand Name Role Phone [facility] Primary Care Physician ( [phone] Encounter [facility] [place] Date(s): 10/10/21 - 10/10/[address] [address]- Discharge Disposition: A-D/C Walkout Attending Physician: Not on Staff, Attending MD Admitting Physician: Not on Staff, Admitting MD Referring Physician: Not on Staff, Referring [...] tablet, Refills 1, Route to Pharmacy Electronically, [facility] 565[facility], 165, cm, 06/10/21 10:02:00 EST, Height, 98.1, kg, 09/20/19 2:16:00 EDT, Dry Weight Start Date: 08/01/21 Status: Ordered Critic-Aid Skin 20% topical paste See Instructions, APPLY TO AFFECTED AREA TWICE A DAY FOR 14 DAYS, # 170 Gm, 1 Refills, [facility] 60107, 30, APPLY TO AFFECTED AREA TWICE A [...] # 180 tablet, 0 Refills, [facility], 165, cm, 06/10/21 10:02:00 EST, Height, 98.1, [...] Start Date: 04/21/18 Status: Ordered nystatin topical 985366 u/gm powder See Instructions, APPLY TO AFFECTED AREA TWICE A DAY, # 60 Gm, 1 Refills, Physician Stop 06/29/22 15:44:00 EST, 07/10/21 15:44:00 EST, [facility]/pharmacy #[id number], 60, APPLY TO AFFECTED AREA TWICE A [...] 84 tablet, Refills 0, Tot. Refills 0,Acute 11/01/21 12:31:00 EDT, Pain , Severe, 10/04/21 12:31:00 EDT, Route to Pharmacy Electronically, [facility]/pharmacy #[id number], Partial fill upon patient requ... Start Date: 10/04/21 Stop Date: 11/01/21 Status: Ordered Prevnar 13 intramuscular suspension 0.5 [...] Refills, Maintenance, 12/17/20 9:37:00 EDT, Capsule, [id number], decrease dose, re sent from 06/30/17, 165, [...] from Dr. Beal. 5bilat shoulders, seen by [facility] on 10/29/16, report to scanning Vital Signs Most recent to oldest [Reference Range]: 1 2 Height 163 cm (10/10/21 2:21 PM) 163 cm (10/10/21 12:44 PM) Weight 118 kg (10/10/21 2:21 PM) 118 kg (10/10/21 12:44 PM) Oxygen Saturation [94-100 %] 95 % (10/10/21 12:44 PM) Pulse Rate [55-90 bpm] 93 bpm *H* (10/10/21 12:44 PM) Body Mass Index [18.5-24.99] 44.41 *>HHI* (10/10/21 12:44 PM) Blood Pressure [90-138/55-84 mm Hg] 140/ 79mm Hg *H* (10/10/21 12:44 PM) Respiratory Rate [16-30 br/min] 16 br/mi n (10/10/21 12:44 PM) Temperature [96.8-100.4 DegF] 98.5 DegF (10/10/21 12:44 PM) Mode of Delivery (Oxygen) Room air (10/10/21 12:44 PM) Blood pressure sites Arm, right (10/10/21 12:44 PM) Temperature Route Oral (10/10/21 12:44 PM) Dry Weight 118 kg (10/10/21 2:21 PM) 118 kg (10/10/21 12:44 PM) Weight Obtained Via Patient/family state d (10/10/21 12:44 PM) Dry Weight Obtained Via Patient/family s tated (10/10/21 12:44 PM) Social History Social History Type Response Smoking Status Former smoker entered on: 02/14/16 Sex
--- OUTSIDE RECORDS SUMMARY | 2024-03-07 10:08 | XMS_ITS | Continuity of Care Document ---
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 Name Role Phone Salvatore GOMEZ, Tracy Primary Care Physician Encounter [facility] [place] Date(s): 05/16/23 - 05/19/[address] [id number] Encounter Diagnosis Altered mental status(Final) - 05/16/23 Altered mental status(Final) - 05/16/23 Discharge Disposition: A-D/C Home Attending Physician: Steven Wallace MD Admitting Physician: Jacqueline Marroquin DO Referring Physician: Not on Staff, Referring MD Allergies, Adverse Reactions, Alerts Substance Reaction Severity Status penicillins rash Active Immunizations Given and Recorded Vaccine Date Status Refusal Reason influenza virus vaccine, inactivated 04/17/22 Logan rded influenza virus vaccine, inactivated 02/05/21 Logan rded [id number] bivalent booster vax 04/17/22 Recorded SARS-CoV-2 (COVID-19) [...] 11/10/22 12:00:00 EDT, Route to Pharmacy Electronically, [facility]/pharmacy #[id number], 163, cm, 11/10/22 11:38:00 EDT, Height, 85, kg, 10/11/21 8:29:00 EDT, Dry Weight Start Date: 11/10/22 Status: Ordered Critic-Aid Skin 20% topical paste See Instructions, APPLY TOPICALLY 2 TIMES A DAY,X10 DAYS, # 170 Gm, 0 Refills, Maintenance, 04/21/23 16:41:00 EDT, [facility] STORE [id number], 30, APPLY TOPICALLY 2 TIMES A DAY,X10 [...] Refills, Maintenance, 01/30/23 9:01:00 EDT, [id number], 163, cm, 11/10/22 11:38:00 EDT, Height, 85, [...] Start Date: 10/11/21 Status: Ordered nystatin topical 852660 u/gm powder See Instructions, APPLY TO AFFECTED AREA TWICE A DAY, # 60 Gm, 1 Refills, Maintenance, 02/16/23 12:00:00 EDT, [facility]/pharmacy #[id number], 30, APPLY TO AFFECTED [...] Reports Name Date Urine Culture (URINE CULTURE) 05/16/23 Blood Culture 05/16/23 Blood Culture #2 05/16/23 Microbiology Reports TEST:Urine Culture STATUS:Auth (Verified) BODY SITE: SOURCE:URINE COLLECTED DATE/TIME:05/16/23 6:40 PM Urine Culture SPECIMEN DESCRIPTION : URINE SPECIAL REQUESTS : NONE CULTURE : >100,000 COL/ML ESCHERICHIA COLI This isolate was identified using Maldi-TOF system These AST results were performed on the Vitek 2 ID and AST system REPORT STATUS : FINAL 05/19/2023 ORGANISM >100,000 COL/ML ESCHERICHIA COLI This isolate was identified using Maldi-TOF system These AST results were performed on the Vitek 2 ID and AST system METHOD MIN. INHIB. CONC. (MCG/ML) AMPICILLIN INTERMEDIATE AMPICILLIN/SULBACTAM INTERMEDIATE CEFAZOLIN SUSCEPTIBLE CEFEPIME SUSCEPTIBLE CEFTRIAXONE SUSCEPTIBLE CIPROFLOXACIN RESISTANT ERTAPENEM SUSCEPTIBLE GENTAMICIN SUSCEPTIBLE LEVOFLOXACIN RESISTANT NITROFURANTOIN SUSCEPTIBLE PIPERACILLIN/TAZOBAC SUSCEPTIBLE TRIMETH/SULFAMETHOX RESISTANT TEST:Blood Culture STATUS:Unauthenticated BODY SITE: SOURCE:Blood COLLECTED DATE/TIME:05/16/23 5:15 PM Blood Culture SPECIMEN DESCRIPTION : BLOOD NO SITE SPECIAL REQUESTS : NONE CULTURE : NO GROWTH 3 DAYS REPORT STATUS : PRELIMINARY REPORT TEST:Blood Culture, Second Order STATUS:Unauthenticated BODY SITE: SOURCE:Blood COLLECTED DATE/TIME:05/16/23 5:15 PM Blood Culture, Second Order SPECIMEN DESCRIPTION : BLOOD NO SITE SPECIAL REQUESTS : NONE CULTURE : NO GROWTH 3 DAYS REPORT STATUS : PRELIMINARY REPORT Radiology Reports * Exam Date Time Procedure Performing Provider Status 05/16/23 4:[address] Head/Brain W/O Contrast Vicki Espino; Auth (Verified) Notes: (CT Head/Brain W/O Contrast) Reason For Exam: Behavior Problem RESULT: CT Head/Brain W/O Contrast CT Head/Brain W/O Contrast INDICATION: Hx of Present Illness: Family member at bedside sts pt has been cofused since yesterday. Increased generalized weakness.; Reason: Behavior Problem; Clinical Question(s): Hematoma; Order Comment: TECHNIQUE: Noncontrast head CT using axial technique and reconstructed in axial and coronal planes.Iterative reconstruction techniques are used to optimize dose and image quality. CTDIvol Head: 47.70 mGy, DLP Head: 773 mGy*cm. COMPARISON: 11/02/2020 year old AU] X-ray FINDINGS: Veneer Marker view findings, lines and tubes: None. BRAIN: No parenchymal hemorrhage, midline shift, or mass effect. Epps-white matter differentiation is well preserved. No acute infarct. Moderate low-density white matter changes. VENTRICLES: Prominence of the ventricles similar to previous exam. EXTRA-AXIAL SPACES: No subarachnoid hemorrhage. No subdural or epidural collection. SKULL/SOFT TISSUES: No fractures or suspicious bony lesions. The extracranial soft tissues are unremarkable. SINUSES: The paranasal sinuses and mastoid air cells are clear. ORBITS: Visualized orbits and globes are intact. IMPRESSION: Stable appearance since 11/02/2020 with ventricular enlargement. No acute abnormality. WSN: [id number] Ordering Physician: Jaci Vergara Dictated By: Raúl Hardwick MD Dictated Date/Time: 05/16/23 5:11 pm Reviewed By: Raúl Hardwick MD Signed By: Raúl Hardwick MD Signed Date/Time: 05/16/23 5:11 pm Transcribed By: KARLA Transcribed Date/Time: 05/16/23 5:09 pm Vital Signs Most recent to oldest [Reference Range]: 1 2 3 Height 158 cm (05/19/23 3:30 PM) 158 cm (05/19/23 7:59 AM) 158 cm (05/18/23 11:52 PM) Weight 79.5 kg (05/17/23 9:02 AM) 79.5 kg (05/17/23 8:44 AM) 118 kg (05/17/23 1:55 AM) Oxygen Saturation [94-100 %] 98 % (05/19/23 3:30 PM) 99 % (05/19/23 7:59 AM) 98 % (05/18/23 11:52 PM) Pulse Rate [55-90 bpm] 90 bpm (05/19/23 3:30 PM) 89 bpm (05/19/23 7:59 AM) 84 bpm (05/18/23 11:52 PM) Body Mass Index [18.5-24.99 kg/m2] 33.09 kg/m2 *>HHI* (05/17/23 8:44 AM) Blood Pressure [90-138/55-84 mm Hg] 103/73mm Hg (05/19/23 3:30 PM) 151/72mm Hg *H* (05/19/23 7:59 AM) 143/53mm Hg *H* (05/18/23 11:52 PM) Respiratory Rate [16-30 br/min] 20 br/min (05/19/23 3:30 PM) 20 br/min (05/19/23 7:59 AM) 18 br/min (05/18/23 11:52 PM) Temperature [96.8-100.4 DegF] 98.3 DegF (05/19/23 3:30 PM) 98.5 DegF (05/19/23 7:59 AM) 98.3 DegF (05/18/23 11:52 PM) Mode of Delivery (Oxygen) Room air (05/19/23 3:30 PM) Room air (05/19/23 7:59 AM) Room air (05/18/23 11:52 PM) Blood pressure sites Arm, left (05/19/23 3:30 PM) Arm, left (05/19/23 7:59 AM) Arm, left (05/18/23 11:52 PM) Temperature Route Oral (05/19/23 3:30 PM) Oral (05/19/23 7:59 AM) Oral (05/18/23 11:52 PM) Dry Weight 79.5 kg (05/17/23 8:44 AM) Weight Obtained Via Bed scale (05/17/23 9:02 AM) Bed scale (05/17/23 8:44 AM) Patient/family stated (05/17/23 1:55 AM) Dry Weight Obtained Via Bed scale (05/17/23 8:44 AM) Social History Social History Type Response Smoking Status Former smoker entered on: 02/14/16 Sex Admission evaluation note * Claudia Alatorre MD: MODIFY Claudia Alatorre MD: MODIFY, MODIFY Lamin Lockhart MD: MODIFY Event Display: Admission Note Authored Date: [id number] Patient: ??RONNA NAYLOR ? Age:??72 Years?Sex:??Female?:??1950?? Chief Complaint/Reason for Consultation Pt coming from home. Family reports increased confusion since yesterday. AAt baseline can be forgetful but is normally oriented. Denies fevers, chills, n/v or ABD discomfort. History of Present Illness Ronna Naylor is a 72-year-old F with a history of MS, dementia, T2DM, HTN, HLD, and recurrent UTIs, presents with worsening confusion for 2 days in the setting of recent UTI???was recently prescribed ciprofloxacin on 05/13, which she has been taking, however then increased purulence in urine overthe last few days.?? No fevers, chills, decreased p.o.?? No nausea or vomiting.??Of note, patient was recently seen by neuropsychology on 04/15 due to progressive cognitive concerns in the setting ofher progressive MS???discussed this with ,??who??clarified that??she has been more forgetful, not always sure by dates, which has been progressing over the last few years, however??this acute c hange in mentation??was sudden over the last few days.?? Comments that she has not slept??at all??last night.?? Does note that she does have baseline urinary and fecal incontinence,??lives with ??who takes care of her along with??UTILITY TE[employer].??On my discussion??with patient,??she is??alert to self only, but redirectable. ??Does endorse being tired and not??being able to sleep. In the ED patient was hemodynamically stable???afebrile, no tachycardia or tachypnea, normal BP of 122/63, and satting 95% on room air.?? On labs, WBC count was 9.7, patient anemic with H&H of 11.6/34.8.?? Electrolytes, kidney function, and LFTs were unremarkable, however lactate was elevated to 2.8 yes -> 3.1 on repeat.?TSH was 1.79, salicylate level and acetaminophen level unremarkable, blood cultures drawn and are pending. Viral swab negative for influenza, RSV, COVID-19.?? Urinalysis was significant with positive nitrite, 3+ leukocyte, 99 WBC.??ECG was done which showed normal sinus rhythm with no ST changes.?? CT head was performed due to AMS, which showed no acute abnormaliti es. ?? Patient was given 1 g ceftriaxone, 1 L bolus, and subsequently admitted for altered mental status in setting of UTI.?? Review of Systems Constitutional:??No fever, chills, or change in appetite. HEENT:??No headache, vision or hearing changes, rhinorrhea, sore throat, or neck pain. Respiratory:??No cough, shortness of breath, or wheezing. Cardiovascular:??No chest pain, palpitations, or dyspnea on exertion.?? Gastrointestinal:??No abdominal pain, nausea, vomiting, diarrhea, constipation. +Fecal incontinence. Genitourinary: Per HPI. Urinary incontinence, no dysuria or hematuria per patient. Musculoskeletal:??No arthralgias or myalgias. Skin:??No rashes. Neurological:??No headache, dizziness, or numbness. Objective ? Vital Signs?? Temperature: 97.9 DegF (05/16/23 21:22:00) Temperature Route: Oral (05/16/23 21:22:00) Pulse Rate: 86 bpm (05/17/23 00:49:00) Respiratory Rate: 18 br/min (05/17/23 00:49:00) Systolic Blood Pressure: 133 mm Hg (05/17/23 00:49:00) Diastolic Blood Pressure:??102 mm Hg??High (05/17/23 00:49:00) Blood pressure sites: Arm, right (05/17/23 00:49:00) Pulse Pressure: 31 mm Hg (05/17/23 00:49:00) Oxygen Saturation: 96 % (05/17/23 00:49:00) Mode of Delivery (Oxygen): Room air (05/17/23 00:49:00) Early Warning Score: 2 (11/19/23 00:49:34) ? Physical Exam General: Alert to self only, comfortable appearing. No acute distress. Eyes:??Pupils are equal, round, and reactive to light. EOMI Ear, Nose, and Throat: Mucous membranes moist, no pharyngeal erythema or exudate Neck:??Supple, full range of motion. CV: RRR, S1 S2 present. 1/6 systolic murmur. No JVD. No edema. Respiratory: All tidwell clear to auscultation bilaterally. No wheezes, rales, rhonchi appreciated. No retractions Abdominal: Soft, nontender. No rebound tenderness. Normal bowel sounds. : No suprapubic tenderness. Extremities: Full passive ROM Neuro: CN II-XII grossly intact, except patient had difficulty with eye tracking. Moving all extremities normally.??Strength normal b/l. Skin: No lesions, wounds, rashes.?? Musculoskeletal:??No joint edema or erythema. Normal range of motion. Assessment/Plan Assessment:??Ronna Naylor is a 72-year-old F with a history of MS, dementia, T2DM, HTN, HLD, and recurrent UTIs, presents with worsening confusion for 2 days in setting of increased urinary purulence, admitted for further management of UTI. ?? Altered mental status (R41.82):?? Lactic acidosis (E87.20):?? Metabolic encephalopathy (G93.41):?? Urinary tract infection (N39.0):? Patient with UA suggestive of??UTI. Also has??confusion and AMS, likely in setting of metabolic encephalopathy secondary to UTI.??She has been taking daily Bactrim prophylaxis??for recurrent UTIs??inthe setting of urinary incontinence secondary to her??MS. Also has??fecal incontinence,??which may contribute to her??susceptibility??to getting infections. Also did have elevated lactate, likely in setting of dehydration. CT head??negative??for??any acute abnormalities.?No back pain??and normal??kidney function,??lowsuspicion for pyelonephritis at this time given lack of leukocytosis or fever - if worsens, would consider CT imaging. ?? Plan: -Continue treatment with??ceftriaxone 1 g??daily -S/p 1L fluids in ED -Monitor I's and O's -Follow-up urine culture until final -Hold home Bactrim ppx -Hold home Myrbetriq (nonformulary) ?? T2DM (type 2 diabetes mellitus) (E11.9):? -Hold??metformin -POC??3 times daily before meals plus nightly -Sliding scale insulin lispro ?? HTN (hypertension) (I10):? -Continue home??chlorthalidone ?? Multiple sclerosis (G35):? -Follows??with neurology outpatient. Recent had neuropsych testing??on 04/15, pending??follow-up??to discuss results. Per does have??baseline??mild dementia, confusion with dates, incontinence, secondary to her MS. -Has not been??on active MS treatment for quite some time. -Follow-up outpatient ?? Anxiety (F41.9):? -Continue home Sertraline 25mg daily ?? Quality Measures Diet: Diabetic diet DVT Prophylaxis: Lovenox Code:??Full ?? Lamin Lockhart MD MedPeds PGY-2 [facility]??& [place] p.[phone] ?? Patient seen and plan discussed with attending, ??Landry ? Attending Attestation: I have seen and evaluated this patient???05/17/2023 in ED??D pod hallway after she was brought by family for evaluation of altered mental status and changes in urine appearance???purulent urine??and??was found to have??a UTI as well as an elevated lactate without other signs of sepsis.?? Admitted for treatment of metabolic encephalopathy from UTI.. ??I have discussed the case and its management with the resident and agree with the findings and plan as documented in the resident??s note. ?? [] Histories Allergies Allergies ?(Active and Proposed Allergies Only) penicillins? (Severity: Unknown severity, Onset: Unknown) ?Reactions: rash ? 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 Past Surgical History Lumbar puncture: 05/10/20 Echocardiogram Vaginal delivery MRI of cervical spine Lumbar puncture MRI of brain abnormal MRI of lumbar spine ? Social History Alcohol Details:??Use: Current. ??Frequency: 1-2 times per year. Employment/School Details:??Status: Disabled. ??Other: was working until 10yrs ago.. Exercise Details:??Self assessment: Poor condition. Home/Environment Details:??Living situation: Home/Independent. ??Lives with: Spouse, can stand,can not walk. Wheel chair. ??Other: Lives with and his brother. Has 1 son. Can not cook, clean, drive. 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 Needs assistance with bath, [...] ONCE DAILY DUE TO BEING NON-INSULIN DEPENDANT Miscellaneous Rx ([facility] VITAMIN D3 25 MCG SOFTGEL)?1?capsule?By Mouth?Daily Miscellaneous Rx (VITAMIN D3 1,000 UNIT SOFTGEL)?1?capsule?By Mouth?Daily Nystatin Topical (nystatin topical 240119 u/gm powder)?See Instructions?APPLY TO AFFECTED AREA TWICE A DAY PEG Electrolyte Solution (PEG-3350 with Electrolytes (Eqv-GoLYTELY) oral powder for reconstitution)?See Instructions?split prep method. drink one half the night before procedure at 5pm. drink second half morning of procedure. must finish no later than 3 hours prior to procedure. Sertraline (sertraline 25 mg oral tablet)?1?tab(s)?25?Milligram?By Mouth?Daily Sulfamethoxazole/Trimethoprim (sulfamethoxazole-trimethoprim 400 mg-80 mg oral tablet)?TAKE 1 TABLET BY MOUTH EVERY DAY Zinc Oxide Topical (Critic-Aid Skin 20% topical paste)?See Instructions?APPLY TOPICALLY 2 TIMES A DAY,X10 DAYS ? Results Recent Labs BLOOD COUNT & DIFF WBC 9.7 k/mm3 ()?? 05/16/2023 17:15 RBC 3.73 m/mm3 (Low)?? 05/16/2023 17:15 Hgb 11.6 Gm/dL (Low)?? 05/16/2023 17:15 Hct 34.8 % (Low)?? 05/16/2023 17:15 MCV 93.3 femtoliters ()?? 05/16/2023 17:15 MCH 31.1 pg ()?? 05/16/2023 17:15 MCHC 33.3 g/dL ()?? 05/16/2023 17:15 Platelet Count 262 k/mm3 ()?? 05/16/2023 17:15 RDW-SD 44.2 femtoliters ()?? 05/16/2023 17:15 MPV 9.6 femtoliters ()?? 05/16/2023 17:15 Nucleated RBC (Automated) 0.0 #/100 WBC'S ()?? 05/16/2023 17:15 Abs. NRBC 0.0 k/mm3 ()?? 05/16/2023 17:15 Abs. Neut 4.9 k/mm3 ()?? 05/16/2023 17:15 Abs. Lymph 3.9 k/mm3 (High)?? 05/16/2023 17:15 Abs. Sullivan 0.5 k/mm3 ()?? 05/16/2023 17:15 Abs. Eo 0.4 k/mm3 ()?? 05/16/2023 17:15 Abs. Baso 0.1 k/mm3 ()?? 05/16/2023 17:15 Neut % 50.1 % ()?? 05/16/2023 17:15 Lymph % 39.7 % ()?? 05/16/2023 17:15 Sullivan % 5.3 % ()?? 05/16/2023 17:15 Eos % 4.1 % ()?? 05/16/2023 17:15 Baso % 0.5 % ()?? 05/16/2023 17:15 Imm Gran 0.3 % ()?? 05/16/2023 17:15 Abs. Imm Gran 0.0 k/mm3 ()?? 05/16/2023 17:15 ?? CHEM GENERAL Sodium 141 mmol/L ()?? 05/16/2023 17:15 Potassium 4.2 mmol/L ()?? 05/16/2023 17:15 Chloride 102 mmol/L ()?? 05/16/2023 17:15 Bicarbonate Level 25 mmol/L ()?? 05/16/2023 17:15 Anion Gap 14 ()?? 05/16/2023 17:15 Glucose Level 97 mg/dL ()?? 05/16/2023 17:15 BUN 12 mg/dL ()?? 05/16/2023 17:15 Creatinine-Blood 0.6 mg/dL ()?? 05/16/2023 17:15 Estimated GFR Creatinine 97 ML/MIN/1.73 M2 ()?? 05/16/2023 17:15 Calcium 10.0 mg/dL ()?? 05/16/2023 17:15 Protein, Total 6.7 Gm/dL ()?? 05/16/2023 17:15 Albumin 4.2 Gm/dL ()?? 05/16/2023 17:15 AG Ratio 1.7 ()?? 05/16/2023 17:15 Alkaline Phosphatase 41 units/L ()?? 05/16/2023 17:15 AST (SGOT) 19 units/L ()?? 05/16/2023 17:15 ALT (SGPT) 21 units/L ()?? 05/16/2023 17:15 Bilirubin, Total 0.2 mg/dL ()?? 05/16/2023 17:15 Lactate 3.1 mmol/L (High)?? 05/16/2023 19:27 ?? ENDOCRINE/TUMOR MARKER TSH 1.79 uIU/mL ()?? 05/16/2023 17:15 ?? TOXICOLOGY/TDM Salicylate Level <0.3 mg/dL (Low)?? 05/16/2023 17:15 Acetaminophen Level 5 mg/L (Low)?? 05/16/2023 17:15 ?? UA/URINALYSIS Appear/Color, Urine YELLOW ()?? 05/16/2023 18:40 Specific [place], Urine 1.017 ()?? 05/16/2023 18:40 pH, Urine 7.5 ()?? 05/16/2023 18:40 Albumin, Urine TRACE (Abnormal)?? 05/16/2023 18:40 Glucose, Urine NEGATIVE ()?? 05/16/2023 18:40 Ketones, Urine NEGATIVE ()?? 05/16/2023 18:40 Bilirubin, Urine NEGATIVE ()?? 05/16/2023 18:40 Hemoglobin, Urine NEGATIVE ()?? 05/16/2023 18:40 Nitrite, Urine POSITIVE (Abnormal)?? 05/16/2023 18:40 Leukocyte, Urine 3+ (Abnormal)?? 05/16/2023 18:40 Urobilinogen NORMAL mg/dL ()?? 05/16/2023 18:40 WBC's, Urine 99 /HPF (High)?? 05/16/2023 18:40 RBC's, Urine NONE SEEN /HPF ()?? 05/16/2023 18:40 Bacteria SLIGHT HPF (Abnormal)?? 05/16/2023 18:40 Squamous Epith 14 /HPF (High)?? 05/16/2023 18:40 Mucus SLIGHT /LPF ()?? 05/16/2023 18:40 Hold Urine Culture Testing available 48 hours from time of collection. ()?? 05/16/2023 18:40 ?? VIROLOGY Influenza A PCR NEGATIVE ()?? 05/16/2023 19:20 Influenza B PCR NEGATIVE ()?? 05/16/2023 19:20 RSV PCR NEGATIVE ()?? 05/16/2023 19:20 COVID-19 PCR Specimen Source NASAL ()?? 05/16/2023 19:20 COVID-19 PCR Result NEGATIVE ()?? 05/16/2023 19:20 ? EKG study * Event Display: ECG 12-Lead Authored Date: Please click on pdf link to open report * Event Display: ECG 12-Lead Authored Date: Ventricular Rate: 76 BPM Atrial Rate: 76 BPM P-R Interval: 152 ms QRS Duration: 82 ms Q-T Interval: 380 ms QTC Calculation(Bazett): 427 ms P Stuart: 38 degrees R Stuart: 21 degrees T Stuart: 53 degrees Normal sinus rhythm Low voltage QRS Borderline ECG When compared with ECG of 10-OCT-2021 22:01, No significant change was found Confirmed by JEANIE GOMEZ [facility] ([id number]) on 05/17/2023 6:56:48 AM Wesley: [facility] * Carlos Martinez RN: PERFORM, SIGN, VERIFY Event Display: [facility] Authored Date: Patient: RONNA NAYLOR Age: 72 years Sex: Female : 1950 Associated Diagnoses: None Author: Carlos Martinez RN Findings Problem Related to Alteration in Genitourinary : Alteration in Genitourinary Function/new 05/19/2023 11:00 EST Alteration in Status Related to UTI Goals & Outcomes, Genitourinary Pt will achieve normal/improved fluid balance, Pt will maintainadequate GI function appropriate for pt, Pt will maintain adequate function appropriate for pt, Pt will maintain normal fluid balance, Pt will resume normal pattern of elimination, Pt/caregiver will state understanding of self-care skills Interventions, Assess/monitor effects of antibiotics, Assess/monitor s/s of urinary tract infection, Teach Pt/caregiver s/s of urinary tract infection BH Goals/Interventions, Genitourinary Yes Genitourinary, Problem Start 05/17/2023 11:24 Reviewed Plan with, Genitourinary Patient Patient Progression, Genitourinary Patient progressing according to plan Genitourinary, Problem Ongoing Yes . Nursing Data Vital Signs : VITAL SIGNS SECTION 05/19/2023 7:59 EST Temperature 98.5 DegF Temperature Route Oral Pulse Rate 89 bpm Respiratory Rate 20 br/min Systolic Blood Pressure 151 mm Hg H Diastolic Blood Pressure 72 mm Hg Blood pressure sites Arm, left Mean Arterial Pressure 98 mm Hg Pulse Pressure 79 mm Hg Oxygen Saturation 99 % Mode of Delivery (Oxygen) Room air . Narrative/Incidental Pt received awake, laying in bed. Pt denies any pain/discomfort at this time, no s/s of pain/distress noted. Resp even/unlabored, denies any sob at this time. Pt eager to return home. Pt to d/c todayaround 1700 via w/c van. Coccyx pink. Pt accidently d/c'd PIV, catheter tip intact. IVF d/c'd by Janna PIERCE. Full assessment docuemented in CIS. Bed alarm on with bed maintained in lowest position with call pappas placed within reach.. Discharge Information Rehabilitation Discharge : Rehab Discharge Index 05/19/2023 11:16 EST Comments on treatment indicated 72 F admitted 2' UTI. WBAT. Skilled PT for ambc RW, transfers, strength, balance, safety. Rec rehab Walker: distance < 10 Distance pt will ambulate > 10 feet c RW Full chart review completed Yes Hospital course See comment Other findings see comment Plan of care PT Gait training, Transfer training, Therapeutic exercise, Functional Activities, Balance training, Neuromuscular education * Gaby Wong LPN: PERFORM, SIGN, VERIFY Event Display: Progress Note Hospital Authored Date: Patient: RONNA NAYLOR Age: 72 years Sex: Female : 1950 Associated Diagnoses: None Author: Gaby Wong LPN Findings Problem Related to Alteration in Genitourinary : Alteration in Genitourinary Function/new 05/18/2023 17:00 EST Alteration in Status Related to UTI Goals & Outcomes, Genitourinary Pt will achieve normal/improved fluid balance, Pt will maintainadequate GI function appropriate for pt, Pt will maintain adequate function appropriate for pt, Pt will maintain normal fluid balance, Pt will resume normal pattern of elimination, Pt/caregiver will state understanding of self-care skills Interventions, Assess/monitor/maintain Genitourinary status, Assist & encourage pt with meticulous juan care, Encourage PO fluid intake as allowed by diet, Resolved problem, Interventions no longer in effect Goals/Interventions, Genitourinary Yes Genitourinary, Problem Start 05/17/2023 11:24 Reviewed Plan with, Genitourinary Patient, Spouse/significant other Patient Progression, Genitourinary Patient progressing according to plan Genitourinary, Problem Ongoing Yes . Evaluation Pt restless, anxious and confused over night. Alert to self and place, pt repeatedly trying to get out of bed, wanting to go home. [place] in place draining clear yellow urine, bladder scans every 6 hours ,not requiring straight caths. IVF infusing at 125 ml/hr, pt tolerating well. PeriCare performed with no issues. Po fluids encouraged, pt taking sips of fluid with Meds, not wanting more intake than that, will continue to encourage. See CIS for full assessment, Bed in lowest locked position, bed alarm on,call pappas in reach, will continue purposeful rounding.. * Maylin Mariscal RN: PERFORM, SIGN, VERIFY Event Display: Progress Note Hospital Authored Date: [id number] Patient: RONNA NAYLOR Age: 72 years Sex: Female : 1950 Associated Diagnoses: None Author: Maylin Mariscal RN Findings Problem Related to Alteration in Genitourinary : Alteration in Genitourinary Function/new 05/18/2023 17:00 EST Alteration in Status Related to UTI Goals & Outcomes, Genitourinary Pt will achieve normal/improved fluid balance, Pt will maintainadequate GI function appropriate for pt, Pt will maintain adequate function appropriate for pt, Pt will maintain normal fluid balance, Pt will resume normal pattern of elimination, Pt/caregiver will state understanding of self-care skills Interventions, Assess/monitor/maintain Genitourinary status, Assist & encourage pt with meticulous juan care, Encourage PO fluid intake as allowed by diet, Resolved problem, Interventions no longer in effect Goals/Interventions, Genitourinary Yes Genitourinary, Problem Start 05/17/2023 11:24 Reviewed Plan with, Genitourinary Patient, Spouse/significant other Patient Progression, Genitourinary Patient progressing according to plan Genitourinary, Problem Ongoing Yes . Evaluation Pt is alert, oriented to self, place - disoriented to time and situation. Reorientation provided. VSS sating WNL on RA. Carb consistent diet, FS ACHS, coverage provided PRN. Last BM 05/18, incontinence care provided. Purewick in place, CYU noted. BS unremarkable, pt voiding independently w/o need for straight cath per order guidelines. Denies pain. Expresses desire for d/c home. L FA PIV with D5LR infusing at 125 cc/hr, continues on Ceftriaxone Q24 hours, awaiting cultures. Taryn, family friend at bedside, supportive in care. . Consult note * Lois Barksdale: PERFORM, MODIFY, MODIFY, MODIFY, MODIFY, MODIFY, MODIFY, MODIFY, SIGN, VERIFY Event Display: Consultation Note Authored Date: [id number] Patient: RONNA NAYLOR Age: 72 years Sex: Female : 1950 Associated Diagnoses: None Author: Lois Barksdale INFECTIOUS DISEASES CONSULTATION NOTE Date: 05/21/2023 Infectious Diseases Attending: Dr. Parada Requesting Attending/Provider: Dr. Wallace Reason for Consult: Presumed UTI resistant to Bactrim she was taking for prophylaxis Source of Information: CIS, patient History of Present Illness: The patient is a 72 year-old woman with a past medical history of MS, dementia, diabetes, neurogenic bladder (states she voids independently with intermittent catheterization as well) and presumed recurrent UTIs followed by urology apparently on Bactrim for prophylaxis as well as methenamine. The patient tells me that she knew she had a UTI as her urine smelled bad . It appears she was prescribed ciprofloxacin by urology on 05/13 because of this. She states that at the time she had no dysuria,suprapubic pain, back pain, fever, chills, or any other symptoms, her urine just did not smell good. She tells me that because of this she was brought to the emergency department on 05/16. Upon arrival, she was found to be afebrile and hemodynamically stable without a leukocytosis and a stable creatinine of 0.6. Her lactate was mildly elevated at 2.8 felt to be in the setting of dehydration. A urinalysis had 99 WBCs and a urine culture later grew Escherichia coli resistant to quinolones. No imaging of her urinary tract was performed (last CT of the abdomen was on 04/21/22 which revealed a 3 cm right renal mass with an unremarkable bladder with bilateral renal cysts). She was started on ceftriaxone and was admitted for further management. She has remained afebrile and hemodynamically stable without a leukocytosis. Blood cultures are negative to date. ID has been consulted for assistance in management. Today on evaluation, the patient states that she has absolutely no symptoms and is planning on going home today. She denies any fevers, chills, abdominal pain, back pain, UTI symptoms, diarrhea, or rash. She states that her urine no longer smells bad. Past Medical and Surgical History: ??? MS ??? Neurogenic bladder status with intermittent catheterization ??? Dementia ??? Type 2 diabetes ??? Presumed recurrent UTIs apparently on Bactrim for prophylaxis and methenamine per urology ??? Hypertension ??? Hyperlipidemia Recent Antimicrobials: Ceftriaxone 1 g daily 05/16???present Medications: Reviewed Antimicrobial Allergies: Reported rash with penicillins, patient does not know any further details about this. Family History: No relevant history of infectious issues in first degree relatives. Social History and Infectious Diseases Exposure History: Lives at home with her and dog. 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 Review of Systems: Review of systems fully reviewed and negative aside from what is listed above inthe HPI. Physical Examination .VitalsTemperature 98.5 (08:00) Systolic Blood Pressure 151 (08:00) Diastolic Blood Pressure 72 (08:00) Pulse 89 (08:00) SpO2 99 (08:00) Respiratory Rate 20 (08:00) GENERAL: In no acute distress, slouched down in bed HEENT: Anicteric, no subconjunctival petechiae, moist oral mucosa without lesions or thrush CARDIOVASCULAR: Regular rate and rhythm RESPIRATORY: Lungs clear to auscultation GASTROINTESTINAL: Non-distended, normoactive bowel sounds, non-tender GENITOURINARY: No Keith SKIN: No diffuse rash present NEUROLOGICAL/PSYCH: Oriented to person, place, and month LINES: Peripheral IV Results Review General results All Labs : LABORATORY 05/18/2023 8:07 EST Glucose, POC 181 mg/dL H 05/18/2023 4:19 EST WBC 9.8 k/mm3 RBC 4.05 m/mm3 L Hgb 12.3 Gm/dL Hct 38.0 % MCV 93.8 femtoliters MCH 30.4 pg MCHC 32.4 g/dL L Platelet Count 275 k/mm3 RDW-SD 44.0 femtoliters MPV 9.2 femtoliters L Nucleated RBC (Automated) 0.0 #/100 WBC'S Abs. NRBC 0.0 k/mm3 Sodium 143 mmol/L Potassium 4.2 mmol/L Chloride 102 mmol/L Bicarbonate Level 29 mmol/L Anion Gap 12 Glucose Level 167 mg/dL H BUN 9 mg/dL Creatinine-Blood 0.6 mg/dL Estimated GFR Creatinine 99 ML/MIN/1.73 M2 Calcium 9.8 mg/dL Phosphorus 3.9 mg/dL Magnesium 1.6 mg/dL Microbiology/ID Work-up: Culture/Event_id: Urine Culture/[id number] Collect date: 05/16/23 18:40 Result Status: Auth (Verified) Result Date: 05/19/23 07:26 SPECIMEN DESCRIPTION : URINE SPECIAL REQUESTS : NONE CULTURE : >100,000 COL/ML ESCHERICHIA COLI This isolate was identified using Maldi-TOF system These AST results were performed on the VitAdvizzer 2 ID and AST system REPORT STATUS : FINAL 05/19/2023 ORGANISM >100,000 COL/ML ESCHERICHIA COLI This isolate was identified using Maldi-TOF system These AST results were performed on the Vitek 2 ID and AST system METHOD MIN. INHIB. CONC. (MCG/ML) AMPICILLIN INTERMEDIATE AMPICILLIN/SULBACTAM INTERMEDIATE CEFAZOLIN SUSCEPTIBLE CEFEPIME SUSCEPTIBLE CEFTRIAXONE SUSCEPTIBLE CIPROFLOXACIN RESISTANT ERTAPENEM SUSCEPTIBLE GENTAMICIN SUSCEPTIBLE LEVOFLOXACIN RESISTANT NITROFURANTOIN SUSCEPTIBLE PIPERACILLIN/TAZOBAC SUSCEPTIBLE TRIMETH/SULFAMETHOX RESISTANT Impression and Plan Impression: This is a 72-year-old woman with a history of The patient is a 72 year-old woman with apast medical history of recently diagnosed with a UTI (per patient her only symptom was foul smelling urine) for which she was prescribed ciprofloxacin by urology on 05/13. She is now admitted because her urine continued to smell foul, found to be afebrile and hemodynamically stable without a leukocytosis. She did have pyuria on a urinalysis and a urine culture grew an E. coli resistant to quinolones. She has been on ceftriaxone to which it is susceptible to with negative blood cultures. ELIZABETH bolaños consulted to assist in management. It is not clear that the patient actually had/has a UTI. She denies any recent typical UTI symptoms(dysuria, urinary frequency, or urinary hesitancy) and also denies any recent suprapubic pain, backpain, fever, or chills. She has not had a fever, hemodynamic instability, or leukocytosis. Smell and/or appearance of urine is NOT a UTI symptom and does not warrant testing of urine. She likely has/had asymptomatic bacteriuria which does not warrant treatment with antibiotics. In addition, pyuria accompanying asymptomatic bacteriuria is not an indication for antimicrobial treatment. The unnecessary treatment of asymptomatic bacteriuria places the patient at an increased risk for colonization and infection with drug-resistant organisms (which she has already exhibited), C. difficile diarrhea or colitis, and numerous other adverse events that can be associated with antibiotics. The patient'surine should only be checked for infection if she endorses UTI symptoms. Would not continue with any further antibiotic prophylaxis as this will only drive further resistance which she has demonstrated. Recommendations: -In the future, do not check the patient's urine for infection in the absence of UTI symptoms. Appearance and smell of urine are not UTI symptoms. -No need for further antibiotics at this time and do not recommend any further antibiotic prophylaxis Thank you for the consultation. Infectious Diseases will sign-off, please call with any questions or concerns. Recs communicated with Dr. Wallace via JAYME Chandler PA-C Division of Infectious Diseases Discussed with Dr. Parada Note * Carlos Martinez RN: PERFORM Event Display: Discharge/Transfer Note Hospital Authored Date: [id number] Nursing Discharge Note Entered On: 05/19/2023 17:01 EST Performed On: 05/19/2023 17:00 EST by Carlos Martinez RN Nursing Discharge Note 2 Discharge Time : 05/19/2023 16:55 EST Discharge Level of Care at Discharge : Home/Chcf/Foster Care Patient Left Unit Via : Wheelchair Patient Accompanied Off Unit with : Ambulance/Chair Van Personnel Handover Given to Transport Personnel : Yes DC Instructions Provided & Signed by Pt : Unable Patient Understands D/C Instructions : Unable Patient Instructions Discharge Signed : Yes Did Pt have Specialty Bed or Wound Vac : No Michelle RAMAN, Carlos - 05/19/2023 17:00 EST * Rodrigo GOMEZ, Steven Lindsay: PERFORM, MODIFY Event Display: Discharge/Transfer Note Hospital Authored Date: [id number] Patient: ??DAYDAY, RONNA ? Age:??72 Years?Sex:??Female?:??1950?? Patient Information Discharge Location: [facility] Primary Care Physician: Tracy Chase MD Admit Date/Time: 05/16/23 21:09 Discharge Disposition Discharge Disposition: Home: No Services Discharge Diagnosis Metabolic encephalopathy (G93.41) Urinary tract infection (N39.0) Lactic acidosis (E87.20) Multiple sclerosis (G35) Altered mental status (R41.82) Anxiety (F41.9) HTN (hypertension) (I10) T2DM (type 2 diabetes mellitus) (E11.9) ? _ Discharge Medications Acetaminophen (acetaminophen 500 mg [...] BEING NON-INSULIN DEPENDANT Nystatin Topical (nystatin topical 258707 u/gm powder)?See Instructions?APPLY TO AFFECTED AREA TWICE [...] TOPICALLY 2 TIMES A DAY,X10 DAYS ? 72 Hour Antibiotic History Active Antibiotics Calendar Day Last Administered First Administered Ceftriaxone??1 Gm, 100 mL/hr, IVPB, Every 24 hours ?3 05/18/2023 19:56 05/17/2023 21:07 ? Stopped Antibiotics Stop Date/Time Last Administered First Administered Ceftriaxone??1 Gm, 100 mL/hr, IVPB, Once 05/16/2023 20:30 05/16/2023 20:30 05/16/2023 20:30 ? Vaccinations and Immunoprophylaxis influenza virus vaccine, inactivated: 0.5 Unknown (04/17/22 08:00:00) influenza virus vaccine, inactivated: 0.7 Unknown (02/05/21 08:00:00) pneumococcal 13-valent vaccine: 0 Unknown (03/21/20 00:00:00) SARS-CoV-2 (COVID-19) mRNA-1273 vaccine: 0.25 Unknown (10/28/21 08:00:00) SARS-CoV-2 (COVID-19) mRNA-1273 vaccine: 0.25 Unknown (05/16/21 07:00:00) SARS-CoV-2 (COVID-19) mRNA-1273 vaccine: 0.5 mL (09/30/20 00:00:00) SARS-CoV-2 (COVID-19) mRNA-1273 vaccine: 0 Unknown (09/02/20 00:00:00) [id number] bivalent booster vax: 0.5 Unknown (04/17/22 08:00:00) zoster vaccine, inactivated: 0.5 Unknown (05/09/21 07:00:00) zoster vaccine, inactivated: 0.5 Unknown (02/05/21 08:00:00) Influenza Virus Vaccine (oldterm): 0 Unknown (03/21/20 00:00:00) ? Durable Medical Equipment Discharge recommendations: Rehab (05/19/23) Ambulatory devices needed: Wheelchair (05/17/23) ? Medications Started none Medications Discontinued Bactrim prophylaxis Doses Changed -- Allergies Allergies ?(Active and Proposed Allergies Only) penicillins? (Severity: Unknown severity, Onset: Unknown) ?Reactions: rash ? PCP [facility] follow up Objective Assessment and Plan ?? Ronna Naylor is a 72-year-old F with a history of MS, dementia, T2DM, HTN, HLD, and recurrent UTIs on Bactrim prophylaxis??, presented with worsening confusion for 2 days in setting of increased urinary purulence, admitted for further management of UTI. ?? Metabolic encephalopathy (G93.41):?? Lactic acidosis (E87.20):?? Urinary tract infection (N39.0):?UA suggestive of??UTI. presented with confusion, likely??secondary to UTI.?? She has been taking daily Bactrim prophylaxis??for recurrent UTIs??in the setting of urinary incontinence secondary to her??MS. Also has??fecal incontinence,??which may contribute to her??susceptibility??to getting infections. Also did have elevated lactate, likely in setting of dehydration. CT head??negative??for??any acute abnormalities.? - Blood cx negative, Urine cx grew E coli, resistant to Bactrim. -She was treated with 3 days of IV??Ceftriaxone?? - ID consult recommended that she doesnot need any further antibiotics and also to stop prophylactic antibiotics due to risk of developing MDR - cont??home Myrbetriq ?? T2DM (type 2 diabetes mellitus) (E11.9):? -cont metformin ?? HTN (hypertension) (I10):? -Continue home??chlorthalidone ?? Multiple sclerosis (G35):? -Follows??with neurology outpatient. Recent had neuropsych testing??on 04/15, pending??follow-up??to discuss results. Please call and reschedule the missed appointment Per does have??baseline??mild dementia, confusion with dates, incontinence, secondary to her MS. -Has not been??on active MS treatment for quite some time. -Follow-up outpatient pts family states that she is WC bound.??- PT eval rec Rehab but pts family said that they have allthe therapy equipment at??home and??refused rehab/ home services. ?? Anxiety (F41.9):? Continue home Sertraline 25mg daily ?? Spouse, ??Job [phone] updated 05/18. Updated poker supervisor Lilian at bedside today ? Vital Signs?? Temperature: 98.5 DegF (05/19/23 07:59:00) Temperature Route: Oral (05/19/23 07:59:00) Pulse Rate: 89 bpm (05/19/23 07:59:00) Respiratory Rate: 20 br/min (05/19/23 07:59:00) Systolic Blood Pressure:??151 mm Hg??High (05/19/23 07:59:00) Diastolic Blood Pressure: 72 mm Hg (05/19/23 07:59:00) Blood pressure sites: Arm, left (05/19/23 07:59:00) Mean Arterial Pressure: 98 mm Hg (05/19/23 07:59:00) Pulse Pressure: 79 mm Hg (05/19/23 07:59:00) Oxygen Saturation: 99 % (05/19/23 07:59:00) Mode of Delivery (Oxygen): Room air (05/19/23 07:59:00) Early Warning Score: 0 (05/19/23 11:26:50) ? . Physical Exam General:??NAD, at baseline mental status Cardiac: RRR, Pulmonary: CTA b/l Abdominal: soft, No tenderness , normal BS,?? no CVAT Neuro: no focal deficits. AAO x 2 Psych: Not anxious Extremities: No edema Consultants ID: Dr. Parada Patient Education Titles Urinary Tract Infections in Women?? Follow-Up Appointments Added Follow Up ?Time Frame ?Comments Salvatore GOMEZ, Tracy?Within two weeks Post Discharge Care Condition: ??improved ?? Discharge ?05/19/23 15:08:00 EST Discharge Prescriptions ?None, 05/19/23 15:08:00 EST Home Health Face to Face ^HomeHealthFTF Results Discharge Labs BLOOD COUNT & DIFF WBC 9.8 k/mm3 ()?? 05/18/2023 04:19 RBC 4.05 m/mm3 (Low)?? 05/18/2023 04:19 Hgb 12.3 Gm/dL ()?? 05/18/2023 04:19 Hct 38.0 % ()?? 05/18/2023 04:19 MCV 93.8 femtoliters ()?? 05/18/2023 04:19 MCH 30.4 pg ()?? 05/18/2023 04:19 MCHC 32.4 g/dL (Low)?? 05/18/2023 04:19 Platelet Count 275 k/mm3 ()?? 05/18/2023 04:19 RDW-SD 44.0 femtoliters ()?? 05/18/2023 04:19 MPV 9.2 femtoliters (Low)?? 05/18/2023 04:19 Nucleated RBC (Automated) 0.0 #/100 WBC'S ()?? 05/18/2023 04:19 Abs. NRBC 0.0 k/mm3 ()?? 05/18/2023 04:19 Abs. Neut 4.9 k/mm3 ()?? 05/16/2023 17:15 Abs. Lymph 3.9 k/mm3 (High)?? 05/16/2023 17:15 Abs. Sullivan 0.5 k/mm3 ()?? 05/16/2023 17:15 Abs. Eo 0.4 k/mm3 ()?? 05/16/2023 17:15 Abs. Baso 0.1 k/mm3 ()?? 05/16/2023 17:15 Neut % 50.1 % ()?? 05/16/2023 17:15 Lymph % 39.7 % ()?? 05/16/2023 17:15 Sullivan % 5.3 % ()?? 05/16/2023 17:15 Eos % 4.1 % ()?? 05/16/2023 17:15 Baso % 0.5 % ()?? 05/16/2023 17:15 Imm Gran 0.3 % ()?? 05/16/2023 17:15 Abs. Imm Gran 0.0 k/mm3 ()?? 05/16/2023 17:15 ?? CHEM GENERAL Sodium 143 mmol/L ()?? 05/18/2023 04:19 Potassium 4.2 mmol/L ()?? 05/18/2023 04:19 Chloride 102 mmol/L ()?? 05/18/2023 04:19 Bicarbonate Level 29 mmol/L ()?? 05/18/2023 04:19 Anion Gap 12 ()?? 05/18/2023 04:19 Glucose Level 167 mg/dL (High)?? 05/18/2023 04:19 Glucose, POC 316 mg/dL (High)?? 05/19/2023 11:24 BUN 9 mg/dL ()?? 05/18/2023 04:19 Creatinine-Blood 0.6 mg/dL ()?? 05/18/2023 04:19 Estimated GFR Creatinine 99 ML/MIN/1.73 M2 ()?? 05/18/2023 04:19 Calcium 9.8 mg/dL ()?? 05/18/2023 04:19 Phosphorus 3.9 mg/dL ()?? 05/18/2023 04:19 Magnesium 1.6 mg/dL ()?? 05/18/2023 04:19 Protein, Total 6.7 Gm/dL ()?? 05/16/2023 17:15 Albumin 4.2 Gm/dL ()?? 05/16/2023 17:15 AG Ratio 1.7 ()?? 05/16/2023 17:15 Alkaline Phosphatase 41 units/L ()?? 05/16/2023 17:15 AST (SGOT) 19 units/L ()?? 05/16/2023 17:15 ALT (SGPT) 21 units/L ()?? 05/16/2023 17:15 Bilirubin, Total 0.2 mg/dL ()?? 05/16/2023 17:15 Lactate 2.4 mmol/L (High)?? 05/17/2023 06:50 ? ENDOCRINE/TUMOR MARKER TSH 1.79 uIU/mL ()?? 05/16/2023 17:15 ? TOXICOLOGY/TDM Salicylate Level <0.3 mg/dL (Low)?? 05/16/2023 17:15 Acetaminophen Level 5 mg/L (Low)?? 05/16/2023 17:15 ?? UA/URINALYSIS Appear/Color, Urine YELLOW ()?? 05/16/2023 18:40 Specific [place], Urine 1.017 ()?? 05/16/2023 18:40 pH, Urine 7.5 ()?? 05/16/2023 18:40 Albumin, Urine TRACE (Abnormal)?? 05/16/2023 18:40 Glucose, Urine NEGATIVE ()?? 05/16/2023 18:40 Ketones, Urine NEGATIVE ()?? 05/16/2023 18:40 Bilirubin, Urine NEGATIVE ()?? 05/16/2023 18:40 Hemoglobin, Urine NEGATIVE ()?? 05/16/2023 18:40 Nitrite, Urine POSITIVE (Abnormal)?? 05/16/2023 18:40 Leukocyte, Urine 3+ (Abnormal)?? 05/16/2023 18:40 Urobilinogen NORMAL mg/dL ()?? 05/16/2023 18:40 WBC's, Urine 99 /HPF (High)?? 05/16/2023 18:40 RBC's, Urine NONE SEEN /HPF ()?? 05/16/2023 18:40 Bacteria SLIGHT HPF (Abnormal)?? 05/16/2023 18:40 Squamous Epith 14 /HPF (High)?? 05/16/2023 18:40 Mucus SLIGHT /LPF ()?? 05/16/2023 18:40 Hold Urine Culture Testing available 48 hours from time of collection. ()?? 05/16/2023 18:40 ? URINE OTHER Est Creatinine Clearance 69.65 mL/min ()?? 05/17/2023 11:18 ? VIROLOGY Influenza A PCR NEGATIVE ()?? 05/16/2023 19:20 Influenza B PCR NEGATIVE ()?? 05/16/2023 19:20 RSV PCR NEGATIVE ()?? 05/16/2023 19:20 COVID-19 PCR Specimen Source NASAL ()?? 05/18/2023 08:45 COVID-19 PCR Result NEGATIVE ()?? 05/18/2023 08:45 ? Microbiology ?? COVID-19, RSV, and Flu A/B, Rapid PCR?? Completed?? Source: Nasal Body Site: Nose Collected Dt/Tm: 05/16/2023 15:20 Last Updated Dt/Tm: 05/16/2023 20:36 COVID-19 (2019 Novel Coronavirus) PCR?? Completed?? Source: Nasal Body Site: Nose Collected Dt/Tm: 05/18/2023 08:45 Last Updated Dt/Tm: 05/19/2023 02:38 ? Imaging(s) ?CT Head/Brain W/O Contrast ?? 05/16/2023 16:41??by Raúl Hardwick MD ?IMPRESSION: ?? Stable appearance since 11/02/2020 with ventricular enlargement. ?? No acute abnormality. ? Consults(s) ?Other Consult? Impression: This is a 72-year-old woman with a history of ??The patient is a 72 year-old woman witha past medical history of recently diagnosed with a UTI (per patient her only symptom was foul smelling urine) for which she was prescribed ciprofloxacin by urology on 05/13. ??She is now admitted because her urine continued to smell foul, found to be afebrile and hemodynamically stable without a leukocytosis. ??She did have pyuria on a urinalysis and a urine culture grew an E. coli resistant to quinolones. ??She has been on ceftriaxone to which it is susceptible to with negative blood cultures. ??ID has been consulted to assist in management. ?? It is not clear that the patient actually had/has a UTI. She denies any recent typical UTI symptoms(dysuria, urinary frequency, or urinary hesitancy) and also denies any recent suprapubic pain, backpain, fever, or chills. She has not had a fever, hemodynamic instability, or leukocytosis. Smell and/or appearance of urine is NOT a UTI symptom and does not warrant testing of urine. She likely has/had asymptomatic bacteriuria which does not warrant treatment with antibiotics. ??In addition, pyuria accompanying asymptomatic bacteriuria is not an indication for antimicrobial treatment. ??The unnecessary treatment of asymptomatic bacteriuria places the patient at an increased risk for colonizatio n and infection with drug-resistant organisms (which she has already exhibited), C. difficile diarrhea or colitis, and numerous other adverse events that can be associated with antibiotics. ??The patient's urine should only be checked for infection if she endorses UTI symptoms. Would not continue with any further antibiotic prophylaxis as this will only drive further resistance which she has demonstrated.? Recommendations:?? -In the future, do not check the patient's urine for infection in the absence of UTI symptoms. Appearance and smell of urine are not UTI symptoms.?? -No need for further antibiotics at this time and do not recommend any further antibiotic prophylaxis?? 34_ minutes spent on discharge * Carlos Martinez RN: PERFORM Event Display: Patient Education/Instruction Authored Date: [id number] Inpatient Adult Discharge Instructions [place] [id number] Name: RONNA NAYLOR : 1950 Visit: 05/16/2023 21:09:00 Current Date: 05/19/2023 15:23 Account: [id number] Inpatient Adult Discharge Instructions We would like [...] and their families. Surveys are administered by [employer] ?? If further treatment with your primary care physician or another doctor is recommended, it is important for you to keep the appointment. Call your primary care physician or return to the Emergency Department immediately if your condition worsens, fails to improve, or new symptoms develop. If you need to find a doctor, you can call [facility] for a referral at [phone] or toll free at [phone]) or log in to [email or web address].. ?? [facility], in keeping with [facility] guidance, no longer requires face masks for [...] a health care titus of your choosing. [employer] is a website that allows you to securely view your medical information including your hospital discharge summary, office visit summaries, medications and follow-up visits. You can also request appointments, renew medications, and request access to your medical information using a health care titus of your choosing, or just ask a question. You can enroll at [email or web address] or register during your next office visit. You have been discharged from [facility], Patient Care Unit: [id number]. If you have any questions regarding these instructions after you leave, please call us and we will be happy to assist you. [facility] Your Care Team Attending Physician Steven Wallace MD Discharging Providers Steven Wallace MD Reason for Admission Pt coming from home. Family reports increased confusion since yesterday. AAt baseline can be forgetful but is normally oriented. Denies fevers, chills, n/v or ABD discomfort. Your Diagnosis Altered mental status Altered mental status Metabolic encephalopathy Urinary tract infection Lactic acidosis T2DM (type 2 diabetes mellitus) HTN (hypertension) Multiple sclerosis Anxiety Tests Performed Below is a partial list of the tests performed during your hospitalization. You may have had other tests and procedures not included in this list. Please discuss all test results with your provider. Acetaminophen Level Basic Metabolic Panel CBC CBC w/ Differential Comprehensive Metabolic Panel COVID-19 (2019 Novel Coronavirus) PCR COVID-19, RSV, and Flu A/B, Rapid PCR GLUCOSE POC Lactate Level Lactic Acid Level Magnesium Level Mg Level Phosphorus Level Salicylate Level TSH with T4 Reflex (Adults Only) Urinalysis w/hold for Urine Culture CT Head/Brain W/O Contrast Primary Care Provider Tracy Chase MD Advance Directive Health Care Proxy on File Yes - Health Care Proxy Caregiver Relationship: Spouse Name of Caregiver: Job Naylor Patient has a Designated Caregiver: Yes Discharge Vitals Temperature: 98.5 DegF Height: 158 cm Pulse Rate: 89 bpm Weight: 79.5 kg Respiratory Rate: 20 br/min Body Mass Index:??33.09 kg/m2??Critical Systolic Blood Pressure:??151 mm Hg??High Body surface area: 1.85 Diastolic Blood Pressure: 72 mm Hg ?? Oxygen Saturation: 99 % ?? Studies Pending All tests and labs ordered during this hospital stay have been completed unless listed below. Please discuss all pending results with your provider listed above in these instructions. ?? Add On Lab Order Blood Culture Blood Culture #2 What to do next Instructions From Your Doctor Discharge Orders Condition:??improved You Need to Schedule the Following Appointments Follow Up with??Tracy hCase MD When:??Within Within two weeks Discharge Medications RONNA NAYLOR :1950 Visit Date:05/16/2023 Medications: Please continue your medications until treatment is completed or stopped by your provider. Medications not listed below should be discontinued. Discuss any questions related to medications with your provider. What How Much When Instructions Next Dose Changed Miscellaneous Rx (ONE TOUCH ULTRA BLUE TEST STRP)See instructions USE TO TEST BLOOD SUGARS ONCE DAILY DUE TO BEING NON-INSULIN DEPENDANT ?? DME Unchanged Acetaminophen (acetaminophen 500 mg oral tablet) 2 tab(s) Oral Twice a day As Needed Unchanged Ascorbic Acid (Vitamin C 1000 mg oral tablet) 1 tab(s) Oral Daily 05/20/23 9 am Unchanged Bacitracin/ Neomycin/ Polymyxin B Topical (Neosporin 400 u-3.5 mg-5000 u/ gm ointment) 1 titus Topically Twice a day TOP OF BUTTOKS ?? 05/20/23 9 am Unchanged Chlorthalidone (chlorthalidone 25 mg oral tablet) 1 tab(s) Oral Daily 05/20/23 9 am Unchanged Cholecalciferol (Vitamin D3 1000 intl units oral capsule) 1 capsule Oral Daily 05/20/23 9 am Unchanged Cyanocobalamin (Vitamin B12 500 mcg oral tablet) 1 tab(s) Oral Daily 05/20/23 9 am Unchanged Durable Medical Equipment (Beside Commode) See instructions Use as instructed ?? Dx: Urinary incontinence secondary to multiple sclerosis and limited mobility ?? DME Unchanged Durable Medical Equipment (Disposable bed chux) See instructions Use as instructed on bed ?? Dx: Urinary incontinence secondary to Multiple Sclerosis and limited mobility ?? DME Unchanged Durable Medical Equipment (Mepilex 6 x 6 dressing supply) See instructions Apply to decubitus ulcer in coccyx region every 3 days ?? Dx: Decubitus ulcer ICD 10: L89.90 ?? DME Unchanged Durable Medical Equipment (One Touch Ultra Test Strips) See instructions DM E11.9 Use to test Bloos Sugars TID ?? DME Unchanged Durable Medical Equipment (Shower Chair) See instructions USe as instructed when showering for safety ?? Dx: MS, Poor mobility secomdary to MS ?? DME Unchanged Metformin (metFORMIN 1000 mg oral tablet) 1 tab(s) Oral Twice a day 05/19/23 9 pm Unchanged mirabegron (Myrbetriq 50 mg oral tablet, extended release) 1 tab(s) Oral Daily do not crush or chew Prescribed by urology ?? 05/20/23 9 am Unchanged Nystatin Topical (nystatin topical 173032 u/ gm powder) See instructions APPLY TO AFFECTED AREA TWICE A DAY ?? 05/20/23 9 am Unchanged PEG Electrolyte Solution (PEG-3350 with Electrolytes (Eqv-GoLYTELY) oral powder for reconstitution) See instructions split prep method. drink one half the night before procedure at 5pm. drink second half morning of procedure. must finish no later than 3 hours prior to procedure. ?? Unchanged Sertraline (sertraline 25 mg oral tablet) 1 tab(s) Oral Daily 05/20/23 9 am Unchanged Zinc Oxide Topical (Critic-Aid Skin 20% topical paste) See instructions APPLY TOPICALLY 2 TIMES A DAY,X10 DAYS ? What How Much When Comments Stop Taking Methenamine (methenamine hippurate 1 gm oral tablet) 1 tab(s) Oral Twice a day Prescribed by urology ?? Stop Taking Ocrelizumab (Ocrevus 300 mg/ 10 mL intravenous solution) Intravenous Infusion Every 6 weeks Stop Taking Sulfamethoxazole/ Trimethoprim (sulfamethoxazole-trimethoprim 400 mg-80 mg oral tablet) TAKE 1 TABLET BY MOUTH EVERY DAY ?? Test Results Below is a partial list of the most recent Laboratory test results done prior to this discharge. You may have had other tests and procedures not included in this list. Please discuss all test resultswith your provider. Est Creatinine Clearance - 69.65 mL/min (05/17/2023) Acetaminophen Level (05/16/2023) ???Acetaminophen Level - 5 mg/L Basic Metabolic Panel (05/18/2023) ???Sodium - 143 mmol/L???Potassium - 4.2 mmol/L???Chloride - 102 mmol/L???Bicarbonate Level - 29 mmol/L???Anion Gap - 12???Glucose Level - 167 mg/dL???BUN - 9 mg/dL???Creatinine-Blood - 0.6 mg/dL???Estimated GFR Creatinine - 99 ML/MIN/1.73 M2???Calcium - 9.8 mg/dL CBC (05/18/2023) ???WBC - 9.8 k/mm3???RBC - 4.05 m/mm3???Hgb - 12.3 Gm/dL???Hct - 38.0 %???MCV - 93.8 femtoliters???MCH - 30.4 pg???MCHC - 32.4 g/dL???Platelet Count - 275 k/mm3???RDW-SD - 44.0 femtoliters???MPV - 9.2 femtoliters???Nucleated RBC (Automated) - 0.0 #/100 WBC'S???Abs. NRBC - 0.0 k/mm3 CBC w/ Differential (05/16/2023) ???WBC - 9.7 k/mm3???RBC - 3.73 m/mm3???Hgb - 11.6 Gm/dL???Hct - 34.8 %???MCV - 93.3 femtoliters???MCH - 31.1 pg???MCHC - 33.3 g/dL???Platelet Count - 262 k/mm3???RDW-SD - 44.2 femtoliters???MPV - 9.6 femtoliters???Nucleated RBC (Automated) - 0.0 #/100 WBC'S???Abs. NRBC - 0.0 k/mm3???Abs. Neut - 4.9 k/mm3???Abs. Lymph - 3.9 k/mm3???Abs. Sullivan - 0.5 k/mm3???Abs. Eo - 0.4 k/mm3???Abs. Baso - 0.1 k/mm3???Neut % - 50.1 %???Lymph % - 39.7 %???Sullivan % - 5.3 %???Eos % - 4.1 %???Baso % - 0.5 %???Imm Gran- 0.3 %???Abs. Imm Gran - 0.0 k/mm3 Comprehensive Metabolic Panel (05/16/2023) ???Sodium - 141 mmol/L???Potassium - 4.2 mmol/L???Chloride - 102 mmol/L???Bicarbonate Level - 25 mmol/L???Anion Gap - 14???Glucose Level - 97 mg/dL???BUN - 12 mg/dL???Creatinine-Blood - 0.6 mg/dL???Estimated GFR Creatinine - 97 ML/MIN/1.73 M2???Calcium - 10.0 mg/dL???Protein, Total - 6.7 Gm/dL???Alb umin - 4.2 Gm/dL???AG Ratio - 1.7???Alkaline Phosphatase - 41 units/L???AST (SGOT) - 19 units/L???ALT (SGPT) - 21 units/L???Bilirubin, Total - 0.2 mg/dL COVID-19 (2019 Novel Coronavirus) PCR (05/18/2023) ???COVID-19 PCR Specimen Source - NASAL???COVID-19 PCR Result - NEGATIVE COVID-19, RSV, and Flu A/B, Rapid PCR (05/16/2023) ???Influenza A PCR - NEGATIVE???Influenza B PCR - NEGATIVE???RSV PCR - NEGATIVE???COVID-19 PCR Specimen Source - NASAL???COVID-19 PCR Result - NEGATIVE GLUCOSE POC (05/19/2023) ???Glucose, POC - 316 mg/dL Lactate Level (05/16/2023) ???Lactate - 3.1 mmol/L Lactic Acid Level (05/17/2023) ???Lactate - 2.4 mmol/L Magnesium Level (05/17/2023) ???Magnesium - 1.5 mg/dL Mg Level (05/18/2023) ???Magnesium - 1.6 mg/dL Phosphorus Level (05/18/2023) ???Phosphorus - 3.9 mg/dL Salicylate Level (05/16/2023) ? ?Salicylate Level - <0.3 mg/dL TSH with T4 Reflex (Adults Only) (05/16/2023) ???TSH - 1.79 uIU/mL Urinalysis w/hold for Urine Culture (05/16/2023) ???Appear/Color, Urine - YELLOW???Specific [place], Urine - 1.017???pH, Urine - 7.5???Albumin, Urine - TRACE???Glucose, Urine - NEGATIVE???Ketones, Urine - NEGATIVE???Bilirubin, Urine - NEGATIVE???Hemoglobin, Urine - NEGATIVE???Nitrite, Urine - POSITIVE???Leukocyte, Urine - 3+???Urobilinogen - NORMAL???WBC's, Urine - 99 /HPF???RBC's, Urine - NONE SEEN???Bacteria - SLIGHT???Squamous Epith - 14 /HPF???Mucus - SLIGHT???Hold Urine Culture - Testing available 48 hours from time of collection. Allergies (NKA means No Known Allergies) penicillins??(rash) Problems Active Problems??(10) Actinic keratosis?? Chronic ulcer of buttock?? DM type 2 (diabetes mellitus, type 2)?? Hip pain, left?? Hypertension?? Multiple sclerosis, primary progressive?? Neoplasm of skin of lower leg?? Obese class I?? Seborrheic keratoses?? Vitamin D deficiency?? Education Materials Below is the list of Educational Leaflet Providered with your Discharge Instructions. Urinary Tract Infections in Women?? Valuables and Belongings I fully understand and agree that [facility] accepts no responsibility for all my [...] Review of Valuable and Belonging List: With patient, With witness Date for Pt to Sign Valuables/Belongings: 05/17/23 11:05:00 ?? Other Discharge Information ? Pulmonary Rehab Status?? Pulmonary Rehab Discharge Status?? Respiratory Rate: 20 br/min ? Common Emergency Awareness Tips IS [...] are strongly encouraged to quit. Please call [employer] at [phone] or [phone] ([phone]) or log in to [email or web address] for referrals to smoking cessation programs. ?? 698 Suicide & Crisis Lifeline is available 19/01 if you or someone you know needs to find a reason to keep living. By calling 540 you'll be connected to a skilled, trained counselor at a crisis center in your area. INPATIENT DISCHARGE INSTRUCTIONS SIGNATURE PAGE RONNA NAYLOR Location:[facility] Registration Date and Time:05/16/2023 21:09 EST Primary Care Physician: Tarcy Chase MD, Attending Physician: Steven Wallace MD, I RONNA NAYLOR, have received the above patient education materials/instructions and have verbalized understanding. If ambulance or transport services are being used I further acknowledge being given a choice of service. ?? If you need to contact me, please call me at this number: . Patient/Shipping Technician Name: Patient/Shipping Technician Signature: Relationship to Patient: Witness Name/Signature: Date: * Steven Wallace MD: PERFORM Event Display: Patient Education Leaflets Authored Date: [id number] Urinary Tract Infections in Women ?? 79820 Urinary Tract Infections in Women Urinary tract infections (UTIs) are most often caused by??bacteria. These bacteria enter the urinary tract. The bacteria may come from inside the body. Or they may travel from the skin outside the??rectum or vagina into the urethra. Female anatomy makes it easy for bacteria from the bowel??to entera person???s urinary tract. This is the most common source of UTIs. This means women develop UTIs more often than men. Pain in or around the urinary tract is a common UTI symptom. But the only way to know for sure if you have a UTI is for the healthcare provider to test your pee. The two tests that may be done are the urinalysis and urine culture. These tests tell your provider if you have a UTI and what type of bacteria is causing it. Gender words are used here to talk about anatomy and health risk. Please use this information in a way that works best for you and your provider as you talk about your care. Types of UTIs ??? Cystitis. A bladder infection (cystitis) is the most common UTI in women. You mayhave an urgent or frequent need to pee. You may also have??pain, burning when you pee, and bloody urine. ??? Urethritis. This is an inflamed urethra. This is the tube that carries urine from the bladder to outside the body. You may have lower stomach or back pain. You may also have an urgent or frequent need to pee. ??? Pyelonephritis. This is a kidney infection. It can be serious and damage yourkidneys if not treated. You may need to stay in the??hospital in severe cases. You may have a feverand lower back pain. ?? Medicines to treat a UTI Most UTIs are treated with antibiotics. These kill the bacteria. The length of time you need to take them depends on the type of infection. It may be as short as 3 days. You may need a low-dose antibiotic??for several months if you have repeated UTIs. Take antibiotics exactly as directed. Don???t stop taking them until all of the medicine is gone, even if you feel better. The infection may not goaway fully and return if you stop taking the antibiotic too soon. You may also develop a resistanceto the antibiotic. This can make it much harder to treat. ?? Lifestyle changes to treat and prevent UTIs The lifestyle changes below will help get rid of your UTI. They may also help prevent future UTIs. ??? Drink plenty of fluids. This includes [...] keep bacteria from getting into the urethra. ???Wear cotton underwear. Don't wear synthetic or tight-fitting underwear that can trap moisture. Change out of wet bathing suits and workout clothing quickly. ??? Take showers. Showers are better than baths for preventing UTIs. ??? Use condoms during sex. These help prevent UTIs caused by sexually transmitted bacteria. Also don't use spermicides during sex. These can increase the risk for UTIs. Choose other forms of control instead. A low dose of a preventive antibiotic may be used for women who tend to get UTIs after sex. Be sure to discuss this choice with your healthcare provider. ??? Follow up with your healthcare provider as directed. They may test to make sure the infection has cleared. If needed, more treatment may be started. ?? Last Reviewed Date: 2023 ?? [id number] [employer]. All rights reserved. This information is not intended as a substitute for professional medical care. Always follow your healthcare professional's instructions. ?? Patient Care team information Care Team Personnel Name: Kezia Reyes RN Position: [facility] MR W/ Merge Member Role: Primary Care Nurse Name: Meagan Christensen RN Position: [facility] RN Member Role: Primary Care Nurse Name: Tracy Chase MD Position: S Physician - Primary Care Member Role: PCP Address: Address: [address] [place] [address] [address]rd [place] [address]- Name: Carlos Martinez RN Position: [facility] RN Member Role: Primary Care Nurse Name: Yoana Luna RN Position: [facility] RN Member Role: Primary Care Nurse Name: Lin Doss RN, Sindy Position: [facility] RN Member Role: Primary Care Nurse Name: Gaby Wong LPN Position: [facility] RN Member Role: Primary Care Nurse Name: Mayra Hamlin RN Position: [facility] Hospital Hand Tile Maker Member Role: Primary Care Nurse Name: [facility] Attending Position: [facility] ED Medicine MD Name: Tam Albert Position: [facility] ED TA [facility] Member Role: Patient Care Provider Care Team Related Persons Name: TIMREYNAEL Address: [address] [place] [address] Name: JOB NAYLOR Address: home [address] [place] [address]
--- OUTSIDE RECORDS SUMMARY | 2024-03-07 10:08 | XMS_ITS | Continuity of Care Document ---
Author Organization [facility] Adult Address [address] [place] [address]- Care Team Providers Care Automotive Design Layout Drafter Name Role Phone Salvatore GOMEZ, [facility] Primary Care Physician ( [phone] Encounter [facility] Date(s): 06/15/20 - 07/15/20 [facility] [address] [place] [address]- Allergies, Adverse Reactions, Alerts Substance Reaction Severity Status penicillins rash Active Immunizations Given and Recorded Vaccine Date Status Refusal Reason pneumococcal 13-valent vaccine 1 03/21/20 Recorded Influenza Virus Vaccine (oldterm) 2 03/21/20 [facility] Medications Beside Commode Beside Commode, See [...] 14:16:00 EDT, Route to Pharmacy Electronically, [facility]/pharmacy #[id number], 163, cm, 09/21/19 5:38:00 EDT, Height, [...] Refills, Maintenance, 06/14/20 4:56:00 EST, Tablet, [facility]/pharmacy #[id number], 165, cm, 06/11/20 15:47:00 EST, Height, [...] Start Date: 04/21/18 Status: Ordered nystatin topical 058187 u/gm powder 1 application, Topically, 2 times a day, # 60 Gm, 1 Refills, Maintenance, 06/21/20 9:46:00 EST, Powder, [facility]/pharmacy #[id number], 1 application Topically 2 times a [...] 07/13/20 9:38:00 EST, Route to Pharmacy Electronically, [facility]/pharmacy #[id number], Partial fill upon patient request, 07/16/20, 165, [...] from Dr. Beal. 6bilat shoulders, seen by [facility] on 10/29/16, report to scanning Social History Social History Type Response Smoking Status Former smoker entered on: 02/14/16 Sex
--- OUTSIDE RECORDS SUMMARY | 2024-03-07 10:08 | XMS_ITS | Continuity of Care Document ---
Author Organization [facility] Adult Address [address] [place] [address]- Care Team Providers Care Hospital Medical Assistant Name Role Phone Salvatore GOMEZ, Tracy Primary [facility] Phys[id number]21[facility]20 [facility] [address] [place] [address] Attending Physician: Tracy Chase MD Allergies, Adverse [...] 14:16:00 EDT, Route to Pharmacy Electronically, [facility]/pharmacy #[id number], 163, cm, 09/21/19 5:38:00 EDT, Height, 98.1, [...] 0 Refills, Maintenance, 03/19/20 15:08:00 EDT, Tablet, [facility]/pharmacy #[id number], 163, cm, 09/21/19 5:38:00 EDT, Height, [...] Start Date: 04/21/18 Status: Ordered nystatin topical 033537 u/gm powder 1 application, Topically, 2 times a day, # 60 Gm, 1 Refills, Maintenance, 01/03/20 11:28:00 EDT, Powder, [facility]/pharmacy #[id number], 1 application Topically 2 times a [...] 1 Refills, Maintenance, 11/16/19 15:25:00 EDT, Capsule, [facility]/pharmacy #[id number], decrease dose, re sent from 06/30/17, [...] from Dr. Beal. 6bilat shoulders, seen by [facility] on 10/29/16, report to scanning Social History Social History Type Response Smoking Status Former smoker entered on: 02/14/16 Sex
--- OUTSIDE RECORDS SUMMARY | 2024-03-07 10:08 | XMS_ITS | Continuity of Care Document ---
Author Organization [facility] Address [address] [place] [address]- Care Team Providers Care Concrete Craftsman Name Role Phone Salvatore GOMEZ, [facility] Primary Care Physician Encounter [facility] Date(s): 02/23/24 - 03/01/24 [facility] [address] [place] [address] Attending Physician: Heraclio Silver MD Referring Physician: Jeniffer GOMEZ, Remberto Botello Allergies, Adverse Reactions, Alerts Substance Reaction Severity Status penicillins rash Active Immunizations Given and Recorded Vaccine Date Status Refusal Reason influenza virus vaccine, inactivated 05/12/23 Logan rded influenza virus vaccine, inactivated 04/17/22 Logan rded influenza virus vaccine, inactivated 02/05/21 Logan rded SARS-CoV-2(COVID-19)mRNA-LNP vac([id number]) 05/12/23 Recorded [id number] bivalent booster vax 04/17/22 Recorded SARS-CoV-2 (COVID-19) [...] 10/15/23 5:05:00 EDT, Route to Pharmacy Electronically, [facility]/pharmacy #[id number], 158, cm, 06/23/23 11:27:00 EST, Height, 118, kg, 06/15/23 16:46:00 EST, Dry Weight Start Date: 10/15/23 Status: Ordered Critic-Aid Skin 20% topical paste See Instructions, APPLY TOPICALLY 2 TIMES A DAY,X10 DAYS, # 170 Gm, 0 Refills, Maintenance, 10/15/23 9:29:00 EDT, [facility], 30, APPLY TOPICALLY 2 TIMES A DAY,X10 [...] day, # 180 tablet, 1 Refills, Maintenance, 01/27/24 14:18:00 EDT, [id number], 158, cm, 12/07/23 11:31:00 EDT, Height, 118, kg, 06/15/23 16:46:00 EST, Dry Weight Start Date: 01/27/24 Status: Ordered Myrbetriq 50 mg oral tablet, [...] Ointment, ; Start Date: 10/11/21 Status: Ordered nitrofurantoin macrocrystals-monohydrate 100 mg oral capsule 1 capsule = 100 mg, TAKE 1 CAPSULE BY MOUTH TWICE A DAY Start Date: 02/23/24 Status: Ordered nystatin topical 635884 u/gm powder See Instructions, APPLY TO AFFECTED AREA TWICE A DAY, # 60 Gm, 5 Refills, Maintenance, 10/15/23 5:06:00 EDT, [facility]/pharmacy #[id number], 30, APPLY TO AFFECTED AREA TWICE A [...] EDT, Compound Start Date: 10/03/19 Status: Ordered tacrolimus 0.1% topical ointment APPLY A PEA SIZE AMOUNT OF CREAM TO ANAL AND PERIANAL AREA TWICE DAILY Start Date: 02/23/24 Status: Ordered Vitamin B12 500 mcg oral [...] from Dr. Beal. 5bilat shoulders, seen by [facility] on 10/29/16, report to scanning Vital Signs Most recent to oldest [Reference Range]: 1 Height 158 cm (02/23/24 1:26 PM) Oxygen Saturation [94-100 %] 94 % (02/23/24 1:26 PM) Pulse Rate [55-90 bpm] 87 bpm (02/23/24 1:26 PM) Blood Pressure [90-138/55-84 mm Hg] 123/ 78mm Hg (02/23/24 1:26 PM) Respiratory Rate [16-30 br/min] 18 br/mi n (02/23/24 1:26 PM) Blood pressure sites Arm, left (02/23/24 1:26 PM) Social History Social History Type Response Smoking Status Former smoker entered on: 02/14/16 Sex Patient Care team information Care Team Personnel Name: Irene Jo RN Position: [facility] RN Member Role: Primary Care Nurse Name: Jasmine Alan LPN Position: [facility] [...] Primary Care Member Role: PCP Address: Address: [address] [place] [address] [address]rd Floor [facility] [address]- Name: Carlos Martinez RN [facility] Care Nurse Name: Rosita Gillespie RN Position: [facility] SN RN Member Role: Primary Care Nurse Name: Sindy Elizabeth RN Position: [facility] RN Member Role: Primary Care Nurse Name: Gaby Wong LPN Position: [facility] RN Member Role: Primary Care Nurse Name: Mayra Hamlin RN Position: [facility] Legal Word Processor Member Role: Primary Care Nurse Care Team Related Persons Name: ROXY TIM Address: home [address] [place], [place] Name: VINEET NAYLOR Address: home [address] [place], [place] Name: MARICRUZ CORTEZ Name: PRISCILLA LNUDY Address: home [address], [place]
--- OUTSIDE RECORDS SUMMARY | 2024-03-07 10:08 | XMS_ITS | Continuity of Care Document ---
Author Organization [facility] Adult Address [address] [place] [address]- Care Team Providers Care Community Manager Name Role Phone Salvatore GOMEZ, [facility] Primary Care Physician Encounter [facility] Date(s): 01/24/22 - 02/23/22 [facility] Adult [address] [place] [address]- Allergies, Adverse Reactions, Alerts Substance Reaction Severity [...] 1, Route to Pharmacy Electronically, [facility], 163, cm, 10/12/21 4:22:00 EDT, Height, 85, [...] a day, # 180 tablet, 0 Refills, [facility] 236[facility], 163, cm, 10/12/21 4:22:00 EDT, Height, 85, [...] Start Date: 10/11/21 Status: Ordered nystatin topical 486680 u/gm powder See Instructions, APPLY TO AFFECTED AREA TWICE A DAY, # 60 Gm, 1 Refills, [facility], 60, APPLY TO AFFECTED AREA TWICE A [...] 02/21/22 14:50:00 EDT, Route to Pharmacy Electronically, [facility]/pharmacy #[id number], Partial fill upon patient request, 02/24/22, 163,... [...] from Dr. Beal. 5bilat shoulders, seen by [facility] on 5/3/17, report to scanning Social History Social History Type Response Smoking Status Former smoker entered on: 02/14/16 Sex Care Team Personnel Name: Tracy Chase MD Address: [address] [facility] [address]rd [address] [place], [place] [address]
--- OUTSIDE RECORDS SUMMARY | 2024-03-07 10:08 | XMS_ITS | Continuity of Care Document ---
Author Organization [facility] Address [address] [place] [phone]- Care Team Providers Care Auto Technician Name Role Phone Salvatore GOMEZ, [facility] Encounter [facility] Date(s): 06/23/23 - 06/30/23 [facility] [address] [place] [id number] Attending Physician: Heraclio Silver MD Referring Physician: Dagoberto Gamez MD Allergies, Adverse Reactions, Alerts Substance Reaction Severity Status penicillins rash Active Immunizations Given and Recorded Vaccine Date Status Refusal Reason influenza virus vaccine, inactivated 05/12/23 Logan rded influenza virus vaccine, inactivated 04/17/22 Logan rded influenza virus vaccine, inactivated 02/05/21 Logan rded SARS-CoV-2(COVID-19)mRNA-LNP vac([id number]) 05/12/23 Recorded [id number] bivalent booster vax 04/17/22 Recorded SARS-CoV-2 (COVID-19) [...] 11/10/22 12:00:00 EDT, Route to Pharmacy Electronically, [facility]/pharmacy #[id number], 163, cm, 11/10/22 11:38:00 EDT, Height, 85, kg, 10/11/21 8:29:00 EDT, Dry Weight Start Date: 11/10/22 Status: Ordered Critic-Aid Skin 20% topical paste See Instructions, APPLY TOPICALLY 2 TIMES A DAY,X10 DAYS, # 170 Gm, 0 Refills, Maintenance, 04/21/23 16:41:00 EDT, [facility] STORE 60748, 30, APPLY TOPICALLY 2 TIMES A DAY,X10 [...] Refills, Maintenance, 01/30/23 9:01:00 EDT, [facility], 163, cm, 11/10/22 11:38:00 EDT, Height, 85, [...] Start Date: 10/11/21 Status: Ordered nystatin topical 988638 u/gm powder See Instructions, APPLY TO AFFECTED AREA TWICE A DAY, # 60 Gm, 1 Refills, Maintenance, 02/16/23 12:00:00 EDT, [facility]/pharmacy #2476, 30, APPLY TO AFFECTED AREA [...] from Dr. Beal. 5bilat shoulders, seen by [facility] on 10/29/16, report to scanning Vital Signs Most recent to oldest [Reference Range]: 1 Height 158 cm (06/23/23 11:27 AM) Weight 113.5 kg (06/23/23 11:27 AM) Oxygen Saturation [94-100 %] 98 % (06/23/23 11:27 AM) Pulse Rate [55-90 bpm] 79 bpm (06/23/23 11:27 AM) Body Mass Index [18.5-24.99 kg/m2] 45.47 kg/m2 *>HHI* (06/23/23 11:27 AM) Blood Pressure [90-138/55-84 mm Hg] 134/ 61mm Hg (06/23/23 11:27 AM) Respiratory Rate [16-30 br/min] 20 br/mi n (06/23/23 11:27 AM) Mode of Delivery (Oxygen) Room air (06/23/23 11:27 AM) Blood pressure sites Arm, right (06/23/23 11:27 AM) Weight Obtained Via Patient/family state d (06/23/23 11:27 AM) Social History Social History Type Response Smoking Status Former smoker entered on: 02/14/16 Sex Patient Care team information Care Team Personnel Name: Irene Jo RN Position: [facility] RN Member Role: Primary Care Nurse Name: Jasmine Alan LPN Position: [facility] RN Member Role: Primary Care Nurse Name: Kezia Reyes RN Position: [facility] MR W/ Cody Member Role: Primary Care Nurse Name: Meagan Christensen RN Position: [facility] RN Member Role: Primary Care Nurse Name: Tracy Chase MD Position: [facility] Physician - Primary Care Member Role: PCP Address: Address: [address] [place] [address]- Name: Carlos Martinez RN Position: S RN [...] Care Nurse Name: Mayra Hamlin RN Position: [facility] Clinical Recruiter Member Role: Primary Care Nurse Care Team Related Persons Name: ROXY TIM Address: home [address] [place], [place] Name: VINEET NAYLOR Address: home [address] [place], [place] Name: PRISCILLA LUNDY Address: home [address] [place], [place]
--- OUTSIDE RECORDS SUMMARY | 2024-03-07 10:08 | XMS_ITS | Continuity of Care Document ---
Author Organization [facility] Adult Address [address] [place] [address]- Care Team Providers Care Paint Mixer Machine Name Role Phone Tracy Chase MD Primary Care Physician Encounter [facility] Date(s): 06/02/22 - 06/09/22 [facility] [address] [place] [address]- Encounter Diagnosis DM type 2 (diabetes mellitus, type 2)(Discharge Diagnosis) - 06/02/22 Multiple sclerosis, primary progressive(Discharge Diagnosis) - 06/02/22 Sacral decubitus ulcer, stage II(Discharge Diagnosis) - 06/02/22 Attending Physician: Tracy Chase MD Allergies, Adverse Reactions, Alerts Substance Reaction Severity Status penicillins rash Active Immunizations Given and Recorded Vaccine Date Status Refusal Reason influenza virus vaccine, inactivated 04/17/22 Logan rded influenza virus vaccine, inactivated 02/05/21 Logan rded [id number] bivalent booster vax 04/17/22 Recorded SARS-CoV-2 (COVID-19) [...] [facility] Medications acetaminophen 500 mg oral tablet [...] tablet, Refills 1, Route to Pharmacy Electronically, [facility] STORE 75274, 163, cm, 10/12/21 4:22:00 EDT, Height, 85, kg, 10/11/21 8:29:00 EDT, Dry Weight Start Date: 01/29/22 Status: Ordered [facility] VITAMIN D3 25 MCG SOFTGEL [facility] VITAMIN D3 25 MCG [...] Refills, Soft Stop, 05/30/22 16:31:00 EST, Tablet, [facility]/pharmacy #[id number], Partial fill upon patient request if the [...] Refills, Maintenance, 03/27/22 18:40:00 EDT, [facility], 163, cm, 10/12/21 4:22:00 EDT, Height, 85, kg, 10/11/21 8:29:00 EDT, Dry Weight Start Date: 03/27/22 Status: Ordered metFORMIN 1000 mg oral tablet 1 tablet, By Mouth, 2 times a day, # 180 tablet, 0 Refills, Maintenance, 03/27/22 18:42:00 EDT, [facility], 163, cm, 10/12/21 4:22:00 EDT, Height, 85, [...] Start Date: 10/11/21 Status: Ordered nystatin topical 373041 u/gm powder See Instructions, APPLY TO AFFECTED AREA TWICE A DAY, # 60 Gm, 1 Refills, [facility], 60, APPLY TO AFFECTED AREA TWICE A [...] kg, 10/11/... Start Date: 06/09/22 Status: Ordered oxyCODONE 5 mg oral tablet 5 mg, 1, tablet, By Mouth, 3 times a day, for 28 days, # 84 tablet, Refills 0, Tot. Refills 0, Acute 06/17/22 14:18:00 EST, 05/20/22 14:18:00 EST, Route to Pharmacy Electronically, [facility]/pharmacy #[id number], Partial fill upon patient request, 05/21/22, 163,... [...] 06/19/22 11:19:00 EST, 06/09/22 11:19:00 EST, Paste, [facility], Partial fill upon patient request if the [...] from Dr. Beal. 5bilat shoulders, seen by [facility] on 10/29/16, report to scanning Diagnosis Diagnosis Type Effective Dates Health Status Clinical Service Informant DM type 2 (diabetes mellitus, type 2) Discharge Diagnosis 06/02/22 Multiple sclerosis, primary progressive Discharge Diagnosis 06/02/22 Sacral decubitus ulcer, stage II Discharge Diagnosis 06/02/22 Vital Signs Most recent to oldest [Reference Range]: 1 Height 163 cm (06/02/22 10:06 AM) Oxygen Saturation [94-100 %] 99 % (06/02/22 10:06 AM) Pulse Rate [55-90 bpm] 66 bpm (06/02/22 10:06 AM) Blood Pressure [90-138/55-84 mm Hg] 135/ 72mm Hg (06/02/22 10:06 AM) Mode of Delivery (Oxygen) Room air (06/02/22 10:06 AM) Blood pressure sites Arm, left (06/02/22 10:06 AM) Weight Obtained Via Standing scale (06/02/22 10:06 AM) Social History Social History Type Response Smoking Status Former smoker entered on: 02/14/16 Sex Note * Maya Hoang: PERFORM, SIGN, VERIFY Event Display: Patient Education/Instruction Authored Date: [id number] [facility] *[facility] Clinical Summary Name LIOR NAYLOR Age 71 Years 1950 PCP Salvatore GOMEZ, Tracy PCP Visit Date 06/02/2022 09:58:00 Additional Instructions: Scheduled Appointments?? Future Appointments ?No [...] dressing supply) Apply to decubitus ulcer in [facility] regionevery 3 days Dx: Decubitus ulcer ICD 10: L89.90. Refills: 2. Next Dose: Durable Medical Equipment (One Touch Ultra Test Strips) DM E11.9 Use to test blood sugars once daily due to being non-insulin dependant. Refills: 3. Next Dose: Durable Medical Equipment (Shower Chair) USe as instructed when showering for safety Dx: MS, Poor mobility secomdary to MS. Refills: 0. Next Dose: Fluconazole (Diflucan 150 [...] 3. Next Dose: Nystatin Topical (nystatin topical 749650 u/gm powder) APPLY TO AFFECTED AREA TWICE [...] penicillins Medications Given This Visit Future Orders ?Microalbumin Urine? Order Date:06/02/22?- Complete by?06/02/22 ?Dexa Bone Density (Axial)? Order Date:06/02/22?- Complete by?06/02/22 ?Hepatitis C Ab? Order Date:06/02/22?- Complete by?06/02/22 ?MM Digital Mammo Screening? Order Date:06/02/22?- Complete on or after?06/02/22 Vital Signs Height 163 cm Weight BMI Blood Pressure 135 mm Hg/72 mm Hg Temperature Pulse Rate 66 bpm Respiratory Rate 02 Sat Mode of Delivery 99 %/Room air You can now view a summary of your hospital visit from the comfort of your home through a free online portal called [employer]. [employer] is a website that allows you to securely view your medical information including discharge summary, medications and follow-up visits. ??You can alsosend a secure electronic message to your doctor???s office to request appointments, renew medications or just ask a question. You can enroll at [email or web address] or register during your next [...] [facility] provider by calling [facility] vushaper Link at [phone]. For information about the plan of care [...] Team Personnel Name: Kezia Reyes RN Position: [facility] MR W/ Merge Member Role: Primary Care Nurse Name: Meagan Christensen RN Position: [facility] RN Member Role: Primary Care Nurse Name: Tracy Chase MD Position: [facility] Primary Care Physician Member Role: PCP Address: Address: [address] [place] [address] Name: Yoana Luna RN Position: [facility] RN Member Role: Primary Care Nurse Name: Sindy Elizabeth RN Position: [facility] RN Member Role: Primary Care Nurse Name: Mayra Hamlin RN Position: [facility] Hospital Metal Casket Assembler Member Role: Primary Care Nurse Care Team Related Persons Name: ROXY TIM Address: [address] [place] [address] Name: VINEET NAYLOR Address: [address] [place] [address]
--- OUTSIDE RECORDS SUMMARY | 2024-03-07 10:08 | XMS_ITS | Continuity of Care Document ---
Author Organization [facility] Adult Address [address] [place] [address]- Care Team Providers Care Wood Heel Fitter Machine Name Role Phone Salvatore GOMEZ, [id number] 12/29/19 - 01/28/20 [facility] Adult [address] [place] [address]- [facility] Allergies, Adverse Reactions, Alerts Substance Reaction [...] 08/29/19 13:55:00 EST, Route to Pharmacy Electronically, [facility]/pharmacy #[id number], 162, cm, 08/12/19 14:34:00 EST, Height [...] 0 Refills, Maintenance, 12/12/19 10:37:00 EDT, Tablet, [facility]/pharmacy #2476, 163, cm, 09/21/19 5:38:00 EDT, [...] Start Date: 04/21/18 Status: Ordered nystatin topical 443045 u/gm powder 1 application, Topically, 2 times a day, # 60 Gm, 1 Refills, Maintenance, 01/03/20 11:28:00 EDT, Powder, [facility]/pharmacy #0226, 1 application Topically 2 times a day, [...] 01/20/20 11:07:00 EDT, Route to Pharmacy Electronically, [facility]/pharmacy #[id number], Partial fill upon patient request, 01/30/20, 163,... [...] 1 Refills, Maintenance, 11/16/19 15:25:00 EDT, Capsule, [facility]/pharmacy #6102, decrease dose, re sent from 06/30/17, 163, cm, 09/21/19 5:38:00 EDT, Height, 98.1, kg, 09/20/19 2:16:00 ED... Start Date: 11/16/19 Status: Ordered zinc oxide 20% topical paste 1 application, Topically, 2 times a day, # 170 Gm, 1 Refills, Maintenance, 11/07/19 13:35:00 EDT, Paste, [facility]/pharmacy #6346, 1 application Topically 2 times a day,x14 [...] from Dr. Beal. 6bilat shoulders, seen by [place] [facility] on 10/29/16, report to scanning Social History Social History Type Response Smoking Status Former smoker entered on: 02/14/16 Sex
--- OUTSIDE RECORDS SUMMARY | 2024-03-07 10:08 | XMS_ITS | Continuity of Care Document ---
Author Organization [facility] Adult Address [address] [place] [address]- Care Team Providers Care Route Inspector Name Role Phone Salvatore GOMEZ, [facility] Primary Care Physician [place] [facility] [place] Date(s): 05/20/22 - 06/19/22 [facility] Adult [address] [place] [address]- Allergies, Adverse Reactions, Alerts Substance Reaction Severity Status penicillins rash Active Immunizations Given and Recorded Vaccine Date Status Refusal Reason influenza virus vaccine, inactivated 04/17/22 Logan rded influenza virus vaccine, inactivated 02/05/21 Logan rded [id number] bivalent booster vax 04/17/22 Recorded SARS-CoV-2 (COVID-19) [...] tablet, Refills 1, Route to Pharmacy Electronically, [facility] STORE 93824, 163, cm, 10/12/21 4:22:00 EDT, Height, 85, kg, 10/11/21 8:29:00 EDT, Dry Weight Start Date: 01/29/22 Status: Ordered [facility] VITAMIN D3 25 MCG SOFTGEL [facility] VITAMIN D3 25 MCG SOFTGEL, 1, capsule, [...] Soft Stop, 05/30/22 16:31:00 EST, Tablet, [facility]/pharmacy #9762, Partial fill upon patient request if the [...] Refills, Maintenance, 03/27/22 18:40:00 EDT, [facility], 163, cm, 10/12/21 4:22:00 EDT, Height, 85, kg, 10/11/21 8:29:00 EDT, Dry Weight Start Date: 03/27/22 Status: Ordered metFORMIN 1000 mg oral tablet 1 tablet, By Mouth, 2 times a day, # 180 tablet, 0 Refills, Maintenance, 03/27/22 18:42:00 EDT, [facility], 163, cm, 10/12/21 4:22:00 EDT, Height, 85, [...] Start Date: 10/11/21 Status: Ordered nystatin topical 921904 u/gm powder See Instructions, APPLY TO AFFECTED AREA TWICE A DAY, # 60 Gm, 1 Refills, [facility], 60, APPLY TO AFFECTED AREA TWICE A [...] 06/16/22 16:42:00 EST, Route to Pharmacy Electronically, [facility]/pharmacy #[id number], Partial fill upon patient request, 06/18/22, 163,... [...] from Dr. Beal. 5bilat shoulders, seen by [facility] on 10/29/16, report to scanning Social History Social History Type Response Smoking Status Former smoker entered on: 02/14/16 Sex Patient Care team information Care Team Personnel Name: Kezia Reyes RN Position: [facility] MR W/ Merge Member Role: Primary Care Nurse Name: Meagan Christensen RN Position: [facility] RN Member Role: Primary Care Nurse Name: Tracy Chase MD Position: [facility] Primary Care Physician Member Role: PCP Address: Address: [address] [place] [address] Name: Yoana Luna RN Position: [facility] RN Member Role: Primary Care Nurse Name: Sindy Elizabeth RN Position: [facility] RN Member Role: Primary Care Nurse Name: Mayra Hamlin RN Position: [facility] Hospital Insulation Sprayer Member Role: Primary Care Nurse Care Team Related Persons Name: REYNA TIMEL Address: home [address] [place], [place] Name: VINEET NAYLOR Address: home [address] [place], [place]
--- OUTSIDE RECORDS SUMMARY | 2024-03-07 10:08 | XMS_ITS | Continuity of Care Document ---
Author Organization [facility] Adult Address [address] [place] [address]- Care Team Providers Care Data Center Consultant Name Role Phone Salvatore GOMEZ, [facility] Primary Care Physician Encounter [facility] Date(s): 08/13/22 - 09/12/22 [facility] Adult [address] [place] [address]- Allergies, Adverse Reactions, Alerts Substance Reaction Severity Status penicillins rash Active Immunizations Given and Recorded Vaccine Date Status Refusal Reason influenza virus vaccine, inactivated 04/17/22 Logan rded influenza virus vaccine, inactivated 02/05/21 Logan rded [id number] bivalent booster vax 04/17/22 Recorded SARS-CoV-2 (COVID-19) [...] 07/24/22 11:38:00 EST, Route to Pharmacy Electronically, [facility] STORE 97742, 163, cm, 06/09/22 10:50:00 EST, Height, 85, kg, 10/11/21 8:29:00 EDT, Dry Weight Start Date: 07/24/22 Status: Ordered Critic-Aid Skin 20% topical paste See Instructions, APPLY TOPICALLY 2 TIMES A DAY,X10 DAYS, # 170 Gm, 0 Refills, Maintenance, 07/08/22 13:01:00 EST, [facility] STORE 75176, 30, APPLY TOPICALLY 2 TIMES A DAY,X10 DAYS, 163, cm, 06/09/22 10:50:00 EST, Height, 85, kg, 10/11/21 8:29:00 EDT, Dry W... Start Date: 07/08/22 Status: Ordered [facility] VITAMIN D3 25 MCG SOFTGEL [facility] VITAMIN D3 25 MCG SOFTGEL, [...] Refills, Soft Stop, 05/30/22 16:31:00 EST, Tablet, [facility]/pharmacy #2026, Partial fill upon patient request if the [...] 0 Refills, Maintenance, 08/07/22 11:21:00 EST, [facility], 163, cm, 06/09/22 10:50:00 EST, Height, 85, [...] Start Date: 10/11/21 Status: Ordered nystatin topical 202330 u/gm powder See Instructions, APPLY TO AFFECTED AREA TWICE A DAY, # 60 Gm, 1 Refills, Maintenance, 07/08/22 13:01:00 EST, [facility], 30, APPLY TO AFFECTED AREA TWICE A [...] from Dr. Beal. 5bilat shoulders, seen by [facility] [facility] on 10/29/16, report to scanning Social History Social History Type Response Smoking Status Former smoker entered on: 02/14/16 Sex Patient Care team information Care Team Personnel Name: Kezia Reyes RN Position: [facility] MR W/ Merge Member Role: Primary Care Nurse Name: Meagan Christensen RN Position: [facility] RN Member Role: Primary Care Nurse Name: Tracy Chsae MD Position: [facility] Primary Care Physician Member Role: PCP Address: Address: [address] [place] [address] [address] [place], [place] [address] Name: Yoana Luna RN Position: [facility] RN Member Role: Primary Care Nurse Name: Lin Doss RN, Sindy Position: [facility] RN Member Role: Primary Care Nurse Name: Mayra Hamlin RN Position: [facility] Hospital Aviation Survival Technician Member Role: Primary Care Nurse Care Team Related Persons Name: ROXY TIM Address: home [address] [place], [place] Name: VINEET NAYLOR Address: home [address] [place], [place]
--- OUTSIDE RECORDS SUMMARY | 2024-03-07 10:08 | XMS_ITS | Continuity of Care Document ---
Author Organization [facility] Adult Address [address] [place] [address]- Care Team Providers Care Contact Lens Blocker And Cutter Name Role Phone Salvatore GOMEZ, [facility] Primary Care Physician En[place] [facility] [place] Date(s): 10/05/20 - 11/04/20 [facility] Adult [address] [place] [address]- Allergies, Adverse Reactions, Alerts Substance Reaction Severity [...] 14:16:00 EST, [facility], 165, cm, 08/07/20 13:53:00 EST, Height, 98.1, [...] 11/09/20 2:32:00 EDT, 11/02/20 2:32:00 EDT, Capsule, [facility]/pharmacy #2476, Partial fill upon patient request [...] 2 Refills, Maintenance, 09/07/20 12:38:00 EST, Tablet, [facility]/pharmacy #2476, 165, cm, 08/07/20 13:53:00 EST, [...] Start Date: 04/21/18 Status: Ordered nystatin topical 697822 u/gm powder See Instructions, APPLY TO AFFECTED AREA TWICE A DAY, # 60 Gm, 1 Refills, Acute, [facility] STORE 13901, 60, APPLY TO AFFECTED AREA TWICE A [...] 11/02/20 12:33:00 EDT, Route to Pharmacy Electronically, [facility]/pharmacy #3109, Partial fill upon patient request, 11/05/20, 165,... [...] from Dr. Beal. 5bilat shoulders, seen by [place] [facility] on 10/29/16, report to scanning Social History Social History Type Response Smoking Status Former smoker entered on: 02/14/16 Sex
[2024-03-07] MEDS: Tetracaine HCl/PF 0.5% Oph Sol 4 ML DROPS 1 DROP EYE-RIGHT (12:57)
[2024-03-07] MEDS: Cyclopentolate 1 % Ophth Sol 2 ML DRPBTL 1 DROP EYE-RIGHT ×3 (12:58→13:14)
[2024-03-07] MEDS: Tropicamide 1 % Ophth Sol 3 ML BTL 1 DROP EYE-RIGHT ×3 (13:00→13:16)
[2024-03-07] MEDS: Ketorolac Tromethamine 0.5% Op 10 ML DROPS 1 DROP EYE-RIGHT ×3 (13:02→13:18)
[2024-03-07] MEDS: Phenylephrine HCL 2.5% Oph SoL 2 ML BOTTLE 1 DROP EYE-RIGHT ×3 (13:04→13:20)
[2024-03-07 13:26] VITALS: BP 126/66; PULSE 84; RESP 16; TEMP 36.3; O2SAT 96
[2024-03-07] MEDS: Lactated Ringers 500 ML 50 ML IV (13:28)
[2024-03-07 13:42] LABS: Glucose, Whole Blood 137 mg/dL (60-115)
--- NOTE | 2024-03-07 14:12 | HO.ANESPROP2 ---
[facility] Past Medical History Medical History (Updated 03/03/24 @ 08:56 by Joann Castillo RN) Mild dementia Bladder incontinence Severe obesity Seborrheic keratoses Neoplasm of skin of lower leg Chronic ulcer of buttock Multiple sclerosis Diabetes HTN (hypertension) Functional capacity: 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 Patient : No Family History Family history of problems with anesthesia: No Surgical History Surgical History History of surgery History of Problems with Anesthesia: No Social History Social History Are you a primary care transport nurse to a significant other at home: No Do you presently have visiting nurse or other home services: Yes (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, 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) Comment: wheelchair [id number] stand/pivot, cannot ambulate Patient Tobacco Use Status: Former Tobacco user Tobacco use type: Cigarette Use of substances other than those prescribed or required for medical reasons: No Advance Directives Information Provided: Yes Advance Directives on File: No Recently lost weight without trying: No Eating poorly because of decreased appetite: No Nutrition Risks: No Nutritional Risk Meds Allergies Allergy/AdvReac Type Severity Reaction Status Date / Time Penicillins Allergy Intermediate Rash Verified 03/02/24 09:06 Active Medications: Current Medications Lactated Ringer's (Lr) 500 mls @ 50 mls/hr IV .Q10H KJ Stop: 03/07/24 20:44 Last Admin: 03/07/24 13:28 Dose: 50 mls/hr Povidone Iodine (Povidone Iodine 5 % [facility] 30 Ml Bottle) 1 appl EYE-RIGHT PREOP PRN PRN Reason: Pre-Op Surgical Implant Prophy Home Medications ?Medication ?Instructions ?Recorded ?Confirmed ?Last Taken ?Type ascorbic acid (vitamin C) 1,000 mg 1,000 mg PO DAILY 03/03/24 03/07/24 03/06/24 History tablet (Vitamin C) chlorthalidone 25 mg tablet 25 mg PO DAILY 03/03/24 03/07/24 03/06/24 History cholecalciferol (vitamin D3) 25 25 mcg PO DAILY 03/03/24 03/07/24 03/06/24 History mcg (1,000 unit) capsule (Vitamin D3) cyanocobalamin (vitamin B-12) 500 500 mcg PO DAILY 03/03/24 03/07/24 03/06/24 History mcg tablet (Vitamin B-12) metformin 1,000 mg tablet 1,000 mg PO BID 03/03/24 03/07/24 03/06/24 History mirabegron 50 mg tablet,extended 50 mg PO DAILY 03/03/24 03/07/24 03/06/24 History release 24 hr (Myrbetriq) nystatin 100,000 unit/gram topical 1 appl topical BID 03/03/24 03/03/24 Unknown History powder sertraline 25 mg tablet 25 mg PO DAILY 03/03/24 03/07/24 03/06/24 History sulfamethoxazole 800 1 tab PO BID 03/03/24 03/03/24 Unknown History mg-trimethoprim 160 mg tablet tacrolimus 0.1 % topical ointment 1 appl topical BID 03/03/24 03/03/24 Unknown History Exam Height,Weight and Vital Signs: Height 5 ft 2.2 in Weight 129.727 kg Last Vital Signs Temp 97.4 F 03/07/24 13:26 Pulse 84 03/07/24 13:26 Resp 16 03/07/24 13:26 BP 126/66 03/07/24 13:26 Pulse Ox 96 03/07/24 13:26 O2 Del Method Room Air 03/07/24 13:26 Pertinent Lab Results Pertinent Lab Results: Laboratory Tests 03/07/24 13:38 POC Glucose 137 H Airway Mallampati Class: III TM Dist: >3cm Neck ROM: Full Heart: RRR Lungs: CTA Assessment and Plan Assessment Anesthesia Assessment: Chart Reviewed Final Anesthetic Review Family History of Problems with Anesthesia: No History of Problems with Anesthesia: No NPO: Yes ASA Class: III Final Preanesthetic Review: Meds/Allgs Chart Reviewed, Consent Obtained/Reviewed and Anes Risks/Benef Reviewed Anesthetic Plan Anesthetic Plan: MAC: Disposition: Standard PACU
--- NOTE | 2024-03-07 14:44 | P.PCNO_ITS ---
Ophthalmology Procedure Procedure Date of Service: 03/07/24 Ophthalmology Viscoelastic: Healon Duet Dual Pack Pro Ophthalmology Lenses: IOL Acrysof MP - MA60AC (19) Procedure Notes: PREOPERATIVE DIAGNOSIS: Decreased visual acuity right eye secondary to cataract POSTOPERATIVE DIAGNOSIS: Same PROCEDURE: Right cataract extraction with intraocular lens insertion SURGEON: Remberto Swift M.D. ANESTHESIA: Topical/MAC ESTIMATED BLOOD LOSS: None COMPLICATIONS: None After obtaining informed consent, the patient was brought to the operating room suite and placed in the supine position. After adequate sedation per anesthesia, topical drops of Tetracaine were given to the right eye. The eye was then prepped and draped in the usual sterile fashion. The operating room microscope was then positioned over the operative eye and a lid speculum placed. A paracentesis was created. Viscoelastic was then instilled into the anterior chamber. A three plane incision was then created temporally, utilizing a 2.85 mm keratome. Capsulotomy forceps were then utilized to create a circular tear capsulotomy. Hydrodissection and hydrodelineation were carried out until adequate mobilization of the nucleus occurred. Phacoemulsification was then utilized to remove the dense central nucl eus followed by removal of the cortical material utilizing the automated aspiration irrigation unit. Viscoelastic was instilled into the posterior capsular bag followed by placement of a posterior chamber intraocular lens without difficulty. The residual Viscoelastic was then removed utilizing the automated IA machine. The wound was checked and found to be watertight. The patient tolerated the procedure well and the lid speculum was removed. Intracameral injection of Vigamox 0.1 mL followed by a subtenon injection of Kenalog-40 0.2 mL were administered. The patient will be seen in the a.m.
--- NOTE | 2024-03-07 14:44 | MHC.SHP ---
Pre-Procedural Eval Section A - 24 Hr Update-Section A only Date of Service: 03/07/24 The patient is an INPATIENT: No Changes since office visit: No Cold of Flu in the past 2 weeks, No New Medical Problems, No Changes in Medication and No Patient answered all questions The patient has been examined within 24 hours of the surgical procedure. The History & Physical has been completed within 30 days and I have reviewed it.: Yes Section B - Complete if H&P > 30 days Chief Complaint: Age-related nuclear cataract, right eye Allergies: Allergies Allergy/AdvReac Type Severity Reaction Status Date / Time Penicillins Allergy Intermediate Rash Verified 03/02/24 09:06 Plan Diagnosis/Plan: Unchanged I have reviewed the history and physical and performed a pertinent physical examination on my patient. No changes have occurred unless specified. Time Spent With Patient Time: Total time managing care of this patient today ____ minutes.
[2024-03-07 15:21] VITALS: BP 121/63; PULSE 81; RESP 15; TEMP 36.1; O2SAT 93
[2024-03-07 15:36] VITALS: BP 116/61; PULSE 84; RESP 16; TEMP 36.1; O2SAT 93
--- NOTE | 2024-03-07 15:40 | HO.POSTANES ---
Post Anesthesia Evaluation Post Anesthesia Evaluation Date of Service: 03/07/24 Vital Signs: Vital Signs Temp Pulse Resp BP Pulse Ox O2 Del Method 03/07/24 15:36 97 F 84 16 116/61 93 Room Air 03/07/24 15:21 97 F 81 15 121/63 93 Room Air 03/07/24 13:26 97.4 F 84 16 126/66 96 Room Air Anesthesia: Monitored Mental Status: Awake Pain Control: Satisfactory Nausea/Vomiting: None Hydration: Adequate Anesthesia-Related Issues: No Anes. Related Issues
== END 2024-03-07 15:45 | disposition home or self-care (01) ==
PROVIDERS: PCP Internal Medicine; Visit Provider Ophthalmology
PROC: (CPT 66985; principal; 2024-03-07 12:40)
DX: H25.11 Age-related nuclear cataract, right eye (principal); H54.7 Unspecified visual loss; H18.413 Arcus senilis, bilateral; F03.A0 Unspecified dementia, mild, without behavioral disturbance, psychotic disturbance, mood disturbance, and anxiety; I10 Essential (primary) hypertension; E11.9 Type 2 diabetes mellitus without complications; G35 Multiple sclerosis; Z79.84 Long term (current) use of oral hypoglycemic drugs; Z79.899 Other long term (current) drug therapy; Z88.0 Allergy status to penicillin; Z87.891 Personal history of nicotine dependence
CPT/HCPCS: 66984; 82947; J2250; J3010; J3301; V2630

== ENCOUNTER 2024-03-21 10:03 | Day surgery (SDC) | payer MEDICARE, SELFPAY ==
[2024-03-03 09:07] VITALS: BMI 52.0
--- NOTE | 2024-03-17 14:44 | HO.ANESPROP2 ---
Documented by User: Tamiko Luong NP 03/17/24 14:45 HPI - Anesthesia Eval Consult details Narrative: 73yo F for Left Cataract Extraction IOL Insertion Right eye 03/07/24: Fent 52, Midaz 2 PMFSH Past Medical History Medical History Mild dementia Bladder incontinence Severe obesity Seborrheic keratoses Neoplasm of skin of lower leg Chronic ulcer of buttock Multiple sclerosis Diabetes HTN (hypertension) Family History Family history of problems with anesthesia: No Surgical History Surgical History History of surgery History of Problems with Anesthesia: No Social History Social History Are you a primary palliative care nurse to a significant other at home: No Do you presently have visiting nurse or other home services: Yes (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, 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) Comment: wheelchair [id number] stand/pivot, cannot ambulate Patient Tobacco Use Status: Former Tobacco user Tobacco use type: Cigarette Use of substances other than those prescribed or required for medical reasons: No Advance Directives Information Provided: Yes Recently lost weight without trying: No Eating poorly because of decreased appetite: No Nutrition Risks: No Nutritional Risk Meds Allergies Allergy/AdvReac Type Severity Reaction Status Date / Time Penicillins Allergy Intermediate Rash Verified 03/02/24 09:06 Home Medications ?Medication ?Instructions ?Recorded ?Confirmed ?Last Taken ?Type ascorbic acid (vitamin C) 1,000 mg 1,000 mg PO DAILY 03/03/24 03/07/24 03/06/24 History tablet (Vitamin C) chlorthalidone 25 mg tablet 25 mg PO DAILY 03/03/24 03/07/24 03/06/24 History cholecalciferol (vitamin D3) 25 25 mcg PO DAILY 03/03/24 03/07/24 03/06/24 History mcg (1,000 unit) capsule (Vitamin D3) cyanocobalamin (vitamin B-12) 500 500 mcg PO DAILY 03/03/24 03/07/24 03/06/24 History mcg tablet (Vitamin B-12) metformin 1,000 mg tablet 1,000 mg PO BID 03/03/24 03/07/24 03/06/24 History mirabegron 50 mg tablet,extended 50 mg PO DAILY 03/03/24 03/07/24 03/06/24 History release 24 hr (Myrbetriq) nystatin 100,000 unit/gram topical 1 appl topical BID 03/03/24 03/03/24 Unknown History powder sertraline 25 mg tablet 25 mg PO DAILY 03/03/24 03/07/24 03/06/24 History sulfamethoxazole 800 1 tab PO BID 03/03/24 03/03/24 Unknown History mg-trimethoprim 160 mg tablet tacrolimus 0.1 % topical ointment 1 appl topical BID 03/03/24 03/03/24 Unknown History Exam Height,Weight and Vital Signs: Height 5 ft 2.2 in Weight 129.727 kg Assessment and Plan Assessment Anesthesia Assessment: Chart Reviewed Final Anesthetic Review Family History of Problems with Anesthesia: No History of Problems with Anesthesia: No Documented by User: Vicki Mcclain MD 03/21/24 13:34 PMFSH Past Medical History Medical History Mild dementia Bladder incontinence Severe obesity Seborrheic keratoses Neoplasm of skin of lower leg Chronic ulcer of buttock Multiple sclerosis Diabetes HTN (hypertension) Surgical History Surgical History History of surgery Social History Social History Are you a primary palliative care nurse to a significant other at home: No Do you presently have visiting nurse or other home services: Yes (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, 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) Comment: wheelchair [id number] stand/pivot, cannot ambulate Patient Tobacco Use Status: Former Tobacco user Tobacco use type: Cigarette Use of substances other than those prescribed or required for medical reasons: No Advance Directives Information Provided: Yes Recently lost weight without trying: No Eating poorly because of decreased appetite: No Nutrition Risks: No Nutritional Risk Meds Allergies Allergy/AdvReac Type Severity Reaction Status Date / Time Penicillins Allergy Intermediate Rash Verified 03/02/24 09:06 Home Medications ?Medication ?Instructions ?Recorded ?Confirmed ?Last Taken ?Type ascorbic acid (vitamin C) 1,000 mg 1,000 mg PO DAILY 03/03/24 03/07/24 03/06/24 History tablet (Vitamin C) chlorthalidone 25 mg tablet 25 mg PO DAILY 03/03/24 03/07/24 03/06/24 History cholecalciferol (vitamin D3) 25 25 mcg PO DAILY 03/03/24 03/07/24 03/06/24 History mcg (1,000 unit) capsule (Vitamin D3) cyanocobalamin (vitamin B-12) 500 500 mcg PO DAILY 03/03/24 03/07/24 03/06/24 History mcg tablet (Vitamin B-12) metformin 1,000 mg tablet 1,000 mg PO BID 03/03/24 03/07/24 03/06/24 History mirabegron 50 mg tablet,extended 50 mg PO DAILY 03/03/24 03/07/24 03/06/24 History release 24 hr (Myrbetriq) nystatin 100,000 unit/gram topical 1 appl topical BID 03/03/24 03/03/24 Unknown History powder sertraline 25 mg tablet 25 mg PO DAILY 03/03/24 03/07/24 03/06/24 History sulfamethoxazole 800 1 tab PO BID 03/03/24 03/03/24 Unknown History mg-trimethoprim 160 mg tablet tacrolimus 0.1 % topical ointment 1 appl topical BID 03/03/24 03/03/24 Unknown History Exam Airway Mallampati Class: III TM Dist: >3cm Neck ROM: Limited Heart: RRR Lungs: CTA Assessment and Plan Assessment Anesthesia Assessment: Anesthesia Plan Discussed Final Anesthetic Review NPO: Yes ASA Class: III Final Preanesthetic Review: Meds/Allgs Chart Reviewed, Consent Obtained/Reviewed and Anes Risks/Benef Reviewed Patient Risk: Intermediate Procedure Risk: Low Anesthetic Plan Anesthetic Plan: MAC: Disposition: Standard PACU
--- OUTSIDE RECORDS SUMMARY | 2024-03-21 10:06 | XMS_ITS | Continuity of Care Document ---
Author Organization [facility] Adult Address [address] [place] [address]- Care Team Providers Care Feather Maker Name Role Phone Salvatore GOMEZ, [facility] Primary Care Physician Encounter [facility] Date(s): 03/25/21 - 04/24/21 [facility] [address] [place] [address]- Allergies, Adverse Reactions, Alerts Substance Reaction Severity Status penicillins rash Active Immunizations Given and Recorded Vaccine Date Status Refusal Reason SARS-CoV-2 (COVID-19) mRNA-1273 vaccine 1 09/30/20 Recorded SARS-CoV-2 (COVID-19) mRNA-1273 vaccine 2 09/02/20 Recorded pneumococcal 13-valent vaccine 3 03/21/20 Recorded Influenza Virus Vaccine (oldterm) 4 03/21/20 [facility] Medications Beside Commode Beside Commode, See Instructions, [...] 16:07:00 EDT, Route to Pharmacy Electronically, [id number], 165, cm, 12/06/20 11:28:00 EDT, Height, 98.1, kg, 09/20/19 2:16:00 EDT, Dry Weight Start Date: 02/05/21 Status: Ordered Critic-Aid Skin 20% topical paste See Instructions, APPLY TO AFFECTED AREA TWICE A DAY FOR 14 DAYS, # 170 Gm, 1 Refills, [id number], 30, APPLY TO AFFECTED AREA TWICE A DAY FOR 14 DAYS, 165, cm, 12/06/20 11:28:00 EDT, Height, 98.1, kg, 09/20/19 2:16:00 EDT, Dry Weight Start Date: 04/12/21 Status: Ordered [facility] VITAMIN D3 25 MCG SOFTGEL [facility] VITAMIN D3 25 MCG SOFTGEL, 1, capsule, [...] Refills, Maintenance, 09/07/20 12:38:00 EST, Tablet, [id number], 165, cm, 08/07/20 13:53:00 EST, Height, 98.1, [...] Start Date: 04/21/18 Status: Ordered nystatin topical 283326 u/gm powder See Instructions, APPLY TO AFFECTED AREA TWICE A DAY, # 60 Gm, 1 Refills, Acute, [id number], 60, APPLY TO AFFECTED AREA TWICE A [...] tablet, Refills 0, Tot. Refills 0, Acute 05/17/21 14:57:00 EST, 04/19/21 14:57:00 EDT, Route to Pharmacy Electronically, [id number], Partial fill upon patient request, 165, cm, ... Start Date: 04/19/21 Stop Date: 05/17/21 Status: Ordered Prevnar 13 intramuscular suspension 0.5 [...] Refills, Maintenance, 12/17/20 9:37:00 EDT, Capsule, [id number], decrease dose, re sent from 06/30/17, 165, [...] from Dr. Beal. 5bilat shoulders, seen by [facility] on 10/29/16, report to scanning Social History Social History Type Response Smoking Status Former smoker entered on: 02/14/16 Sex
[2024-03-21 12:52] VITALS: BP 129/77; PULSE 80; RESP 16; TEMP 36.6; O2SAT 95
[2024-03-21] MEDS: Lactated Ringers 500 ML 50 ML IV (12:56)
[2024-03-21] MEDS: Tetracaine HCl/PF 0.5% Oph Sol 4 ML DROPS 1 DROP EYE-LEFT (12:56)
[2024-03-21] MEDS: Cyclopentolate 1 % Ophth Sol 2 ML DRPBTL 1 DROP EYE-LEFT ×3 (12:56→13:07)
[2024-03-21] MEDS: Tropicamide 1 % Ophth Sol 3 ML BTL 1 DROP EYE-LEFT ×3 (12:57→13:07)
[2024-03-21] MEDS: Ketorolac Tromethamine 0.5% Op 10 ML DROPS 1 DROP EYE-LEFT ×3 (12:58→13:08)
[2024-03-21] MEDS: Phenylephrine HCL 2.5% Oph SoL 2 ML BOTTLE 1 DROP EYE-LEFT ×3 (12:59→13:09)
[2024-03-21 13:02] LABS: Glucose, Whole Blood 114 mg/dL (60-115)
--- NOTE | 2024-03-21 13:18 | MHC.SHP ---
Pre-Procedural Eval Section A - 24 Hr Update-Section A only Date of Service: 03/21/24 The patient is an INPATIENT: No Changes since office visit: No Cold of Flu in the past 2 weeks, No New Medical Problems, No Changes in Medication and No Patient answered all questions The patient has been examined within 24 hours of the surgical procedure. The History & Physical has been completed within 30 days and I have reviewed it.: Yes Section B - Complete if H&P > 30 days Chief Complaint: Age-related nuclear cataract, left eye Allergies: Allergies Allergy/AdvReac Type Severity Reaction Status Date / Time Penicillins Allergy Intermediate Rash Verified 03/02/24 09:06 Plan Diagnosis/Plan: Unchanged I have reviewed the history and physical and performed a pertinent physical examination on my patient. No changes have occurred unless specified. Time Spent With Patient Time: Total time managing care of this patient today ____ minutes.
--- NOTE | 2024-03-21 13:19 | HO.PNOPHT ---
Ophthalmology Procedure Procedure Date of Service: 03/21/24 Ophthalmology Viscoelastic: Healon Duet Dual Pack Pro Ophthalmology Lenses: IOL Acrysof MP - MA60AC (18) Procedure Notes: PREOPERATIVE DIAGNOSIS: Decreased visual acuity left eye secondary to cataract POSTOPERATIVE DIAGNOSIS: Same PROCEDURE: Left cataract extraction with intraocular lens insertion SURGEON: Remberto Swift M.D. ANESTHESIA: Topical/MAC ESTIMATED BLOOD LOSS: None COMPLICATIONS: None After obtaining informed consent, the patient was brought to the operation room suite and placed in the supine position. After adequate sedation per anesthesia, topical drops of Tetracaine were given to the left eye. The eye was then prepped and draped in the usual sterile fashion. The operating room microscope was then positioned over the operative eye and a lid speculum placed. A paracentesis was created. Viscoelastic was then instilled into the anterior chamber. A three plane incision was then created temporally, utilizing a 2.85 mm keratome. Capsulotomy forceps were then utilized to create a circular tear capsulotomy. Hydrodissection and hydrodelineation were carried out until adequate mobilization of the nucleus occurred. Phacoemulsification was then utilized to remove the dense central nucleus followed by removal of the cortical material utilizing the automated aspiration irrigation unit. Viscoat elastic was instilled into the posterior capsular bag followed by placement of a posterior chamber intraocular lens without difficulty. The residual Viscoat elastic was then removed utilizing the automated IA machine. The wound was check and found to be watertight. The patient tolerated the procedure well and the lid speculum was removed. Intracameral injection of Vigamox 0.1 mL followed by a subtenon injection of Kenalog-40 0.2 mL were administered. The patient will be seen in the a.m.
[2024-03-21 14:05] VITALS: BP 121/76; PULSE 82; RESP 17; TEMP 36.1; O2SAT 99
== END 2024-03-21 14:09 | disposition home or self-care (01) ==
PROVIDERS: PCP Internal Medicine; Visit Provider Ophthalmology
PROC: (CPT 66985; principal; 2024-03-21 13:00)
DX: H25.12 Age-related nuclear cataract, left eye (principal); H54.7 Unspecified visual loss; H18.413 Arcus senilis, bilateral; F03.90 Unspecified dementia, unspecified severity, without behavioral disturbance, psychotic disturbance, mood disturbance, and anxiety; G35 Multiple sclerosis; I10 Essential (primary) hypertension; E11.9 Type 2 diabetes mellitus without complications; Z88.0 Allergy status to penicillin; Z79.84 Long term (current) use of oral hypoglycemic drugs; Z79.899 Other long term (current) drug therapy
CPT/HCPCS: 66984; 82947; J2250; J3301; V2630